=== PATIENT | male | born 1950 | race Caucasian/White ===

== ENCOUNTER 2020-07-14 08:13 | Outpatient (REF) | payer MEDICARE, SELFPAY ==
[2020-07-14 09:14] LABS: MANUAL DIFF FLAG NO
[2020-07-14 09:25] LABS: Basophils Percent Auto 0.4 % (0-2); Eosinophils Absolute Auto 0.2 X10*3/uL (0.0-0.4); Eosinophils Percent Auto 3.1 % (0-4); Hematocrit 45.3 % (42-52); Imm Gran Abs Auto 0.08 X10*3/uL (0.00-0.03); Imm Gran Pct Auto 1.2 % (0.0-0.4); Lymphocytes Absolute Auto 1.7 X10*3/uL (1.2-4.9); Lymphocytes Percent Auto 24.6 % (20-40); Mean Corpuscular HGB Conc 35.3 g/dl (31.0-36.0); Mean Corpuscular Hemoglobin 33.8 pg (27.0-33.0); Mean Corpuscular Volume 95.6 fL (80-98); Mean Platelet Volume 10.5 fL (9.4-12.4); Monocytes Absolute Auto 0.6 X10*3/uL (0.1-1.2); Neutrophils Absolute Auto 4.2 X10*3/uL (2.0-8.3); Neutrophils Percent Auto 61.7 % (45-73); Platelet Count 162 X10*3/uL (160-400); Red Blood Count 4.74 X10*6/uL (4.60-5.80); Red Cell Distribution Width 11.9 % (11.0-16.0); White Blood Count 6.9 X10*3/uL (4.8-10.8)
[2020-07-14 09:32] LABS: Alanine Aminotransferase 22 U/L (0-40); Alkaline Phosphatase 64 U/L (39-117); Anion Gap 10 (12-20); Aspartate Amino Transferase 22 U/L (5-37); Bilirubin Total 0.7 mg/dL (0.0-1.0); Blood Urea Nitrogen 22 mg/dL (9-16); Carbon Dioxide 30 mmol/L (22-29); Chloride 106 mmol/L (96-108); Cholesterol 174 mg/dL; Estimated Glomerular Filt Rate 53; Glucose Fasting 106 mg/dL (60-99); HDL Cholesterol 39 mg/dL; LDL Cholesterol Calculated 115 mg/dl; Magnesium 2.1 mg/dL (1.6-2.6); Phosphorus 3.3 mg/dL (2.7-4.5); Potassium 4.5 mmol/l (3.3-5.1); Sodium 141 mmol/L (135-145); Total Protein 6.5 g/dL (6.5-8.0); Triglycerides 104 mg/dL
[2020-07-14 09:52] LABS: T4 Thyroxine 6.2 ug/dL (4.5-12.0); Thyroid Stimulating Hormone 1.65 mIU/mL (0.32-4.0)
[2020-07-14 10:01] LABS: Folate 18.5 ng/mL (> or = 4.0); Vitamin B12 488 pg/mL (200-900)
== END 2020-07-14 08:14 | disposition home or self-care (01) ==
LOC: HO.LAB 08:13
PROVIDERS: PCP Internal Medicine; Visit Provider Internal Medicine
DX: D69.6 Thrombocytopenia, unspecified (principal); E78.00 Pure hypercholesterolemia, unspecified; E83.39 Other disorders of phosphorus metabolism
CPT/HCPCS: 36415; 80053; 80061; 82607; 82746; 83735; 84100; 84436; 84443; 85025

== ENCOUNTER → 2020-10-21 08:07 | Outpatient (REF) | payer MEDICARE, SELFPAY ==
--- NOTE | 2020-10-21 08:30 | CA_ITS ---
Transthoracic Echocardiogram Patient (Last, First, Middle): Elfego Roger F Gender: Male Date of : 1950 Age: 69 Procedure Date: 10/21/2020 Procedure Type: Transthoracic Echocardiogram Location: OP Height: 177.8 cm Weight: 79.38 kg BSA: 1.97 m2 Heart Rate: bpm BP: 142 / 80 mmHg Stone Unloader: JOLENE Referring MD: Zuhair Peguero MD Symptoms: I35.1 NON RHEUMATIC AORTIC REGUR, AAA I77.810 Conclusions: - The visually estimated ejection fraction is between 50-55%. - There is mild aortic valve regurgitation. Findings Left Ventricle Normal left ventricular cavity size. There is mildly increased left ventricular wall thickness. The left ventricular systolic function is low normal. The visually estimated ejection fraction is between 50-55%. There is no evidence of regional wall motion abnormalities. Abnormal diastolic function is noted. Spectral Doppler is indicative of an impaired relaxation filling pattern. E/E prime ratio is <8, consistent with normal filling pressures. Right Ventricle Normal right ventricular cavity size and systolic function. Atria Both atria are normal in size. There is no evidence of interatrial shunt by color Doppler. Aortic Valve There is a normal trileaflet aortic valve. There is no aortic valve stenosis. There is mild aortic valve regurgitation. Mitral Valve Normal mitral valve structure and function. There is no mitral valve regurgitation. There is no mitral valve stenosis. Pulmonic Valve The pulmonic valve is likely normal. Tricuspid Valve Normal tricuspid valve structure and function. There is trace tricuspid valve regurgitation. Great Vessels There is mild dilatation of the ascending aorta. The visualized portions of the pulmonary artery and branches are normal. Venous The inferior vena cava is normal in size and collapses greater than 50% with inspiration. Pericardium/Pleural There is no evidence of pericardial effusion. Prior Study Comparison No significant change compared to prior study dated: 07/29/2019. Measurements 2D Linear Measurements IVSd: 1.31 0.6-0.9/0.6-1.0 cm LVIDd: 4.31 3.9-5.3/4.2-5.9 cm LVIDd Index: 2.19 2.4-3.2/2.2-3.1 cm/m2 LVIDs: 3.07 2.0-3.6 cm LVPWd: 1.12 0.7-1.1 cm Ao Root: 2.80 2.1-3.5 cm LA Diam: 5.00 2.7-3.8/3.0-4.0 cm LAIDs Index: 2.54 1.5-2.3 cm/m2 LV Mass: 235.16 67-162/88-224 g LV Mass Index: 119.37 43-95/49-115 g/m2 LVOT Diam: 2.70 3.0+(-)1.3 cm 2D Systolic Function EF 4C: 54.10 >55% EF 2C: 63.30 >55% EF BiP: 58.00 >55% Mitral Valve MV Pk E: 0.39 MV PK A: 0.63 MV Decel Time: 231.00 E/A: 0.60 E'Lateral: 8.61 E'Medial: 5.51 E/E' Med: 7.10 E/E' Lat: 4.60 PHT: 68.00 MVA PHT: 3.24 Decel Pepin: 1.75 Aortic Valve AoV Pk Shiv: 1.15 AoV Pk Grad: 5.00 AI Pk Shiv: 3.91 AI Pepin: 1.63 LVOT LVOT Diam: 2.70 LVOT Area: 5.73 Diastolic Function MV Pk E: 0.39 MV Pk A: 0.63 E/A: 0.60 E'Medial: 5.51 E/E' Med: 7.10 E' Laterial: 8.61 E/E' Lat: 4.60 Tricuspid Valve TR Pk Shiv: 2.06 TR Pk Grad: 17.00 RA Press: 3.00 RVSP: 20.00 Great Vessels Aorta Ao Root-2D: 2.80 2.0-3.7 cm Ao Asc: 4.20 2.1-3.4 cm Updated in Other Vendor System with Status of Final Ciro Cardona MD electronically signed on 10/22/2020 9:48:51 PM with status of Final
== END ==
LOC: HO.CARD 08:07
PROVIDERS: Visit Provider Internal Medicine
DX: I35.1 Nonrheumatic aortic (valve) insufficiency (principal); I77.810 Thoracic aortic ectasia
CPT/HCPCS: 93306

== ENCOUNTER → 2020-10-27 08:05 | Outpatient (BNVA) | payer MEDICARE, SELFPAY | PROVIDERS: PCP Internal Medicine; Visit Provider Internal Medicine | DX: I35.1 Nonrheumatic aortic (valve) insufficiency (principal); I77.810 Thoracic aortic ectasia; I10 Essential (primary) hypertension | CPT/HCPCS: 93005; 99212 ==

== ENCOUNTER 2021-01-17 08:13 | Outpatient (REF) | payer MEDICARE, SELFPAY ==
[2021-01-17 09:03] LABS: Estimated Average Glucose 88 mg/dL; Hemoglobin A1c % 4.7 %
[2021-01-17 09:06] LABS: Alanine Aminotransferase 22 U/L (0-40); Albumin Level 4.1 g/dL (3.5-5.0); Alkaline Phosphatase 58 U/L (39-117); Anion Gap 10 (12-20); Aspartate Amino Transferase 21 U/L (5-37); Bilirubin Total 0.9 mg/dL (0.0-1.0); Blood Urea Nitrogen 21 mg/dL (9-16); Calcium 8.7 mg/dL (8.4-10.2); Carbon Dioxide 29 mmol/L (22-29); Chloride 108 mmol/L (96-108); Estimated Glomerular Filt Rate > 60; Glucose Random 105 mg/dL (60-115); Potassium 4.3 mmol/L (3.3-5.1); Sodium 143 mmol/L (135-145); Total Protein 6.7 g/dL (6.5-8.0)
== END 2021-01-17 08:14 | disposition home or self-care (01) ==
LOC: HO.LAB 08:13
PROVIDERS: PCP Internal Medicine; Visit Provider Internal Medicine
DX: I10 Essential (primary) hypertension (principal); R73.02 Impaired glucose tolerance (oral)
CPT/HCPCS: 36415; 80053; 83036

== ENCOUNTER 2021-01-24 09:17 | Outpatient (REF) | payer MEDICARE, SELFPAY ==
[2021-01-24 10:05] LABS: MANUAL DIFF FLAG NO
[2021-01-24 10:09] LABS: Basophils Percent Auto 0.5 % (0-2); Eosinophils Absolute Auto 0.2 X10*3/uL (0.0-0.4); Eosinophils Percent Auto 2.5 % (0-4); Hematocrit 45.2 % (42-52); Hemoglobin 15.9 g/dl (14.0-18.0); Imm Gran Abs Auto 0.03 X10*3/uL (0.00-0.03); Imm Gran Pct Auto 0.5 % (0.0-0.4); Immature Retic Fraction 11.5 % (2.3-13.4); Lymphocytes Absolute Auto 1.4 X10*3/uL (1.2-4.9); Lymphocytes Percent Auto 22.1 % (20-40); Mean Corpuscular HGB Conc 35.2 g/dl (31.0-36.0); Mean Corpuscular Hemoglobin 33.8 pg (27.0-33.0); Mean Corpuscular Volume 96.2 fL (80-98); Monocytes Absolute Auto 0.7 X10*3/uL (0.1-1.2); Monocytes Percent Auto 11.3 % (2-11); Neutrophils Absolute Auto 3.9 X10*3/uL (2.0-8.3); Neutrophils Percent Auto 63.1 % (45-73); Platelet Count 161 X10*3/uL (160-400); Red Cell Distribution Width 12.4 % (11.0-16.0); Retic HGB Equivalent 38.6 pg (30.0-35.0); Reticulocyte Percent 2.8 % (0.5-1.8); Reticulocytes Absolute 0.131 X10*6/uL (0.026-0.095); White Blood Count 6.1 X10*3/uL (4.8-10.8)
[2021-01-24 10:29] LABS: Iron 61 mcg/dL (45-160); Percent Iron Saturation 25 % (15-50); Total Iron Binding Capacity 244 mcg/dL (228-428); Unsaturated Iron Binding 183 ug/dL
[2021-01-24 10:55] LABS: Free T4 (Free Thyroxine) 0.85 ng/dL (0.71-1.85); Prostate Specific Antigen Scr 3.56 ng/mL (<0.05-4.0); Thyroid Stimulating Hormone 0.75 uIU/mL (0.32-4.0)
[2021-01-24 11:26] LABS: Ferritin 168 ng/mL (20-250)
[2021-01-24 11:55] LABS: Folate > 20.0 ng/mL (> or = 4.0); Vitamin B12 396 pg/mL (200-900)
== END 2021-01-24 09:18 | disposition home or self-care (01) ==
LOC: HO.LAB 09:17
PROVIDERS: PCP Internal Medicine; Visit Provider Internal Medicine
DX: R53.83 Other fatigue (principal); Z12.5 Encounter for screening for malignant neoplasm of prostate
CPT/HCPCS: 36415; 82607; 82728; 82746; 83540; 84153; 84439; 84443; 85025; 85045

== ENCOUNTER 2021-06-26 08:24 | Outpatient (REF) | payer MEDICARE, SELFPAY ==
[2021-06-26 09:11] LABS: MANUAL DIFF FLAG NO
[2021-06-26 09:14] LABS: Basophils Percent Auto 0.5 % (0-2); Eosinophils Absolute Auto 0.2 X10*3/uL (0.0-0.4); Eosinophils Percent Auto 3.6 % (0-4); Hematocrit 46.3 % (42-52); Hemoglobin 16.4 g/dl (14.0-18.0); Imm Gran Abs Auto 0.04 X10*3/uL (0.00-0.03); Imm Gran Pct Auto 0.7 % (0.0-0.4); Immature Retic Fraction 11.5 % (2.3-13.4); Lymphocytes Absolute Auto 1.8 X10*3/uL (1.2-4.9); Lymphocytes Percent Auto 30.7 % (20-40); Mean Corpuscular HGB Conc 35.4 g/dl (31.0-36.0); Mean Corpuscular Hemoglobin 33.6 pg (27.0-33.0); Mean Corpuscular Volume 94.9 fL (80-98); Mean Platelet Volume 10.2 fL (9.4-12.4); Monocytes Absolute Auto 0.5 X10*3/uL (0.1-1.2); Monocytes Percent Auto 9.2 % (2-11); Neutrophils Absolute Auto 3.2 X10*3/uL (2.0-8.3); Neutrophils Percent Auto 55.3 % (45-73); Platelet Count 144 X10*3/uL (160-400); Red Blood Count 4.88 X10*6/uL (4.60-5.80); Red Cell Distribution Width 12.8 % (11.0-16.0); Retic HGB Equivalent 36.8 pg (30.0-35.0); Reticulocytes Absolute 0.144 X10*6/uL (0.026-0.095); White Blood Count 5.8 X10*3/uL (4.8-10.8)
[2021-06-26 09:37] LABS: Alanine Aminotransferase 15 U/L (0-40); Albumin Level 4.2 g/dL (3.5-5.0); Alkaline Phosphatase 54 U/L (39-117); Anion Gap 13 (12-20); Aspartate Amino Transferase 22 U/L (5-37); Bilirubin Total 0.9 mg/dL (0.0-1.0); Blood Urea Nitrogen 22 mg/dL (9-16); Calcium 9.2 mg/dL (8.4-10.2); Carbon Dioxide 26 mmol/L (22-29); Chloride 108 mmol/L (96-108); Cholesterol 198 mg/dL; Estimated Glomerular Filt Rate 52; Glucose Random 97 mg/dL (60-115); HDL Cholesterol 45 mg/dL; Iron 123 mcg/dL (45-160); LDL Cholesterol Calculated 125 mg/dl; Percent Iron Saturation 51 % (15-50); Potassium 4.3 mmol/L (3.3-5.1); Sodium 143 mmol/L (135-145); Total Iron Binding Capacity 241 mcg/dL (228-428); Total Protein 6.4 g/dL (6.5-8.0); Triglycerides 140 mg/dL; Unsaturated Iron Binding 118 ug/dL
[2021-06-26 09:49] LABS: Estimated Average Glucose 88 mg/dL; Hemoglobin A1c % 4.7 %
[2021-06-26 10:02] LABS: Ferritin 118 ng/mL (20-250); Free T4 (Free Thyroxine) 0.97 ng/dL (0.71-1.85); Thyroid Stimulating Hormone 1.42 uIU/mL (0.32-4.0)
[2021-06-26 10:24] LABS: Folate 19.5 ng/mL (> or = 4.0); Vitamin B12 378 pg/mL (200-900)
== END 2021-06-26 08:25 | disposition home or self-care (01) ==
LOC: HO.LAB 08:24
PROVIDERS: PCP Internal Medicine; Visit Provider Internal Medicine
DX: R73.02 Impaired glucose tolerance (oral) (principal); E78.00 Pure hypercholesterolemia, unspecified; R79.89 Other specified abnormal findings of blood chemistry
CPT/HCPCS: 36415; 80053; 80061; 82607; 82728; 82746; 83036; 83540; 84439; 84443; 85025; 85045

== ENCOUNTER → 2021-12-11 08:25 | Outpatient (REF) | payer MEDICARE, SELFPAY ==
--- NOTE | 2021-12-11 08:28 | CA_ITS ---
Transthoracic Echocardiogram Patient (Last, First, Middle): Elfego Roger F Gender: Male Date of : 1950 Age: 71 Procedure Date: 12/11/2021 Procedure Type: Transthoracic Echocardiogram Location: OP Height: 177.8 cm Weight: 78.02 kg BSA: 1.96 m2 Heart Rate: bpm BP: 118 / 60 mmHg Lost And Found Clerk: Referring MD: Zuhair Peguero MD Symptoms: I35.1 - Nonrheumatic aortic (valve) insufficiency Study Quality: Fair ECG Rhythm: Sinus Conclusions: - The left ventricular systolic function is normal. The calculated ejection fraction is 57% by biplane method. - There is mild aortic valve regurgitation. - There is no dilatation of the sinuses of Valsalva measuring 3.60 cm and mild dilatation of the ascending aorta measuring 4.20 cm. Findings Left Ventricle Normal left ventricular cavity size. There is mildly increased left ventricular wall thickness. The left ventricular systolic function is normal. The calculated ejection fraction is 57% by biplane method. There is no evidence of regional wall motion abnormalities. Diastolic function is normal for age. Right Ventricle Normal right ventricular cavity size and systolic function. Atria Both atria are normal in size. Aortic Valve There is a normal trileaflet aortic valve. There is no aortic valve stenosis. There is mild aortic valve regurgitation. Mitral Valve The mitral valve appears normal. There is trace mitral valve regurgitation. There is no mitral valve stenosis. Pulmonic Valve The pulmonic valve was not well visualized. Tricuspid Valve Normal tricuspid valve structure. There is trace tricuspid valve regurgitation. The pulmonary artery systolic pressure is normal. Great Vessels There is no dilatation of the sinuses of Valsalva measuring 3.60 cm and mild dilatation of the ascending aorta measuring 4.20 cm. Venous The inferior vena cava is normal in size and collapses greater than 50% with inspiration. Pericardium/Pleural There is no evidence of pericardial effusion. Prior Study Comparison No significant change compared to prior study dated: 10/21/2020. Measurements 2D Linear Measurements IVSd: 1.23 0.6-0.9/0.6-1.0 cm LVIDd: 4.84 3.9-5.3/4.2-5.9 cm LVIDd Index: 2.47 2.4-3.2/2.2-3.1 cm/m2 LVIDs: 2.85 2.0-3.6 cm LVPWd: 1.24 0.7-1.1 cm Ao Root: 3.60 2.1-3.5 cm LA Diam: 4.90 2.7-3.8/3.0-4.0 cm LAIDs Index: 2.50 1.5-2.3 cm/m2 LV Mass: 288.33 67-162/88-224 g LV Mass Index: 147.11 43-95/49-115 g/m2 LVOT Diam: 2.50 3.0+(-)1.3 cm 2D Systolic Function EF 4C: 57.40 >55% EF 2C: 56.60 >55% EF BiP: 56.60 >55% Mitral Valve MV Pk E: 0.54 MV PK A: 0.75 MV Decel Time: 188.00 E/A: 0.70 E'Lateral: 9.03 E'Medial: 6.09 E/E' Med: 8.90 E/E' Lat: 6.00 PHT: 55.00 MVA PHT: 4.00 Decel [place]: 2.87 Aortic Valve AoV Pk Shiv: 1.39 AoV Mn Shiv: 0.95 AoV VTI: 0.33 AoV Pk Grad: 8.00 Aov Mn Grad: 4.00 MENDEZ Cont.VTI: 3.08 AI Pk Shiv: 4.94 AI [place]: 3.50 LVOT LVOT Pk Shiv: 0.80 LVOT Mn Shiv: 0.54 LVOT VTI: 0.21 LVOT Pk Grad: 3.00 LVOT Mn Grad: 1.00 LVOT Diam: 2.50 LVOT Area: 4.91 Diastolic Function MV Pk E: 0.54 MV Pk A: 0.75 E/A: 0.70 E'Medial: 6.09 E/E' Med: 8.90 E' Laterial: 9.03 E/E' Lat: 6.00 Right Ventricle TAPSE (mm): 31.00 Tricuspid Valve TR Pk Shiv: 1.51 TR Pk Grad: 9.00 Great Vessels Aorta Ao Root-2D: 3.60 2.0-3.7 cm Sinus of Valsalva: 3.60 2.0-3.5 cm Ao Asc: 4.20 2.1-3.4 cm Pulmonary Valve PV Pk Shiv: 1.04 Peak PV Grad: 4.00 Updated in Other Vendor System with Status of Final Zuhair Peguero MD electronically signed on 12/11/2021 12:00:45 PM with status of Final
== END ==
LOC: HO.CARD 08:25
PROVIDERS: PCP Internal Medicine; Visit Provider Internal Medicine
DX: I35.1 Nonrheumatic aortic (valve) insufficiency (principal)
CPT/HCPCS: 93306

== ENCOUNTER 2021-12-21 07:43 | Outpatient (REF) | payer MEDICARE, SELFPAY ==
[2021-12-21 07:59] LABS: MANUAL DIFF FLAG NO
[2021-12-21 08:06] LABS: Basophils Percent Auto 0.7 % (0-2); Eosinophils Absolute Auto 0.2 X10*3/uL (0.0-0.4); Eosinophils Percent Auto 3.5 % (0-4); Hematocrit 49.1 % (42.0-52.0); Hemoglobin 17.2 g/dl (14.0-18.0); Imm Gran Abs Auto 0.03 X10*3/uL (0.00-0.03); Imm Gran Pct Auto 0.5 % (0.0-0.4); Lymphocytes Absolute Auto 2.3 X10*3/uL (1.2-4.9); Lymphocytes Percent Auto 37.9 % (20-40); Mean Corpuscular Hemoglobin 33.3 pg (27.0-33.0); Mean Platelet Volume 10.2 fL (9.4-12.4); Monocytes Absolute Auto 0.6 X10*3/uL (0.1-1.2); Monocytes Percent Auto 9.1 % (2-11); Neutrophils Absolute Auto 2.9 x10*3/uL (2.0-8.3); Neutrophils Percent Auto 48.3 % (45-73); Platelet Count 147 X10*3/uL (160-400); Red Blood Count 5.17 X10*6/uL (4.60-5.80); Red Cell Distribution Width 12.3 % (11.0-16.0); White Blood Count 6.1 X10*3/uL (4.8-10.8)
[2021-12-21 08:38] LABS: Estimated Average Glucose 88 mg/dL; Hemoglobin A1c % 4.7 %
[2021-12-21 08:40] LABS: Alanine Aminotransferase 23 U/L (0-40); Albumin Level 4.3 g/dL (3.5-5.0); Alkaline Phosphatase 66 U/L (39-117); Anion Gap 13 (12-20); Aspartate Amino Transferase 28 U/L (5-37); Blood Urea Nitrogen 21 mg/dL (9-16); Calcium 9.6 mg/dL (8.4-10.2); Carbon Dioxide 29 mmol/L (22-29); Chloride 106 mmol/L (96-108); Cholesterol 214 mg/dL; Estimated Glomerular Filt Rate 48; Glucose Random 93 mg/dL (60-115); HDL Cholesterol 46 mg/dL; LDL Cholesterol Calculated 138 mg/dl; Potassium 5.2 mmol/L (3.3-5.1); Sodium 143 mmol/L (135-145); Total Protein 6.9 g/dL (6.5-8.0); Triglycerides 152 mg/dL
[2021-12-21 08:42] LABS: Erythrocyte Sedimentation Rate 3 MM/HR (0-15)
[2021-12-21 09:03] LABS: Free T4 (Free Thyroxine) 0.98 ng/dL (0.71-1.85); Thyroid Stimulating Hormone 1.53 uIU/mL (0.32-4.0)
[2021-12-21 09:47] LABS: Folate 18.9 ng/mL (> or = 4.0); Vitamin B12 405 pg/mL (200-900)
== END 2021-12-21 07:44 | disposition home or self-care (01) ==
LOC: HO.LAB 07:43
PROVIDERS: PCP Internal Medicine; Visit Provider Internal Medicine
DX: R53.82 Chronic fatigue, unspecified (principal); E78.00 Pure hypercholesterolemia, unspecified
CPT/HCPCS: 36415; 80053; 80061; 82607; 82746; 83036; 84439; 84443; 85025; 85652

== ENCOUNTER → 2021-12-26 12:33 | Outpatient (BNVA) | payer MEDICARE, SELFPAY | PROVIDERS: PCP Internal Medicine; Visit Provider Internal Medicine | DX: I35.1 Nonrheumatic aortic (valve) insufficiency (principal); I77.810 Thoracic aortic ectasia; I10 Essential (primary) hypertension | CPT/HCPCS: 93005; 99212 ==

== ENCOUNTER 2022-01-30 07:18 | Outpatient (REF) | payer MEDICARE, SELFPAY ==
[2022-01-30 08:45] LABS: Anion Gap 15 (12-20); Blood Urea Nitrogen 18 mg/dL (9-16); Calcium 9.4 mg/dL (8.4-10.2); Carbon Dioxide 25 mmol/L (22-29); Chloride 105 mmol/L (96-108); Estimated Glomerular Filt Rate > 60; Glucose Random 94 mg/dL (60-115); Potassium 4.5 mmol/L (3.3-5.1); Sodium 140 mmol/L (135-145)
[2022-01-30 09:10] LABS: Appearance Urine CLEAR; Color Urine YELLOW; Glucose Urine UA NEG (NEG); Leukocyte Esterase Urine NEG (NEG); Nitrite Urine NEG (NEG); Specific Gravity - Urine 1.015 (1.005-1.025); Urine Blood TRACE (NEG); Urine Ketones NEG (NEG); Urine Protein NEG (NEG-TRACE)
[2022-01-30 09:37] LABS: WBC Urine 0 /HPF (0-4)
[2022-01-30 09:38] LABS: Mucus Urine 2+ /LPF
== END 2022-01-30 07:19 | disposition home or self-care (01) ==
LOC: HO.LAB 07:18
PROVIDERS: PCP Internal Medicine; Visit Provider Internal Medicine
DX: N28.9 Disorder of kidney and ureter, unspecified (principal)
CPT/HCPCS: 36415; 80048; 81001

== ENCOUNTER 2022-05-22 08:56 | Day surgery (SDC) | payer MEDICARE, SELFPAY ==
[2022-05-16 13:32] VITALS: BMI 25.1
--- NOTE | 2022-05-21 09:17 | HO.ANESPROP2 ---
Documented by User: Fadumo Pérez NP 05/21/22 09:19 HPI - Anesthesia Eval Consult details Narrative: 71yo M for Colonoscopy PMFSH Active Problems Active Problems: All Active Problems (Updated 03/21/22 @ 09:40 by Cathryn Clark MD) Colon cancer screening (Acute) Colon cancer screening (Acute) Gastroesophageal reflux disease (Acute) Hypercholesterolemia (Acute) Impaired glucose tolerance (Acute) Non-rheumatic aortic regurgitation (Acute) Ascending aorta dilatation (Acute) Essential hypertension (Acute) Fatigue (Acute) Abnormal CBC (Acute) Desensitization to allergy shot (Acute) Adult general medical exam (Acute) Allergic dermatitis due to [place] (Acute) Subdural hematoma (Acute) Renal insufficiency (Acute) Past Medical History Medical History (Updated 05/22/22 @ 09:54 by Genny Mendieta MD) Ascending aorta dilatation Essential hypertension Gastroesophageal reflux disease Hypercholesterolemia Impaired glucose tolerance Non-rheumatic aortic regurgitation Parsonage-Guajardo syndrome Primary osteoarthritis of right knee Family History Family History Father No problems noted. Mother Colon cancer Surgical History Surgical History H/O arthroscopy of left knee H/O arthroscopy of right knee H/O right inguinal hernia repair History of colonoscopy Hx of ventral hernia repair Social History Social History (Updated 05/22/22 @ 09:55 by Genny Mendieta MD) Housing: House Are you a primary career development coordinator/teacher to a significant other at home: No Do you presently have visiting nurse or other home services: No Alcohol intake: current Alcohol intake frequency: other Alcohol type: wine Patient Tobacco Use Status: Never used Tobacco e-Cigarette/Vaping Use: Never Used Second Hand Smoke Exposure: No Use of substances other than those prescribed or required for medical reasons: No Substance Use Type Other:: wine with dinner Have you been hit, kicked, punched, or otherwise hurt by someone within the past year? If so, by whom?: No Are you DNR?: No Advance Directives: No Advance Directives Information Provided: Yes Advance Directives on File: No Recently lost weight without trying: No Eating poorly because of decreased appetite: No Nutrition Risks: No Nutritional Risk service: No Current occupational status: retired Cognitive needs: No Hearing needs: No Vision needs: Yes Meds Allergies Allergy/AdvReac Type Severity Reaction Status Date / Time No Known Allergies Allergy Verified 05/16/22 13:25 Home Medications Medication Instructions Recorded Confirmed Last Taken Type coenzyme Q10 75 mg capsule (Co 75 mg PO DAILY 07/19/20 05/16/22 Unknown History Q-10) loratadine 10 mg tablet (Claritin) 10 mg PO DAILY 07/19/20 05/16/22 Unknown History omeprazole magnesium 20 mg 20 mg PO DAILY 07/19/20 05/16/22 Unknown History tablet,delayed release (Prilosec OTC) omega 0-htw-lvp-fish oil 1,000 mg 1 cap PO DAILY 05/16/22 05/16/22 Unknown History (120 mg-180 mg) capsule (Fish Oil) Exam Exam Date and Time: May 21, 2022 0917 Height,Weight and Vital Signs: Height 5 ft 10 in Weight 79.379 kg Pertinent Lab Results Pertinent Lab Results: Laboratory Tests 12/21/21 01/30/22 07:50 07:34 WBC 6.1 Hgb 17.2 Hct 49.1 Plt Count 147 L Sodium 140 Potassium 4.5 Chloride 105 Carbon Dioxide 25 BUN 18 H Creatinine 1.10 Narrative Narrative: EKG 12/2021 sinus rhythm at 75/Min; no significant ST-T changes; leftward axis ECHO 11/2021 Conclusions: - The left ventricular systolic function is normal.? The ? calculated ejection fraction is 57% by biplane method. ? - There is mild aortic valve regurgitation.? - There is no dilatation of the sinuses of Valsalva measuring? ? 3.60 cm and mild dilatation of the ascending aorta measuring 4.20 cm.? Assessment and Plan Assessment Anesthesia Assessment: Chart Reviewed Documented by User: Genny Mendieta MD 05/22/22 09:59 [facility] Past Medical History Medical History (Updated 05/22/22 @ 09:54 by Genny Mendieta MD) Ascending aorta dilatation Essential hypertension Gastroesophageal reflux disease Hypercholesterolemia Impaired glucose tolerance Non-rheumatic aortic regurgitation Parsonage-Guajardo syndrome Primary osteoarthritis of right knee Family History Family History Father No problems noted. Mother Colon cancer Family history of problems with anesthesia: No Surgical History Surgical History H/O arthroscopy of left knee H/O arthroscopy of right knee H/O right inguinal hernia repair History of colonoscopy Hx of ventral hernia repair History of Problems with Anesthesia: No Social History Social History (Updated 05/22/22 @ 09:55 by Genny Mendieta MD) Housing: House Are you a primary career development coordinator/teacher to a significant other at home: No Do you presently have visiting nurse or other home services: No Alcohol intake: current Alcohol intake frequency: other Alcohol type: wine Patient Tobacco Use Status: Never used Tobacco e-Cigarette/Vaping Use: Never Used Second Hand Smoke Exposure: No Use of substances other than those prescribed or required for medical reasons: No Substance Use Type Other:: wine with dinner Have you been hit, kicked, punched, or otherwise hurt by someone within the past year? If so, by whom?: No Are you DNR?: No Advance Directives: No Advance Directives Information Provided: Yes Advance Directives on File: No Recently lost weight without trying: No Eating poorly because of decreased appetite: No Nutrition Risks: No Nutritional Risk service: No Current occupational status: retired Cognitive needs: No Hearing needs: No Vision needs: Yes Meds Allergies Allergy/AdvReac Type Severity Reaction Status Date / Time No Known Allergies Allergy Verified 05/16/22 13:25 Active Medications: Patient states not taking any medication except occasional anti-histamine Home Medications Medication Instructions Recorded Confirmed Last Taken Type coenzyme Q10 75 mg capsule (Co 75 mg PO DAILY 07/19/20 05/16/22 Unknown History Q-10) loratadine 10 mg tablet (Claritin) 10 mg PO DAILY 07/19/20 05/16/22 Unknown History omeprazole magnesium 20 mg 20 mg PO DAILY 07/19/20 05/16/22 Unknown History tablet,delayed release (Prilosec OTC) omega 9-alj-odg-fish oil 1,000 mg 1 cap PO DAILY 05/16/22 05/16/22 Unknown History (120 mg-180 mg) capsule (Fish Oil) Exam Height,Weight and Vital Signs: Height 5 ft 10 in Weight 79.379 kg Vital Signs Temp Pulse Resp BP Pulse Ox O2 Del Method 05/22/22 09:29 97.8 F 68 16 146/88 H 97 Room Air Airway Mallampati Class: II TM Dist: >3cm Neck ROM: Full Loose/Missing/Broken Teeth: No (Patient denies loose or broken teeth) Heart: RRR ?murmur Lungs: CTAB Assessment and Plan Final Anesthetic Review Family History of Problems with Anesthesia: No History of Problems with Anesthesia: No NPO: Yes ASA Class: III Final Preanesthetic Review: No Changes in Pt Med Stat, Meds/Allgs Chart Reviewed, Consent Obtained/Reviewed and Anes Risks/Benef Reviewed Patient Risk: Intermediate Procedure Risk: Low Assessment/Block/Sedation in SS: Assess/Block/Sedation-SS Anesthetic Plan Anesthetic Plan: MAC: Disposition: Standard PACU
[2022-05-22 09:29] VITALS: BP 146/88; PULSE 68; RESP 16; TEMP 36.6; O2SAT 97
[2022-05-22] MEDS: Lactated Ringers 1,000 ML 50 ML IVCONT (09:35)
--- NOTE | 2022-05-22 09:50 | MHC.SHP ---
Pre-Procedural Eval Section A Date of Service: 05/22/22 Section B Chief Complaint: screening Details of Present Illness: see h&p no changes Relevant Family History (Specify if Yes): No Relevant Social History: None Present Medications: see Short Stay Collaborative assessment Medical History: No relevant PMH History of Previous Operations: No relevant previous surgery Allergies: Allergies Allergy/AdvReac Type Severity Reaction Status Date / Time No Known Allergies Allergy Verified 05/16/22 13:25 Review of Systems Sugical H&P ROS: Negative: Constitution, Cardiovascular, Respiratory, Neurological, Psychiatric, Hem-Onc, Allergic/Immunologic, Gastrointestinal, Genitourinary, Musculoskeletal, Integumentary, Endocrine and Eyes/Ears/Nose/Throat Exam Surgical H&P Exam: Normal: HEENT, Normal: Heart, Normal: Lungs, Normal: Extremities, Normal: Abdomen, Normal: Skin and Normal: Neurological Plan I have reviewed the history and physical and performed a pertinent physical examination on my patient. No changes have occurred unless specified.
--- NOTE | 2022-05-22 10:25 | P.BOP_ITS ---
Brief Operative Note Date of Service: 05/22/22 Pre-op diagnosis: screening Post-op diagnosis: same Procedure: colonosccpy Surgeon: Drew Manrique Anesthesia: MAC Was an Warehouse Attendant used for this Procedure?: No Estimated blood loss (mL): 2 Pathology: other Condition: stable Disposition: PACU
[2022-05-22 10:27] VITALS: BP 116/65; PULSE 62; RESP 16; TEMP 36.1; O2SAT 97
[2022-05-22 10:42] VITALS: BP 132/78; PULSE 63; RESP 16; O2SAT 99
[2022-05-22 10:57] VITALS: BP 135/82; PULSE 65; RESP 16; TEMP 36.3; O2SAT 99
--- NOTE | 2022-05-22 21:53 | OP_ITS ---
SURGEON: Drew Manrique MD INDICATIONS: Colon cancer screening and prior history of colon polyps. PREOPERATIVE DIAGNOSIS: POSTOPERATIVE DIAGNOSIS: PROCEDURE PERFORMED: ESTIMATED BLOOD LOSS: COMPLICATIONS: ANESTHESIA: ASSISTANTS: SPECIMENS: PROCEDURE: Colonoscopy to the terminal ileum with snare polypectomy. MEDICATIONS: Monitored anesthesia care. DESCRIPTION OF PROCEDURE: History and physical performed. The risks and benefits of the procedure were explained to the patient. Informed consent was obtained. The patient was placed in left lateral decubitus position. A digital rectal exam was performed and was found to be normal. The Olympus pediatric video colonoscope was introduced into the rectum and advanced to the cecum without difficulty. The cecum was identified by transillumination, palpation, and identification of ileocecal valve. Examination was performed. The scope was removed. He tolerated the procedure well and was transferred to recovery area in stable condition. FINDINGS: The terminal ileum was examined and appeared normal. The visualized colonic mucosa was normal. Two polyps were identified and removed with a snare. The first was located in the cecum, measuring approximately 8 x 10 mm. This was piecemeal, snared for suction into the colonoscope. The second was located at 80 cm and measured approximately 8 mm. This was snared and recovered by suction. No other polyps were identified. There was sigmoid diverticulosis with scattered diverticula throughout the remainder of the colon. Retroflexed examination showed small internal hemorrhoids. IMPRESSION: Colon polyps. RECOMMENDATIONS: Follow up the biopsy results. MD SUBHASH Lowe/BENSON / [id number]
== END 2022-05-22 11:34 | disposition home or self-care (01) ==
PROVIDERS: PCP Internal Medicine; Visit Provider Internal Medicine Gastroenterology
PROC: 0DJD8ZZ Inspection of Lower Intestinal Tract, Via Natural or Artificial Opening Endoscopic (ICD-10-PCS; CPT 45378; principal; 2022-05-22 10:10)
DX: Z12.11 Encounter for screening for malignant neoplasm of colon (principal); Z86.010 Personal history of colon polyps; D12.0 Benign neoplasm of cecum; D12.4 Benign neoplasm of descending colon; K57.30 Diverticulosis of large intestine without perforation or abscess without bleeding; K64.8 Other hemorrhoids; K21.9 Gastro-esophageal reflux disease without esophagitis; I10 Essential (primary) hypertension; I35.1 Nonrheumatic aortic (valve) insufficiency; Z79.899 Other long term (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
CPT/HCPCS: 45385; 88305

== ENCOUNTER 2022-09-13 08:18 | Outpatient (REF) | payer MEDICARE, SELFPAY ==
[2022-09-13 08:40] LABS: MANUAL DIFF FLAG NO
[2022-09-13 08:56] LABS: Basophils Percent Auto 0.5 % (0-2); Eosinophils Absolute Auto 0.2 X10*3/uL (0.0-0.4); Eosinophils Percent Auto 3.4 % (0-4); Imm Gran Abs Auto 0.03 X10*3/uL (0.00-0.03); Imm Gran Pct Auto 0.5 % (0.0-0.4); Lymphocytes Absolute Auto 1.5 X10*3/uL (1.2-4.9); Lymphocytes Percent Auto 26.4 % (20-40); Mean Corpuscular HGB Conc 35.4 g/dl (31.0-36.0); Mean Corpuscular Hemoglobin 33.5 pg (27.0-33.0); Mean Corpuscular Volume 94.7 fL (80.0-98.0); Mean Platelet Volume 9.9 fL (9.4-12.4); Monocytes Absolute Auto 0.5 X10*3/uL (0.1-1.2); Neutrophils Absolute Auto 3.4 x10*3/uL (2.0-8.3); Neutrophils Percent Auto 60.2 % (45-73); Platelet Count 145 X10*3/uL (160-400); Red Blood Count 5.07 X10*6/uL (4.60-5.80); Red Cell Distribution Width 12.4 % (11.0-16.0); White Blood Count 5.6 X10*3/uL (4.8-10.8)
[2022-09-13 09:42] LABS: Alanine Aminotransferase 15 U/L (0-40); Albumin Level 4.2 g/dL (3.5-5.0); Alkaline Phosphatase 58 U/L (39-117); Aspartate Amino Transferase 18 U/L (5-37); Bilirubin Total 1.6 mg/dL (0.0-1.0); Blood Urea Nitrogen 17 mg/dL (9-16); Calcium 9.8 mg/dL (8.4-10.2); Cholesterol 232 mg/dL; Estimated Glomerular Filt Rate 59; Free T4 (Free Thyroxine) 1.04 ng/dL (0.71-1.85); Glucose Random 107 mg/dL (60-115); HDL Cholesterol 50 mg/dL; LDL Cholesterol Calculated 157 mg/dl; Total Protein 6.8 g/dL (6.5-8.0); Triglycerides 129 mg/dL
[2022-09-13 09:49] LABS: Vitamin B12 294 pg/mL (200-900)
[2022-09-13 09:53] LABS: Anion Gap 15 (12-20); Carbon Dioxide 27 mmol/L (22-29); Chloride 105 mmol/L (96-108); Potassium 5.4 mmol/L (3.3-5.1); Sodium 142 mmol/L (135-145)
[2022-09-13 11:38] LABS: Appearance Urine Clear; Color Urine Yellow; Glucose Urine UA Negative (Negative); Leukocyte Esterase Urine Negative (Negative); Nitrite Urine Negative (Negative); Urine Blood Negative (Negative); Urine Ketones Negative (Negative); Urine Protein Negative (Neg-Trace)
[2022-09-13 11:46] LABS: Bacteria Urine None Seen (None Seen); Hyaline Casts Urine 0-2 /LPF (0-2); RBC Urine 0-2 /HPF (0-2); Squamous Epithelial Cell Urine 0-2 /HPF (0-2); WBC Urine 0-5 /HPF (0-5)
== END 2022-09-13 08:19 | disposition home or self-care (01) ==
LOC: HO.LAB 08:18
PROVIDERS: PCP Internal Medicine; Visit Provider Internal Medicine
DX: K21.9 Gastro-esophageal reflux disease without esophagitis (principal); I10 Essential (primary) hypertension; E78.00 Pure hypercholesterolemia, unspecified; Z12.5 Encounter for screening for malignant neoplasm of prostate
CPT/HCPCS: 36415; 80053; 80061; 81001; 82607; 82746; 84439; 84443; 85025

== ENCOUNTER → 2022-10-25 09:59 | Outpatient (REF) | payer MEDICARE, SELFPAY ==
--- NOTE | 2022-10-25 10:01 | CA_ITS ---
Transthoracic Echocardiogram Amended Patient (Last, First, Middle): Elfego Roger F Gender: Male Date of : 1950 Age: 72 Procedure Date: 10/25/2022 Procedure Type: Transthoracic Echocardiogram Location: OP Height: 177.8 cm Weight: 78.47 kg BSA: 1.96 m2 Heart Rate: 66 bpm BP: 136 / 78 mmHg Crop Nutrition Scientist: IONA Referring MD: Zuhair Peguero MD Dobby Looms Pegger: Feliciano Estrada MD Symptoms: I77.810 - Thoracic aortic ectasia Study Quality: Adequate ECG Rhythm: Sinus Conclusions: - 1. Normal LV systolic function with LVEF of 60 65% with grade 1 diastolic dysfunction 2. Mild aortic regurgitation 3. Mildly dilated ascending aorta at 4.4 cm 4. Normal RV systolic pressure 5. No pericardial effusion Findings Left Ventricle Normal left ventricular size, thickness, and systolic function. The visually estimated ejection fraction is between 60-65%. Spectral Doppler is indicative of an impaired relaxation filling pattern. E/E prime ratio is <8, consistent with normal filling pressures. Evidence suggests grade I (mild) diastolic dysfunction. Peak GLS is -15.9% which is reduced. Right Ventricle Normal right ventricular cavity size and systolic function. Atria The left atrium is normal in size. There is no evidence of interatrial shunt. The right atrium is normal in size. Aortic Valve There is mild calcification of the aortic valve. There is no aortic valve stenosis. There is mild aortic valve regurgitation. Mitral Valve Normal mitral valve structure and function. There is trace mitral valve regurgitation. There is no mitral valve stenosis. Pulmonic Valve The pulmonic valve is likely normal. Tricuspid Valve Normal tricuspid valve structure. There is trace tricuspid valve regurgitation. The right ventricular systolic pressure is normal. The right ventricular systolic pressure is 20 mmHg. Normal right atrial pressure. There is no evidence of pulmonary hypertension. Great Vessels The pulmonary artery was not well visualized. There is mild dilatation of the ascending aorta measuring 4.40 cm. Venous The inferior vena cava is normal in size and collapses greater than 50% with inspiration. Pericardium/Pleural There is no evidence of pericardial effusion. Prior Study Comparison Changes noted compared to prior study dated: 12/11/2021. Ascending aorta is further mildly dilated to 4.4 cm Measurements 2D Linear Measurements IVSd: 1.35 0.6-0.9/0.6-1.0 cm LVIDd: 5.35 3.9-5.3/4.2-5.9 cm LVIDd Index: 2.73 2.4-3.2/2.2-3.1 cm/m2 LVIDs: 3.21 2.0-3.6 cm LVPWd: 0.57 0.7-1.1 cm LA Diam: 4.60 2.7-3.8/3.0-4.0 cm LAIDs Index: 2.35 1.5-2.3 cm/m2 LV Mass: 240.85 67-162/88-224 g LV Mass Index: 122.88 43-95/49-115 g/m2 LVOT Diam: 2.50 3.0+(-)1.3 cm 2D Volumes LA Vol: 25.90 2D Systolic Function EF 4C: 55.10 >55% EF 2C: 65.80 >55% EF BiP: 61.00 >55% Mitral Valve MV Pk E: 0.55 MV PK A: 0.66 MV Decel Time: 370.00 E/A: 0.80 E'Lateral: 7.95 E'Medial: 5.03 E/E' Med: 10.90 E/E' Lat: 6.90 PHT: 108.00 MVA PHT: 2.04 Decel [place]: 1.48 Aortic Valve AoV Pk Shiv: 1.31 AoV Mn Shiv: 0.97 AoV VTI: 0.27 AoV Pk Grad: 7.00 Aov Mn Grad: 4.00 MENDEZ Cont.VTI: 3.48 AI Pk Shiv: 4.62 AI VTI: 2.03 AI [place]: 3.18 LVOT LVOT Pk Shiv: 0.91 LVOT Mn Shiv: 0.62 LVOT VTI: 0.19 LVOT Pk Grad: 3.00 LVOT Mn Grad: 2.00 LVOT Diam: 2.50 LVOT Area: 4.91 Diastolic Function MV Pk E: 0.55 MV Pk A: 0.66 E/A: 0.80 E'Medial: 5.03 E/E' Med: 10.90 E' Laterial: 7.95 E/E' Lat: 6.90 Right Ventricle TAPSE (mm): 21.90 TVS' Shiv: 16.40 Tricuspid Valve TR Pk Shiv: 2.06 TR Pk Grad: 17.00 RA Press: 3.00 RVSP: 20.00 Great Vessels Aorta Sinus of Valsalva: 3.80 2.0-3.5 cm Ao Asc: 4.40 2.1-3.4 cm Ao Arch: 3.30 Pulmonary Valve PV Pk Shiv: 0.85 Peak PV Grad: 3.00 Updated in Other Vendor System with Status of Final Feliciano Estrada MD electronically signed on 10/25/2022 4:34:56 PM with status of Final
== END ==
LOC: HO.CARD 09:59
PROVIDERS: Visit Provider Internal Medicine
DX: I77.810 Thoracic aortic ectasia (principal)
CPT/HCPCS: 93306; 93356

== ENCOUNTER 2023-01-03 08:01 | Outpatient (REF) | payer MEDICARE, SELFPAY ==
[2023-01-03 08:57] LABS: Estimated Average Glucose 94 mg/dL; Hemoglobin A1c % 4.9 %
[2023-01-03 09:15] LABS: Alanine Aminotransferase 18 U/L (0-40); Albumin Level 4.3 g/dL (3.5-5.0); Alkaline Phosphatase 60 U/L (39-117); Anion Gap 14 (12-20); Aspartate Amino Transferase 21 U/L (5-37); Bilirubin Total 1.3 mg/dL (0.0-1.0); Blood Urea Nitrogen 17 mg/dL (9-16); C Reactive Protein < 0.10 mg/dL (< or = 0.50); Calcium 9.4 mg/dL (8.4-10.2); Carbon Dioxide 27 mmol/L (22-29); Chloride 108 mmol/L (96-108); Cholesterol 211 mg/dL; Estimated Glomerular Filt Rate 54; Glucose Random 96 mg/dL (60-115); HDL Cholesterol 45 mg/dL; LDL Cholesterol Calculated 138 mg/dl; Phosphorus 3.4 mg/dL (2.7-4.5); Potassium 5.2 mmol/L (3.3-5.1); Sodium 144 mmol/L (135-145); Total Protein 6.8 g/dL (6.5-8.0); Triglycerides 144 mg/dL
[2023-01-03 09:25] LABS: Erythrocyte Sedimentation Rate 3 MM/HR (0-15)
[2023-01-03 09:29] LABS: Prostate Specific Antigen 1.62 ng/mL (<0.05-4.0)
== END 2023-01-03 08:02 | disposition home or self-care (01) ==
LOC: HO.LAB 08:01
PROVIDERS: Absent Provider Nurse Practitioner Family; PCP Internal Medicine; Visit Provider Internal Medicine
DX: Z12.5 Encounter for screening for malignant neoplasm of prostate (principal); E78.00 Pure hypercholesterolemia, unspecified; R29.898 Other symptoms and signs involving the musculoskeletal system; I10 Essential (primary) hypertension; R73.02 Impaired glucose tolerance (oral)
CPT/HCPCS: 36415; 80053; 80061; 83036; 83735; 84100; 84153; 85652; 86140

== ENCOUNTER → 2023-02-05 09:35 | Outpatient (BNVA) | payer MEDICARE, SELFPAY | PROVIDERS: PCP Internal Medicine; Referring Provider Internal Medicine; Visit Provider Internal Medicine | DX: I44.4 Left anterior fascicular block (principal); I10 Essential (primary) hypertension; I35.1 Nonrheumatic aortic (valve) insufficiency; I77.810 Thoracic aortic ectasia; E78.00 Pure hypercholesterolemia, unspecified; G54.5 Neuralgic amyotrophy | CPT/HCPCS: 93005; 99212 ==

== ENCOUNTER 2023-07-04 08:05 | Outpatient (REF) | payer MEDICARE, SELFPAY ==
[2023-07-04 08:25] LABS: MANUAL DIFF FLAG NO
[2023-07-04 09:12] LABS: Basophils Percent Auto 0.6 % (0-2); Eosinophils Absolute Auto 0.2 X10*3/uL (0.0-0.4); Eosinophils Percent Auto 3.3 % (0-4); Hematocrit 45.2 % (42.0-52.0); Hemoglobin 15.9 g/dl (14.0-18.0); Imm Gran Abs Auto 0.05 X10*3/uL (0.00-0.03); Imm Gran Pct Auto 0.7 % (0.0-0.4); Lymphocytes Absolute Auto 1.7 X10*3/uL (1.2-4.9); Lymphocytes Percent Auto 23.8 % (20-40); Mean Corpuscular HGB Conc 35.2 g/dl (31.0-36.0); Mean Corpuscular Hemoglobin 32.9 pg (27.0-33.0); Mean Corpuscular Volume 93.6 fL (80.0-98.0); Monocytes Absolute Auto 0.7 X10*3/uL (0.1-1.2); Monocytes Percent Auto 9.8 % (2-11); Neutrophils Absolute Auto 4.3 x10*3/uL (2.0-8.3); Neutrophils Percent Auto 61.8 % (45-73); Platelet Count 180 X10*3/uL (160-400); Red Blood Count 4.83 X10*6/uL (4.60-5.80); White Blood Count 6.9 X10*3/uL (4.8-10.8)
[2023-07-04 09:44] LABS: Alanine Aminotransferase 14 U/L (0-40); Albumin Level 3.8 g/dL (3.5-5.0); Alkaline Phosphatase 58 U/L (39-117); Anion Gap 14 (12-20); Aspartate Amino Transferase 18 U/L (5-37); Bilirubin Total 0.8 mg/dL (0.0-1.0); Blood Urea Nitrogen 19 mg/dL (9-16); C Reactive Protein 0.14 mg/dL (< or = 0.50); Calcium 9.1 mg/dL (8.4-10.2); Carbon Dioxide 25 mmol/L (22-29); Chloride 109 mmol/L (96-108); Cholesterol 172 mg/dL (<200); Estimated Glomerular Filt Rate > 60; Glucose Random 99 mg/dL (60-115); HDL Cholesterol 36 mg/dL (>40); LDL Cholesterol Calculated 117 mg/dL (<100); Potassium 4.5 mmol/L (3.3-5.1); Sodium 143 mmol/L (135-145); Total Protein 6.5 g/dL (6.5-8.0); Triglycerides 98 mg/dL (<150)
[2023-07-04 10:05] LABS: Ferritin 250 ng/mL (20-250); Free T4 (Free Thyroxine) 0.91 ng/dL (0.71-1.85); Thyroid Stimulating Hormone 1.33 uIU/mL (0.32-4.0)
[2023-07-04 10:22] LABS: Folate 7.9 ng/mL (> or = 4.0); Prostate Specific Antigen Scr 3.44 ng/mL (<0.05-4.0); Vitamin B12 388 pg/mL (200-900)
[2023-07-08 19:33] LABS: Homocysteine 16.9 umol/L (<11.4)
== END 2023-07-04 08:06 | disposition home or self-care (01) ==
LOC: HO.LAB 08:05
PROVIDERS: PCP Internal Medicine; Visit Provider Internal Medicine
DX: R29.898 Other symptoms and signs involving the musculoskeletal system (principal); E78.00 Pure hypercholesterolemia, unspecified; Z12.5 Encounter for screening for malignant neoplasm of prostate; D69.6 Thrombocytopenia, unspecified
CPT/HCPCS: 36415; 80053; 80061; 82607; 82728; 82746; 83090; 84153; 84439; 84443; 85025; 86140

== ENCOUNTER 2023-07-10 08:18 | Outpatient (AMB) | payer MEDICARE, SELFPAY ==
[2023-07-10 08:21] VITALS: BP 138/72; PULSE 78; O2SAT 98; BMI 24.8
--- NOTE | 2023-07-10 08:21 | A.OFFPC_ITS ---
Vital Signs 07/10/23 08:21 Height 5 ft 10 in Weight 173 lb BMI 24.8 BP 138/72 Blood Pressure Location Lt brachial Position Sitting Pulse 78 Pulse Source Pulse Oximeter Pulse Oximetry (%) 98 Oxygen Delivery Method Room Air Intake Visit Reasons: 6 month f/u Allergies No Known Allergies Allergy (Verified 07/10/23 08:21) Tobacco use date assessed: 01/10/23 Fall risk assessment: No Falls in past year Last assessed Fall Risk: 07/10/23 Dental Screening Dental Screen Date: 07/10/23 Did you have a dental visit in the last 12 months?: Yes Did you have a dental problem in the last 6 months where you did not have access to dental care?: No Was dental information given to patient?: Patient has dentist HPI 6 month f/u HPI Details 72-year-old male with hypercholesterolem ia impaired glucose tolerance GERD hypertension coming in for follow-up last seen in December patient also ascending aorta dilatation which is continued to be monitored. October 2022 was the last time patient is here for follow-up. Patient did see cardiology in January patient supposed to have another echocardiogram this month. And as for blood pressure continue to monitor. echo scheduled next week. 07/24/2023 [facility] Medical History (Updated 07/10/23 @ 08:39 by Cathryn Clark MD) Colon cancer screening Colon cancer screening Essential hypertension Ascending aorta dilatation Non-rheumatic aortic regurgitation Impaired glucose tolerance Primary osteoarthritis of right knee Parsonage-Guajardo syndrome Hypercholesterolemia Gastroesophageal reflux disease Surgical History H/O arthroscopy of left knee H/O arthroscopy of right knee H/O right inguinal hernia repair History of colonoscopy Hx of ventral hernia repair Family History Father No problems noted. Mother Colon cancer Social History (Updated 02/05/23 @ 09:53 by Suzette Alfonso) Housing: House Are you a primary career information specialist to a significant other at home: No Do you presently have visiting nurse or other home services: No Alcohol intake: current Alcohol intake frequency: 0-2 drinks per day Alcohol type: wine Patient Tobacco Use Status: Never used Tobacco e-Cigarette/Vaping Use: Never Used Second Hand Smoke Exposure: No service: No Current occupational status: retired Cognitive needs: No Hearing needs: No Vision needs: Yes Questionnaire PHQ-9 Over the last 2 weeks, how often have you been bothered by any of the following problems? 1. Little interest or pleasure in doing things: not at all 2. Feeling down, depressed, or hopeless: not at all 3. Trouble falling or staying asleep, or sleeping too much: more than half the days 4. Feeling tired or having little energy: several days 5. Poor appetite or overeating: not at all 6. Feeling bad about yourself - or that you are a failure or have let yourself or your family down: not at all 7. Trouble concentrating on things, such as reading the newspaper or watching television: not at all 8. Moving or speaking so slowly that other people could have noticed. Or the opposite - being so fidgety or restless that you have been moving around a lot more than usual: not at all 9. Thoughts that you would be better off or of hurting yourself in some way: not at all Total score: 3 Depression Screening Interpretation: Negative 21506 - PHQ-9 Billing: Yes Source: Developed by Drs. Peter Garcia, Annette Owens, Ruy Madrigal and colleagues, with an educational husam from [employer] ([employer] Thrive Questionnaire Date Thrive assessed: 01/10/23 AUDIT C Alcohol Use Questionnaire (AUDIT-C) 1. How often do you have a drink containing alcohol?: 2-3 times a week 2. How many drinks containing alcohol do you have on a typical day when you are drinking?: 1 or 2 3. How often do you have six or more drinks on one occasion?: Never Total Score: 3 Score Reviewed/Action Taken: Yes SYL-7 AMB Questionnaire SYL-7 Date SYL - 7 assessed: 01/10/23 Source: Developed by Drs. Peter Garcia, Annette Owens, Ruy Madrigal and colleagues, with an educational husam from [employer] ([employer]). Physical exam (Primary Care) Vital Signs: Last Vital Signs Pulse 78 07/10/23 08:21 BP 138/72 07/10/23 08:21 Pulse Ox 98 07/10/23 08:21 Oxygen Delivery Method Room Air 07/10/23 08:21 BMI result Body Mass Index 24.8 Tobacco/Smoking Status: Tobacco use Status Tobacco use date assessed 01/10/23 07/10/23 08:26 Patient Tobacco Use Status Never used Tobacco 07/10/23 08:26 e-Cigarette/Vaping Use Never Used 07/10/23 08:26 PHQ-9: PHQ-9 Score PHQ-9: Total score 3 07/10/23 08:26 Depression Screening Interpretation: Negative Thrive Assessment: Date of Thrive Assessment Date Thrive assessed 01/10/23 07/10/23 08:26 Const General: alert; No acute distress Eyes Conjunctivae: conjunctivae normal Resp Auscultation: clear to auscultation bilaterally Cardio Rate: regular rate Rhythm: regular rhythm GI Inspection: Yes normal to inspection Extrem General: Yes normal to inspection and No edema Assessment and Plan Assessment & Plan (1) High plasma homocystine: Code(s): R79.89 - Other specified abnormal findings of blood chemistry (2) Hypercholesterolemia: Code(s): E78.00 - Pure hypercholesterolemia, unspecified Plan: Avoid fried foods, chicken skin, eggs, butter margarine, pastries and meat. Be it pork or beef they have a lot of cholesterol patient's numbers have been in the normal range after losing the weight. (3) Ascending aorta dilatation: Comment: November 2021 last echocardiogram 4.2cm ascending aorta dilatation October 2022 4.4 cm Code(s): I77.810 - Thoracic aortic ectasia Plan: Echocardiogram will be ordered. (4) Essential hypertension: Code(s): I10 - Essential (primary) hypertension Plan: Blood pressure to be monitored (5) Gastroesophageal reflux disease: Code(s): K21.9 - Gastro-esophageal reflux disease without esophagitis Qualifiers: Esophagitis presence: without esophagitis Qualified Code(s): K21.9 - Gastro-esophageal reflux disease without esophagitis Plan: Avoid the foods that causes that usually spicy foods, tomato products, juices, coffee, soda and foods that your sensitive to. After eating do not lie down, allow 3-4 hours before in lie down. And keep the head of bed above 30 degrees to avoid the acid from going up. Orders: Orders XR lumbar spine 2-3V Today R29.898 - Other symptoms and signs involving the musculoskeletal system Complete Blood Count Auto Diff 6 Months I77.810 - Thoracic aortic ectasia Thyroid Stimulating Hormone 6 Months I77.810 - Thoracic aortic ectasia Homocysteine 6 Months I77.810 - Thoracic aortic ectasia Comprehensive Met. Panel 6 Months I77.810 - Thoracic aortic ectasia Magnesium 6 Months I77.810 - Thoracic aortic ectasia Vitamin B12 and Folate 6 Months I77.810 - Thoracic aortic ectasia Coding Level of Care Code Est Pt Level 4 (38964) Diagnoses High plasma homocystine R79.89 Hypercholesterolemia E78.00 Ascending aorta dilatation I77.810 Essential hypertension I10 Gastroesophageal reflux disease without esophagitis K21.9 Esophagitis presence: without esophagitis
== END 2023-07-10 09:14 | disposition home or self-care (01) ==
PROVIDERS: Visit Provider Internal Medicine
DX: R79.89 Other specified abnormal findings of blood chemistry (principal); E78.00 Pure hypercholesterolemia, unspecified; I77.810 Thoracic aortic ectasia; I10 Essential (primary) hypertension; K21.9 Gastro-esophageal reflux disease without esophagitis
CPT/HCPCS: 99214

== ENCOUNTER → 2023-07-24 12:56 | Outpatient (REF) | payer MEDICARE, SELFPAY ==
--- NOTE | 2023-07-24 12:59 | CA_ITS ---
Transthoracic Echocardiogram Patient (Last, First, Middle): Elfego Roger F Gender: Male Date of : 1950 Age: 72 Procedure Date: 07/24/2023 Procedure Type: Transthoracic Echocardiogram Location: OP Height: 177.8 cm Weight: 78.02 kg BSA: 1.96 m2 Heart Rate: bpm BP: 122 / 68 mmHg Machine Plug Shaper: Referring MD: Zuhair Peguero MD Symptoms: I77.810 - Thoracic aortic ectasia Study Quality: Fair ECG Rhythm: Sinus Conclusions: - The left ventricular systolic function is normal. The calculated ejection fraction is 62% by biplane method. - There is mild aortic valve regurgitation. - There is mild dilatation of the ascending aorta measuring 4.10 cm. Findings Left Ventricle Normal left ventricular cavity size. There is mildly increased left ventricular wall thickness. The left ventricular systolic function is normal. The calculated ejection fraction is 62% by biplane method. There is no evidence of regional wall motion abnormalities. Evidence suggests grade I (mild) diastolic dysfunction. Right Ventricle Normal right ventricular cavity size and systolic function. Atria Both atria are normal in size. Aortic Valve There is a normal trileaflet aortic valve. There is no aortic valve stenosis. There is mild aortic valve regurgitation. Mitral Valve The mitral valve appears normal. There is trace mitral valve regurgitation. There is no mitral valve stenosis. Pulmonic Valve The pulmonic valve is likely normal. Tricuspid Valve There is trace tricuspid valve regurgitation. There is no evidence of pulmonary hypertension. Great Vessels There is mild dilatation of the ascending aorta measuring 4.10 cm. Venous The inferior vena cava is normal in size and collapses greater than 50% with inspiration. Pericardium/Pleural There is no evidence of pericardial effusion. Prior Study Comparison Changes noted compared to prior study dated: 10/25/2022. Aortic dimension smaller than prior study. Can also be technical. Measurements 2D Linear Measurements IVSd: 1.30 0.6-0.9/0.6-1.0 cm LVIDd: 4.74 3.9-5.3/4.2-5.9 cm LVIDd Index: 2.42 2.4-3.2/2.2-3.1 cm/m2 LVIDs: 2.99 2.0-3.6 cm LVPWd: 1.32 0.7-1.1 cm Ao Root: 3.40 2.1-3.5 cm LA Diam: 5.10 2.7-3.8/3.0-4.0 cm LAIDs Index: 2.60 1.5-2.3 cm/m2 LV Mass: 303.88 67-162/88-224 g LV Mass Index: 155.04 43-95/49-115 g/m2 LVOT Diam: 2.40 3.0+(-)1.3 cm 2D Systolic Function EF 4C: 64.30 >55% EF 2C: 57.90 >55% EF BiP: 61.60 >55% Mitral Valve MV Pk E: 0.51 MV PK A: 0.74 MV Decel Time: 242.00 E/A: 0.70 E'Lateral: 8.16 E'Medial: 4.24 E/E' Med: 12.10 E/E' Lat: 6.30 PHT: 71.00 MVA PHT: 3.10 Decel Garrett: 2.13 Aortic Valve AoV Pk Shiv: 1.39 AoV Mn Shiv: 0.99 AoV VTI: 0.30 AoV Pk Grad: 8.00 Aov Mn Grad: 4.00 MENDEZ Cont.VTI: 3.00 LVOT LVOT Pk Shiv: 0.83 LVOT Mn Shiv: 0.62 LVOT VTI: 0.20 LVOT Pk Grad: 3.00 LVOT Mn Grad: 2.00 LVOT Diam: 2.40 LVOT Area: 4.52 Diastolic Function MV Pk E: 0.51 MV Pk A: 0.74 E/A: 0.70 E'Medial: 4.24 E/E' Med: 12.10 E' Laterial: 8.16 E/E' Lat: 6.30 Right Ventricle TAPSE (mm): 25.00 TVS' Shiv: 13.00 Tricuspid Valve TR Pk Shiv: 1.03 TR Pk Grad: 4.00 RA Press: 3.00 RVSP: 7.00 Great Vessels Aorta Ao Root-2D: 3.40 2.0-3.7 cm Ao Asc: 4.20 2.1-3.4 cm Pulmonary Valve PV Pk Shiv: 0.88 Peak PV Grad: 3.00 Updated in Other Vendor System with Status of Final Zuhair Peguero MD electronically signed on 07/25/2023 3:30:08 PM with status of Final
== END ==
LOC: HO.CARD 12:56
PROVIDERS: PCP Internal Medicine; Visit Provider Internal Medicine
DX: I77.810 Thoracic aortic ectasia (principal)
CPT/HCPCS: 93306

== ENCOUNTER → 2023-07-24 12:59 | Outpatient (BNV) | payer MEDICARE, SELFPAY | PROVIDERS: PCP Internal Medicine; Visit Provider Internal Medicine | DX: I35.1 Nonrheumatic aortic (valve) insufficiency (principal) | CPT/HCPCS: 93306 ==

== ENCOUNTER 2023-08-13 08:59 | Outpatient (AMB) | payer MEDICARE, SELFPAY ==
[2023-08-13 09:05] VITALS: BP 152/86; PULSE 80; BMI 26.0
--- NOTE | 2023-08-13 09:05 | A.OFFVIS_ITS ---
Intake Vital Signs 08/13/23 09:05 Height 5 ft 10 in Weight 181 lb 3.52 oz BMI 26.0 BP 152/86 H Blood Pressure Location Lt brachial Position Sitting Pulse 80 Intake Visit Reasons: 6 mth f/up echo Intake Note: 6 month follow up Coordinator Hotels Required: No Accompanied by: Self / Same As Patient Allergies No Known Allergies Allergy (Verified 08/13/23 09:07) Medication List - Last Reconciled 08/13/23 by Zuhair Peguero MD coenzyme Q10 (Co Q-10) 75 mg PO DAILY loratadine (Claritin) 10 mg PO DAILY omega 6-das-yez-fish oil 1,000 mg (120 mg-180 mg) (Fish Oil) 1 cap PO DAILY omeprazole magnesium (Prilosec OTC) 20 mg PO DAILY HPI HPI Comments History of Present Illness Details Elfego is here for follow-up regarding aortic regurgitation. He states he is doing fine. No cardiac symptoms whatsoever. In the past, he has had a hospitalization at [facility] for subdural bleed. That was after taking Benadryl for poison meir, leading to a fall and subsequent intracranial bleed. However, no consequence from this. He has had some orthostatic dizziness type symptoms occasionally. However the actual syncopal episode seems to be unrelated. He has taken hydrochlorothiazide in the past but not anymore. He was also on lisinopril in the past, but apparently the pressure went down too low and hence this was stopped as well. He states he has been monitoring his blood pressures at home and generally they are in the 130s. Otherwise, he feels fine. Walks regularly. [facility] Medical History (Updated 07/10/23 @ 08:39 by Cathryn Clark MD) Colon cancer screening Colon cancer screening Essential hypertension Ascending aorta dilatation Non-rheumatic aortic regurgitation Impaired glucose tolerance Primary osteoarthritis of right knee Parsonage-Gujaardo syndrome Hypercholesterolemia Gastroesophageal reflux disease Surgical History History of colonoscopy Hx of ventral hernia repair H/O right inguinal hernia repair H/O arthroscopy of left knee H/O arthroscopy of right knee Family History Father No problems noted. Mother Colon cancer Social History (Reviewed 08/13/23 @ 09:08 by Suzette Mcclelland Housing: House Are you a primary patient care coordinator to a significant other at home: No Do you presently have visiting nurse or other home services: No Alcohol intake: current Alcohol intake frequency: 0-2 drinks per day Alcohol type: wine Patient Tobacco Use Status: Never used Tobacco e-Cigarette/Vaping Use: Never Used Second Hand Smoke Exposure: No service: No Current occupational status: retired Cognitive needs: No Hearing needs: No Vision needs: Yes Review of Systems Const Denies weakness ENT Denies dizziness Card Denies chest pain, Denies chest pain with activity, Denies syncope, Denies rapid heart rate, Denies pedal edema, Denies edema, Denies leg edema, Denies lightheadedness, Denies palpitations, Denies dyspnea, Denies dyspnea on exertion and Denies orthopnea Resp Denies cough, Denies dyspnea and Denies dyspnea on exertion GI Denies hematochezia and Denies change in stool character Musc Denies abnormal gait, Denies muscle cramps, Denies muscle weakness, Denies numbness, Denies radiating pain into limb and Denies tingling Neuro Denies abnormal gait, Denies dizziness, Denies syncope, Denies numbness, Denies tingling and Denies weakness Endo Denies palpitations Physical Exam Vital Signs: Last Vital Signs Pulse 80 08/13/23 09:05 BP 152/86 H 08/13/23 09:05 BMI result Body Mass Index 26.0 Const General: comfortable and no acute distress Orientation/consciousness: patient oriented x3 HEENT Other: Unremarkable Head: Yes normal to inspection Neck Neck: Yes normal visual inspection Chest Chest palpation & inspection: normal inspection of the chest Resp Auscultation: clear to auscultation bilaterally Cardio Palpation: normal PMI Heart sounds: S1 normal heart sound present, S2 normal heart sound present, no gallops, no murmurs and no rubs GI Palpation (GI): Soft to palpation Back/Spine/Pelvis Other: unremarkable Skin General skin exam: no rashes or lesions noted Neuro General: patient oriented x3 Extrem General: Yes normal to inspection Psych Mental Status: mental status grossly normal Assessment & Plan Assessment & Plan (1) Non-rheumatic aortic regurgitation: Code(s): I35.1 - Nonrheumatic aortic (valve) insufficiency Plan: Mild aortic regurgitation. Not hemodynamically significant. No specific management at this time. (2) Ascending aorta dilatation: Comment: November 2021 last echocardiogram 4.2cm ascending aorta dilatation October 2022 4.4 cm Code(s): I77.810 - Thoracic aortic ectasia Plan: In the most recent echocardiogram, ascending aortic size 4.1 cm. Variable measurements in the past including 4.2 cm, 4.4 cm. Overall, no major change. Some of the difference could be all technical. We may recheck in 2 years. (3) Essential hypertension: Code(s): I10 - Essential (primary) hypertension Plan: With Lisinopril, blood pressure went too low in the past. Suggested Amlodipine in the past but he does not want to take anything. Blood pressures are mostly in the 130s according to him. In the clinic, slightly higher. Plan Total time spent including review of data, counseling, documentation, coordination care-31 minutes. Coding Level of Care Code Est Pt Level 4 (03214) Diagnoses Non-rheumatic aortic regurgitation I35.1 Ascending aorta dilatation I77.810 Essential hypertension I10
== END 2023-08-13 09:28 | disposition home or self-care (01) ==
PROVIDERS: Visit Provider Internal Medicine
DX: I35.1 Nonrheumatic aortic (valve) insufficiency (principal); I77.810 Thoracic aortic ectasia; I10 Essential (primary) hypertension
CPT/HCPCS: 99214

== ENCOUNTER → 2023-08-13 08:59 | Outpatient (BNVA) | payer MEDICARE, SELFPAY | PROVIDERS: Visit Provider Internal Medicine | DX: I35.1 Nonrheumatic aortic (valve) insufficiency (principal); I77.810 Thoracic aortic ectasia; I10 Essential (primary) hypertension | CPT/HCPCS: 99212 ==

== ENCOUNTER 2023-09-17 08:51 | Outpatient (AMB) | payer MEDICARE, SELFPAY ==
[2023-09-17 09:02] VITALS: BP 148/90; PULSE 87; O2SAT 98; BMI 25.5
--- NOTE | 2023-09-17 09:02 | AM.OFFVISMDC ---
Intake Vital Signs 09/17/23 09:02 Height 5 ft 10 in Weight 178 lb BMI 25.5 BP 148/90 H Blood Pressure Location Lt brachial Position Sitting Pulse 87 Pulse Source Pulse Oximeter Pulse Oximetry (%) 98 Oxygen Delivery Method Room Air Intake Visit Reasons: [facility] G0439 Allergies No Known Allergies Allergy (Verified 09/17/23 09:11) Medication List - Last Reconciled 09/17/23 by EDOUARD Gautam coenzyme Q10 (Co Q-10) 75 mg PO DAILY loratadine (Claritin) 10 mg PO DAILY omega 1-ohz-ytt-fish oil 1,000 mg (120 mg-180 mg) (Fish Oil) 1 cap PO DAILY omeprazole magnesium (Prilosec OTC) 20 mg PO DAILY HPI V G0439 HPI Details Patient is a 72-year-old male who presents today for subsequent wellness visit. Patient of Dr. Clark. Patient is up-to-date with his health preventative screenings and immunizations Charlo of care was reviewed with the patient and he was provided with a screening schedule. End of life planning was discussed with the patient and he was provided with a MOLST form. Patient will provide office with a healthcare proxy form at the next visit. 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 Mother Colon cancer Social History Housing: House Are you a primary rn care transition to a significant other at home: No Do you presently have visiting nurse or other home services: No Alcohol intake: current Alcohol intake frequency: 0-2 drinks per day Alcohol type: wine Patient Tobacco Use Status: Never used Tobacco e-Cigarette/Vaping Use: Never Used Second Hand Smoke Exposure: No service: No Current occupational status: retired Cognitive needs: No Hearing needs: No Vision needs: Yes Questionnaire Medicare Wellness Checkup [age] What gender do you identify with?: male During the past 4 weeks, how much have you been bothered by emotional problems such as feeling anxious, depressed, irritable, sad or downhearted, and blue?: not at all During the past 4 weeks, has your physical & emotional health limited your social activities with family, friends, neighbors, or groups?: not at all During the past 4 weeks, how much bodily pain have you generally had?: very mild pain During the past 4 weeks, was someone available to help you if you needed & wanted help?: yes, as much as I wanted During the past 4 weeks, what was the hardest physical activity you could do for at least 2 minutes?: very heavy Can you get to places out of walking distance without help? (For eg., can you travel alone on buses, taxis or drive your car?): Yes Can you go shopping for groceries or clothes without someone's help?: Yes Can you prepare your own meals?: Yes Can you do your housework without help?: Yes Because of any health problems, do you need the help of another person with your personal care needs such as eating, bathing, dressing or getting around the house?: No Can you handle your own money without help?: Yes During the past 4 weeks, how would you rate your health in general?: excellent During the past 4 weeks how have things been going for you?: very well; could hardly better Are you having difficulties driving your car?: no Do you always fasten your seat belt when you are in a car?: yes, usually During past 4 weeks, have you been bothered by the following: never: Falling or dizzy when standing up, Sexual problems?, Trouble eating well?, Teeth or denture problems? and Problems using the telephone? and sometimes: Tiredness or fatigue? Have you fallen 2 or more times in the past year?: No Are you afraid of falling?: No Are you a smoker?: no During the past 4 weeks, how many drinks of wine, beer, or other alcoholic beverages did you have?: 6-9 drinks per week Do you exercise for about 20 minutes 3 or more times a week?: yes, most of the time Have you been given information to help with the following?: no: Hazards in your house that might hurt you? and no: Keeping track of your medications? How often do you have trouble taking medicines the way you have been told to take them?: I do not have to take medicine How confident are you that you can control & manage most of your health problems?: very confident What is your race?: White Mini Mental State Exam (MMSE) Orientation What is the (year) (season) (date) (day) (month)?: year, season, date, day and month Score Score: 5 Activity of Daily Living Bathing - sponge bath, tub bath or shower: receives no assistance (gets in/out by self, if usual bathing means Dressing - getting clothes from closets & drawers, including inner/outer garments & fasteners.: gets clothes & gets completely dressed without help Toileting - going to the 'toilet room' for urine/bowel elimination & cleaning self/arranging clothes: goes to toilet room, cleans self, arranges clothes without help Transfer: moves in & out of bed and chair without help (may use support object) Continence: controls urination/bowel movements completely by self Feeding: feeds self without help Total Score: 0 Information obtained from: patient Using telephone: independent Traveling: independent Shopping: independent Preparing meals: independent Housework: independent Taking medicine: independent Managing money: independent PHQ-9 Over the last 2 weeks, how often have you been bothered by any of the following problems? 1. Little interest or pleasure in doing things: not at all 2. Feeling down, depressed, or hopeless: not at all 3. Trouble falling or staying asleep, or sleeping too much: several days 4. Feeling tired or having little energy: several days 5. Poor appetite or overeating: not at all 6. Feeling bad about yourself - or that you are a failure or have let yourself or your family down: not at all 7. Trouble concentrating on things, such as reading the newspaper or watching television: not at all 8. Moving or speaking so slowly that other people could have noticed. Or the opposite - being so fidgety or restless that you have been moving around a lot more than usual: not at all 9. Thoughts that you would be better off or of hurting yourself in some way: not at all Total score: 2 Depression Screening Interpretation: Negative Depression Screening Done: Yes 74625 - PHQ-9 Billing: Yes Source: Developed by Drs. Peter Garcia, Annette Owens, Ruy Madrigal and colleagues, with an educational husam from [employer]. Physical Exam Vital Signs: Last Vital Signs Pulse 87 09/17/23 09:02 BP 148/90 H 09/17/23 09:02 Pulse Ox 98 09/17/23 09:02 Oxygen Delivery Method Room Air 09/17/23 09:02 BMI result Body Mass Index 25.5 Const General: cooperative and no acute distress Orientation/consciousness: patient oriented x3 HEENT Other: Whisper test: pass Neuro Other: Balance: Normal Get up and walk: able to Romberg: negative Tandem gait: able to General: patient oriented x3 Assessment & Plan Assessment & Plan (1) Adult general medical exam: Code(s): Z00.00 - Encounter for general adult medical examination without abnormal findings Plan: Repeat in 1 year (2) Essential hypertension: Code(s): I10 - Essential (primary) hypertension Plan: Goal BP equal or less than 140/90 Low-sodium diet (3) Ascending aorta dilatation: Comment: November 2021 last echocardiogram 4.2cm ascending aorta dilatation October 2022 4.4 cm Code(s): I77.810 - Thoracic aortic ectasia Plan: Continue to follow-up with shot fireman as scheduled. (4) Impaired glucose tolerance: Code(s): R73.02 - Impaired glucose tolerance (oral) Plan: A1c 4.9 12/2022. (5) Hypercholesterolemia: Code(s): E78.00 - Pure hypercholesterolemia, unspecified Plan: low-cholesterol diet. (6) Gastroesophageal reflux disease: Code(s): K21.9 - Gastro-esophageal reflux disease without esophagitis Qualifiers: Esophagitis presence: without esophagitis Qualified Code(s): K21.9 - Gastro-esophageal reflux disease without esophagitis Plan: Continue current treatment. Encouraged to avoid GERD trigger foods. Quality Reporting (2019) Depression/Bipolar (159/160/161/177) PHQ-9: Total score: 2 Coding Level of Care Code Medicare Subsequent (G0439) Diagnoses Adult general medical exam Z00.00 Essential hypertension I10 Ascending aorta dilatation I77.810 Impaired glucose tolerance R73.02 Hypercholesterolemia E78.00 Gastroesophageal reflux disease without esophagitis K21.9 Esophagitis presence: without esophagitis CPT Codes Advance Care Planning - Time spent: 1-15 minutes, not on file ([id number]) Advance Care Planning Advance Care Planning discussion: Exists, not on file Date of discussion: 09/17/23 Who was present: pt and disaster recovery coordinator Forms completed: None Time spent: 1-15 minutes, not on file Actual minutes spent: 2 Did not discuss due to Cultural/Spiritual beliefs: No
== END 2023-09-17 09:20 | disposition home or self-care (01) ==
PROVIDERS: Visit Provider Nurse Practitioner Family
DX: Z00.00 Encounter for general adult medical examination without abnormal findings (principal); I10 Essential (primary) hypertension; I77.810 Thoracic aortic ectasia; R73.02 Impaired glucose tolerance (oral); E78.00 Pure hypercholesterolemia, unspecified; K21.9 Gastro-esophageal reflux disease without esophagitis
CPT/HCPCS: 1124F; G0439

== ENCOUNTER 2023-12-25 14:55 | Outpatient (AMB) | payer MEDICARE, SELFPAY ==
--- NOTE | 2023-12-25 14:57 | MHC.PC.OV ---
Vital Signs 12/25/23 14:58 Height 5 ft 10 in Blood Pressure Location Lt brachial Position Sitting Pulse Source Pulse Oximeter Oxygen Delivery Method Room Air Intake Visit Reasons: Cold Symptoms Allergies No Known Allergies Allergy (Verified 12/25/23 14:59) Tobacco use date assessed: 12/25/23 Fall risk assessment: No Falls in past year Last assessed Fall Risk: 12/25/23 Dental Screening Dental Screen Date: 12/25/23 Did you have a dental visit in the last 12 months?: Yes Did you have a dental problem in the last 6 months where you did not have access to dental care?: No Was dental information given to patient?: Patient has dentist HPI Cold Symptoms HPI Details 73-year-old male with hypercholesterolemia hypertension GERD last seen in June 2023 coming in for an acute problem through Telehealth. sick last week head cold, sore throat, now chest cough, procductive greenish discharge fever. last week grand daughter sick. 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 Mother Colon cancer Social History Housing: House Are you a primary resident care provider to a significant other at home: No Do you presently have visiting nurse or other home services: No Alcohol intake: current Alcohol intake frequency: 0-2 drinks per day Alcohol type: wine Patient Tobacco Use Status: Never used Tobacco e-Cigarette/Vaping Use: Never Used Second Hand Smoke Exposure: No service: No Current occupational status: retired Cognitive needs: No Hearing needs: No Vision needs: Yes Questionnaire PHQ-9 Over the last 2 weeks, how often have you been bothered by any of the following problems? 1. Little interest or pleasure in doing things: not at all 2. Feeling down, depressed, or hopeless: not at all 3. Trouble falling or staying asleep, or sleeping too much: several days 4. Feeling tired or having little energy: several days 5. Poor appetite or overeating: not at all 6. Feeling bad about yourself - or that you are a failure or have let yourself or your family down: not at all 7. Trouble concentrating on things, such as reading the newspaper or watching television: not at all 8. Moving or speaking so slowly that other people could have noticed. Or the opposite - being so fidgety or restless that you have been moving around a lot more than usual: not at all 9. Thoughts that you would be better off or of hurting yourself in some way: not at all Total score: 2 Depression Screening Interpretation: Negative Depression Screening Done: Yes 26006 - PHQ-9 Billing: Yes Source: Developed by Drs. Peter Garcia, Annette Owens, Ruy Madrigal and colleagues, with an educational husam from [employer]. Thrive Questionnaire Date Thrive assessed: 12/25/23 I am a: Patient What is your living situation today?: I have a steady place to live Within the past 12 months, did the food you bought not last and you didn't have the money to get more?: Never true Within the past 12 months, did you worry whether your food would run out before you got money to buy more?: Never true Do you have trouble paying for medicines?: No Do you have trouble getting transportation to medical appointments?: No Do you have trouble paying your heating and electricity bill?: No Do you have trouble taking care of your child, family member or friend?: No Do you have trouble with day-to-day activities such as bathing, preparing meals, shopping, managing finances, etc.?: No Are you currently unemployed and looking for a job?: No Are you interested in more education?: No Currently or been in a relationship where the following occur: no concerns reported THRIVE Score: 0 AUDIT C Alcohol Use Questionnaire (AUDIT-C) 1. How often do you have a drink containing alcohol?: 2-3 times a week 2. How many drinks containing alcohol do you have on a typical day when you are drinking?: 1 or 2 3. How often do you have six or more drinks on one occasion?: Never Total Score: 3 Score Reviewed/Action Taken: Yes SYL-7 AMB Questionnaire SYL-7 Date SYL - 7 assessed: 12/25/23 Feeling nervous, anxious, or on edge: 0 = Not at all Not being able to stop or control worryin = Not at all Worrying too much about different things: 0 = Not at all Trouble relaxin = Not at all Being so restless that it is hard to sit still: 0 = Not at all Becoming easily annoyed or irritable: 0 = Not at all Feeling afraid as if something awful might happen: 0 = Not at all Total SYL-7 score (0-4 normal; 5-9 mild; 10-14 moderate; 15-21 severe): 0 Source: Developed by Drs. Peter Garcia, Annette Owens, Ruy Madrigal and colleagues, with an educational husam from [employer]. Physical exam (Primary Care) Vital Signs: Oxygen Delivery Method Room Air 12/25/23 14:58 Tobacco/Smoking Status: Tobacco use Status Tobacco use date assessed 12/25/23 12/25/23 15:04 Patient Tobacco Use Status Never used Tobacco 12/25/23 14:58 e-Cigarette/Vaping Use Never Used 12/25/23 14:58 PHQ-9: PHQ-9 Score PHQ-9: Total score 2 12/25/23 15:04 Depression Screening Interpretation: Negative Thrive Assessment: Date of Thrive Assessment Date Thrive assessed 12/25/23 12/25/23 15:04 Currently or been in a relationship where the following occur: no concerns reported Telehealth Telehealth Location of provider rendering services: practice address Location of patient: address on file Patient Identification confirmed using: Name, : Yes Telehealth method: voice only Patient verbally consented to treatment: Yes Patient verbally consented to billing insurance company: Yes Patient informed of any privacy concerns related to visit: Yes Minutes spent on Phone/Video with Pt.: 15 Assessment and Plan Assessment & Plan (1) Acute bronchitis: Code(s): J20.9 - Acute bronchitis, unspecified Plan: increase fluids , rest and antibiotic sent in Medications: New azithromycin (Zithromax) For 250 mg dose pack: take 500 mg today (day 1), then 250 mg for 4 days (days 2-5) PO 6 tabs 0RF J20.9 - Acute bronchitis, unspecified Coding Level of Care Code Tele Est Pt Level 3 (97292) Diagnoses Acute bronchitis J20.9
== END 2023-12-25 17:36 | disposition home or self-care (01) ==
LOC: HO.HMGH 14:56
PROVIDERS: PCP Internal Medicine; Visit Provider Internal Medicine
DX: J20.9 Acute bronchitis, unspecified (principal)
CPT/HCPCS: 99442

== ENCOUNTER 2023-12-30 14:44 | Outpatient (REF) | payer MEDICARE, SELFPAY ==
--- NOTE | ~2023-12-30 | XR_ITS ---
EXAMINATION: XR CHEST CLINICAL INFORMATION: Acute bronchitis. COMPARISON: Chest radiographs dated 08/14/2017. TECHNIQUE: Frontal and lateral views of the chest were obtained. FINDINGS: The heart, great vessels, pulmonary vasculature and mediastinum are normal. The lungs show no focal infiltrate, effusion or pneumothorax. There is bronchiolar wall thickening. There is no acute osseous abnormality. XR/XR chest 2V IMPRESSION: 1. No focal infiltrate or congestive heart failure seen. 2. There is bronchiolar wall thickening, consistent with the provided history of acute bronchitis.
[2023-12-30 15:00] LABS: MANUAL DIFF FLAG NO
[2023-12-30 15:12] LABS: Basophils Absolute Auto 0.1 X10*3/uL (0.0-0.2); Basophils Percent Auto 0.8 % (0-2); Eosinophils Absolute Auto 0.3 X10*3/uL (0.0-0.4); Eosinophils Percent Auto 2.7 % (0-4); Hematocrit 48.4 % (42.0-52.0); Hemoglobin 17.1 g/dl (14.0-18.0); Imm Gran Abs Auto 0.41 X10*3/uL (0.00-0.03); Lymphocytes Absolute Auto 2.7 X10*3/uL (1.2-4.9); Lymphocytes Percent Auto 26.5 % (20-40); Mean Corpuscular HGB Conc 35.3 g/dl (31.0-36.0); Mean Corpuscular Volume 93.4 fL (80.0-98.0); Mean Platelet Volume 9.8 fL (9.4-12.4); Monocytes Absolute Auto 0.9 X10*3/uL (0.1-1.2); Monocytes Percent Auto 8.4 % (2-11); Neutrophils Absolute Auto 5.9 x10*3/uL (2.0-8.3); Neutrophils Percent Auto 57.6 % (45-73); Platelet Count 238 X10*3/uL (160-400); Red Blood Count 5.18 X10*6/uL (4.60-5.80); Red Cell Distribution Width 11.9 % (11.0-16.0); White Blood Count 10.2 X10*3/uL (4.8-10.8)
[2023-12-30 15:56] LABS: Alanine Aminotransferase 24 U/L (0-40); Albumin Level 3.8 g/dL (3.5-5.0); Alkaline Phosphatase 73 U/L (39-117); Anion Gap 12 (12-20); Aspartate Amino Transferase 21 U/L (5-37); Bilirubin Total 0.5 mg/dL (0.0-1.0); Blood Urea Nitrogen 24 mg/dL (9-16); Calcium 9.3 mg/dL (8.4-10.2); Carbon Dioxide 29 mmol/L (22-29); Chloride 105 mmol/L (96-108); Estimated Glomerular Filt Rate 54; Glucose Random 105 mg/dL (60-115); Magnesium 2.1 mg/dL (1.6-2.6); Potassium 4.5 mmol/L (3.3-5.1); Sodium 141 mmol/L (135-145)
[2023-12-30 16:12] LABS: Thyroid Stimulating Hormone 1.15 uIU/mL (0.32-4.0)
[2023-12-30 16:26] LABS: Folate 15.3 ng/mL (> or = 4.0); Vitamin B12 683 pg/mL (200-900)
[2023-12-31 18:08] LABS: Homocysteine 17.2 umol/L (<11.4)
== END 2023-12-30 14:45 | disposition home or self-care (01) ==
LOC: HO.XRAY 14:44
PROVIDERS: PCP Internal Medicine; Visit Provider Internal Medicine
DX: I77.810 Thoracic aortic ectasia (principal); J20.9 Acute bronchitis, unspecified
CPT/HCPCS: 36415; 71046; 80053; 82607; 82746; 83090; 83735; 84443; 85025

== ENCOUNTER 2024-01-07 08:18 | Outpatient (AMB) | payer MEDICARE, SELFPAY ==
[2024-01-07 08:30] VITALS: BP 140/82; PULSE 71; O2SAT 97; BMI 25.1
--- NOTE | 2024-01-07 08:30 | MHC.PC.OV ---
Vital Signs 01/07/24 08:30 Height 5 ft 10 in Weight 175 lb 0.6 oz BMI 25.1 BP 140/82 H Blood Pressure Location Lt brachial Position Sitting Pulse 71 Pulse Source Pulse Oximeter Pulse Oximetry (%) 97 Oxygen Delivery Method Room Air Intake Visit Reasons: 6 Months F/U-Ascending aorta dil, LE weakness Software Development Leader Required: No Allergies No Known Allergies Allergy (Verified 01/07/24 08:30) Tobacco use date assessed: 01/07/24 Fall risk assessment: No Falls in past year Last assessed Fall Risk: 01/07/24 HPI 6 Months F/U-Ascending aorta dil, LE weakness HPI Details 73-year-old male with hypertension impaired glucose tolerance hypercholesterolemia gastroesophageal reflux disease coming in for follow-up. Last spoken with in December having bronchitis. Patient is here for follow-up. Patient's colonoscopy up-to-date May 2022 noted ascending aorta dilatation October 2022 to 4.4 cm patient did see the nurse practitioner in September for an annual well visit patient also follows up with Cardiology seen in July 2023 most recent echocardiogram size of aorta 4.1 advised recheck in 2 years. Which will be July 2025. Advised for blood pressure amlodipine but would patient declined. July 2024 echocardiogram The left ventricular systolic function is normal. The calculated ejection fraction is 62% by biplane method. - There is mild aortic valve regurgitation. - There is mild dilatation of the ascending aorta measuring 4.10 cm. 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 Mother Colon cancer Social History Housing: House Are you a primary memory care program director to a significant other at home: No Do you presently have visiting nurse or other home services: No Alcohol intake: current Alcohol intake frequency: 0-2 drinks per day Alcohol type: wine Patient Tobacco Use Status: Never used Tobacco e-Cigarette/Vaping Use: Never Used Second Hand Smoke Exposure: No service: No Current occupational status: retired Cognitive needs: No Hearing needs: No Vision needs: Yes Questionnaire Thrive Questionnaire Date Thrive assessed: 12/25/23 AUDIT C Alcohol Use Questionnaire (AUDIT-C) 1. How often do you have a drink containing alcohol?: 2-3 times a week 2. How many drinks containing alcohol do you have on a typical day when you are drinking?: 1 or 2 3. How often do you have six or more drinks on one occasion?: Never Total Score: 3 Score Reviewed/Action Taken: Yes SYL-7 AMB Questionnaire SYL-7 Date SYL - 7 assessed: 12/25/23 Source: Developed by Drs. Peter Garcia, Annette Owens, Ruy Madrigal and colleagues, with an educational husam from [employer]. Physical exam (Primary Care) Vital Signs: Last Vital Signs Pulse 71 01/07/24 08:30 BP 140/82 H 01/07/24 08:30 Pulse Ox 97 01/07/24 08:30 Oxygen Delivery Method Room Air 01/07/24 08:30 BMI result Body Mass Index 25.1 Tobacco/Smoking Status: Tobacco use Status Tobacco use date assessed 01/07/24 01/07/24 08:36 Patient Tobacco Use Status Never used Tobacco 01/07/24 08:36 e-Cigarette/Vaping Use Never Used 01/07/24 08:36 Thrive Assessment: Date of Thrive Assessment Date Thrive assessed 12/25/23 01/07/24 08:36 Const General: alert; No acute distress Eyes Conjunctivae: conjunctivae normal Resp Auscultation: clear to auscultation bilaterally Cardio Rate: regular rate Rhythm: regular rhythm GI Inspection: Yes normal to inspection Extrem General: Yes normal to inspection and No edema Assessment and Plan Assessment & Plan (1) Essential hypertension: Code(s): I10 - Essential (primary) hypertension Plan: Patient is aware blood pressure has been high in the office but does check at home and has been good continuing to monitor. (2) Ascending aorta dilatation: Comment: November 2021 last echocardiogram 4.2cm ascending aorta dilatation October 2022 4.4 cm July 2023 4.1 cm Code(s): I77.810 - Thoracic aortic ectasia Plan: Advised to be retested in 2 years. July 2023 last echocardiogram 4.1 cm (3) Impaired glucose tolerance: Code(s): R73.02 - Impaired glucose tolerance (oral) Plan: Decrease the amount of carbohydrate intake, pasta, bread, rice and potatoes are all sugar and that is aside from all the sweet stuff, remember that fruits are good but they are Sweet also. (4) Hypercholesterolemia: Code(s): E78.00 - Pure hypercholesterolemia, unspecified Plan: Avoid fried foods, chicken skin, eggs, butter margarine, pastries and meat. Be it pork or beef they have a lot of cholesterol LDL goal of less than 130 and triglyceride of less than 150. (5) Gastroesophageal reflux disease: Code(s): K21.9 - Gastro-esophageal reflux disease without esophagitis Qualifiers: Esophagitis presence: without esophagitis Qualified Code(s): K21.9 - Gastro-esophageal reflux disease without esophagitis Plan: Avoid the foods that causes that usually spicy foods, tomato products, juices, coffee, soda and foods that your sensitive to. After eating do not lie down, allow 3-4 hours before in lie down. And keep the head of bed above 30 degrees to avoid the acid from going up. On omeprazole (6) High plasma homocystine: Code(s): R79.89 - Other specified abnormal findings of blood chemistry Plan: Discussed with the patient that literature for homocystine no treatment necessary but B vitamins can lower down homocystine. Coding Level of Care Code Est Pt Level 4 (31652) Diagnoses Essential hypertension I10 Ascending aorta dilatation I77.810 Impaired glucose tolerance R73.02 Hypercholesterolemia E78.00 Gastroesophageal reflux disease without esophagitis K21.9 Esophagitis presence: without esophagitis High plasma homocystine R79.89
== END 2024-01-07 09:02 | disposition home or self-care (01) ==
PROVIDERS: PCP Internal Medicine; Visit Provider Internal Medicine
DX: I10 Essential (primary) hypertension (principal); I77.810 Thoracic aortic ectasia; R73.02 Impaired glucose tolerance (oral); E78.00 Pure hypercholesterolemia, unspecified; K21.9 Gastro-esophageal reflux disease without esophagitis; R79.89 Other specified abnormal findings of blood chemistry
CPT/HCPCS: 99214

== ENCOUNTER 2024-05-11 13:17 | Outpatient (AMB) | payer MEDICARE, SELFPAY ==
[2024-05-11 13:21] VITALS: BP 130/86; PULSE 70; O2SAT 99; BMI 25.8
--- NOTE | 2024-05-11 13:21 | A.OFFPC_ITS ---
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: No Allergies No Known Allergies Allergy (Verified 01/07/24 08:30) Medication List - Last Reconciled 05/11/24 by Jade Dukes PA-C coenzyme Q10 (Co Q-10) 75 mg PO DAILY loratadine (Claritin) 10 mg PO DAILY omega 9-qym-bly-fish oil 1,000 mg (120 mg-180 mg) (Fish Oil) 1 cap PO DAILY omeprazole magnesium (Prilosec OTC) 20 mg PO DAILY Tobacco use date assessed: 01/07/24 Fall risk assessment: No Falls in past year Last assessed Fall Risk: 05/11/24 Dental Screening Dental Screen Date: 12/25/23 HPI Weakness in lower extremities HPI Details 73-year-old male with past medical histo ry of hypertension, impaired glucose tolerance, hypercholesterolemia, GERD last seen by Dr. Clark 12/2023 coming in for acute problem. Patient has been having lower extremity weakness which improves with exercise. He mentions his legs feel tired and has difficulty moving the legs when immobilized for long periods of time. After he gets up from a chair he has weakness which improves while walking. He also mentions he has pain over the anterior aspect of the lower right leg. 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 Mother Colon cancer Social History Housing: House Are you a primary animal daycare provider to a significant other at home: No Do you presently have visiting nurse or other home services: No Alcohol intake: current Alcohol intake frequency: 0-2 drinks per day Alcohol type: wine Patient Tobacco Use Status: Never used Tobacco e-Cigarette/Vaping Use: Never Used Second Hand Smoke Exposure: No service: No Current occupational status: retired Cognitive needs: No Hearing needs: No Vision needs: Yes Questionnaire Thrive Questionnaire Date Thrive assessed: 12/25/23 AUDIT C Alcohol Use Questionnaire (AUDIT-C) 1. How often do you have a drink containing alcohol?: 2-3 times a week 2. How many drinks containing alcohol do you have on a typical day when you are drinking?: 1 or 2 3. How often do you have six or more drinks on one occasion?: Never Total Score: 3 Score Reviewed/Action Taken: Yes SYL-7 AMB Questionnaire SYL-7 Date SYL - 7 assessed: 12/25/23 Source: Developed by Drs. Peter Garcia, Annette Owens, Ruy Madrigal and colleagues, with an educational husam from [employer]. Review of Systems Const Denies body aches, Denies chills, Denies fever(s), Denies headache(s) and Denies poor appetite Eyes Reports no additional complaints ENT Denies dizziness and Denies headache(s) Card Denies chest pain, Denies syncope, Denies edema, Denies irregular heart rhythm, Denies lightheadedness and Denies dyspnea Resp Denies cough and Denies dyspnea GI Reports no additional complaints Reports no additional complaints Musc Details: Lower extremity muscle weakness then improves with walking Denies abnormal gait Skin/Breast Reports system reviewed and no additional complaints, except as documented Neuro Denies abnormal gait, Denies dizziness, Denies syncope and Denies headache(s) Psych Reports no additional complaints Physical exam (Primary Care) Vital Signs: Last Vital Signs Pulse 70 05/11/24 13:21 BP 130/86 05/11/24 13:21 Pulse Ox 99 05/11/24 13:21 Oxygen Delivery Method Room Air 05/11/24 13:21 BMI result Body Mass Index 25.8 Tobacco/Smoking Status: Tobacco use Status Tobacco use date assessed 01/07/24 05/11/24 13:23 Patient Tobacco Use Status Never used Tobacco 05/11/24 13:23 e-Cigarette/Vaping Use Never Used 05/11/24 13:23 Thrive Assessment: Date of Thrive Assessment Date Thrive assessed 12/25/23 05/11/24 13:23 Const General: cooperative, healthy appearing, comfortable and no acute distress Orientation/consciousness: patient oriented x3 HENMT Head: Yes normocephalic Ears: hearing grossly normal bilaterally General nose exam: Normal external nose present Eyes General: appearance normal, both eyes and all related structures Conjunctivae: conjunctivae normal Neck Neck: Yes full ROM and Yes no lymphadenopathy Resp Effort & Inspection: normal respiratory effort Auscultation: clear to auscultation bilaterally, no crackles, no rales, no rhonchi and no wheezes Cardio Rate: regular rate Rhythm: regular rhythm Skin General skin exam: no rashes or lesions noted Neuro General: patient oriented x3 Gait exam (Neuro): Normal gait present Extrem Other: Bilateral lower extremities have intact strength, sensation, range of motion, and pulses. Mild tenderness to palpation over anterior aspect of right lower leg. General: Yes normal to inspection, Yes full ROM and No edema Psych Affect: normal affect Attitude: cooperative Insight: Good insight present (Psych) Judgement: Good judgement present (Psych) Assessment and Plan Assessment & Plan (1) Lower extremity weakness: Code(s): R29.898 - Other symptoms and signs involving the musculoskeletal system Plan: Patient denies any back pain or other joint pain. Patient having bilateral lower extremity weakness right greater than left. Denies any numbness, tingling, burning sensation, or sharp shooting pain in lower extremities. Strength 5/5 and sensation is intact bilaterally. We will trial physical therapy. Patient to follow up if weakness worsens otherwise will be seen at next appointment 06/2024. Plan This note was constructed using voice recognition software. While every effort has been made to ensure accuracy and cook apprentice pastry, still areas may have been included sometimes these areas may affect the content or meeting of the given symptoms. Total time spent caring for the patient today was 30 minutes. This includes time spent before the visit reviewing the chart, time spent during the visit, and time spent after the visit and documentation. Orders: Orders XR DEXA axial skeleton Today Z00.00 - Encounter for general adult medical examination without abnormal findings PT Evaluation and Treatment Today R29.898 - Other symptoms and signs involving the musculoskeletal system Coding Level of Care Code Est Pt Level 4 (99939) Diagnoses Lower extremity weakness R29.898
== END 2024-05-11 14:07 | disposition home or self-care (01) ==
PROVIDERS: PCP Internal Medicine
DX: R29.898 Other symptoms and signs involving the musculoskeletal system (principal)
CPT/HCPCS: 99214

== ENCOUNTER → 2024-06-23 10:53 | Outpatient (RCR) | payer MEDICARE, SELFPAY ==
[2021-02-01 13:56] VITALS: BP 140/77; PULSE 72; RESP 12; TEMP 36.5; O2SAT 95; BMI 25.9
[2021-02-01 14:29] LABS: Baso%MD 0.7 %; Eos%MD 2.9 %; Hematocrit 42.4 % (42-52); IG%MD 0.3 %; Lymph%MD 27.9 %; Mean Corpuscular HGB Conc 35.4 g/dl (31.0-36.0); Mean Corpuscular Hemoglobin 33.7 pg (27.0-33.0); Mean Corpuscular Volume 95.3 fL (80-98); Mean Platelet Volume 9.4 fL (9.4-12.4); Mono%MD 9.4 %; Neut%MD 58.8 %; Platelet Count 156 X10*3/uL (160-400); Red Blood Count 4.45 X10*6/uL (4.60-5.80); Red Cell Distribution Width 12.3 % (11.0-16.0); White Blood Count 5.8 X10*3/uL (4.8-10.8)
[2021-02-01 14:59] LABS: Acanthocytes 1+ (0-2) /OIF; Band Neutrophils Percent 2 % (3-5); Eosinophils Absolute Manual 0.1 X10*3/UL (0.0-0.8); Eosinophils Percent Manual 1 % (0-4); Lymphocytes Absolute Manual 1.7 X10*3/uL (0.6-4.8); Lymphocytes Percent Manual 29 % (20-40); Monocytes Absolute Manual 0.4 X10*3/uL (0.0-1.2); Monocytes Percent Manual 7 % (2-11); Neutrophils Absolute Manual 3.7 X10*3/uL (2.2-7.9); Neutrophils Percent Manual 61 % (45-73); Platelet Estimate SLIGHTLY DECREASED (NORMAL); Platelet Morphology Comment NORMAL; RBC Morphology NOTED
--- NOTE | 2021-02-01 14:59 | PM.HEMONCCN ---
Subjective - Subjective Chief complaint: Abnormal blood test Patient: new to practice Consult date: 02/01/21 Requesting Physician: Dr. Clark Primary Care Provider: Cathryn Clark MD HPI - Consult Narrative Reason for consult: Abnormal CBC Narrative: Elfego Roger is a 70 year old male referred for evaluation of slightly elevated immature white cells on automated differential. Patient has history of chronic fatigue although he is able to lead a very active lifestyle. He says he walks 4-6 miles daily, he has cut back on sugars and lost some weight. He denies any chest pain or shortness of breath. He feels cold all the time but denies chills, fever or night sweats. He has received COVID-19 vaccine. He has not fallen sick in the past year. Review of Systems - Constitutional Reports as per HPI, Reports no additional constitutional complaints - Cardiovascular Reports no additional cardiovascular complaints - Respiratory Reports no additional respiratory complaints - Gastrointestinal Reports no additional gastrointestinal complaints Oncology Screenings - ECOG Performance Status ECOG Performance Status: 0 [facility] Medical History: Medical History (Last Updated 01/22/21 @ 17:02 by Cathryn Clark MD) Ascending aorta dilatation Essential hypertension Gastroesophageal reflux disease Hypercholesterolemia Impaired glucose tolerance Insomnia 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 Mother Colon cancer Surgical History: Surgical History (Last Updated 07/18/20 @ 18:53 by Cathryn Clark MD) H/O arthroscopy of left knee H/O arthroscopy of right knee H/O right inguinal hernia repair Hx of ventral hernia repair Social History: Social History (Last Updated 02/01/21 @ 14:02 by Jovanna Tesfaye) Alcohol History: Alcohol intake: current Alcohol History Details: Alcohol intake frequency: a few times a week Alcohol type: wine Tobacco History: Smoking Status: Never smoker Substance Use History: Use of substances other than those prescribed or required for medical reasons: No Smoking status: Never smoker Home Medications and Allergies Home Medications Medication Instructions Recorded Confirmed Type coenzyme Q10 75 mg capsule 75 mg PO DAILY 07/19/20 02/01/21 History loratadine 10 mg tablet 10 mg PO DAILY 07/19/20 02/01/21 History multivitamin 1 tab PO DAILY 07/19/20 02/01/21 History omega-3 fatty acids 1,000 mg 1,000 mg PO DAILY 07/19/20 02/01/21 History capsule omeprazole magnesium 20 mg 20 mg PO DAILY 07/19/20 02/01/21 History tablet,delayed release Allergies Allergy/AdvReac Type Severity Reaction Status Date / Time No Known Allergies Allergy Verified 10/27/20 08:11 Physical Exam Vital signs: Vital Signs Temp 97.7 F 02/01/21 13:56 Pulse 72 02/01/21 13:56 Resp 12 02/01/21 13:56 BP 140/77 H 02/01/21 13:56 Pulse Ox 95 02/01/21 13:56 Intake & Output 01/31/21 02/01/21 02/01/21 18:59 06:59 18:59 Other: Weight 82.1 kg [place] Weight in Grams [address]69 Weight 82.1 kg - Constitutional Present: no acute distress - Routine HEENT Exam Head: Present: normal inspection Eye: Present: normal appearance, PERRL - Routine Neck Exam Present: supple. Absent: lymphadenopathy - Routine Chest/Breast/Axilla Exam Axillae: Absent: lymphadenopathy - Routine Respiratory Exam Present: CTAB - Routine Cardiovascular Exam Cardiovascular: Present: RRR, S1, S2 - Routine Abdominal Exam Present: soft. Absent: organomegaly - Routine Extremities Exam Present: pulses intact. Absent: pedal edema Hem/Onc Consult Result - Labs CBC & Chem 7: 02/01/21 14:21 Labs: Short CBC 02/01/21 Range/Units 14:21 WBC 5.8 (4.8-10.8) X10*3/uL Hgb 15.0 (14.0-18.0) g/dl Hct 42.4 (42-52) % Plt Count 156 L (160-400) X10*3/uL Assessment and Plan (1) Abnormal CBC Status: Acute 1. This is a 70-year-old male referred for evaluation of increased percentage of immature granulocytes on an automated differential. His normal WBC count is normal. He has no constitutional symptoms. CBC today shows mild thrombocytopenia. He had normal platelets always in the past. A manual differential will be performed. I have reassured the patient that these findings are nonspecific and do not explain symptoms of fatigue. CBC today shows slightly low platelet counts, this will have to be repeated on subsequent visit. Other etiologies such as drug/medication use, infection or liver disease does not pertain to him. He does drink alcohol a few times a week. This may affect platelet counts. This will be discussed with the patient. I thank you very much for this consultation.
--- NOTE | 2021-02-02 07:46 | MHC.HEMONCMA ---
Patient came in yesterday for a consult of anemia, states he is doing well. Clinical summary was reviewed and updated. PAtient had labs and will return in 1 month for a follow up.
[2021-04-03 11:12] LABS: MANUAL DIFF FLAG NO
[2021-04-03 11:17] LABS: Basophils Percent Auto 0.6 % (0-2); Eosinophils Absolute Auto 0.1 X10*3/uL (0.0-0.4); Eosinophils Percent Auto 2.8 % (0-4); Hematocrit 43.7 % (42-52); Hemoglobin 15.4 g/dl (14.0-18.0); Imm Gran Abs Auto 0.03 X10*3/uL (0.00-0.03); Imm Gran Pct Auto 0.6 % (0.0-0.4); Lymphocytes Absolute Auto 1.4 X10*3/uL (1.2-4.9); Mean Corpuscular HGB Conc 35.2 g/dl (31.0-36.0); Mean Corpuscular Hemoglobin 33.3 pg (27.0-33.0); Mean Corpuscular Volume 94.4 fL (80-98); Monocytes Absolute Auto 0.5 X10*3/uL (0.1-1.2); Monocytes Percent Auto 9.9 % (2-11); Neutrophils Absolute Auto 2.9 X10*3/uL (2.0-8.3); Neutrophils Percent Auto 58.1 % (45-73); Platelet Count 142 X10*3/uL (160-400); Red Blood Count 4.63 X10*6/uL (4.60-5.80); Red Cell Distribution Width 12.6 % (11.0-16.0)
[2021-04-03 11:52] LABS: Alanine Aminotransferase 19 U/L (0-40); Albumin Level 4.3 g/dL (3.5-5.0); Alkaline Phosphatase 58 U/L (39-117); Anion Gap 11 (12-20); Aspartate Amino Transferase 28 U/L (5-37); Bilirubin Total 0.9 mg/dL (0.0-1.0); Blood Urea Nitrogen 19 mg/dL (9-16); Calcium 9.4 mg/dL (8.4-10.2); Carbon Dioxide 29 mmol/L (22-29); Chloride 108 mmol/L (96-108); Estimated Glomerular Filt Rate 52; Glucose Random 73 mg/dL (60-115); Sodium 143 mmol/L (135-145); Total Protein 6.6 g/dL (6.5-8.0)
[2021-04-10 12:33] VITALS: BP 147/80; PULSE 70; RESP 14; TEMP 36.4; O2SAT 98; BMI 25.4
--- NOTE | 2021-04-10 12:40 | P.PNHO_ITS ---
Medical Summary - Medical Summary Date of Service: 04/10/21 Chief complaint: Follow-up Medical Summary: diagnosis: Abnormal CBC/ thrombocytopenia Interval History Interval history: Patient is here in follow-up. He is accompanied by his today. Overall he is doing well and has no new complaints. His appetite is good and his weight is stable. He denies any fever, chills, loss of appetite or recent infections. He is not on any new medications. Review of Systems - Constitutional Reports as per HPI, Reports no additional constitutional complaints [facility] Medical History: Medical History (Last Updated 03/07/21 @ 14:15 by Cathryn Clark MD) Ascending aorta dilatation Essential hypertension Gastroesophageal reflux disease Hypercholesterolemia Impaired glucose tolerance Insomnia 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 Mother Colon cancer Surgical History: Surgical History (Last Updated 07/18/20 @ 18:53 by Cathryn Clark MD) H/O arthroscopy of left knee H/O arthroscopy of right knee H/O right inguinal hernia repair Hx of ventral hernia repair Social History: Social History (Last Updated 04/10/21 @ 12:36 by Jovanna Tesfaye) Alcohol History: Alcohol intake: current Alcohol History Details: Alcohol intake frequency: a few times a week Alcohol type: wine Tobacco History: Patient Tobacco Use Status: Never used Tobacco Substance Use History: Use of substances other than those prescribed or required for medical reasons : No Oncology Screenings - ECOG Performance Status ECOG Performance Status: 0 Home Medications and Allergies Home Medications Medication Instructions Recorded Confirmed Type coenzyme Q10 75 mg capsule 75 mg PO DAILY 07/19/20 03/07/21 History loratadine 10 mg tablet 10 mg PO DAILY 07/19/20 03/07/21 History multivitamin 1 tab PO DAILY 07/19/20 03/07/21 History omega-3 fatty acids 1,000 mg 1,000 mg PO DAILY 07/19/20 03/07/21 History capsule omeprazole magnesium 20 mg 20 mg PO DAILY 07/19/20 03/07/21 History tablet,delayed release Allergies Allergy/AdvReac Type Severity Reaction Status Date / Time No Known Allergies Allergy Verified 10/27/20 08:11 Exam Vital signs: Vital Signs Temp 97.6 F 04/10/21 12:33 Pulse 70 04/10/21 12:33 Resp 14 04/10/21 12:33 BP 147/80 H 04/10/21 12:33 Pulse Ox 98 04/10/21 12:33 Intake & Output 04/09/21 04/10/21 04/10/21 18:59 06:59 18:59 Other: Weight 80.3 kg [place] Weight in [place]ams [address]199 Weight 80.3 kg Body Mass Index 25.4 - Constitutional Present: no acute distress - Routine HEENT Exam Head: Present: normal inspection - Routine Respiratory Exam Present: CTAB - Routine Cardiovascular Exam Cardiovascular: Present: RRR, S1, S2 - Routine Abdominal Exam Present: soft. Absent: organomegaly - Routine Extremities Exam Present: pulses intact. Absent: pedal edema Data - Labs CBC & Chem 7: 04/03/21 10:46 04/03/21 10:46 Labs: 02/01/21 14:21 CBC W/MANUAL DIFF [Complete Blood Count Man Dif] Routine 04/03/21 10:46 CMP [Comprehensive Met. Panel] Routine Complete Blood Count Auto Diff Routine Laboratory Last Values WBC 5.0 X10*3/uL (4.8-10.8) 04/03/21 10:46 RBC 4.63 X10*6/uL (4.60-5.80) 04/03/21 10:46 Hgb 15.4 g/dl (14.0-18.0) 04/03/21 10:46 Hct 43.7 % (42-52) 04/03/21 10:46 MCV 94.4 fL (80-98) 04/03/21 10:46 MCH 33.3 pg (27.0-33.0) H 04/03/21 10:46 MCHC 35.2 g/dl (31.0-36.0) 04/03/21 10:46 RDW 12.6 % (11.0-16.0) 04/03/21 10:46 Plt Count 142 X10*3/uL (160-400) L 04/03/21 10:46 MPV 10.0 fL (9.4-12.4) 04/03/21 10:46 Immature Gran % (Auto) 0.6 % (0.0-0.4) H 04/03/21 10:46 Neut % (Auto) 58.1 % (45-73) 04/03/21 10:46 Lymph % (Auto) 28.0 % (20-40) 04/03/21 10:46 [place] % (Auto) 9.9 % (2-11) 04/03/21 10:46 Eos % (Auto) 2.8 % (0-4) 04/03/21 10:46 Baso % (Auto) 0.6 % (0-2) 04/03/21 10:46 Lymph # (Auto) 1.4 X10*3/uL (1.2-4.9) 04/03/21 10:46 [place] # (Auto) 0.5 X10*3/uL (0.1-1.2) 04/03/21 10:46 Eos # (Auto) 0.1 X10*3/uL (0.0-0.4) 04/03/21 10:46 Baso # (Auto) 0.0 X10*3/uL (0.0-0.2) 04/03/21 10:46 Abs Immat Gran (auto) 0.03 X10*3/uL (0.00-0.03) 04/03/21 10:46 Absolute Neuts (auto) 2.9 X10*3/uL (2.0-8.3) 04/03/21 10:46 Absolute Nucleated RBC 0.000 X10*3/uL (0.0-0.012) 04/03/21 10:46 Nucleated RBC % (auto) 0.0 /100WBC (0.0-0.2) 04/03/21 10:46 Neutrophils % (Manual) 61 % (45-73) 02/01/21 14:21 Band Neutrophils % 2 % (3-5) L 02/01/21 14:21 Lymphocytes % (Manual) 29 % (20-40) 02/01/21 14:21 Monocytes % (Manual) 7 % (2-11) 02/01/21 14:21 Eosinophils % (Manual) 1 % (0-4) 02/01/21 14:21 Abs Neuts (Manual) 3.7 X10*3/uL (2.2-7.9) 02/01/21 14:21 Lymphocytes # (Manual) 1.7 X10*3/uL (0.6-4.8) 02/01/21 14:21 Monocytes # (Manual) 0.4 X10*3/uL (0.0-1.2) 02/01/21 14:21 Eosinophils # (Manual) 0.1 X10*3/UL (0.0-0.8) 02/01/21 14:21 Platelet Estimate SLIGHTLY DECREASED (NORMAL) 02/01/21 14:21 Plt Morphology Comment NORMAL 02/01/21 14:21 RBC Morphology NOTED 02/01/21 14:21 Acanthocytes (Spur) 1+ (0-2) /OIF 02/01/21 14:21 Sodium 143 mmol/L (135-145) 04/03/21 10:46 Potassium 5.0 mmol/L (3.3-5.1) 04/03/21 10:46 Chloride 108 mmol/L (96-108) 04/03/21 10:46 Carbon Dioxide 29 mmol/L (22-29) 04/03/21 10:46 Anion Gap 11 (12-20) L 04/03/21 10:46 BUN 19 mg/dL (9-16) H 04/03/21 10:46 Creatinine 1.35 mg/dL (0.5-1.4) 04/03/21 10:46 Estim Creat Clear Calc 51.0 04/03/21 10:46 Estimated GFR 52 04/03/21 10:46 Random Glucose 73 mg/dL (60-115) 04/03/21 10:46 Calcium 9.4 mg/dL (8.4-10.2) D 04/03/21 10:46 Total Bilirubin 0.9 mg/dL (0.0-1.0) 04/03/21 10:46 AST 28 U/L (5-37) 04/03/21 10:46 ALT 19 U/L (0-40) 04/03/21 10:46 Alkaline Phosphatase 58 U/L (39-117) 04/03/21 10:46 Total Protein 6.6 g/dL (6.5-8.0) 04/03/21 10:46 Albumin 4.3 g/dL (3.5-5.0) 04/03/21 10:46 Progress Note: A/P (1) Abnormal CBC Status: Acute Assessment and plan: 1. This is a 70-year-old male referred for evaluation of increased percentage of immature granulocytes on an automated differential. Manual differential does not show abnormal or immature granulocytes. His normal WBC count is normal. He has no constitutional symptoms. CBC today shows mild thrombocytopenia. He has no constitutional symptoms and his weight now is stable. Submit SPEP/immunofixation on next visit. Follow-up in 3-4 months. - Time Spent With Patient 15 - 24 minutes
--- NOTE | 2021-04-10 16:05 | MHC.HEMONCMA ---
Patient came in for a follow up today, states he is doing well. Clinical summary was reviewed and updated. Patient had labs and will return in 3 months for a follow up.
--- NOTE | 2021-07-04 13:04 | MHC.HEMONC ---
pt attended for labs. spoke to pt in waiting room. pt has a follow up next week with Dr Hong, results will be reviewed then.
[2021-07-04 13:17] LABS: Baso%MD 0.6 %; Hematocrit 45.2 % (42-52); IG%MD 0.5 %; Lymph%MD 27.7 %; Mean Corpuscular HGB Conc 35.4 g/dl (31.0-36.0); Mean Corpuscular Hemoglobin 33.8 pg (27.0-33.0); Mean Corpuscular Volume 95.4 fL (80-98); Mean Platelet Volume 10.2 fL (9.4-12.4); Mono%MD 9.3 %; Neut%MD 56.9 %; Platelet Count 158 X10*3/uL (160-400); Red Blood Count 4.74 X10*6/uL (4.60-5.80); Red Cell Distribution Width 12.5 % (11.0-16.0); White Blood Count 6.4 X10*3/uL (4.8-10.8)
[2021-07-04 13:57] LABS: Band Neutrophils Percent 1 % (3-5); Eosinophils Absolute Manual 0.3 X10*3/UL (0.0-0.8); Eosinophils Percent Manual 4 % (0-4); Lymphocytes Absolute Manual 1.5 X10*3/uL (0.6-4.8); Lymphocytes Percent Manual 24 % (20-40); Monocytes Absolute Manual 0.5 X10*3/uL (0.0-1.2); Monocytes Percent Manual 8 % (2-11); Neutrophils Absolute Manual 4.1 X10*3/uL (2.2-7.9); Neutrophils Percent Manual 63 % (45-73)
[2021-07-04 13:58] LABS: Platelet Estimate SLIGHTLY DECREASED (NORMAL); RBC Morphology NORMAL
[2021-07-04 13:59] LABS: Platelet Morphology Comment NORMAL
[2021-07-10 12:10] LABS: IgA 413 mg/dL (70-320); IgG 865 mg/dL (600-1540); IgM 53 mg/dL (50-300)
--- NOTE | 2021-07-11 13:02 | P.PNHO_ITS ---
Medical Summary - Medical Summary Date of Service: 07/11/21 Chief complaint: Follow-up Medical Summary: diagnosis: Abnormal CBC/ thrombocytopenia Interval History Interval history: Patient is here in follow-up. He is here to discuss results of blood work. His appetite is good and his weight is stable. He denies any fever, chills, loss of appetite or recent infections. His daughter is getting this month in [facility]. [facility] Medical History: Medical History (Last Reviewed 07/11/21 @ 13:15 by Jovanna Tesfaye) Ascending aorta dilatation Essential hypertension Gastroesophageal reflux disease Hypercholesterolemia Impaired glucose tolerance Insomnia Non-rheumatic aortic regurgitation Parsonage-Guajardo syndrome Primary osteoarthritis of right knee Family History: Family History (Last Reviewed 07/11/21 @ 13:15 by Jovanna Tesfaye) Father No problems noted. Mother Colon cancer Surgical History: Surgical History (Last Reviewed 07/11/21 @ 13:15 by Jovanna Tesfaye) H/O arthroscopy of left knee H/O arthroscopy of right knee H/O right inguinal hernia repair History of colonoscopy Hx of ventral hernia repair Social History: Social History (Last Reviewed 07/11/21 @ 13:15 by Jovanna Tesfaye) Living Situation History: Housing: House Alcohol History: Alcohol intake: current Alcohol History Details: Alcohol intake frequency: a few times a week Alcohol type: wine Tobacco History: Patient Tobacco Use Status: Never used Tobacco Substance Use History: Use of substances other than those prescribed or required for medical reasons : No Occupation Assessmet: service: No Current occupational status: retired Home Medications and Allergies Home Medications Medication Instructions Recorded Confirmed Type coenzyme Q10 75 mg capsule (Co 75 mg PO DAILY 07/19/20 07/11/21 History Q-10) loratadine 10 mg tablet (Claritin) 10 mg PO DAILY 07/19/20 07/11/21 History multivitamin 1 tab PO DAILY 07/19/20 07/11/21 History omega-3 fatty acids 1,000 mg 1,000 mg PO DAILY 07/19/20 07/11/21 History capsule (Fish Oil Concentrate) omeprazole magnesium 20 mg 20 mg PO DAILY 07/19/20 07/11/21 History tablet,delayed release (Prilosec OTC) Allergies Allergy/AdvReac Type Severity Reaction Status Date / Time No Known Allergies Allergy Verified 07/11/21 13:16 Exam Vital signs: Vital Signs Temp 97.6 F 04/10/21 12:33 Pulse 70 04/10/21 12:33 Resp 14 04/10/21 12:33 BP 147/80 H 04/10/21 12:33 Pulse Ox 98 04/10/21 12:33 Weight 80.3 kg Body Mass Index 25.4 - Constitutional Present: no acute distress - Routine HEENT Exam Head: Present: normal inspection - Routine Respiratory Exam Present: CTAB - Routine Cardiovascular Exam Cardiovascular: Present: RRR, S1, S2 - Routine Abdominal Exam Present: soft. Absent: organomegaly - Routine Extremities Exam Present: pulses intact. Absent: pedal edema Data - Labs CBC & Chem 7: 07/04/21 13:05 04/03/21 10:46 Labs: 02/01/21 14:21 CBC W/MANUAL DIFF [Complete Blood Count Man Dif] Routine 04/03/21 10:46 CMP [Comprehensive Met. Panel] Routine Complete Blood Count Auto Diff Routine Laboratory Last Values WBC 5.0 X10*3/uL (4.8-10.8) 04/03/21 10:46 RBC 4.63 X10*6/uL (4.60-5.80) 04/03/21 10:46 Hgb 15.4 g/dl (14.0-18.0) 04/03/21 10:46 Hct 43.7 % (42-52) 04/03/21 10:46 MCV 94.4 fL (80-98) 04/03/21 10:46 MCH 33.3 pg (27.0-33.0) H 04/03/21 10:46 MCHC 35.2 g/dl (31.0-36.0) 04/03/21 10:46 RDW 12.6 % (11.0-16.0) 04/03/21 10:46 Plt Count 142 X10*3/uL (160-400) L 04/03/21 10:46 MPV 10.0 fL (9.4-12.4) 04/03/21 10:46 Immature Gran % (Auto) 0.6 % (0.0-0.4) H 04/03/21 10:46 Neut % (Auto) 58.1 % (45-73) 04/03/21 10:46 Lymph % (Auto) 28.0 % (20-40) 04/03/21 10:46 [place] % (Auto) 9.9 % (2-11) 04/03/21 10:46 Eos % (Auto) 2.8 % (0-4) 04/03/21 10:46 Baso % (Auto) 0.6 % (0-2) 04/03/21 10:46 Lymph # (Auto) 1.4 X10*3/uL (1.2-4.9) 04/03/21 10:46 [place] # (Auto) 0.5 X10*3/uL (0.1-1.2) 04/03/21 10:46 Eos # (Auto) 0.1 X10*3/uL (0.0-0.4) 04/03/21 10:46 Baso # (Auto) 0.0 X10*3/uL (0.0-0.2) 04/03/21 10:46 Abs Immat Gran (auto) 0.03 X10*3/uL (0.00-0.03) 04/03/21 10:46 Absolute Neuts (auto) 2.9 X10*3/uL (2.0-8.3) 04/03/21 10:46 Absolute Nucleated RBC 0.000 X10*3/uL (0.0-0.012) 04/03/21 10:46 Nucleated RBC % (auto) 0.0 /100WBC (0.0-0.2) 04/03/21 10:46 Neutrophils % (Manual) 61 % (45-73) 02/01/21 14:21 Band Neutrophils % 2 % (3-5) L 02/01/21 14:21 Lymphocytes % (Manual) 29 % (20-40) 02/01/21 14:21 Monocytes % (Manual) 7 % (2-11) 02/01/21 14:21 Eosinophils % (Manual) 1 % (0-4) 02/01/21 14:21 Abs Neuts (Manual) 3.7 X10*3/uL (2.2-7.9) 02/01/21 14:21 Lymphocytes # (Manual) 1.7 X10*3/uL (0.6-4.8) 02/01/21 14:21 Monocytes # (Manual) 0.4 X10*3/uL (0.0-1.2) 02/01/21 14:21 Eosinophils # (Manual) 0.1 X10*3/UL (0.0-0.8) 02/01/21 14:21 Platelet Estimate SLIGHTLY DECREASED (NORMAL) 02/01/21 14:21 Plt Morphology Comment NORMAL 02/01/21 14:21 RBC Morphology NOTED 02/01/21 14:21 Acanthocytes (Spur) 1+ (0-2) /OIF 02/01/21 14:21 Sodium 143 mmol/L (135-145) 04/03/21 10:46 Potassium 5.0 mmol/L (3.3-5.1) 04/03/21 10:46 Chloride 108 mmol/L (96-108) 04/03/21 10:46 Carbon Dioxide 29 mmol/L (22-29) 04/03/21 10:46 Anion Gap 11 (12-20) L 04/03/21 10:46 BUN 19 mg/dL (9-16) H 04/03/21 10:46 Creatinine 1.35 mg/dL (0.5-1.4) 04/03/21 10:46 Estim Creat Clear Calc 51.0 04/03/21 10:46 Estimated GFR 52 04/03/21 10:46 Random Glucose 73 mg/dL (60-115) 04/03/21 10:46 Calcium 9.4 mg/dL (8.4-10.2) D 04/03/21 10:46 Total Bilirubin 0.9 mg/dL (0.0-1.0) 04/03/21 10:46 AST 28 U/L (5-37) 04/03/21 10:46 ALT 19 U/L (0-40) 04/03/21 10:46 Alkaline Phosphatase 58 U/L (39-117) 04/03/21 10:46 Total Protein 6.6 g/dL (6.5-8.0) 04/03/21 10:46 Albumin 4.3 g/dL (3.5-5.0) 04/03/21 10:46 Assessment and Plan Patient Active problem list reviewed?: Yes (1) Abnormal CBC Status: Acute Assessment and plan: 1. This is a 70-year-old male referred for evaluation of increased percentage of immature granulocytes on an automated differential. Manual differential does not show abnormal or immature granulocytes. His normal WBC count is normal. He has no constitutional symptoms. Hematological workup including SPEP/immunofixation was normal. He has had chronic intermittent thrombocytopenia dating back to 1996. He will now follow up with his PCP. - Time Spent With Patient Time Spent with Patient (in minutes): 10
[2021-07-11 13:13] VITALS: BP 170/91; PULSE 72; RESP 14; TEMP 36.1; O2SAT 98; BMI 25.3
[2021-07-12 08:52] LABS: Prot Elec - Alpha1 0.3 g/dL (0.2-0.3); Prot Elec - Alpha2 0.7 g/dL (0.5-0.9); Prot Elec - Beta 1 0.4 g/dL (0.4-0.6); Prot Elec - Beta 2 0.4 g/dL (0.2-0.5); Prot Elec - Gamma 0.8 g/dL (0.8-1.7); Prot Elec - Total Protein 6.5 g/dL (6.1-8.1)
== END | disposition home or self-care (01) ==
LOC: HO.ONC 02-01 13:47
PROVIDERS: PCP Internal Medicine; Referring Provider Internal Medicine; Visit Provider Internal Medicine
DX: D69.6 Thrombocytopenia, unspecified (principal); R79.89 Other specified abnormal findings of blood chemistry
CPT/HCPCS: 36415; 80053; 82784; 84165; 85007; 85025; 85027; 86334; 99202; 99212; 99213

== ENCOUNTER 2024-06-25 12:39 | Outpatient (RCR) | payer MEDICARE, SELFPAY ==
--- NOTE | 2024-06-25 14:07 | MHC.PT.EP ---
[facility] [place] Office [place] Office [place] Office [address] Venancio Aly [address] [phone] F: [phone] F: [phone] F: [phone] F: [phone] Physical Therapy Plan of Care Date of Evaluation: 06/25/24 Date of Surgery: Diagnosis: other s/s involving the musculoskeletal system LE weakness Assessment: 73 y/o male referred to PT with LE weakness. He reports having a R lateral unicompartmental knee surgery 6 years ago and since then, he feels increased weakness that is worse when he first stands up, with walking, stairs, and daily functional tasks. Examination shows decreased R knee ROM 0-5-122), decreased HS/hip flexor/ calf length, decreased strength of hips/ knee, increased R tibial ER and valgus of R leg, and impaired gait pattern. Recommend PT 2x/week for 5 weeks to address impairments, implement HEP, and optimize functional mobility. 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 Manual therapy to restore motion and function. Therapeutic exercise to improve strength and flexibility. Neuromuscular re-education for posture and balance. Therapeutic activities to return to functional activities of daily living. Electronically signed by: Nevin Elizalde PT Please sign and return to therapist. Thank you for your referral.
--- NOTE | 2024-07-01 11:15 | MHC.PT.DC ---
[facility] [place] Office [place] Office [place] Office [address] Venancio Aly [address] [facility] [phone] F: [phone] F: [phone] F: [phone] F: [phone] Physical Therapy Discharge Report Diagnosis: other s/s involving the musculoskeletal system LE weakness Date of Surgery: Date of Evaluation: 06/25/24 Date of Discharge: 07/01/24 Treatments to Date: 1 Cancellations to Date: 0 No Shows to Date: 0 Discharge Status: Patient Elected to Stop Discharge Summary: Pt called to self d/c reporting will trial other management at this time. Electronically signed by: Nevin Elizalde PT Please sign and return to therapist. Thank you for your referral.
== END 2024-07-01 11:15 | disposition home or self-care (01) ==
LOC: HO.PT 12:39
PROVIDERS: PCP Internal Medicine
DX: R29.898 Other symptoms and signs involving the musculoskeletal system (principal)
CPT/HCPCS: 97110; 97161

== ENCOUNTER 2024-07-03 08:08 | Outpatient (REF) | payer MEDICARE, SELFPAY ==
[2024-07-03 08:17] LABS: MANUAL DIFF FLAG NO
[2024-07-03 08:49] LABS: Basophils Percent Auto 0.6 % (0-2); Eosinophils Absolute Auto 0.5 X10*3/uL (0.0-0.4); Hematocrit 49.3 % (42.0-52.0); Hemoglobin 17.3 g/dl (14.0-18.0); Imm Gran Abs Auto 0.03 X10*3/uL (0.00-0.03); Imm Gran Pct Auto 0.5 % (0.0-0.4); Lymphocytes Percent Auto 30.8 % (20-40); Mean Corpuscular HGB Conc 35.1 g/dl (31.0-36.0); Mean Corpuscular Hemoglobin 33.7 pg (27.0-33.0); Mean Corpuscular Volume 95.9 fL (80.0-98.0); Monocytes Absolute Auto 0.6 X10*3/uL (0.1-1.2); Monocytes Percent Auto 8.7 % (2-11); Neutrophils Absolute Auto 3.3 x10*3/uL (2.0-8.3); Neutrophils Percent Auto 51.4 % (45-73); Platelet Count 150 X10*3/uL (160-400); Red Blood Count 5.14 X10*6/uL (4.60-5.80); Red Cell Distribution Width 12.4 % (11.0-16.0); White Blood Count 6.5 X10*3/uL (4.8-10.8)
[2024-07-03 09:31] LABS: Alanine Aminotransferase 18 U/L (0-40); Albumin Level 4.2 g/dL (3.5-5.0); Alkaline Phosphatase 64 U/L (39-117); Anion Gap 11 (12-20); Aspartate Amino Transferase 22 U/L (5-37); Bilirubin Total 1.1 mg/dL (0.0-1.0); Blood Urea Nitrogen 21 mg/dL (9-16); Calcium 9.3 mg/dL (8.4-10.2); Carbon Dioxide 28 mmol/L (22-29); Chloride 108 mmol/L (96-108); Cholesterol 208 mg/dL (<200); Estimated Glomerular Filt Rate > 60; Glucose Random 99 mg/dL (60-115); HDL Cholesterol 51 mg/dL (>40); LDL Cholesterol Calculated 140 mg/dL (<100); Magnesium 2.1 mg/dL (1.6-2.6); Potassium 5.1 mmol/L (3.3-5.1); Sodium 142 mmol/L (135-145); Total Protein 7.1 g/dL (6.5-8.0); Triglycerides 89 mg/dL (<150)
[2024-07-03 09:55] LABS: Thyroid Stimulating Hormone 1.63 uIU/mL (0.32-4.0)
[2024-07-03 09:56] LABS: Folate 13.5 ng/mL (> or = 4.0); Vitamin B12 272 pg/mL (200-900)
[2024-07-03 11:00] LABS: Estimated Average Glucose 91 mg/dL; Hemoglobin A1c % 4.8 % (<6.0)
== END 2024-07-03 08:09 | disposition home or self-care (01) ==
LOC: HO.LAB 08:08
PROVIDERS: PCP Internal Medicine; Visit Provider Internal Medicine
DX: K21.9 Gastro-esophageal reflux disease without esophagitis (principal); E78.00 Pure hypercholesterolemia, unspecified; R73.02 Impaired glucose tolerance (oral)
CPT/HCPCS: 36415; 80053; 80061; 82607; 82746; 83036; 83735; 84439; 84443; 85025

== ENCOUNTER 2024-07-09 08:16 | Outpatient (AMB) | payer MEDICARE, SELFPAY ==
[2024-07-09 08:17] VITALS: BP 152/90; PULSE 72; O2SAT 97; BMI 25.5
--- NOTE | 2024-07-09 08:17 | MHC.PC.OV ---
Vital Signs 07/09/24 08:17 07/09/24 09:03 Height 5 ft 10 in Weight 178 lb BMI 25.5 BP 152/90 H 120/80 Blood Pressure Location Lt brachial Lt brachial Position Sitting Sitting Pulse 72 Pulse Source Pulse Oximeter Pulse Oximetry (%) 97 Oxygen Delivery Method Room Air Intake Visit Reasons: HTN, GERD Allergies No Known Allergies Allergy (Verified 07/09/24 08:18) Tobacco use date assessed: 01/07/24 Fall risk assessment: No Falls in past year Last assessed Fall Risk: 07/09/24 Dental Screening Dental Screen Date: 07/09/24 Did you have a dental visit in the last 12 months?: Yes Did you have a dental problem in the last 6 months where you did not have access to dental care?: No Was dental information given to patient?: Patient has dentist HPI HTN, GERD HPI Details 73-year-old male with a history of hypertension impaired glucose tolerance hypercholesterolemia GERD last seen by the the PA in May 11 for lower extremity weakness coming in for follow-up. Patient's colonoscopy is up-to-date 06/02/2022. Echocardiogram last done in 08/02/2023 showing EF of 62% mild aortic regurg mild dilatation of the ascending aorta 4.1. No change. Patient complains of shows sleeping time but declined medication to help with sleep. Otherwise lower extremity weakness on physical therapy has been doing better. 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 Mother Colon cancer Social History Housing: House Are you a primary career consultant to a significant other at home: No Do you presently have visiting nurse or other home services: No Alcohol intake: current Alcohol intake frequency: 0-2 drinks per day Alcohol type: wine Patient Tobacco Use Status: Never used Tobacco Tobacco use type: Cigarette e-Cigarette/Vaping Use: Never Used Second Hand Smoke Exposure: No service: No Current occupational status: retired Cognitive needs: No Hearing needs: No Vision needs: Yes Questionnaire PHQ-9 Over the last 2 weeks, how often have you been bothered by any of the following problems? 1. Little interest or pleasure in doing things: not at all 2. Feeling down, depressed, or hopeless: not at all 3. Trouble falling or staying asleep, or sleeping too much: several days 4. Feeling tired or having little energy: several days 5. Poor appetite or overeating: not at all 6. Feeling bad about yourself - or that you are a failure or have let yourself or your family down: not at all 7. Trouble concentrating on things, such as reading the newspaper or watching television: not at all 8. Moving or speaking so slowly that other people could have noticed. Or the opposite - being so fidgety or restless that you have been moving around a lot more than usual: not at all 9. Thoughts that you would be better off or of hurting yourself in some way: not at all Total score: 2 Depression Screening Interpretation: Negative Depression Screening Done: Yes 79621 - PHQ-9 Billing: Yes Source: Developed by Drs. Peter Garcia, Annette Owens, Ruy Madrigal and colleagues, with an educational husam from [employer]. Thrive Questionnaire Date Thrive assessed: 12/25/23 Are you currently unemployed and looking for a job?: No AUDIT C Alcohol Use Questionnaire (AUDIT-C) 1. How often do you have a drink containing alcohol?: 2-3 times a week 2. How many drinks containing alcohol do you have on a typical day when you are drinking?: 1 or 2 3. How often do you have six or more drinks on one occasion?: Never Total Score: 3 Score Reviewed/Action Taken: Yes SYL-7 AMB Questionnaire SYL-7 Date SYL - 7 assessed: 12/25/23 Source: Developed by Drs. Peter Garcia, Annette Owens, Ruy Madrigal and colleagues, with an educational husam from [employer]. Physical exam (Primary Care) Vital Signs: Last Vital Signs Pulse 72 07/09/24 08:17 BP 120/80 07/09/24 09:03 Pulse Ox 97 07/09/24 08:17 Oxygen Delivery Method Room Air 07/09/24 08:17 BMI result Body Mass Index 25.5 Tobacco/Smoking Status: Tobacco use Status Tobacco use date assessed 01/07/24 07/09/24 08:22 Patient Tobacco Use Status Never used Tobacco 07/09/24 08:22 Tobacco use type Cigarette 07/09/24 08:22 e-Cigarette/Vaping Use Never Used 07/09/24 08:22 PHQ-9: PHQ-9 Score PHQ-9: Total score 2 07/09/24 08:51 Depression Screening Interpretation: Negative Thrive Assessment: Date of Thrive Assessment Date Thrive assessed 12/25/23 07/09/24 08:22 Const General: alert; No acute distress Eyes Conjunctivae: conjunctivae normal Resp Auscultation: clear to auscultation bilaterally Cardio Rate: regular rate Rhythm: regular rhythm GI Inspection: Yes normal to inspection Extrem General: Yes normal to inspection and No edema Assessment and Plan Assessment & Plan (1) Ascending aorta dilatation: Comment: November 2021 last echocardiogram 4.2cm ascending aorta dilatation October 2022 4.4 cm July 2023 4.1 cm was advised ff up 2 years Code(s): I77.810 - Thoracic aortic ectasia Plan: Stable on repeat echocardiogram 07/2023 has been advised repeat testing in a couple of years (2) Renal insufficiency: Code(s): N28.9 - Disorder of kidney and ureter, unspecified Plan: Stable avoid NSAIDs (3) Impaired glucose tolerance: Code(s): R73.02 - Impaired glucose tolerance (oral) Plan: Decrease the amount of carbohydrate intake, pasta, bread, rice and potatoes are all sugar and that is aside from all the sweet stuff, remember that fruits are good but they are Sweet also. (4) Gastroesophageal reflux disease: Code(s): K21.9 - Gastro-esophageal reflux disease without esophagitis Qualifiers: Esophagitis presence: without esophagitis Qualified Code(s): K21.9 - Gastro-esophageal reflux disease without esophagitis Plan: Avoid the foods that causes that usually spicy foods, tomato products, juices, coffee, soda and foods that your sensitive to. After eating do not lie down, allow 3-4 hours before in lie down. And keep the head of bed above 30 degrees to avoid the acid from going up. (5) Hypercholesterolemia: Code(s): E78.00 - Pure hypercholesterolemia, unspecified Plan: Avoid fried foods, chicken skin, eggs, butter margarine, pastries and meat. Be it pork or beef they have a lot of cholesterol LDL goal of less than 130 and triglyceride of less than 150 (6) Vitamin B12 deficiency: Code(s): E53.8 - Deficiency of other specified B group vitamins Plan: Vitamin B12 1000 mcg once a day\ [p; (7) Insomnia: Code(s): G47.00 - Insomnia, unspecified Qualifiers: Insomnia type: primary Qualified Code(s): F51.01 - Primary insomnia Plan: declined med and will continue to monitor Orders: Orders Vitamin B12 and Folate Today R73.02 - Impaired glucose tolerance (oral) Thyroid Stimulating Hormone Today R73.02 - Impaired glucose tolerance (oral) Prostate Specific Antigen Scr Today R73.02 - Impaired glucose tolerance (oral) Free T4 (Free Thyroxine) Today R73.02 - Impaired glucose tolerance (oral) Complete Blood Count Auto Diff Today R73.02 - Impaired glucose tolerance (oral) Coding Level of Care Code Est Pt Level 4 (71254) Diagnoses Ascending aorta dilatation I77.810 Renal insufficiency N28.9 Impaired glucose tolerance R73.02 Gastroesophageal reflux disease without esophagitis K21.9 Esophagitis presence: without esophagitis Hypercholesterolemia E78.00 Vitamin B12 deficiency E53.8 Primary insomnia F51.01 Insomnia type: primary
[2024-07-09 09:03] VITALS: BP 120/80
== END 2024-07-09 09:15 | disposition home or self-care (01) ==
PROVIDERS: PCP Internal Medicine; Visit Provider Internal Medicine
DX: I77.810 Thoracic aortic ectasia (principal); N28.9 Disorder of kidney and ureter, unspecified; R73.02 Impaired glucose tolerance (oral); K21.9 Gastro-esophageal reflux disease without esophagitis; E78.00 Pure hypercholesterolemia, unspecified; E53.8 Deficiency of other specified B group vitamins; F51.01 Primary insomnia

== ENCOUNTER → 2024-07-09 08:16 | Outpatient (BNVA) | payer MEDICARE, SELFPAY | PROVIDERS: PCP Internal Medicine; Visit Provider Internal Medicine | DX: I10 Essential (primary) hypertension (principal); K21.9 Gastro-esophageal reflux disease without esophagitis; R73.02 Impaired glucose tolerance (oral); N28.9 Disorder of kidney and ureter, unspecified; I77.810 Thoracic aortic ectasia; E78.00 Pure hypercholesterolemia, unspecified; E53.8 Deficiency of other specified B group vitamins; F51.01 Primary insomnia | CPT/HCPCS: 99212 ==

== ENCOUNTER 2024-09-15 11:38 | Outpatient (REF) | payer MEDICARE, SELFPAY ==
[2024-09-15 11:48] LABS: MANUAL DIFF FLAG NO
[2024-09-15 12:44] LABS: Basophils Percent Auto 0.5 % (0-2); Eosinophils Absolute Auto 0.2 X10*3/uL (0.0-0.4); Eosinophils Percent Auto 2.8 % (0-4); Hematocrit 47.8 % (42.0-52.0); Hemoglobin 16.8 g/dl (14.0-18.0); Imm Gran Abs Auto 0.03 X10*3/uL (0.00-0.03); Imm Gran Pct Auto 0.5 % (0.0-0.4); Lymphocytes Absolute Auto 1.8 X10*3/uL (1.2-4.9); Lymphocytes Percent Auto 29.9 % (20-40); Mean Corpuscular HGB Conc 35.1 g/dl (31.0-36.0); Mean Corpuscular Hemoglobin 33.7 pg (27.0-33.0); Mean Corpuscular Volume 95.8 fL (80.0-98.0); Mean Platelet Volume 10.2 fL (9.4-12.4); Monocytes Absolute Auto 0.6 X10*3/uL (0.1-1.2); Monocytes Percent Auto 9.6 % (2-11); Neutrophils Absolute Auto 3.4 x10*3/uL (2.0-8.3); Neutrophils Percent Auto 56.7 % (45-73); Platelet Count 160 X10*3/uL (160-400); Red Blood Count 4.99 X10*6/uL (4.60-5.80); Red Cell Distribution Width 12.6 % (11.0-16.0); White Blood Count 6.1 X10*3/uL (4.8-10.8)
[2024-09-15 13:38] LABS: Free T4 (Free Thyroxine) 1.07 ng/dL (0.71-1.85); Thyroid Stimulating Hormone 1.19 uIU/mL (0.32-4.0)
[2024-09-15 13:50] LABS: Folate > 20.0 ng/mL (> or = 4.0); Prostate Specific Antigen Scr 1.31 ng/mL (<0.05-4.0); Vitamin B12 344 pg/mL (200-900)
--- OUTSIDE RECORDS SUMMARY | 2024-09-22 13:29 | XMS_ITS | Patient Health Record ---
Author Organization [facility] Address [address] [place] [address] Care Team Providers Care Fresh Foods Technician Name Role Phone Cathryn Clark Primary Care Provider Sulaiman Dowell [phone] Allergies Allergen (clinical drug ingredient) Drug/Non Drug Allergy documented on EMR Reaction Allergy Type Onset Date Status Seasonale Unknown Drug Allergy Active Reason For Referral No Information Medications Medication SIG (Take, Route, Fr equency, Duration) Notes Start Date End Date Status Lisinopril 5 MG 1 tablet Orally Once a day for 30 day(s) Not-Taking Fish Oil Active Claritin Active Immunizations Vaccine Route Administration Date Status Comme nts COVID-19 Moderna Vaccine Unknown 01/02/2021 Administere d 1st 12/05/20 Social History Tobacco Use: Social History Observation Description Date Details (start date - stop date) Never Smoker NA - NA Tobacco Use/Smoking Question Answer Notes Are you a: nonsmoker Additional Findings: Tobacco Non-User Current no n-smoker Alcohol Screen Question Answer Notes Did you have a drink containing alcohol in the p ast year? No Points 0 Interpretation Negative Tobacco use other than smoking: Question Answer Notes Are you an other tobacco user? No Vital Signs Blood pressure diastolic 82 mm Hg 12/11/2023 Height 5 ft 10 in in 12/11/2023 Blood pressure systolic 140 mm Hg 12/11/2023 Weight 175 lbs 12/11/2023 BMI 25.11 kg/m2 12/11/2023 Encounters Encounter Location Date Provider Diagnosis [facility] [address] [place] [address] 12/11/2023 Sulaiman Malcolm Metatarsalgia, left foot M77.42 ; Metatarsalgia, right foot M77.41 ; Plantar fascial fibromatosis M72.2 and Pain in right foot M79.671 [facility] [address] [place] [address] 12/11/2023 Sulaiman Malcolm Assessments Encounter Date Diagnosis (ICD Code) Assessment Notes Treatment Notes Treatment Clinical Notes Section Notes 12/11/2023 Metatarsalgia, left foot (ICD-10 - M77.42) 12/11/2023 Metatarsalgia, right foot (ICD-10 - M77.41) 12/11/2023 Plantar fascial fibromatosis (ICD-10 - M72.2) 12/11/2023 Pain in right foot (ICD-10 - M79.671) Plan Of Treatment No Information Insurance Providers Payer Name Payer Address Payer Phone Subscriber Number Group Number Insured Name Patient Relationship to Insured Coverage Start Date Coverage End Date Medicare National [employer] [address] [place] [address] [id number] Elfego Roger Self - patient is the insured [employer] [address] [place] [address] [id number] Elfego Roger Self - patient is the insured Medical (General) History Medical History History ICD Code Chicken pox High blood pressure Joint implants/screws Measles Mumps Sinus conditions Surgical History Surgery Date(Month/Year) knee surgery 2017 hernia 1997 tonsillectomy 1977 cyst removal, neck 2011 cyst removal, back 2013
--- OUTSIDE RECORDS SUMMARY | 2024-09-22 13:29 | XMS_ITS ---
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 Generated for Kadeni martha/Alice/eTransmitting on:?09/22/2024 01:28 PM EST
--- OUTSIDE RECORDS SUMMARY | 2024-09-22 13:29 | XMS_ITS ---
Author Organization [facility] Address [address] [place] [address] Care Team Providers Care Forklift Picker Name Role Phone Cathryn Clark Primary Care Provider Sulaiman Dowell [phone] Allergies Allergen (clinical drug ingredient) Drug/Non Drug Allergy documented on EMR Reaction Allergy Type Onset Date Status Seasonale Unknown Drug Allergy Active REASON FOR VISIT Pcp- 06/05, last Visit PCP 06/2022 Medications Medication SIG (Take, Route, Fr equency, Duration) Notes Start Date End Date Status Lisinopril 5 MG 1 tablet Orally Once a day for 30 day(s) Not-Taking Fish Oil Active Claritin Active Social History Tobacco Use: Social History Observation [...] an other tobacco user? No Vital Signs Height 5 ft 10 in in 12/11/2023 Weight 175 lbs 12/11/2023 BMI 25.11 kg/m2 12/11/2023 Blood pressure systolic 140 mm Hg 12/11/19 24 Blood pressure diastolic 82 mm Hg 024 Encounters Encounter Location Date Provider Diagnosis [facility] [address] [place] [address] 12/11/2023 Sulaiman Malcolm Metatarsalgia, left foot M77.42 ; Metatarsalgia, right foot M77.41 ; Plantar fascial fibromatosis M72.2 and Pain in right foot M79.671 Assessments Encounter Date Diagnosis (ICD Code) Assessment Notes Treatment Notes Treatment Clinical Notes Section Notes 12/11/2023 Metatarsalgia, left foot (ICD-10 - M77.42) 12/11/2023 Metatarsalgia, right foot (ICD-10 - M77.41) 12/11/2023 Plantar fascial fibromatosis (ICD-10 - M72.2) 12/11/2023 Pain in right foot (ICD-10 - M79.671) Plan Of Treatment Next Appt Details Follow Up: prn, Reason: Progress Notes * Elfego CIFUENTES JrDOB:1950 (73 yo M)Acc No.[id number]:12/11/2023 Progress Note Patient:?Elfego Cifuentes Provider:?Sulaiman Malcolm DPM :1950???Age:73 Y???Sex:Male Tod e:12/11/2023 Address:[address] [place], [place] [address] Pcp:Cathryn Clark Subjective: * Chief Complaints: * ???Pcp- 06/05 last Visit PCP 06/2022 * HPI: ???Heel pain:?Nature:?tenderness.?Location:?Proximal plantar aspect of Heel, RIGHT.?Onset/Cause:?unknown.?Course:?resolved.?Aggrevated:?standing, walking.?Treatments:?innersoles/orthotics; pt has complied with stretching exercises; his orthoses have significant wear to heel post cover.?Toe pain:?Nature:?abnormal sock wear .?Location:?Great toe, B/L feet.?Duration:?several months.?Onset/Cause:?unknown.? * ROS:?General/Constitutional:?Nausea?denies, denies.?Vomiting?denies, denies.?Hunger Thirst?denies, denies.?Loss appetite?denies, denies.?Chills?denies, denies.?Fatigue?denies, denies.?Fever?denies, denies.?Night Sweats denies, denies.?Unexplained weight loss?denies, denies.?Unexplained weight gain?denies, denies.?HEENTM:?Dentures?denies, denies.?Dizziness?denies, denies.?Glasses/contacts?admits, denies.?Retinopathy?denies, denies.?Blurred/double vision?denies, denies.?TMJ?denies, denies.?Discharge/drainage?denies, denies.?Implants?denies, denies.?Sore throat?denies, denies.?Dental implants?denies, denies.?Hard of hearing ?denies, denies.?Difficulty chewing/swallowing/speaking?denies, denies.?Nose bleeds?denies, denies.?Sore mouth?denies, denies.?Respiratory:?On Oxygen?denies, denies.?Pneumonia/pleurisy?denies, denies.?Bronchitis?denies, denies.?Emphysema?denies, denies.?Coughing?denies, denies.?Cough blood?denies, denies.?Shortness of breath?denies, denies.?Wheezing?denies, denies.?Cardiovascular:?Pacemaker?denies, denies.?MVP?denies, denies.?WPW?denies, denies.?CHF?denies, denies.?Heart attack?denies, denies.?Septal defect?denies, denies.?Rapid beat?denies, denies.?Chest pain ?denies, denies.?Atrial Fib.?denies, denies.?Murmur/Palpitations?denies, denies.?Gastrointestinal:?Hemorrhoids?denies, denies.?Stomach/Abdominal pain?denies, denies.?Dark blood stool?denies, denies.?Irritable bowel ?denies, denies.?Constipation?denies, denies.?Diarrhea?denies, denies.?Hematology:?Swelling?denies, denies.?Clots?denies, denies.?Varicose Veins?denies, denies.?Bruising?denies, denies.?Bleeding problem?denies, denies.?Genitourinary:?Blood urine?denies, denies.?Frequent/Painfu/urination/bladder control?denies, denies.?Kidney stones?denies, denies.?Infection (UTI)?denies, denies.?Nephropathy?denies, denies.?sex trans dis (STD)?denies, denies.?Prostate?denies, denies.?Musculoskeletal:?Hammertoes?denies, denies.?Bunions?denies, denies.?Back Pain?denies, denies.?Muscle Cramps/ Resting?denies, denies.?Muscle cramps / walking?denies, denies.?Generalized aches and pains?denies, denies.?Weakness?denies, denies.?Integ.:?Prieto?denies, denies.?Scars?denies, denies.?Corns/calluses?denies, denies.?Ingrown nails?denies, denies.?Painful nails?denies, denies.?Open Sores?denies, denies.?Rashes?denies, denies.?Neurologic:?Difficulty sleeping?denies, denies.?Brain disorder?denies, denies.?Numbness?denies, denies.?Balance trouble?denies, denies.?Confusion?denies, denies.?Fainting/blackouts?denies, denies.?Tingling?denies, denies.?Tremors?denies, denies.? * Medical History:? * Surgical History:?knee surge ry 2017hernia 1998tonsillectomy 1978cyst removal, neck 2012cyst removal, back 2013 * Hospitalization/Major Diagno stic Procedure:?Denies Past Hospitalization * Family History:?Mother: dece ased, cancer, diagnosed with Unspecified essential hypertension.?Father: .?Spouse: alive.? * Social History:?Tobacco Use:?Tobacco Use/Smoking?Are you a:?nonsmoker ?Additional Findings: Tobacco Non-User?Current non-smoker ?Tobacco use other than smoking?Are you an other tobacco user??No ???Drugs/Alcohol:?Drugs?Have you used drugs other than those for medical reasons in the past 12 months??No ?Alcohol Screen?Did you have a drink containing alcohol in the past year??No ?Points?0 ?Interpretation?Negative ???Miscellaneous:?Caffeine: yes, frequency:, 1-2 cups per day. ?Children: yes. ?Exercise: yes, walking. ?Marital status: . ?Occupation: Retired. * Medications:?TakingClaritin Fish Oil Taking Claritin Taking Fish Oil Not-Taking/PRNLisinopril 5 MG Tablet 1 tablet Orally Once a dayMedication List reviewed and reconciled with the patientNot-Taking/PRN Lisinopril 5 MG Tablet 1 tablet Orally Once a dayMedication List reviewed and reconciled with the patient * Allergies:?Seasonaleyes[Cosmo rgies Verified] Objective: * Vitals:?Ht: 5 ft 10 in, Wt:1 75, BMI:25.11, Shoe size:11-12, BP:140/82 mm Hg. * Examination: ???General Examination: ?GENERAL APPEARANCE:?pleasant, alert, well nourished, well developed, well hydrated, with good attention to hygene/body habitus, and in no acute distress.?ORIENTED:?person,place, and time.?Neurological: ?SENSORY:?Neurological exam is normal, pain sensation normal, vibration sensation intact, pinprick sensation is normal in the lower extremities, denies, tingling, burning, anesthesia, paresthesia, hyperesthesia, B/L.?TINEL'S COMPRESSION:?Negative tarsal tunnel, amy pedis, and medial calcaneal nerves B/L.?BABINSKI REFLEX:?absent.?Neuroma Pain: ?PALPATION:?No interspace pain noted on palpation.?Vascular: ?DP PULSES:? 10/17, B/L.?PT PULSES:? 10/17, B/L.?CAPILLARY FILL TIME:?3 secs. per digit, B/L.?SKIN TEMPERTURE GRADIENT OF THE LOWER EXTERMITIES:?warm to cool, proximal to distal, B/L.?HAIR GROWTH/TEXTURE/ELASTICITY/TURGOR:?normal, B/L.?PIGMENTATION:?normal, B/L.?EDEMA:?no edema.?TELANGECTASIA:?absent.?VARICOSITIES:?absent.?Dermatologic: ?SKIN FINDINGS:?Skin exam reveals normal texture, elasticity, and tugor. There are no masses. The interspaces are clear, B/L .?Orthopedic: ?MUSCLE STRENGTH:?5/5 all groups in a symmetrical fashion , B/L.?GAIT ABNORMALITY:?pronated, abducted, B/L.?DIGITAL DEFORMITIES:? good toe alignment noted with wb vs flex hts in nwb.?Heel Pain: ?INSPECTION:? Pain on Palpation to Plantar Fascia med. and central bands, intrinsic musc., infracalcaneal bursa, and med calc tubercle , RIGHT foot--moderate pop.? Assessment: * Assessment: 1.?Metatarsalgia, left foot - M77.42 (Primary)?2.?Metatarsalgia, right foot - M77.41?3.?Plantar fascial fibromatosis - M72.2?4.?Pain in right foot - M79.671? Plan: * Treatment: * Procedure Codes:? * Preventive Medicine:? ??Counseling:?Discussion:?-13: Office or other outpatient visit for the evaluation and management of an established patient, which required a medically appropriate history and/or examination and low level of decision making. When using time for code selection, 20-29 min of total time was spent on the day of the encounter interpreting the data and educating the patient as to the nature of their condition, treatment options available according to their individual PMH, meds, allergies, and overall health/living conditions, as well as any potential risks or complications that may occur from a failure to adhere to, and participate in, the recommended course of therapy. The discussion included a complete verbal, and/or written explanation of the examination results, any x-rays taken, the proposed diagnosis, and outline of the treatment plan. A schedule for future care needs was also explained. The patient verbalized an understanding of the instructions at this time and agreed to be an active participant in their treatment. If the patient should think of any questions or concerns after the visit, I have encouraged the patient to call the office; sent back orthoses to be refurbished and use Honey for rf posting ; call pt when ready $70 lab fee when he picks up .? * Follow Up:?prn * Images: * Sign off status: Completed true * Provider:?Sulaiman Malcolm DPM Date:? 024 Generated for Nayla thomas/Alice/Zack on:?09/22/2024 01:28 PM EST History and Physical Notes * HPI (History of Present Illness) Category Sub-Category Detail Notes Category Not es Heel pain Nature: tenderness Location: Proximal plantar asp ect of Heel, RIGHT Onset/Cause: unknown Aggravated: standing, walking Course: resolved Treatments: innersoles/orthotics ; pt has complied with stretching exercises; his orthoses have significant wear to heel post cover Toe pain Nature: abnormal sock wear Location: Great toe, B/L feet Duration: several months Onset/Cause: unknown Examination Category Sub-Category Detail Notes Category Not es Neuroma Pain PALPATION: No interspace pain noted on palpation Neurological SENSORY: Neurological exa m is normal, pain sensation normal, vibration sensation intact, pinprick sensation is normal in the lower extremities, denies, tingling, burning, anesthesia, paresthesia, hyperesthesia, B/L BABINSKI REFLEX: absent TINEL'S COMPRESSION: Negative tarsal maria isabel emerita, amy pedis, and medial calcaneal nerves B/L Dermatologic SKIN FINDINGS: Skin exam reveal s normal texture, elasticity, and tugor. There are no masses. The interspaces are clear, B/L Orthopedic GAIT ABNORMALITY: pronated, abducted, B/L DIGITAL DEFORMITIES: good toe alignment noted with wb vs flex hts in nwb MUSCLE STRENGTH: 5/5 all groups in a symmetrical fashion , B/L General Examination GENERAL APPEARANCE: pleasant , alert, well nourished, well developed, well hydrated, with good attention to hygene/body habitus, and in no acute distress ORIENTED: person,place, and ti me Vascular DP PULSES(B): 1/4, B/L PT PULSES(B): 1/4, B/L CAPILLARY FILL TIME: 3 secs. per digit, B/L TEMPERTURE GRADIENT(C): warm to cool, pr oximal to distal, B/L TROPHIC CONDITION-TEXTURE/ELASTICITY/TURGOR/HAIR GROWTH(B): normal, B/L EDEMA(C): no edema TELANGECTASIA: absent VARICOSITIES: absent PIGMENTATION: normal, B/L Heel Pain INSPECTION: Pain on Palpatio n to Plantar Fascia med. and central bands, intrinsic musc., infracalcaneal bursa, and med calc tubercle , RIGHT foot--moderate pop
--- OUTSIDE RECORDS SUMMARY | 2024-09-22 13:29 | XMS_ITS | Patient Health Record ---
Author Organization [facility] Address [address] [place] [address] Care Team Providers Care Publicity Manager Name Role Phone Cathryn Clark MD Primary Care Provider Drew Marley Jr ALLERGIES No Known Allergies REASON FOR REFERRAL No Information MEDICATIONS Medication SIG (Take, Route, Frequency, Duration) Notes Start Date End Date Status PriLOSEC Active MiraLax (colon prep) 17 GM/SCOOP mixed with Gatorade or Crystal Light Orally begin at 5:00 p.m. the day before the procedure for 1 day 04/18/2022 Active Fish Oil Active Claritin Active IMMUNIZATIONS Vaccine Route Administration Date Status Comme nts Influenza Unknown 06/14/2021 Administered SOCIAL HISTORY Sex Assigned At : Social History Observation Description Sex Assigned At Unknown PROBLEMS Problem Type ICD Code Onset Dates Problem Status W/U Status Risk SNOMED Code Notes Problem Colon cancer screening (Z12.11) Active confirmed 413401741 Problem Rectal bleeding (K62.5) Active confirmed 53061297 Problem Gastroesophageal reflux disease without esophagitis (K21.9) Active confirmed 914875051 Problem Long-term current use of high risk medication other than anticoagulant (Z79.899) Active confirmed 481005097 Problem Elevated liver function tests (R94.5) Active confirmed 107783490 PLAN OF TREATMENT Future Test Test Name Order Date COLONOSCOPY 05/07/2012 UPPER GI ENDOSCOPY 08/30/2016 COLONOSCOPY 08/30/2016 COLONOSCOPY 04/18/2022 Insurance Providers Payer Name Payer Address Payer Phone Subscriber Number Group Number Insured Name Patient Relationship to Insured Coverage Start Date Coverage End Date MEDICARE OF [place] [address] [place] [address] [id number] KWAKU CIFUENTES Self - patient is the insured MED[employer] ATTN CLAIMS [address] [place] [address] [id number] KWAKU CIFUENTES Self - patient is the insured MEDICAL (GENERAL) HISTORY Medical History History ICD Code Colonoscopy 04/05/17, diverti culosis and internal hemorrhoids, five-year followup because a personal history of tubular adenomas. Gastroesophageal reflux disease Environmental allergies hypertension Aortic insufficiency, mild Surgical History Surgery Date(Month/Year) tonsillectomy testicular surgery hernia repair Knee arthroscopy knee replacement, right
== END 2024-09-15 11:39 | disposition home or self-care (01) ==
LOC: HO.LAB 11:38
PROVIDERS: PCP Internal Medicine; Visit Provider Internal Medicine
DX: Z12.5 Encounter for screening for malignant neoplasm of prostate (principal); R73.02 Impaired glucose tolerance (oral)
CPT/HCPCS: 36415; 82607; 82746; 84153; 84439; 84443; 85025

== ENCOUNTER 2024-10-12 13:38 | Outpatient (AMB) | payer MEDICARE, SELFPAY ==
--- OUTSIDE RECORDS SUMMARY | 2024-10-12 13:42 | XMS_ITS ---
Author Organization [facility] Address [address] [place] [address] Care Team Providers Care Supervisor Of Communications Name Role Phone Cathryn Clark Primary Care Provider Sulaiman Dowell [phone] Allergies Allergen (clinical drug ingredient) Drug/Non Drug [...] 024 Encounters Encounter Location Date Provider Diagnosis [facility] [address] [place] [address] 12/11/2023 Sulaiman Malcolm Metatarsalgia, left foot M77.42 [...] * Elfego CIFUENTES JrDOB:1950 (73 yo M)Acc No.[id number]:12/11/2023 Progress Note Patient:?Elfego Cifuentes Provider:?Sulaiman Malcolm DPM :1950???Age:73 Y???Sex:Male Tod e:12/11/2023 Address:[address] [place], [place] [address] Pcp:Cathryn Clark Subjective: * Chief Complaints: * [...] back orthoses to be refurbished and use [employer] for rf posting ; call pt when ready $70 lab fee when he picks up .? * Follow Up:?prn * Images: * Sign off status: Completed true * Provider:?Sulaiman Malcolm DPM Date:? 024 Generated for Nayla thomas/Alice/Zack on:?10/12/2024 01:41 PM EST History and Physical Notes * [...] ORIENTED: person,place, and ti me Vascular DP PULSES (B): 1/4, B/L PT PULSES (B): 1/4, B/L CAPILLARY FILL TIME: 3 secs. per digit, B/L TEMPERTURE GRADIENT (C): warm to cool, p roximal to distal, B/L TROPHIC CONDITION-TEXTURE/ELASTICITY/TURGOR/HAIR GROWTH (B): normal, B/L EDEMA (C): no edema TELANGECTASIA: absent VARICOSITIES: absent PIGMENTATION: normal, B/L Heel Pain INSPECTION: Pain on Palpatio n to Plantar Fascia med. and central bands, intrinsic musc., infracalcaneal bursa, and med calc tubercle , RIGHT foot--moderate pop
--- OUTSIDE RECORDS SUMMARY | 2024-10-12 13:42 | XMS_ITS | Patient Health Record ---
Author Organization [facility] Address [address] [place] [address] Care Team Providers Care Legal Secretary Name Role Phone Cathryn Clark MD Primary Care Provider Drew Marley Jr [phone] ALLERGIES No Known Allergies REASON FOR REFERRAL [...] Problem Colon cancer screening (Z12.11) Active confirmed 909829004 Problem Rectal bleeding (K62.5) Active confirmed 06433894 Problem Gastroesophageal reflux disease without esophagitis (K21.9) Active confirmed 286414219 Problem Long-term current use of high risk medication other than anticoagulant (Z79.899) Active confirmed 388255781 Problem Elevated liver function tests (R94.5) Active confirmed 005829889 PLAN OF TREATMENT Future Test Test Name Order Date COLONOSCOPY 05/07/2012 UPPER GI ENDOSCOPY 08/30/2016 COLONOSCOPY 08/30/2016 COLONOSCOPY 04/18/2022 Insurance Providers Payer Name Payer Address Payer Phone Subscriber Number Group Number Insured Name Patient Relationship to Insured Coverage Start Date Coverage End Date MEDICARE OF [place] [address] [place] [address] [phone] [id number] KWAKU CIFUENTES Self - patient is the insured MEDEX ATTN CLAIMS [address] [place] [address] [id number] KWAKU CIFUENTES Self - patient is the insured MEDICAL (GENERAL) HISTORY Medical History History ICD Code Colonoscopy 04/05/17, diverti culosis and internal hemorrhoids, five-year followup because a personal history of tubular adenomas. Gastroesophageal reflux disease Environmental allergies hypertension Aortic insufficiency, mild Surgical History Surgery Date(Month/Year) tonsillectomy testicular surgery hernia repair Knee arthroscopy knee replacement, right
--- OUTSIDE RECORDS SUMMARY | 2024-10-12 13:42 | XMS_ITS | Patient Health Record ---
Author Organization [facility] Address [address] [place] [address] Care Team Providers Care Slide Fasteners Inspector Name Role Phone Cathryn Clark Primary Care Provider Sulaiman Dowell [phone] Allergies Allergen (clinical drug ingredient) Drug/Non Drug [...] 12/11/2023 Encounters Encounter Location Date Provider Diagnosis [facility] [address] [place] [address] 12/11/2023 Sulaiman Malcolm Metatarsalgia, left foot M77.42 ; Metatarsalgia, right foot M77.41 ; Plantar fascial fibromatosis M72.2 and Pain in right foot M79.671 [facility] [address] [place] [address] 12/11/2023 Sulaiman Malcolm Assessments Encounter Date Diagnosis [...] [employer] [address] [place] [address] [id number] Elfego Roger Self - patient is the insured [employer] [address] [place] [address] [id number] Elfego Roger Self - patient is the insured Medical (General) History Medical History History ICD Code Chicken pox High blood pressure Joint implants/screws Measles Mumps Sinus conditions Surgical History Surgery Date(Month/Year) knee surgery 2017 hernia 1997 tonsillectomy 1977 cyst removal, neck 2011 cyst removal, back 2013
--- OUTSIDE RECORDS SUMMARY | 2024-10-12 13:42 | XMS_ITS ---
Author Organization [facility] Address [address] [place] [address] Care Team Providers Care Licensing Officer Name Role Phone Cathryn Clark Primary Care Provider Sulaiman Dowell [phone] REASON FOR VISIT Refurb OTs Encounters Encounter Location Date Provider Diagnosis [facility] [address] [place] [address] 12/11/2023 Sulaiman Malcolm Plan Of Treatment No Information Progress Notes * Elfego CIFUENTES JrDOB:1950 (73 yo M)Acc No.[id number]:12/11/2023 Patient:?Elfego Cifuentes :1950???Age:73 Y???Sex:Male Address:[address] [place] [address], [address] * true * Date:? Generated for Kadeni martha/Alice/eTransmitting on:?10/12/2024 01:41 PM EST
--- NOTE | 2024-10-12 14:07 | AM.OFFVISMDC ---
Intake Vital Signs 10/12/24 14:09 10/12/24 14:22 Height 5 ft 10 in Weight 184 lb 2 oz BMI 26.4 BP 142/80 H 150/80 H Blood Pressure Location Lt brachial Lt brachial Position Sitting Sitting Pulse 84 Pulse Source Pulse Oximeter Pulse Oximetry (%) 97 Oxygen Delivery Method Room Air Intake Visit Reasons: [facility] G0439 Allergies No Known Allergies Allergy (Verified 10/12/24 14:10) Medication List - Last Reconciled 10/12/24 by Cathryn Clark MD coenzyme Q10 (Co Q-10) 75 mg PO DAILY loratadine (Claritin) 10 mg PO DAILY omega 3-yun-fav-fish oil 1,000 (120-180) mg (Fish Oil) 1 cap PO DAILY omeprazole magnesium (Prilosec OTC) 20 mg PO DAILY HPI [facility] G0439 HPI Details The patient is a 73-year-old male presenting with a follow-up for hypertension, GERD, and hyperlipidemia management. The patient reports a current blood pressure reading at the clinic of 150/80 mmHg. He has not been monitoring blood pressure at home but was advised that home readings are most accurate. He gained six pounds recently due to decreased physical activity. The patient manages his GERD with omeprazole taken intermittently, approximately every couple of days. There is a shared concern about the effects of long-term use of this medication, particularly concerning renal function and its role in digestion. Hyperlipidemia was also discussed, noting an increase in LDL cholesterol from 117 last year to 140 currently. Dietary changes were discussed as potential contributing factors. The patient consumes a glass of wine daily, denies tobacco use, and does not use recreational drugs. There are no new allergies, diagnoses, or surgeries since the last visit. - Regular exercise encouragement due to recent weight gain - Dietary recommendations to address increased LDL cholesterol - Importance of maintaining hydration - Screening blood work performed: PSA reduced from 3.44 to 1.31, normal kidney function, normal hemoglobin A1c, normal liver panel - Annual eye examination with updated glasses prescription - Annual colonoscopy screening current with the last done in May 2022 - Received flu and RSV vaccinations - Retired with reduced physical activity reported - Consumes a glass of wine daily - No tobacco or recreational drug use - Plans to join a health club to increase activity level - Neurological: Denies dizziness when walking, no shortness of breath upon waking - Respiratory: Denies shortness of breath, cough, or wheezing - Gastrointestinal: Denies difficulty swallowing, nausea, vomiting, blood in stools; bowel movements are normal - Genitourinary: Reports waking once or twice at night to urinate, denies urinary problems - Musculoskeletal: Denies significant chest pain or heaviness - Psychiatric: Denies memory problems or confusion - Labs: Hemoglobin A1c normal, normal serum cholesterol with elevated LDL, normal PSA level (1.31) - Kidney function normal - Thyroid function normal [facility] Medical History 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 Mother Colon cancer Social History (Updated 10/12/24 @ 14:24 by Cathryn Clark MD) Housing: House Are you a primary cattle care worker to a significant other at home: No Do you presently have visiting nurse or other home services: No Alcohol intake: current Alcohol intake frequency: 0-2 drinks per day Alcohol type: wine Comment: glass of wine QD Patient Tobacco Use Status: Never used Tobacco Tobacco use type: Cigarette e-Cigarette/Vaping Use: Never Used Second Hand Smoke Exposure: No service: No Current occupational status: retired Cognitive needs: No Hearing needs: No Vision needs: Yes Questionnaire Medicare Wellness Checkup [age] What gender do you identify with?: male During the past 4 weeks, how much have you been bothered by emotional problems such as feeling anxious, depressed, irritable, sad or downhearted, and blue?: slightly During the past 4 weeks, has your physical & emotional health limited your social activities with family, friends, neighbors, or groups?: not at all During the past 4 weeks, how much bodily pain have you generally had?: very mild pain During the past 4 weeks, was someone available to help you if you needed & wanted help?: yes, as much as I wanted During the past 4 weeks, what was the hardest physical activity you could do for at least 2 minutes?: heavy Can you get to places out of walking distance without help? (For eg., can you travel alone on buses, taxis or drive your car?): Yes Can you go shopping for groceries or clothes without someone's help?: Yes Can you prepare your own meals?: Yes Can you do your housework without help?: Yes Because of any health problems, do you need the help of another person with your personal care needs such as eating, bathing, dressing or getting around the house?: No Can you handle your own money without help?: Yes During the past 4 weeks, how would you rate your health in general?: excellent During the past 4 weeks how have things been going for you?: pretty well Are you having difficulties driving your car?: no Do you always fasten your seat belt when you are in a car?: yes, usually During past 4 weeks, have you been bothered by the following: never: Sexual problems?, Trouble eating well?, Teeth or denture problems? and Problems using the telephone?, seldom: Falling or dizzy when standing up and sometimes: Tiredness or fatigue? Have you fallen 2 or more times in the past year?: No Are you afraid of falling?: No Are you a smoker?: no During the past 4 weeks, how many drinks of wine, beer, or other alcoholic beverages did you have?: 6-9 drinks per week Do you exercise for about 20 minutes 3 or more times a week?: yes, all the time Have you been given information to help with the following?: no: Hazards in your house that might hurt you? and no: Keeping track of your medications? How often do you have trouble taking medicines the way you have been told to take them?: I do not have to take medicine How confident are you that you can control & manage most of your health problems?: very confident What is your race?: White PHQ-9 Over the last 2 weeks, how often have you been bothered by any of the following problems? 1. Little interest or pleasure in doing things: not at all 2. Feeling down, depressed, or hopeless: not at all 3. Trouble falling or staying asleep, or sleeping too much: several days 4. Feeling tired or having little energy: several days 5. Poor appetite or overeating: not at all 6. Feeling bad about yourself - or that you are a failure or have let yourself or your family down: not at all 7. Trouble concentrating on things, such as reading the newspaper or watching television: not at all 8. Moving or speaking so slowly that other people could have noticed. Or the opposite - being so fidgety or restless that you have been moving around a lot more than usual: not at all 9. Thoughts that you would be better off or of hurting yourself in some way: not at all Total score: 2 Depression Screening Interpretation: Negative Depression Screening Done: Yes 79153 - PHQ-9 Billing: Yes Source: Developed by Drs. Peter Garcia, Annette Owens, Ruy Madrigal and colleagues, with an educational husam from [email or web address]. Review of Systems Const Denies poor appetite and Denies weakness Eyes Denies no additional complaints ENT Reports Normal hearing present, Denies dizziness, Denies nasal congestion, Denies tinnitus and Denies sore throat Card Denies chest pain, Denies syncope, Denies rapid heart rate and Denies dyspnea Resp Denies cough and Denies dyspnea GI Denies change in stool character, Reports constipation, Denies diarrhea, Denies nausea and Denies vomiting Denies dysuria and Denies urinary frequency Neuro Reports Normal hearing present, Denies confusion, Denies dizziness, Denies syncope and Denies weakness Psych Denies confusion Physical Exam Vital Signs: Last Vital Signs Pulse 84 10/12/24 14:09 BP 142/80 H 10/12/24 14:09 Pulse Ox 97 10/12/24 14:09 Oxygen Delivery Method Room Air 10/12/24 14:09 BMI result Body Mass Index 26.4 Const General: No confusion Orientation/consciousness: No confusion HEENT Head: Yes normocephalic Ears: external ears normal and TM's normal bilaterally Face and sinus: Yes normal facial exam Mouth: moist mucous membranes Throat: Yes tonsils normal Eyes Conjunctivae: conjunctivae normal Pupils: Equal, round and reactive pupils present and Pupil accommodation reflex normal Direct Ophthalmoscopy: normal light reflex Neck Neck: No lymphadenopathy Thyroid: Thyroid normal Chest Chest palpation & inspection: normal inspection of the chest Resp Effort & Inspection: normal respiratory effort and no audible wheezes Auscultation: clear to auscultation bilaterally, no crackles, no wheezes and lung sounds not diminished Cardio Rate: regular rate Rhythm: regular rhythm Peripheral pulses: radial pulses present and dorsalis pedis present GI Other: guaiac neg and prostate mild enlarged Palpation (GI): no masses Auscultation: normal bowel sounds and normoactive bowel sounds Male General Exam: Yes normal external exam Skin General skin exam: no rashes or lesions noted Rashes: no rashes Neuro General: No confusion Cranial nerves: Yes Equal, round and reactive pupils present and Yes Normal hearing present Cognition (Neuro): normal cognition Gait exam (Neuro): Normal gait present Motor exam (neuro): 5/5 motor strength present throughout Deep tendon reflexes (DTR's): Right brachioradialis reflex intensity grade: 2+, Left brachioradialis reflex intensity grade: 2+, Right patellar reflex intensity grade: 2+ and Left patellar reflex intensity grade: 2+ Extrem General: No edema Assessment & Plan Assessment & Plan (1) Annual wellness visit: Code(s): Z00.00 - Encounter for general adult medical examination without abnormal findings (2) Ascending aorta dilatation: Comment: November 2021 last echocardiogram 4.2cm ascending aorta dilatation October 2022 4.4 cm July 2023 4.1 cm was advised ff up 2 years Code(s): I77.810 - Thoracic aortic ectasia (3) Essential hypertension: Code(s): I10 - Essential (primary) hypertension (4) Impaired glucose tolerance: Code(s): R73.02 - Impaired glucose tolerance (oral) (5) Hypercholesterolemia: Code(s): E78.00 - Pure hypercholesterolemia, unspecified (6) Gastroesophageal reflux disease: Code(s): K21.9 - Gastro-esophageal reflux disease without esophagitis Qualifiers: Esophagitis presence: without esophagitis Qualified Code(s): K21.9 - Gastro-esophageal reflux disease without esophagitis Plan - Continue monitoring blood pressure and encourage regular home monitoring - Lifestyle modifications suggested to manage blood pressure and support weight loss: regular exercise and dietary adjustments - Reduce dietary intake of saturated fats and cholesterol - Continue taking omeprazole as needed; advise against routine usage where possible and monitor for symptoms consistent with GERD - Continue regular intake of COQ10, fish oil, and loratadine - Encourage increased dietary fiber intake to promote cardiovascular health - Monitor for any changes or symptoms that could indicate deterioration of prostate health - Next routine follow-up in one year unless symptoms warrant an earlier review I discussed the importance of monitoring blood pressure at home for accuracy and effective management. We reviewed readings taken during this visit and emphasized the importance of lifestyle modifications, including increased physical activity and dietary adjustments, to support cardiovascular health and promote weight loss. Regarding GERD management, we reviewed the side effects of long-term omeprazole use, and the patient agreed to take it only as needed. We discussed the elevated LDL cholesterol levels, explored potential dietary influences, and emphasized increasing plant-based proteins and reducing saturated fats. The benefits of regular hydration to support renal function and avoiding NSAIDs were reiterated. We agreed on a follow-up within one year for routine checks, with interim contact as needed for any concerns. - Monitor blood pressure at home regularly. - Engage in regular physical activity; consider joining a health club. - Adopt a heart-healthy diet with reduced cholesterol and saturated fats. - Take omeprazole only when symptomatic for GERD. - Increase fiber intake through fruits and vegetables. - Stay hydrated, aiming for adequate water intake daily. - Schedule an annual check-up or earlier if symptoms develop. - Contact if experiencing any significant changes in health or new symptoms arise. Orders: Orders Hemoglobin A1c 1 Year R73.02 - Impaired glucose tolerance (oral) Complete Blood Count Auto Diff 1 Year R73.02 - Impaired glucose tolerance (oral) Comprehensive Met. Panel 1 Year R73.02 - Impaired glucose tolerance (oral) Prostate Specific Antigen Scr 1 Year R73.02 - Impaired glucose tolerance (oral) Free T4 (Free Thyroxine) 1 Year R73.02 - Impaired glucose tolerance (oral) Thyroid Stimulating Hormone 1 Year R73.02 - Impaired glucose tolerance (oral) Vitamin B12 and Folate 1 Year R73.02 - Impaired glucose tolerance (oral) Lipid Panel 1 Year E78.00 - Pure hypercholesterolemia, unspecified, R73.02 - Impaired glucose tolerance (oral) Quality Reporting (2019) Depression/Bipolar (159/160/161/177) PHQ-9: Total score: 2 Coding Level of Care Code Medicare Subsequent (G0439) Diagnoses Annual wellness visit Z00.00 Ascending aorta dilatation I77.810 Essential hypertension I10 Impaired glucose tolerance R73.02 Hypercholesterolemia E78.00 Gastroesophageal reflux disease without esophagitis K21.9 Esophagitis presence: without esophagitis Additional Codes PHQ-9 - 45487 - PHQ-9 Billing: Yes ([id number])
[2024-10-12 14:09] VITALS: BP 142/80; PULSE 84; O2SAT 97; BMI 26.4
[2024-10-12 14:22] VITALS: BP 150/80
== END 2024-10-12 14:48 | disposition home or self-care (01) ==
PROVIDERS: PCP Internal Medicine; Visit Provider Internal Medicine
DX: Z00.00 Encounter for general adult medical examination without abnormal findings (principal); I77.810 Thoracic aortic ectasia; I10 Essential (primary) hypertension; R73.02 Impaired glucose tolerance (oral); E78.00 Pure hypercholesterolemia, unspecified; K21.9 Gastro-esophageal reflux disease without esophagitis

== ENCOUNTER → 2024-10-12 13:38 | Outpatient (BNVA) | payer MEDICARE, SELFPAY | PROVIDERS: PCP Internal Medicine; Visit Provider Internal Medicine | DX: Z00.00 Encounter for general adult medical examination without abnormal findings (principal); I77.810 Thoracic aortic ectasia; I10 Essential (primary) hypertension; R73.02 Impaired glucose tolerance (oral); E78.00 Pure hypercholesterolemia, unspecified; K21.9 Gastro-esophageal reflux disease without esophagitis | CPT/HCPCS: 96127 ==

== ENCOUNTER 2024-11-19 09:48 | Outpatient (REF) | payer MEDICARE, SELFPAY ==
--- NOTE | ~2024-11-19 | XR_ITS ---
EXAMINATION: XR CHEST 2 VIEWS HISTORY: R05.9 - Cough, unspecified COMPARISON: Comparison is made with the prior examination dated 12/30/2023. FINDINGS: PA and lateral views of the chest are submitted. The lungs are expanded and clear. There is no pleural effusion, pneumothorax, or pulmonary vascular congestion. The heart is normal in size. There is degenerative disc disease of the spine. XR/XR chest 2V IMPRESSION: No acute cardiopulmonary abnormality. Electronically signed by: Peter Munguia MD 11/19/2024 11:07 AM PATRICK
--- OUTSIDE RECORDS SUMMARY | 2024-11-19 10:47 | XMS_ITS | Encounter Summary ---
Author Organization [facility] Address [phone] [place] [id number] Care Team Providers Care Inspector Agricultural Commodities Name Role Phone Cathryn Clark MD Primary Care Provider Pcp, Unknown Unavailable Unavailable Encounter Details Date Type Department Care Team (Late st Contact Info) Description 12/06/2016 Procedure Pass [facility] [address] [place] [address] Social History Tobacco Use Types Packs/Day Years Used Date Smoking Tobacco: Never Smokeless Tobacco: Never Alcohol Use Standard Drinks/Week Comments Yes 2 (1 standard drink = 0.6 oz pur e alcohol) 1-2 drinks per night Sex and Gender Information Value Date Recorded Sex Assigned at Not on file Gender Identity Not on file Sexual Orientation Not on file documented as of this encounter Plan of Treatment Not on file documented as of this encounter Visit Diagnoses Not on filedocumented in this encounter Care Teams Inspector Agricultural Commodities Relationship Specialty Start Date End Date Cathryn Clark MD [address] [place] [address] PCP - General 07/10/16 Pcp, Unknown 07/10/16 documented as of this encounter Additional Source Comments The information contained in this document represents components of the legal health record. It is not the complete legal health record.[facility]
--- OUTSIDE RECORDS SUMMARY | 2024-11-19 10:47 | XMS_ITS | Clinical Summary ---
Author Organization [facility] [employer] [facility] lin Address [address] [place] [address] Care Team Providers Care Glass Beveler Name Role Phone Pcp, No Primary Care Provider [phone] Social History Tobacco Use Types Packs/Day Years Used Date Smoking Tobacco: Never Assessed Sex and Gender Information Value Date Recorded Sex Assigned at Not on file Legal Sex Male 12:21 PM EST Gender Identity Not on file Sexual Orientation Not on file Plan of Treatment Health Maintenance Due Date Last Done Comments Colorectal Cancer: COLONOSCO PY Screening every 10 yrs (or Modifier) 1948 Depression: Screening Annual ly using PHQ-2/9 in Adults 18 yrs or above (or HM Modifier)([facility]) 1966 Hepatitis C Virus Infection in Adolescents and Adults: Screening (or Modifier) ([facility]) 1966 SDOH Screening Reminder: Tanya carmona for all adults ([facility]) 1966 Tobacco Smoking Cessation: i n Adults excluding Women: Behavioral and Pharmacotherapy Interventions ([facility]) 1966 DTaP/Tdap/Td Vaccines ([facility]) (1 - Tdap) 1967 Lipid Screening: Every 5 yrs for Men aged 35+ (or HM Modifier) ([facility]) 1984 Colorectal Cancer Screening 45 -75 Yrs (or HM Modifier ) 1993 Colorectal Cancer: FLEXIBLE SIGMOIDOSCOPY Screening every 5 yrs 1993 Colorectal Cancer: Fecal Imm unochemical Test (FIT) Annually [facility] 1993 Colorectal Cancer: High-sens itivity gFOBT Screening Annually [facility] 1993 Colorectal Cancer: Stool Col oguard Screening every 3 yrs 1993 Colorectal Cancer:CT Colonography Screening every 5 yr s 1993 Zoster/Shingles Vaccine Seri es Screening: Adults aged 18+ yrs (or HM Modifiers)([facility]) (1 of 2) 1998 RSV Vaccines (1 - 1-dose 60+ series) 2008 Pneumococcal Vaccination Scr eening: Patients 65+ yrs of age ([facility]) (1 of 1 - PCV) 2013 Flu Vaccination: Ages 65+: Y early High Dose Recommended (or Modifier)([facility]) 05/14/2024 COVID-19 Vaccine Screening: Initial Series and Booster Status ([facility]) (2023- season) 2024 Medical Devices Not on file Insurance MEDICARE Care Teams Glass Beveler Relationship Specialty Start Date End Date Pcp, Hailee PCP - General Family Medicine 11/03/20
--- OUTSIDE RECORDS SUMMARY | 2024-11-19 10:47 | XMS_ITS | Encounter Summary ---
Author Organization [facility] Address [phone] [address] [place] [address] Care Team Providers Care Sprue Cutting Press Operator Name Role Phone Cathryn Clark MD Primary Care Provider [phone] Pcp, Unknown Unavailable Unavailable Reason for Referral * - Closed Specialty Diagnoses / Procedures Referred By Contsanty t Referred To Contact Procedures NM Bone Outside (No Interpretation) Pepe Mtz MD Referral ID Status Reason Start Date Expiration Date Visits Re quested Visits Authorized [id number] Closed 01/10/2018 01/10/2019 1 1 Encounter Details Date Type Department Care Team (Late st Contact Info) Description 01/10/2018 Transcribe Orders [facility] [address] [place] [id number] Dino Garcia [address] [place] [id number] [email or web address] Social History Tobacco Use Types Packs/Day Years Used Date Smoking Tobacco: Never Smokeless Tobacco: Never Alcohol Use Standard Drinks/Week Comments Yes 2 (1 standard drink = 0.6 oz pur e alcohol) 1-2 drinks per night Sex and Gender Information Value Date Recorded Sex Assigned at Not on file Gender Identity Not on file Sexual Orientation Not on file documented as of this encounter Functional Status Functional Status Response Date of Assess ment Patient is deaf or has serious difficulty with h earing No 12/07/2016 Patient is blind or has seri ous difficulty with seeing, even when wearing glasses No 12/07/2016 Patient has serious difficul ty walking or climbing stairs (5yr old or older) No 12/07/2016 Patient has serious difficul ty dressing or bathing (5yr old or older) No 12/07/2016 Patient has serious difficul ty doing errands alone such as visiting a doctor? s office or shopping, due to physical, mental, or emotional condition (15 years old or older) Yes 12/07/2016 Cognitive Status Response Date of Assessm ent Patient has serious difficul ty concentrating, remembering, or making decisions due to physical, mental, or emotional condition No 12/07/2016 documented as of this encounter Plan of Treatment Not on file documented as of this encounter Results * NM Bone Outside (No Interpretation) (01/10/2018 12:00 AM EDT) Narrative NAYANAH - 01/10/2018 11:06 AM EDT This study is for PACS storage only and not for interpretation. Pepe Mtz MD IMG OUTSIDE IM AGING W/OUT INTERPRETATION [facility] documented in this encounter Visit Diagnoses Not on filedocumented in this encounter Care Teams Sprue Cutting Press Operator Relationship Specialty Start Date End Date Cathryn Clark MD [address] [place] [phone] PCP - General 07/10/16 Pcp, Unknown 07/10/16 documented as of this encounter Additional Source Comments The information contained in this document represents components of the legal health record. It is not the complete legal health record.[facility]
--- OUTSIDE RECORDS SUMMARY | 2024-11-19 10:47 | XMS_ITS | Encounter Summary ---
Author Organization [facility] Address [phone] [place] [address] Care Team Providers Care Tool Machinist Name Role Phone Cathryn Clark MD Primary Care Provider Pcp, Unknown Unavailable Unavailable Encounter Details Date Type Department Care Team (Late st Contact Info) Description 08/15/2016 Procedure Pass [facility], [place] [address] [place] [address] Social History Tobacco Use Types Packs/Day Years Used Date Smoking Tobacco: Never Assessed Sex and Gender Information Value Date Recorded Sex Assigned at Not on file Gender Identity Not on file Sexual Orientation Not on file documented as of this encounter Plan of Treatment Not on file documented as of this encounter Visit Diagnoses Not on filedocumented in this encounter Care Teams Tool Machinist Relationship Specialty Start Date End Date Cathryn Clark MD [address] [place] [id number] PCP - General 07/10/16 Pcp, Unknown 07/10/16 documented as of this encounter Additional Source Comments The information contained in this document represents components of the legal health record. It is not the complete legal health record.[facility]
--- OUTSIDE RECORDS SUMMARY | 2024-11-19 10:47 | XMS_ITS | Encounter Summary ---
Author Organization [facility] Address [phone] [place] [address] Care Team Providers Care Bench Inspector Name Role Phone Cathryn Clark MD Primary Care Provider [phone] Pcp, Unknown Unavailable Unavailable Encounter Details Date Type Department Care Team (Late st Contact Info) Description 01/15/2018 Procedure Pass [facility] MR Imaging, [place] [address] [place] [address] Social History Tobacco Use Types Packs/Day Years [...] on filedocumented in this encounter Care Teams Bench Inspector Relationship Specialty Start Date End Date Cathryn Clark MD [address] [place] [id number] PCP - General 07/10/16 Pcp, Unknown 07/10/16 documented as of this encounter Additional Source Comments The information contained in this document represents components of the legal health record. It is not the complete legal health record.[facility]
== END 2024-11-19 09:49 | disposition home or self-care (01) ==
LOC: HO.XRAY 09:48
PROVIDERS: PCP Internal Medicine
DX: R05.1 Acute cough (principal); I10 Essential (primary) hypertension
CPT/HCPCS: 71046; 96127; 99212

== ENCOUNTER → 2024-11-19 10:47 | Outpatient (BNV) | payer MEDICARE, SELFPAY | PROVIDERS: PCP Internal Medicine; Visit Provider Radiology Diagnostic Radiology | DX: R05.9 Cough, unspecified (principal) | CPT/HCPCS: 71046 ==

== ENCOUNTER 2025-03-16 09:59 | Outpatient (REF) | payer MEDICARE, SELFPAY ==
[2025-03-16 10:15] LABS: MANUAL DIFF FLAG NO
[2025-03-16 11:20] LABS: Basophils Percent Auto 0.6 % (0-2); Eosinophils Absolute Auto 0.1 X10*3/uL (0.0-0.4); Eosinophils Percent Auto 1.4 % (0-4); Hematocrit 47.8 % (42.0-52.0); Hemoglobin 16.8 g/dl (14.0-18.0); Imm Gran Abs Auto 0.07 X10*3/uL (0.00-0.03); Imm Gran Pct Auto 1.1 % (0.0-0.4); Lymphocytes Absolute Auto 1.4 X10*3/uL (1.2-4.9); Lymphocytes Percent Auto 22.3 % (20-40); Mean Corpuscular HGB Conc 35.1 g/dl (31.0-36.0); Mean Corpuscular Hemoglobin 33.8 pg (27.0-33.0); Mean Corpuscular Volume 96.2 fL (80.0-98.0); Mean Platelet Volume 10.5 fL (9.4-12.4); Monocytes Absolute Auto 0.6 X10*3/uL (0.1-1.2); Monocytes Percent Auto 10.1 % (2-11); Neutrophils Percent Auto 64.5 % (45-73); Platelet Count 177 X10*3/uL (160-400); Red Blood Count 4.97 X10*6/uL (4.60-5.80); Red Cell Distribution Width 12.7 % (11.0-16.0); White Blood Count 6.2 X10*3/uL (4.8-10.8)
--- OUTSIDE RECORDS SUMMARY | 2025-03-16 11:26 | XMS_ITS | Clinical Summary ---
Author Organization [facility] lin Address [address] [place] [address] Care Team Providers Care Data Operations Manager Name Role Phone Pcp, No Primary Care Provider [phone] Social History Tobacco Use Types Packs/Day Years Used Date Smoking Tobacco: Never Assessed Sex and Gender Information Value Date Recorded Sex Assigned at Not on file Legal Sex Male 12:21 PM EST Gender Identity Not on file Sexual Orientation Not on file Plan of Treatment Health Maintenance Due Date Last Done Comments Depression: Screening Annual ly using PHQ-2/9 in Adults 18 yrs or above (or HM Modifier)([facility]) 1966 Hepatitis C Virus Infection in Adolescents and Adults: Screening (or Modifier) ([facility]) 1966 SDOH Screening Reminder: Tanya carmona for all adults ([facility]) 1966 Tobacco Smoking Cessation: i n Adults excluding Women: Behavioral and Pharmacotherapy Interventions ([facility]) 1966 DTaP/Tdap/Td Vaccines ([facility]) (1 - Tdap) 1967 Pneumococcal Vaccination Scr eening: Patients 50+ yrs of age ([facility]) (1 of 1 - PCV) 1998 Zoster/Shingles Vaccine Seri es Screening: Adults aged 18+ yrs (or HM Modifiers)([facility]) (1 of 2) 1998 RSV Vaccines (1 - 1-dose 75+ series) 2023 COVID-19 Vaccine Screening: Initial Series and Booster Status ([facility]) ( - 2023- season) 2024 Flu Vaccination: Ages 65+: Y early High Dose Recommended (or Modifier)([facility]) 05/14/2025 Medical Devices Not on file Insurance MEDICARE Care Teams Data Operations Manager Relationship Specialty Start Date End Date Pcp, No PCP - General Family Medicine 11/03/20
[2025-03-16 12:03] LABS: Alanine Aminotransferase 21 U/L (0-40); Albumin Level 4.3 g/dL (3.5-5.0); Alkaline Phosphatase 50 U/L (39-117); Anion Gap 12 (12-20); Aspartate Amino Transferase 20 U/L (5-37); Bilirubin Total 0.9 mg/dL (0.0-1.0); Blood Urea Nitrogen 26 mg/dL (9-16); C Reactive Protein < 0.10 mg/dL (< or = 0.50); Calcium 9.4 mg/dL (8.4-10.2); Carbon Dioxide 31 mmol/L (22-29); Chloride 105 mmol/L (96-108); Estimated Glomerular Filt Rate 56; Free T4 (Free Thyroxine) 1.13 ng/dL (0.71-1.85); Glucose Random 64 mg/dL (60-115); Potassium 5.1 mmol/L (3.3-5.1); Sodium 143 mmol/L (135-145); Thyroid Stimulating Hormone 0.78 uIU/mL (0.32-4.0)
[2025-03-16 12:09] LABS: Erythrocyte Sedimentation Rate 2 MM/HR (0-15)
[2025-03-16 12:22] LABS: Folate 12.7 ng/mL (> or = 4.0); Vitamin B12 359 pg/mL (200-900)
[2025-03-17 05:53] LABS: Rubella IgG Antibody 7.35 Index
[2025-03-17 10:02] LABS: Rubeola IgG (Measles) >300.00 AU/mL
== END 2025-03-16 10:00 | disposition home or self-care (01) ==
LOC: HO.LAB 09:59
PROVIDERS: PCP Internal Medicine; Visit Provider Internal Medicine
DX: K21.9 Gastro-esophageal reflux disease without esophagitis (principal); Z02.0 Encounter for examination for admission to educational institution; R05.1 Acute cough
CPT/HCPCS: 36415; 80053; 82607; 82746; 84439; 84443; 85025; 85652; 86140; 86735; 86762; 86765; 86787

== ENCOUNTER → 2025-07-08 09:45 | Outpatient (REF) | payer MEDICARE, SELFPAY ==
--- NOTE | 2025-07-08 09:47 | CA_ITS ---
Transthoracic Echocardiogram Patient (Last, First, Middle): Elfego Roger F Gender: Male Date of : 1950 Age: 74 Procedure Date: 07/08/2025 Procedure Type: Transthoracic Echocardiogram Location: OP Height: 177.8 cm Weight: 78.93 kg BSA: 1.97 m2 Heart Rate: 72 bpm BP: 148 / 82 mmHg Cogeneration Technician: IONA Referring MD: Zuhair Peguero MD Motion Picture Projectionist: Feliciano Estrada MD Symptoms: I25.10 - Atherosclerotic heart disease of [place] coronary artery without... Study Quality: Adequate ECG Rhythm: Sinus Conclusions: - 1. Moderately reduced LV ejection fraction at 35-40% with multiple regional wall motion abnormalities consistent with ischemic cardiomyopathy with grade 1 diastolic dysfunction 2. Mild aortic regurgitation 3. Moderately dilated ascending aorta at 4.5 cm 4. Normal RV systolic pressure 5. No gross pericardial effusion Findings Left Ventricle Normal left ventricular cavity size. There is mildly increased left ventricular wall thickness. The left ventricular systolic function is moderately decreased. The visually estimated ejection fraction is between 35 40%. There is evidence of regional wall motion abnormalities. Spectral Doppler is indicative of an impaired relaxation filling pattern. Evidence suggests grade I (mild) diastolic dysfunction. Wall Motion Rest Echo Findings The mid anterolateral and mid inferoseptal segments are hypokinetic. The inferolateral wall, the basal inferior, mid inferior, basal anterolateral, and basal inferoseptal segments are akinetic. All other scored wall segments showed normal motion. Right Ventricle Normal right ventricular cavity size and systolic function. Atria The left atrium is mildly dilated. There is no evidence of interatrial shunt. The right atrium is likely dilated. Aortic Valve There is mild calcification of the aortic valve. There is no aortic valve stenosis. There is mild aortic valve regurgitation. Mitral Valve There is mild anterior and posterior mitral leaflet thickening. There is trace mitral valve regurgitation. There is no mitral valve stenosis. Pulmonic Valve The pulmonic valve is likely normal. There is trace pulmonic valve regurgitation. Tricuspid Valve Normal tricuspid valve structure. There is mild tricuspid valve regurgitation. The right ventricular systolic pressure is normal. The right ventricular systolic pressure is 23 mmHg. Normal right atrial pressure. There is no evidence of pulmonary hypertension. Great Vessels The pulmonary artery was not well visualized. There is moderate dilatation of the ascending aorta measuring 4.50 cm. Venous The inferior vena cava is normal in size and collapses greater than 50% with inspiration. Pericardium/Pleural There is no evidence of pericardial effusion. Prior Study Comparison Changes noted compared to prior study dated: 07/24/2023. LV ejection fraction has significantly reduced with new regional wall motion abnormality noted. Ascending aorta is further dilated Measurements 2D Linear Measurements IVSd: 1.32 0.6-0.9/0.6-1.0 cm LVIDd: 6.40 3.9-5.3/4.2-5.9 cm LVIDd Index: 3.25 2.4-3.2/2.2-3.1 cm/m2 LVIDs: 5.16 2.0-3.6 cm LVPWd: 0.62 0.7-1.1 cm LA Diam: 4.90 2.7-3.8/3.0-4.0 cm LAIDs Index: 2.49 1.5-2.3 cm/m2 LV Mass: 330.88 67-162/88-224 g LV Mass Index: 167.96 43-95/49-115 g/m2 LVOT Diam: 2.50 3.0+(-)1.3 cm 2D Systolic Function EF 4C: 31.70 >55% EF 2C: 44.10 >55% EF BiP: 37.60 >55% Mitral Valve MV Pk E: 0.60 MV PK A: 0.75 MV Decel Time: 252.00 E/A: 0.80 E'Lateral: 4.90 E'Medial: 4.35 E/E' Med: 13.70 E/E' Lat: 12.20 PHT: 74.00 MVA PHT: 2.97 Decel [place]: 2.36 Aortic Valve AoV Pk Shiv: 1.32 AoV Mn Shiv: 0.95 AoV VTI: 0.25 AoV Pk Grad: 7.00 Aov Mn Grad: 4.00 MENDEZ Cont.VTI: 3.10 AI Pk Shiv: 3.93 AI [place]: 3.08 LVOT LVOT Pk Shiv: 0.82 LVOT Mn Shiv: 0.58 LVOT VTI: 0.16 LVOT Pk Grad: 3.00 LVOT Mn Grad: 2.00 LVOT Diam: 2.50 LVOT Area: 4.91 Diastolic Function MV Pk E: 0.60 MV Pk A: 0.75 E/A: 0.80 E'Medial: 4.35 E/E' Med: 13.70 E' Laterial: 4.90 E/E' Lat: 12.20 Right Ventricle TAPSE (mm): 21.40 TVS' Shiv: 17.50 Tricuspid Valve TR Pk Shiv: 2.25 TR Pk Grad: 20.00 RA Press: 3.00 RVSP: 23.00 Great Vessels Aorta Sinus of Valsalva: 3.70 2.0-3.5 cm Ao Asc: 4.50 2.1-3.4 cm Ao Arch: 3.30 Pulmonary Veins Pulm Vein S/D 1.30 Pulmonary Valve PV Pk Shiv: 0.76 Peak PV Grad: 2.00 Updated in Other Vendor System with Status of Final Feliciano Estrada MD electronically signed on 07/08/2025 11:38:57 AM with status of Final
--- OUTSIDE RECORDS SUMMARY | 2025-07-08 11:35 | XMS_ITS | Encounter Summary ---
Author Organization [facility] Address [address] [place] [address] Phone Care Team Providers Care Supervisor Corduroy Cutting Name Role Phone Cathryn Clark MD Primary Care Provider [phone] Pcp, Unknown Unavailable Unavailable Encounter Details Date Type Department Care Team (Late st Contact Info) Description 12/06/2016 Procedure Pass [facility] [address] [place] [address] Social History Tobacco Use Types Packs/Day Years Used Date Smoking Tobacco: Never Smokeless Tobacco: Never Alcohol Use Standard Drinks/Week Comments Yes 2 (1 standard drink = 0.6 oz pur e alcohol) 1-2 drinks per night Sex and Gender Information Value Date Recorded Sex Assigned at Not on file Legal Sex Male 3:23 PM EDT Gender Identity Not on file Sexual Orientation Not on file documented as of this encounter Plan of Treatment Not on file documented as of this encounter Visit Diagnoses Not on filedocumented in this encounter Care Teams Supervisor Corduroy Cutting Relationship Specialty Start Date End Date Cathryn Clark MD [address] [place] [id number] PCP - General 07/10/16 Pcp, Unknown 07/10/16 documented as of this encounter Additional Source Comments The information contained in this document represents components of the legal health record. It is not the complete legal health record.[facility]
--- OUTSIDE RECORDS SUMMARY | 2025-07-08 11:35 | XMS_ITS ---
Author Name [facility] Organization Unknown History of Medication Use Medication Directions Dispensed Refills Start Date End Date Stat us doxycycline (ADOXA) 100 MG tablet Take 1 tablet (100 mg total) by mouth every 12 (twelve) hours around the clock. 06/01/2025 active Problems Problem Status Onset Date Problem Type Date of Resoluti on Source Acute non-recurrent maxillary sinusitis active EncounterDiagnosisAct [facility] Deviated nasal septum active EncounterDiagnosisAct [facility] Chronic pansinusitis active EncounterDiagnosisA ct [facility] Encounters Encounter Type Encounter Reason Primary Diagnosis [facility] Date [facility] Care Team Organization Name Specialty Phone Email Start Date End Da te [facility] 06/07/2025 06/30/2025 [facility] 04/08/2025
--- OUTSIDE RECORDS SUMMARY | 2025-07-08 11:35 | XMS_ITS | Encounter Summary ---
Author Organization [facility] Address [address] [place] [address] Phone Care Team Providers Care Dry Transfer Man Name Role Phone Cathryn Clark MD Primary Care Provider [phone] Pcp, Unknown Unavailable Unavailable Reason for Referral * - Closed Specialty Diagnoses / Procedures Referred By Contac t Referred To Contact Procedures NM Bone Outside (No Interpretation) Pepe Mtz MD [email or web address] Referral ID Status Reason Start Date Expiration Date Visits Re quested Visits Authorized [id number] Closed 01/10/2018 01/10/2019 1 1 Encounter Details Date Type Department Care Team (Late st Contact Info) Description 01/10/2018 Transcribe Orders [facility] [address] [place] [id number] [email or web address] Social History Tobacco Use Types Packs/Day Years [...] documented as of this encounter Functional Status * Patient is deaf or has serious difficulty with hearing Answer Date of Assessment Author No 12/07/2016 1:29 PM Hemalatha Galloway NP * Patient is blind or has serious difficulty with seeing, even when wearing glasses Answer Date of Assessment Author No 12/07/2016 1:29 PM Hemalatha Galloway NP * Patient has serious difficulty walking or climbing stairs (5yr old or older) Answer Date of Assessment Author No 12/07/2016 1:29 PM Hemalatha Galloway NP * Patient has serious difficulty dressing or bathing (5yr old or older) Answer Date of Assessment Author No 12/07/2016 1:29 PM Hemalatha Galloway NP * Patient has serious difficulty doing errands alone such as visiting a doctor???s office or shopping, due to physical, mental, or emotional condition (15 years old or older) Answer Date of Assessment Author Yes 12/07/2016 1:29 PM Hemalatha Galloway NP documented as of this encounter Mental Status * Patient has serious difficulty concentrating, remembering, or making decisions due to physical, mental, or emotional condition Answer Entry Date Author No 12/07/2016 1:29 PM Hemalatha Galloway NP documented in this encounter Plan of Treatment Not on file documented as of this encounter Results * NM Bone Outside (No Interpretation) (01/10/2018 12:00 AM EDT) Narrative PASCALE - 01/10/2018 11:06 AM EDT This study is for PACS storage only and not for interpretation. us Pepe Mtz MD [facility] OUTSIDE IMAGING W/ OUT INTERPRETATION Final Result DEVENDRA_HOLDENH documented in this encounter Visit Diagnoses Not on filedocumented in this encounter Care Teams Dry Transfer Man Relationship Specialty Start Date End Date Cathryn Clark MD [address] [place] [phone] PCP - General 07/10/16 Pcp, Unknown 07/10/16 documented as of this encounter Additional Source Comments The information contained in this document represents components of the legal health record. It is not the complete legal health record.[facility]
--- OUTSIDE RECORDS SUMMARY | 2025-07-08 11:35 | XMS_ITS | Patient Health Record ---
[facility] Address [address] [facility] [place] [address] Care Team Providers Care Unishear Operator Name Role Phone Cathryn Clark Primary Care Provider Sulaiman Dowell Unavailable [phone] Allergies Allergen (clinical drug ingredient) Drug/Non Drug Allergy documented on EMR Reaction Allergy Type Onset Date Status Seasonale Unknown Drug Allergy Active Reason For Referral No Information Medications Medication SIG (Take, Route, Fr equency, Duration) Notes Start Date End Date Status Lisinopril 5 MG 1 tablet Orally Once a day; Duration: 30 day(s) Not-Taking Fish Oil Active Claritin [...] Are you an other tobacco user? No Plan Of Treatment No Information Insurance Providers Payer Name Payer Address Payer Phone Subscriber Number Group Number Insured Name Patient Relationship to Insured Coverage Start Date Coverage End Date Medicare National [facility] [address] [place] [address] [id number] Elfego Roger Self - patient is the insured [employer] [address] [place] [address] [id number] Elfego Roger Self - patient is the insured Medical (General) History Medical History History ICD Code Chicken pox High blood pressure Joint implants/screws Measles Mumps Sinus conditions Surgical History Surgery Date(Month/Year) knee surgery 2017 hernia 1998 tonsillectomy 1978 cyst removal, neck 2012 cyst removal, back 2013
--- OUTSIDE RECORDS SUMMARY | 2025-07-08 11:35 | XMS_ITS | Encounter Summary ---
Author Organization [employer] [facility] Address [facility] [employer] [facility] [address] [place] [address] Phone Care Team Providers Care Warp Hauler Name Role Phone Cathryn Clark MD Primary Care Provider [phone] Pcp, Unknown Unavailable Unavailable Encounter Details Date Type Department Care Team (Late st Contact Info) Description 01/15/2018 Procedure Pass [facility], [place] [address] [place] [address] Social History Tobacco Use Types Packs/Day Years [...] on filedocumented in this encounter Care Teams Warp Hauler Relationship Specialty Start Date End Date Cathryn Clark MD [address] [place] [address] [place] [phone] PCP - General 07/10/16 Pcp, Unknown 07/10/16 documented as of this encounter Additional Source Comments The information contained in this document represents components of the legal health record. It is not the complete legal health record.[facility]
--- OUTSIDE RECORDS SUMMARY | 2025-07-08 11:35 | XMS_ITS | Encounter Summary ---
Author Organization [facility] Address [address] [place] [address] Phone Care Team Providers Care Modeling Manager Name Role Phone Cathryn Clark MD Primary Care Provider [phone] Pcp, Unknown Unavailable Unavailable Encounter Details Date Type Department Care Team (Late st Contact Info) Description 08/15/2016 Procedure Pass [facility] Imaging, [place] [address] [place] [address] Social History Tobacco Use Types Packs/Day Years [...] on filedocumented in this encounter Care Teams Modeling Manager Relationship Specialty Start Date End Date Cathryn Clark MD [address] [place] [address] PCP - General 07/10/16 Pcp, Unknown 07/10/16 documented as of this encounter Additional Source Comments The information contained in this document represents components of the legal health record. It is not the complete legal health record.[facility]
--- OUTSIDE RECORDS SUMMARY | 2025-07-08 11:35 | XMS_ITS | Patient Health Record ---
Author Organization [facility] Address [address] [place] [address] Care Team Providers Care Accounting Systems Analyst Name Role Phone Cathryn Clark MD Primary Care Provider Drew Marley Jr Allergies No Known Allergies Reason For Referral No Information Medications Medication SIG (Take, Route, Frequency, Duration) Notes Start Date End Date Status PriLOSEC Active MiraLax (colon prep) 17 GM/SCOOP mixed with Gatorade or Crystal Light Orally begin at 5:00 p.m. the day before the procedure for 1 day 04/18/2022 Active Fish Oil Active Claritin Active Immunizations Vaccine Route Administration Date Status Comme nts Influenza Unknown 06/14/2021 Administered Problems Problem Type SNOMED Code ICD Code Onset Dates Problem Status W/U Status Risk Notes Problem 683986423 Colon cancer screening (Z12.11) Active confirmed Problem 61586448 Rectal bleeding (K62.5) Active confirmed Problem 107006846 Gastroesophageal reflux disease without esophagitis (K21.9) Active confirmed Problem 728289118 Long-term curren t use of high risk medication other than anticoagulant (Z79.899) Active confirmed Problem 953923353 Elevated liver function tests (R94.5) Active confirmed Plan Of Treatment Future Test Test Name Order Date COLONOSCOPY 05/07/2012 UPPER GI ENDOSCOPY 08/30/2016 COLONOSCOPY 08/30/2016 COLONOSCOPY 04/18/2022 Insurance Providers Payer Name Payer Address Payer Phone Subscriber Number Group Number Insured Name Patient Relationship to Insured Coverage Start Date Coverage End Date MEDICARE OF GREG [address] [place] [address] [id number] KWAKU CIFUENTES Self - patient is the insured [employer] CLAIMS [address] [place] [address] [id number] KWAKU CIFUENTES Self - patient is the insured Medical (General) History Medical History History ICD Code Colonoscopy 04/05/17, diverti culosis and internal hemorrhoids, five-year followup because a personal history of tubular adenomas. Gastroesophageal reflux disease Environmental allergies hypertension Aortic insufficiency, mild Surgical History Surgery Date(Month/Year) tonsillectomy testicular surgery hernia repair Knee arthroscopy knee replacement, right
--- OUTSIDE RECORDS SUMMARY | 2025-07-08 11:35 | XMS_ITS | Clinical Summary ---
Author Organization [facility] Address formerly [facility] [employer] [address] [address] Phone Care Team Providers Care Data Modeler Name Role Phone Cathryn Clark MD Primary Care Provider [phone] Pcp, Unknown Unavailable Unavailable Allergies No known active allergies Medications MULTIVITAMIN ORAL Take by mouth. Activ e HAWTHORN ORAL Take by mouth. A ctive OMEGA-3S/DHA/EP A/FISH OIL (OMEGA 3 ORAL) Take by mouth. Active CALCIUM CARB/VIT D3/MINERALS (CALCIUM-VITAMI N D ORAL) Take by mouth. Activ e OMEPRAZOLE (PRILOSEC ORAL) Take by mouth. Active aspirin 81 MG EC tablet Take 81 mg by mouth daily. Reported on 12/14/2016 Active LORATADINE (CLARITIN ORAL) Take by mouth. Active acetaminophen (TYLENOL) 500 MG tablet Take 2 tablets (1,000 mg total) by mouth every 8 (eight) hours. For two weeks then reduce to as needed for mild pain. 7 Active Additional Information Patient not taking.Reported on 01/23/2017 docusate sodium (COLACE) 100 MG capsule Take 1 capsule (100 mg total) by mouth 2 (two) times a day. Continue to take this medication to avoid constipation as long as you are taking an opioid (ex. Oxycodone, dilaudid, morphine, etc.) for pain relief. When you stop taking opioids you may discontinue or reduce use to as needed for constipation. 7 Active Additional Information Patient not taking.Reported on 01/23/2017 polyethylene glycol (GLYCOLAX) 17 gram packet Take 17 g by mouth daily as needed (severe constipation). 7 Active Additional Information Patient not taking.Reported on 01/23/2017 senna (SENOKOT) 8.6 mg tablet Take 2 tablets by mouth nightly. Continue to take this medication to avoid constipation as long as you are taking an opioid (ex. Oxycodone, dilaudid, morphine, etc.) for pain relief. When you stop taking opioids you may discontinue or reduce use to as needed for constipation. 7 Active Additional Information Patient not taking.Reported on 01/23/2017 traMADol (ULTRAM) 50 mg tablet Take 1 tablet (50 mg total) by mouth every 6 (six) hours as needed for pain (specific location in comments). 60 tablet 7 Active Additional Information Patient not taking.Reported on 11/06/2017 oxyCODONE 5 MG immediate release tablet Take 1 tablet (5 mg total) by mouth every 4 (four) hours as needed for moderate pain. Partial fill ok at patient request. 30 tablet 7 Active Additional Information Patient not taking.Reported on 01/23/2017 diclofenac sodium (VOLTAREN) 75 MG EC tablet Take 1 tablet (75 mg total) by mouth 2 (two) times a day. 60 tablet 1 7 Active Additional Information Patient not taking.Reported on 11/06/2017 FEXOFENADINE HCL (JEFF ORAL) Take by mouth. Activ e UBIDECARENONE (CO Q-10 ORAL) Take by mouth. Active AMOXICILLIN ORAL Take by mouth. Activ e HYDROCHLOROTHIA ZIDE ORAL Take by mouth. Activ e Active Problems Problem Noted Date Diagnosed Date S/P knee replacement 12/06/2016 Social History Tobacco Use Types Packs/Day Years Used Date Smoking Tobacco: Never Smokeless Tobacco: Never Tobacco Cessation:Counseling Given: No Alcohol Use Standard Drinks/Week Comments Yes 2 (1 standard drink = 0.6 oz pur e alcohol) 1-2 drinks per night Education Answer Date Recorded Are you interested in more education? Not on jaz e 02/08/2023 Are you concerned about learning? Not on file 02/08/2023 No 02/08/2023 No 02/08/2023 Digital Access Answer Date Recorded No 03/10/2023 No 03/10/2023 No 03/10/2023 Reliable internet access at home? Not on file 03/10/2023 Device with a working camera? Not on file Sex and Gender Information Value Date Recorded Sex Assigned at Not on file Legal Sex Male 3:23 PM EDT Gender Identity Not on file Sexual Orientation Not on file Last Filed Vital Signs Vital Sign Reading Time Taken Comments Blood Pressure 140/80 12/07/2016 10:22 AM EST Pulse 76 12/07/2016 10:22 AM EST Temperature 36.3 C (97.3 F) 11/12/2018 10:36 AM EST Respiratory Rate 14 12/07/2016 10:22 AM EST Oxygen Saturation 94% 12/07/2016 10:22 AM EST Inhaled Oxygen Concentration - - Weight 85.7 kg (189 lb) 11/12/2018 10:36 AM EST Height 175.3 cm (5' 9 ) 11/12/2018 10:36 AM EST Body Mass Index 27.91 11/12/2018 10:36 AM EST Plan of Treatment Health Maintenance Due Date Last Done Comments LIPID PANEL 1950 DEPRESSION SCREENING 1960 HEPATITIS C SCREENING 1966 POTASSIUM LEVEL 12/07/2017 12/07/2016, 11/21/2016 RSV VACCINE (1 - 1-dose 75+ series) 2023 INFLUENZA VACCINE (#1) 2025 , 08/15/2019, 07/31/2018, Additional history exists COVID-19 VACCINE ( season) 2025 12/05/2020 Adult Td,Tdap Booster 12/15/2029 12/16/2019 , 09/03/2016, 01/16/2005 HEPATITIS A VACCINES Aged Out 09/12/2005, 02/19/2005, 01/16/2005 No longer eligible based on patient's age to complete this topic SMOKING STATUS SCREENING (Once After 26 Yrs) Completed 01/15/2018 ZOSTER VACCINES Completed 12/28/2018, 07/15, 08/24/2015 PNEUMOCOCCAL VACCINES (50+ years) Completed 08/23/2019, 07/31/2018, 07/31/2018 HIB VACCINES Aged Out No longer eligi ble based on patient's age to complete this topic MENINGOCOCCAL VACCINES (ACWY) Aged Out No longer eligible based on patient's age to complete this topic MENINGOCOCCAL VACCINES (B) Aged Out N o longer eligible based on patient's age to complete this topic Medical Devices Implanted Type Area Target Trimmer Device Identifier Shelf Expiration Date Model / Serial / Lot Cement Bone Smartset Hv 40gram (Multiples Of 20's) - [id number] Implanted:Qty: 2 on 12/06/2016 by Pepe Mtz MD at [facility] [employer] Right: Knee [employer] 12/11/2017 [id number] / / [id number] Implant Iuni Ipoly Kit Knee 23 - [id number] Implanted:Qty: 1 on 12/06/2016 by Pepe Mtz MD at [facility] Right: Knee CONFORMIS 05/13/2017 [id number] / [id number] / Description:6mm insert Tibial Tray Femoral Implant Implant Iuni Ipoly Kit Knee 23 - [id number] Implanted:Qty: 1 on 12/06/2016 by Pepe Mzt MD at [facility] Knee CONFORMIS 05/13/2017 [id number] / [id number] / Description:KIT NO CHARGE Implant Iuni Ipoly Kit Knee 23 - [id number] Implanted:Qty: 1 on 12/06/2016 by Pepe Mtz MD at [facility] Right: Knee CONFORMIS 05/13/2017 [id number] / [id number] / Description:KIT NO CHARGE Procedures Procedure Name Priority Date/Time Associated Diagnosis Comments BASIC METABOLIC PANEL Routine 12/07/2016 7:33 AM EST from Last 3 Months or Most Recently Relevant to Health Maintenance Results * (ABNORMAL) Basic metabolic panel ([facility] ,[facility] ,[facility] ,[facility] ,[facility] ,[facility] ,[facility]) (12/07/2016 7:33 AM EST) [facility] SODIUM 141 136 - 145 mmol/L [facility] POTASSIUM 4.2 3.4 - 5.0 mmol/L [facility] CHLORIDE 103 98 - 107 mmol/L [facility] CO2 20(L) 22 - 31 mmol/L [facility] BUN 16 6 - 23 mg/dL [facility] CREATININE 1.12 0.50 - 1.20 mg/dL [facility] GLUCOSE 129(H) 70 - 100 mg/dL [facility] CALCIUM 8.0(L) 8.8 - 10.7 mg/dL [facility] EGFR >59 >59 mL/min/1.7 3m2 [facility] Comment:If patient is black, multiply result by 1.21 ANION GAP 18(H) 5 - 17 mmol/L [facility] Blood 12/07/2016 7:33 AM EST 12/07/2016 7:45 AM EST Pepe Mtz MD LAB BLOOD ORDERABLES F inal Result Performing Organization Address City/State/[facility] Co de Phone Number [facility] [address] [place] [id number] from Last 3 Months or Most Recently Relevant to Health Maintenance Insurance MEDICARE A [facility] PPO MEDICARE A [facility] PPO MEDICARE A [facility] PPO MEDICARE A [facility] PPO MEDICARE A [facility] PPO MEDICARE A [facility] PPO MEDICARE A [facility] PPO MEDICARE A [facility] PPO MEDICARE A [facility] PPO Advance Directives For more information, please contact: [phone] (9AM - 5PM [place], Saturday-Saturday) Documents on File Type Date Recorded Patient Manager Loan Expl anation Healthcare Proxy 12/06/2016 10:10 AM * Full Code (Presumed) (Latest Code Status on File) Date Activated Date Inactivated Comments 12/06/2016 7:37 PM 12/07/2016 6:05 PM * Full Code (Presumed) Date Activated Date Inactivated Comments 12/06/2016 12:02 PM 12/06/2016 7:37 PM Healthcare Agents on File Name Relationship Healthcare Agent Relationsfl p Communication Sweta Roger Spouse .Primary Health Care Agent (Proxy form on file) Care Teams Data Modeler Relationship Specialty Start Date End Date Cathryn Clark MD [address] [place] [phone] PCP - General 07/10/16 Pcp, Unknown 07/10/16 Additional Source Comments The information contained in this document represents components of the legal health record. It is not the complete legal health record.[facility]
== END ==
LOC: HO.CARD 09:45
PROVIDERS: PCP Internal Medicine; Visit Provider Internal Medicine
DX: I25.10 Atherosclerotic heart disease of native coronary artery without angina pectoris (principal)
CPT/HCPCS: 93005; 93306; 99212

== ENCOUNTER 2025-07-08 13:54 | Outpatient (AMB) | payer MEDICARE, SELFPAY ==
[2025-07-08 13:59] VITALS: BP 140/70; PULSE 77; BMI 25.6
--- NOTE | 2025-07-08 13:59 | A.OFFVIS_ITS ---
Vital Signs 07/08/25 13:59 Height 5 ft 10 in Weight 178 lb 9.191 oz BMI 25.6 BP 140/70 H Blood Pressure Location Lt brachial Position Sitting Pulse 77 Pulse Source Monitor Intake Visit Reasons: echo Allergies No Known Allergies Allergy (Verified 11/19/24 10:04) Medication List - Last Reconciled 07/08/25 by Zuhair Peguero MD azithromycin For 250 mg dose pack: take 500 mg today (day 1), then 250 mg for 4 days (days 2-5) PO benzonatate 100 mg PO BID PRN coenzyme Q10 (Co Q-10) 75 mg PO DAILY loratadine (Claritin) 10 mg PO DAILY omega 0-vqg-tdc-fish oil 1,000 (120-180) mg (Fish Oil) 1 cap PO DAILY omeprazole magnesium (Prilosec OTC) 20 mg PO DAILY HPI Comments Details: Elfego is here for urgent visit. He had sent a patient portal message stating that he was getting exertional chest discomfort and hence we had advised to an urgent EKG/echocardiogram. He had an echocardiogram this morning and that showed new LV dysfunction with wall motion abnormalities suggestive of a myocardial infarction. Hence he is here for a visit. He states over the last few months he is noticing chest discomfort off and on. Some days he gets it some days he does not. More so exertional and can happen with doing inclines extra. Currently, he seems quite comfortable. Otherwise, he has a history of aortic regurgitation which is not hemodynamically significant. He has never described any cardiac symptoms in the past. History of hypertension and had taken lisinopril but that led to blood pressure going too low. Has taken other medications like hydrochlorothiazide. But no blood pressure meds in his current list. 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 Mother Colon cancer Social History Housing: House Are you a primary care navigator to a significant other at home: No Do you presently have visiting nurse or other home services: No Alcohol intake: current Alcohol intake frequency: 0-2 drinks per day Alcohol type: wine Comment: glass of wine QD Patient Tobacco Use Status: Never used Tobacco Tobacco use type: Cigarette e-Cigarette/Vaping Use: Never Used Second Hand Smoke Exposure: No service: No Current occupational status: retired Cognitive needs: No Hearing needs: No Vision needs: Yes Review of Systems Const Denies weakness ENT Denies dizziness Card Denies chest pain, Denies chest pain with activity, Denies syncope, Denies rapid heart rate, Denies pedal edema, Denies edema, Denies leg edema, Denies lightheadedness, Reports palpitations, Denies dyspnea, Denies dyspnea on exertion and Denies orthopnea Resp Denies cough, Denies dyspnea and Denies dyspnea on exertion GI Denies hematochezia and Denies change in stool character Musc Denies abnormal gait, Denies muscle cramps, Denies muscle weakness, Denies numbness, Denies radiating pain into limb and Denies tingling Neuro Denies abnormal gait, Denies dizziness, Denies syncope, Denies numbness, Denies tingling and Denies weakness Endo Reports palpitations Physical Exam Vital Signs: Last Vital Signs Pulse 77 07/08/25 13:59 BP 140/70 H 07/08/25 13:59 BMI result Body Mass Index 25.6 Const General: comfortable and no acute distress Orientation/consciousness: patient oriented x3 HEENT Other: Unremarkable Head: Yes normal to inspection Neck Neck: Yes normal visual inspection Chest Chest palpation & inspection: normal inspection of the chest Resp Auscultation: clear to auscultation bilaterally Cardio Palpation: normal PMI Heart sounds: S1 normal heart sound present, S2 normal heart sound present, no gallops, no murmurs and no rubs GI Palpation (GI): Soft to palpation Back/Spine/Pelvis Other: unremarkable Skin General skin exam: no rashes or lesions noted Neuro General: patient oriented x3 Extrem General: Yes normal to inspection Psych Mental Status: mental status grossly normal Office Procedures EKG Details: EKG with sinus rhythm at 77/Min; occasional supraventricular or ventricular ectopy. Leftward axis; inferior infarct and lateral ischemia. [id number], Complete Assessment & Plan Assessment & Plan (1) Atherosclerotic cardiovascular disease: Code(s): I25.10 - Atherosclerotic heart disease of [place] coronary artery without angina pectoris Category: Medical Plan: Based on clinical symptoms of exertional angina, EKG and echocardiogram he clearly has underlying coronary disease. Echocardiogram describes extensive wall motion abnormalities involving inferior/inferolateral wall and hence he may have had an inferior STEMI sometime in the last 3 months or so after symptoms onset. Currently, he is free of angina. We will set up an urgent coronary angiogram. Discussed with . Start aspirin, metoprolol and high-dose statins. Obtain baseline labs including lipids. Avoid any strenuous physical activity including sexual. If any recurring chest pain that is not resolving, he needs to come to the ER and we discussed about that today. Also prescribing sublingual nitroglycerin. (2) Non-rheumatic aortic regurgitation: Code(s): I35.1 - Nonrheumatic aortic (valve) insufficiency Category: Medical Plan: Mild aortic regurgitation. Not hemodynamically significant. No specific management at this time. (3) Ascending aorta dilatation: Code(s): I77.810 - Thoracic aortic ectasia Category: Medical Plan: In the echocardiogram, ascending aortic size 4.5 cm. In the past, measurements at different times that included 4.1 cm, 4.2 cm, 4.4 cm. Unclear how much of this difference technical. Any case, no need for any intervention at this time. (4) Essential hypertension: Code(s): I10 - Essential (primary) hypertension Category: Medical Plan: Slightly high blood pressure today. Beta-blockers should help. Orders: Orders Comprehensive Met. Panel Today I25.10 - Atherosclerotic heart disease of [place] coronary artery without angina pectoris Lipid Panel Today E78.5 - Hyperlipidemia, unspecified, I25.10 - Atherosclerotic heart disease of [place] coronary artery without angina pectoris Cardiac Cath LT w PCI Today I25.10 - Atherosclerotic heart disease of [place] coronary artery without angina pectoris Complete Blood Count no Diff Today I25.10 - Atherosclerotic heart disease of [place] coronary artery without angina pectoris Prothrombin Time INR Today I25.10 - Atherosclerotic heart disease of [place] coronary artery without angina pectoris Medications: New nitroglycerin do not exceed 3 doses per episode 0.4 mg sublingual Q5M PRN 30 tabs 5RF chest pain I25.10 - Atherosclerotic heart disease of [place] coronary artery without angina pectoris, R07.2 - Precordial pain aspirin (Adult Aspirin Regimen) 81 mg PO DAILY 90 tabs 1RF I25.10 - Atherosclerotic heart disease of [place] coronary artery without angina pectoris metoprolol succinate ER (Toprol XL) 50 mg PO DAILY 90 tabs 1RF I25.10 - Atherosclerotic heart disease of [place] coronary artery without angina pectoris atorvastatin (Lipitor) 80 mg PO QPM 90 tabs 1RF I25.10 - Atherosclerotic heart disease of [place] coronary artery without angina pectoris Coding Level of Care Code Est Pt Level 5 (70288) Complex EM visit Add On G2211 Diagnoses Atherosclerotic cardiovascular disease I25.10 Non-rheumatic aortic regurgitation I35.1 Ascending aorta dilatation I77.810 Essential hypertension I10 CPT Codes EKG - CPT: 73542-[id number], Complete ([id number])
--- OUTSIDE RECORDS SUMMARY | 2025-07-08 18:25 | XMS_ITS | Clinical Summary ---
Author Organization [facility] lin Address [address] [place] [address] Care Team Providers Care Pathology Tech Name Role Phone Pcp, No Primary Care Provider [phone] Social History Tobacco Use Types Packs/Day Years [...] Adults 18 yrs or above (or HM Modifier)([facility]) 1968 Hepatitis C Virus Infection in Adolescents and Adults: Screening (or Modifier) ([facility]) 1968 SDOH Screening Reminder: Tanya carmona for all adults ([facility]) 1966 Tobacco Smoking Cessation: i n Adults excluding Women: Behavioral and Pharmacotherapy Interventions ([facility]) 1966 DTaP/Tdap/Td Vaccines ([facility]) (1 - Tdap) 1967 Pneumococcal Vaccination Scr eening: Patients 50+ yrs of age ([facility]) (1 of 1 - PCV) 1998 Zoster/Shingles Vaccine Seri es Screening: Adults aged 18+ yrs (or HM Modifiers)([facility]) (1 of 2) 1998 RSV Vaccines (1 - 1-dose 75+ series) 2023 Flu Vaccination: Ages 65+: Y early High Dose Recommended (or Modifier)([facility]) 05/14/2025 COVID-19 Vaccine Screening: Initial Series and Booster Status ([facility]) ( - 2023-25 season) 2025 Medical Devices Not on file Insurance MEDICARE Care Teams Pathology Tech Relationship Specialty Start Date End Date Pcp, No PCP - General Family Medicine 11/03/20
--- OUTSIDE RECORDS SUMMARY | 2025-07-08 18:25 | XMS_ITS | Clinical Summary ---
Author Organization [facility] Address [address] [place] [address] Care Team Providers Care Tie In Machine Operator Name Role Phone Unavailable Primary Care Provider Unavailabl e Allergies No known active allergies Medications doxycycline (ADOXA) 100 MG tabletIndicatio ns:Acute non-recurrent maxillary sinusitis Take 1 tablet (100 mg total) by mouth every 12 (twelve) hours around the clock. 42 tablet 06/01/2025 Active Problems No known active problems Encounters Date Type Department Care Team Description 06/01/2025 9:15 AM EDT Clinical Support [facility] [address] [phone] Noam Solis MD Acute non-recurrent maxillary sinusitis (Primary Dx); Chronic pansinusitis; Deviated nasal septum from Last 3 Months Social History Tobacco Use Types Packs/Day Years Used Date Smoking Tobacco: Never Assessed Sex and Gender Information Value Date Recorded Sex Assigned at Male 05/31/2025 9:11 AM EDT Legal Sex Male 10:44 AM EDT Gender Identity Male 05/18/2025 2:03 PM EDT Sexual Orientation Not on file Last Filed Vital Signs Vital Sign Reading Time Taken Comments Blood Pressure - - Pulse - - Temperature - - Respiratory Rate - - Oxygen Saturation - - Inhaled Oxygen Concentration - - Weight 78.9 kg (174 lb) 06/01/2025 9:10 AM EDT Height 177.8 cm (5' 10 ) 06/01/2025 9:10 AM EDT Body Mass Index 24.97 06/01/2025 9:10 AM EDT Plan of Treatment Upcoming Encounters Date Type Department Care Team (Late st Contact Info) Description 07/13/2025 9:00 AM EDT Office Visit [facility] [address] [facility] [address] [place] [phone] Noam Solis MD [address] [facility] [address] [place] [address] Health Maintenance Due Date Last Done Comments Advance Care Planning 1950 Hepatitis C Virus Screening 1950 DTaP/Tdap/Td Vaccines (1 - Tdap) 1967 Pneumococcal Vaccines 50+ (1 of 1 - PCV) 1998 Zoster (Shingles) Vaccine (1 of 2) 1998 RSV Vaccine 60 years and old er and Patients (1 - 1-dose 75+ series) 2023 Influenza Vaccine 05/14/2025 COVID-19 Vaccine ( - 2023-2 5 season) 2025 Hepatitis B Vaccines Aged Out No long er eligible based on patient's age to complete this topic Insurance MEDICARE PART A & [place] [id number]
== END 2025-07-08 14:43 | disposition home or self-care (01) ==
LOC: HO.HCS 13:55
PROVIDERS: PCP Internal Medicine; Visit Provider Internal Medicine
DX: I11.9 Hypertensive heart disease without heart failure (principal); I25.118 Atherosclerotic heart disease of native coronary artery with other forms of angina pectoris; I35.1 Nonrheumatic aortic (valve) insufficiency; I77.810 Thoracic aortic ectasia; I51.89 Other ill-defined heart diseases; R94.31 Abnormal electrocardiogram [ECG] [EKG]
CPT/HCPCS: 93010; 93306; 99215; G2211

== ENCOUNTER 2025-07-09 09:11 | Outpatient (REF) | payer MEDICARE, SELFPAY ==
--- OUTSIDE RECORDS SUMMARY | 2025-07-09 09:55 | XMS_ITS | Encounter Summary ---
Author Organization [employer] [facility] Address [facility] [address] [place] [phone] Phone Care Team Providers Care Special Shopper Name Role Phone Cathryn Clark MD Primary Care Provider Pcp, Unknown Unavailable Unavailable Encounter Details Date Type Department Care Team (Late st Contact Info) Description 01/15/2018 Procedure Pass [facility], [place] [address] [place] [address] Social History Tobacco Use Types Packs/Day Years [...] on filedocumented in this encounter Care Teams Special Shopper Relationship Specialty Start Date End Date Cathryn Clark MD [address] [place] [address] [place] [phone] PCP - General 07/10/16 Pcp, Unknown 07/10/16 documented as of this encounter Additional Source Comments The information contained in this document represents components of the legal health record. It is not the complete legal health record.[facility]
--- OUTSIDE RECORDS SUMMARY | 2025-07-09 09:55 | XMS_ITS | Clinical Summary ---
Author Organization [facility] [email or web address] [facility] lin Address [address] [place] [address] Care Team Providers Care Medical Collections Specialist Name Role Phone Pcp, No Primary Care Provider [phone] Social History Tobacco Use Types Packs/Day Years [...] Adults 18 yrs or above (or HM Modifier)([facility]) 1968 Hepatitis C Virus Infection in Adolescents and Adults: Screening (or Modifier) ([facility]) 1968 SDOH Screening Reminder: Tanya carmona for all adults ([facility]) 1968 Tobacco Smoking Cessation: i n Adults excluding Women: Behavioral and Pharmacotherapy Interventions ([facility]) 1966 DTaP/Tdap/Td Vaccines ([facility]) (1 - Tdap) 1967 Pneumococcal Vaccination Scr eening: Patients 50+ yrs of age ([facility]) (1 of 1 - PCV) 1998 Zoster/Shingles Vaccine Seri es Screening: Adults aged 18+ yrs (or HM Modifiers)([facility]) (1 of 2) 1998 RSV Vaccines (1 - 1-dose 75+ series) 2023 Flu Vaccination: Ages 65+: Y early High Dose Recommended (or Modifier)([facility]) 05/14/2025 COVID-19 Vaccine Screening: Initial Series and Booster Status ([facility]) ( - 2023-25 season) 2025 Medical Devices Not on file Insurance MEDICARE Care Teams Medical Collections Specialist Relationship Specialty Start Date End Date Pcp, No PCP - General Family Medicine 11/03/20
--- OUTSIDE RECORDS SUMMARY | 2025-07-09 09:55 | XMS_ITS | Clinical Summary ---
Author Organization [facility] Address [facility] [address] [address] Phone Care Team Providers Care Sugar Laboratory Assistant Name Role Phone Cathryn Clark MD Primary Care Provider [phone] Pcp, Unknown Unavailable Unavailable Allergies No known [...] this topic Medical Devices Implanted Type Area Extruder Tender Device Identifier Shelf Expiration Date Model / Serial / Lot Cement Bone Smartset Hv 40gram (Multiples Of 20's) - [id number] Implanted:Qty: 2 on 12/06/2016 by Pepe Mtz MD at [facility] NODATA Right: Knee [employer] 12/11/2017 [id number] / / [id number] Implant Iuni Ipoly Kit Knee 23 - [id number] Implanted:Qty: 1 on 12/06/2016 by Pepe Mtz MD at [facility] Right: Knee CONFORMIS 05/13/2017 [id number] / [id number] / Description:6mm insert Tibial Tray Femoral Implant Implant Iuni Ipoly Kit Knee 23 - [id number] Implanted:Qty: 1 on 12/06/2016 by Pepe Mtz MD at [facility] Knee CONFORMIS 05/13/2017 [id number] / [id number] / Description:KIT NO CHARGE Implant Iuni Ipoly Kit Knee 23 - [id number] Implanted:Qty: 1 on 12/06/2016 by Pepe Mtz MD at [facility] Right: Knee CONFORMIS 05/13/2017 [id number] / [id number] / Description:KIT NO CHARGE Procedures Procedure Name Priority Date/Time Associated Diagnosis Comments BASIC METABOLIC PANEL Routine 12/07/2016 7:33 AM EST from Last 3 Months or Most Recently Relevant to Health Maintenance Results * (ABNORMAL) Basic metabolic panel ([facility] ,[facility] ,[facility] ,[facility] ,[facility] ,[facility] ,[facility] ,[facility]) (12/07/2016 7:33 AM EST) [facility] SODIUM 141 136 - 145 mmol/L [facility] POTASSIUM 4.2 3.4 - 5.0 mmol/L [facility] CHLORIDE 103 98 - 107 mmol/L [facility] CO2 20(L) 22 - 31 mmol/L [facility] BUN 16 6 - 23 mg/dL [facility] CREATININE 1.12 0.50 - 1.20 mg/dL [facility] GLUCOSE 129(H) 70 - 100 mg/dL [facility] CALCIUM 8.0(L) 8.8 - 10.7 mg/dL [facility] EGFR >59 >59 mL/min/1.7 3m2 [facility] Comment:If patient is black, multiply result by 1.21 ANION GAP 18(H) 5 - 17 mmol/L [facility] Blood 12/07/2016 7:33 AM EST 12/07/2016 7:45 AM EST Pepe Mtz MD LAB BLOOD ORDERABLES F inal Result Performing Organization Address City/State/[facility] Co de Phone Number [facility] [address] [place] [phone] from Last 3 Months or Most Recently Relevant to Health Maintenance Insurance MEDICARE [facility]PO MEDICARE [facility] MEDICARE [facility] MEDICARE [facility]ARE [facility] PPO MEDICARE A [facility] PPO MEDICARE A [facility] PPO MEDICARE A [facility] PPO MEDICARE A [facility] PPO Advance Directives For more information, please contact: [phone] (9AM - 5PM [place], Saturday-Saturday) Documents on File Type Date Recorded Patient Softlines Supervisor Expl anation Healthcare Proxy 12/06/2016 10:10 AM * Full Code (Presumed) (Latest Code Status on File) Date Activated Date Inactivated Comments 12/06/2016 7:37 PM 12/07/2016 6:05 PM * Full Code (Presumed) Date Activated Date Inactivated Comments 12/06/2016 12:02 PM 12/06/2016 7:37 PM Healthcare Agents on File Name Relationship Healthcare Agent Relationswa p Communication Sweta Roger Spouse .Primary Health Care Agent (Proxy form on file) Care Teams Sugar Laboratory Assistant Relationship Specialty Start Date End Date Cathryn Clark MD [address] [place] [phone] PCP - General 07/10/16 Pcp, Unknown 07/10/16 Additional Source Comments The information contained in this document represents components of the legal health record. It is not the complete legal health record.[facility]
--- OUTSIDE RECORDS SUMMARY | 2025-07-09 09:55 | XMS_ITS | Clinical Summary ---
Author Organization [facility] Address [address] [place] [address] Care Team Providers Care Roustabout Pusher Name Role Phone Unavailable Primary Care Provider Unavailabl e Allergies No known active allergies Medications doxycycline (ADOXA) 100 MG tabletIndicatio ns:Acute non-recurrent maxillary sinusitis Take 1 tablet (100 mg total) by mouth every 12 (twelve) hours around the clock. 42 tablet 06/01/2025 Active Problems No known active problems Encounters Date Type Department Care Team Description 06/01/2025 9:15 AM EDT Clinical Support [facility] [address] [address] Noam Solis MD Acute non-recurrent [...] 06/01/2025 9:10 AM EDT Plan of Treatment Health Maintenance Due Date Last Done Comments Advance Care Planning 1950 Hepatitis C Virus Screening 1950 DTaP/Tdap/Td Vaccines (1 - Tdap) 1967 Pneumococcal Vaccines 50+ (1 of 1 - PCV) 1998 Zoster (Shingles) Vaccine (1 of 2) 1998 RSV Vaccine 60 years and old er and Patients (1 - 1-dose 75+ series) 2023 Influenza Vaccine 05/14/2025 COVID-19 Vaccine (1 - 2023-2 5 season) 2025 Hepatitis B Vaccines Aged Out No long er eligible based on patient's age to complete this topic Insurance MEDICARE PART A & [place] [id number]
--- OUTSIDE RECORDS SUMMARY | 2025-07-09 09:55 | XMS_ITS | Encounter Summary ---
Author Organization [employer] [facility] Address [facility] [address] [place] [address] Phone Care Team Providers Care Swimming Pool Service Technician Name Role Phone Cathryn Clark MD Primary Care Provider [phone] Pcp, Unknown Unavailable Unavailable Reason for Referral * - Closed Specialty Diagnoses / Procedures Referred By Contac t Referred To Contact Procedures NM Bone Outside (No Interpretation) Pepe Mtz MD [email or web address] Referral ID Status Reason Start Date Expiration Date Visits Re quested Visits Authorized [id number] Closed 01/10/2018 01/10/2019 1 1 Encounter Details Date Type Department Care Team (Late st Contact Info) Description 01/10/2018 Transcribe Orders [facility] [address] [place] [phone] [email or web address] Social History Tobacco Use Types Packs/Day Years [...] on filedocumented in this encounter Care Teams Swimming Pool Service Technician Relationship Specialty Start Date End Date Cathryn Clark MD [address] [place] [phone] PCP - General 07/10/16 Pcp, Unknown 07/10/16 documented as of this encounter Additional Source Comments The information contained in this document represents components of the legal health record. It is not the complete legal health record.[facility]
--- OUTSIDE RECORDS SUMMARY | 2025-07-09 09:55 | XMS_ITS | Patient Health Record ---
Author [facility] Address [address] [place] [address] Care Team Providers Care Cad Design Engineer Name Role Phone Cathryn Clark Primary Care Provider Sulaiman Dowell Unavailable [phone] Allergies Allergen (clinical drug ingredient) Drug/Non Drug [...] Start Date Coverage End Date Medicare [facility] [address] [place] [address] [id number] Elfego Roger Self - patient is the insured [employer] [address] [place] [address] [phone] [id number] Elfego Roger Self - patient is the insured Medical (General) History Medical History History ICD Code Chicken pox High blood pressure Joint implants/screws Measles Mumps Sinus conditions Surgical History Surgery Date(Month/Year) knee surgery 2017 hernia 1998 tonsillectomy 1978 cyst removal, neck 2012 cyst removal, back 2013
--- OUTSIDE RECORDS SUMMARY | 2025-07-09 09:55 | XMS_ITS | Encounter Summary ---
Author Organization [facility] Address [address] [place] [address] Phone Care Team Providers Care Pictures Editor Name Role Phone Cathryn Clark MD Primary Care Provider [phone] Pcp, Unknown Unavailable Unavailable Encounter Details Date Type Department Care Team (Late st Contact Info) Description 12/06/2016 Procedure Pass [facility] [address] [place] [address] Social History Tobacco Use Types Packs/Day Years [...] on filedocumented in this encounter Care Teams Pictures Editor Relationship Specialty Start Date End Date Cathryn Clark MD [address] [place] [phone] PCP - General 07/10/16 Pcp, Unknown 07/10/16 documented as of this encounter Additional Source Comments The information contained in this document represents components of the legal health record. It is not the complete legal health record.[facility]
--- OUTSIDE RECORDS SUMMARY | 2025-07-09 09:55 | XMS_ITS | Patient Health Record ---
Author Organization [facility] Address [address] [place] [address] Care Team Providers Care Key Account Executive Name Role Phone Cathryn Clark MD Primary [...] Problem Status W/U Status Risk Notes Problem 444624431 Colon cancer screening (Z12.11) Active confirmed Problem 16244629 Rectal bleeding (K62.5) Active confirmed Problem 692836748 Gastroesophageal reflux disease without esophagitis (K21.9) Active confirmed Problem 139214508 Long-term curren t use of high risk medication other than anticoagulant (Z79.899) Active confirmed Problem [id number] Elevated liver function tests (R94.5) Active confirmed Plan Of Treatment Future Test Test Name Order Date COLONOSCOPY 05/07/2012 UPPER GI ENDOSCOPY 08/30/2016 COLONOSCOPY 08/30/2016 COLONOSCOPY 04/18/2022 Insurance Providers Payer Name Payer Address Payer Phone Subscriber Number Group Number Insured Name Patient Relationship to Insured Coverage Start Date Coverage End Date MEDICARE OF GREG [address] [place] [address] [id number] KWAKU CIFUENTES Self - patient is the insured [employer] CLAIMS [address] [place] [address] [phone] [id number] KWAKU CIFUENTES Self - patient is the insured Medical (General) History Medical History History ICD Code Colonoscopy 04/05/17, diverti culosis and internal hemorrhoids, five-year followup because a personal history of tubular adenomas. Gastroesophageal reflux disease Environmental allergies hypertension Aortic insufficiency, mild Surgical History Surgery Date(Month/Year) tonsillectomy testicular surgery hernia repair Knee arthroscopy knee replacement, right
--- OUTSIDE RECORDS SUMMARY | 2025-07-09 09:55 | XMS_ITS | Encounter Summary ---
Author Organization [facility] Address [address] [place] [address] Phone Care Team Providers Care Ribbon Hand Name Role Phone Cathryn Clark MD Primary Care Provider [phone] Pcp, Unknown Unavailable Unavailable Encounter Details Date Type Department Care Team (Late st Contact Info) Description 08/15/[address] [facility] [place] [address] [place] [address] Social History Tobacco Use Types Packs/Day Years [...] on filedocumented in this encounter Care Teams Ribbon Hand Relationship Specialty Start Date End Date Cathryn Clark MD [address] [place] [phone] PCP - General 07/10/16 Pcp, Unknown 07/10/16 documented as of this encounter Additional Source Comments The information contained in this document represents components of the legal health record. It is not the complete legal health record.[facility]
[2025-07-09 10:43] LABS: INTERNATIONAL NORM RATIO 1.5 (0.9-1.1); Prothrombin Time 17.0 SEC (10.9-12.4)
[2025-07-09 10:48] LABS: Hematocrit 48.4 % (42.0-52.0); Hemoglobin 16.6 g/dl (14.0-18.0); Mean Corpuscular HGB Conc 34.3 g/dl (31.0-36.0); Mean Corpuscular Hemoglobin 33.3 pg (27.0-33.0); Mean Corpuscular Volume 97.0 fL (80.0-98.0); NRBC Abs Auto 0.000 X10*3/uL (0.0-0.012); NRBC Pct Auto 0.0 /100WBC (0.0-0.2); Platelet Count 158 X10*3/uL (160-400); Red Blood Count 4.99 X10*6/uL (4.60-5.80); White Blood Count 6.4 X10*3/uL (4.8-10.8)
[2025-07-09 11:43] LABS: Alanine Aminotransferase 20 U/L (0-40); Albumin Level 4.3 g/dL (3.5-5.0); Alkaline Phosphatase 52 U/L (39-117); Anion Gap 11 (12-20); Aspartate Amino Transferase 27 U/L (5-37); Blood Urea Nitrogen 22 mg/dL (9-16); Calcium 9.3 mg/dL (8.4-10.2); Carbon Dioxide 30 mmol/L (22-29); Chloride 108 mmol/L (96-108); Cholesterol 199 mg/dL (<200); Estimated Glomerular Filt Rate 51; HDL Cholesterol 48 mg/dL (>40); Potassium 5.6 mmol/L (3.3-5.1); Sodium 143 mmol/L (135-145); Total Protein 6.9 g/dL (6.5-8.0); Triglycerides 98 mg/dL (<150)
== END 2025-07-09 09:12 | disposition home or self-care (01) ==
LOC: HO.LAB 09:11
PROVIDERS: PCP Internal Medicine; Visit Provider Internal Medicine
DX: I25.10 Atherosclerotic heart disease of native coronary artery without angina pectoris (principal); E78.5 Hyperlipidemia, unspecified
CPT/HCPCS: 36415; 80053; 80061; 85027; 85610

== ENCOUNTER → 2025-07-15 23:59 | Outpatient (BNV) | payer MEDICARE, SELFPAY | PROVIDERS: PCP Internal Medicine; Visit Provider Internal Medicine Cardiovascular Disease | DX: I50.20 Unspecified systolic (congestive) heart failure (principal); I25.118 Atherosclerotic heart disease of native coronary artery with other forms of angina pectoris | CPT/HCPCS: 93458; 99152 ==

== ENCOUNTER 2025-08-20 11:35 | Outpatient (AMB) | payer MEDICARE, SELFPAY ==
--- NOTE | 2025-08-20 11:38 | MHC.PC.OV ---
Vital Signs 08/20/25 11:39 Height 5 ft 10 in Weight 172 lb 8 oz BMI 24.7 BP 106/70 Blood Pressure Location Rt brachial Position Sitting Pulse 70 Pulse Source Pulse Oximeter Temp 97.1 F Temp Source Temporal Artery Scan Pulse Oximetry (%) 97 Oxygen Delivery Method Room Air Intake Visit Reasons: [facility] 08/11 Intake Note: Patient is here for hospital discharge follow up. Patient was discharged from [facility] on 08/11/25. Car Rental Agent Required: No Tax Professional: Present Accompanied by: Spouse Allergies No Known Allergies Allergy (Verified 08/20/25 11:39) Tobacco use date assessed: 08/20/25 Fall risk assessment: No Falls in past year Last assessed Fall Risk: 08/20/25 Dental Screening Dental Screen Date: 11/19/24 HPI HPI Comments History of Present Illness Details 74 y/o Male patient who presents to the clinic today for HDF. Patient was admitted at [facility] on 07/28 - 08/11 for an elective CABG x 3 procedure. He was discharged to [facility] for PT/OT. He continues to receive PT at home twice a week. He has a New Occupational Therapy Technician at [facility] - Dr. Marcin Mackenzie @ [address] [place] [address]. He has an appointment with them 03/2025, meanwhile he will continue to follow up with Cardiothoracic Team at [facility]. 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 Mother Colon cancer Social History Housing: House Are you a primary manager intensive care unit to a significant other at home: No Do you presently have visiting nurse or other home services: No Alcohol intake: current Alcohol intake frequency: 0-2 drinks per day Alcohol type: wine Comment: glass of wine QD Patient Tobacco Use Status: Never used Tobacco Tobacco use type: Cigarette e-Cigarette/Vaping Use: Never Used Second Hand Smoke Exposure: No service: No Current occupational status: retired Cognitive needs: Yes (Walker) Hearing needs: No Vision needs: Yes (Glasses) Questionnaire Thrive Questionnaire Date Thrive assessed: 08/13/25 I am a: Patient What is your living situation today?: I have a steady place to live Within the past 12 months, did the food you bought not last and you didn't have the money to get more?: I choose not to answer this question Within the past 12 months, did you worry whether your food would run out before you got money to buy more?: I choose not to answer this question Do you have trouble paying for medicines?: I choose not to answer this question Do you have trouble getting transportation to medical appointments?: I choose not to answer this question Do you have trouble paying your heating and electricity bill?: I choose not to answer this question Do you have trouble taking care of your child, family member or friend?: I choose not to answer this question Do you have trouble with day-to-day activities such as bathing, preparing meals, shopping, managing finances, etc.?: I choose not to answer this question Are you currently unemployed and looking for a job?: I choose not to answer this question Are you interested in more education?: No Please select the resources that you would like help with: None Currently or been in a relationship where the following occur: I choose not to answer THRIVE Score: 0 AUDIT C Alcohol Use Questionnaire (AUDIT-C) 1. How often do you have a drink containing alcohol?: 2-3 times a week Total Score: 3 SYL-7 AMB Questionnaire SYL-7 Date SYL - 7 assessed: 11/19/24 Feeling nervous, anxious, or on edge: 0 = Not at all Not being able to stop or control worryin = Not at all Worrying too much about different things: 0 = Not at all Trouble relaxin = Not at all Being so restless that it is hard to sit still: 0 = Not at all Becoming easily annoyed or irritable: 0 = Not at all Feeling afraid as if something awful might happen: 0 = Not at all Total SYL-7 score (0-4 normal; 5-9 mild; 10-14 moderate; 15-21 severe): 0 Source: Developed by Drs. Peter Garcia, Annette Owens, Ruy Madrigal and colleagues, with an educational husam from [employer]. Review of Systems Const All systems reviewed & are unremarkable except as noted in HPI and below Physical exam (Primary Care) Vital Signs: Last Vital Signs Temp 97.1 F 08/20/25 11:39 Pulse 70 08/20/25 11:39 BP 106/70 08/20/25 11:39 Pulse Ox 97 08/20/25 11:39 Oxygen Delivery Method Room Air 08/20/25 11:39 BMI result Body Mass Index 24.7 Tobacco/Smoking Status: Tobacco use Status Tobacco use date assessed 08/20/25 08/20/25 11:52 Patient Tobacco Use Status Never used Tobacco 08/20/25 11:52 Tobacco use type Cigarette 08/20/25 11:52 e-Cigarette/Vaping Use Never Used 08/20/25 11:52 Thrive Assessment: Date of Thrive Assessment Date Thrive assessed 08/13/25 08/20/25 11:52 Currently or been in a relationship where the following occur: I choose not to answer Const General: no acute distress Nutritional Appearance: well nourished Orientation/consciousness: patient oriented x3 Limitations: ambulation with walker Chest Other: Well healed surgical scar chest. Resp Effort & Inspection: normal respiratory effort Auscultation: clear to auscultation bilaterally Cardio Heart sounds: S1 normal heart sound present and S2 normal heart sound present Neuro General: patient oriented x3 Coding Level of Care Code Est Pt Level 4 (71339) Diagnoses S/P CABG (coronary artery bypass graft) Z95.1 Time Spent (min) 20 Assessment & Plan Assessment & Plan (1) S/P CABG (coronary artery bypass graft): Comment: AVR with CABG x4 apple to mid LAD, left radial artery OM, SVG to PDA, Dr. Wild 07/20/2025 left endoscopic vein and left endoscopic radial artery harvest rigid sternal plate fixation Code(s): Z95.1 - Presence of aortocoronary bypass graft Category: Surgical Plan: Post-elective CABG x3, stable, with ongoing rehabilitation. No acute complications reported. Plan for continued follow-up with both Cardiothoracic team and new pulp house supervisor. Continue home PT twice weekly. Continue follow-up with [facility] Cardiothoracic Team. Schedule and attend appointment with Dr. Marcin Mackenzie in March 2025. Monitor for any new cardiac symptoms (chest pain, dyspnea, palpitations, edema).
[2025-08-20 11:39] VITALS: BP 106/70; PULSE 70; TEMP 36.2; O2SAT 97; BMI 24.7
--- OUTSIDE RECORDS SUMMARY | 2025-08-20 13:59 | XMS_ITS | Clinical Summary ---
Author Organization [facility] Address [address] [place] [address] Care Team Providers Care Child Abuse Worker Name Role Phone Pcp, No Primary Care Provider [phone] Social History Tobacco Use Types Packs/Day Years Used Date Smoking Tobacco: Never Assessed Sex and Gender Information Value Date Recorded Sex Assigned at Not on file Legal Sex Male 12:21 PM EST Gender Identity Not on file Sexual Orientation Not on file Plan of Treatment Not on file Medical Devices Not on file Insurance MEDICARE Care Teams Child Abuse Worker Relationship Specialty Start Date End Date Pcp, No PCP - General Family Medicine 11/03/20
--- OUTSIDE RECORDS SUMMARY | 2025-08-20 14:00 | XMS_ITS | Encounter Summary ---
Author Organization [facility] Address [address] [place] [address] Care Team Providers Care Analytics Senior Manager Name Role Phone Cathryn Clark MD Primary Care Provider [phone] Encounter Details Date Type Department Care Team (Late st Contact Info) Description 08/01/2025 Lab Requisition [facility] - Main Lab [address] [place] [address] Ashley Hebert PA [address] [place] [address] Encounter for other general examination Social History Tobacco Use Types Packs/Day Years Used Date Smoking Tobacco: Never Assessed Sex and Gender Information Value Date Recorded Sex Assigned at Male 07/28/2025 12:40 PM EDT Legal Sex Male 12:22 PM EDT Gender Identity Male 07/28/2025 12:40 PM EDT Sexual Orientation Choose not to disclose 2024 12:40 PM EDT documented as of this encounter Plan of Treatment Not on file documented as of this encounter Procedures Procedure Name Priority Date/Time Associated Diagnosis Comments CULTURE BLOOD STAT 08/01/2025 6:18 AM EDT Encounter for other general examination CULTURE BLOOD STAT 08/01/2025 6:14 AM EDT Encounter for other general examination documented in this encounter Results * Culture blood (08/01/2025 6:18 AM EDT) Culture, Blood No growth at 5 days LAB MICROBIOLOGY METHOD 08/06/2025 11:01 AM EDT [facility] Blood Venipuncture / Unknown 08/01/2025 6:18 AM EDT 08/01/2025 8:40 AM EDT Ashley [facility] LAB MICROBIOLOGY - GENERAL ORDER VALENTÍN Final Result Performing Organization Address City/Special Care Hospital/ZIP Co de Phone Number [facility] [address] [place] [address], [place] [phone] * Culture blood (08/01/2025 6:14 AM EDT) Culture, Blood No growth at 5 days LAB MICROBIOLOGY METHOD 08/06/2025 11:01 AM EDT [facility] Blood Venipuncture / Unknown 08/01/2025 6:14 AM EDT 08/01/2025 8:40 AM EDT Ashley [facility] MICROBIOLOGY - GENERAL ORDER VALENTÍN Final Result Performing Organization Address City/Special Care Hospital/[facility] Co de Phone Number [facility] [address] [place] [address], [place] [phone] documented in this encounter Visit Diagnoses Diagnosis Encounter for other general examination documented in this encounter Care Teams Analytics Senior Manager Relationship Specialty Start Date End Date Cathryn Clark MD [address] [place] [address] PCP - General Internal Medicine 07/28/25 documented as of this encounter
--- OUTSIDE RECORDS SUMMARY | 2025-08-20 14:00 | XMS_ITS | Encounter Summary ---
Author Organization [facility] Address [address] [place] [address] Care Team Providers Care Field Manager Name Role Phone Cathryn Clark MD Primary Care Provider [phone] Encounter Details Date Type Department Care Team (Late st Contact Info) Description 07/30/2025 Lab Requisition [facility] - Main Lab [address] [facility] [place] [address] Breanne Romano PA [address] [place] [address] Encounter for other general examination Social History [...] Procedure Name Priority Date/Time Associated Diagnosis Comments URINALYSIS WITH REFLEX MICROSCOPIC AND CULTURE Routine 07/30/2025 8:30 PM EDT Encounter for other general examination CARSON URINE CULTURE TUBE Routine 07/30/2025 8:30 PM EDT Encounter for other general examination URINALYSIS WITH REFLEX MICROSCOPIC AND CULTURE Routine 07/30/2025 8:30 PM EDT Encounter for other general examination documented in this encounter Results * (ABNORMAL) Urinalysis with reflex microscopic and culture (07/30/2025 8:30 PM EDT) Specific [place] Urine 1.020 1.003 - 1.030 LAB URINALYSIS - AUTOMATED METHOD 07/31/2025 10:51 AM [facility] pH, Urine 6.5 5.0 - 8.0 pH LAB URINALYSIS - AUTOMATED METHOD 07/31/2025 10:51 AM [facility] Leukocytes, Urine Negative Negative LAB URINALYSIS - AUTOMATED METHOD 07/31/2025 10:51 AM [facility] Nitrite, Urine Negative Negative LAB URINALYSIS - AUTOMATED METHOD 07/31/2025 10:51 AM [facility] Protein, Urine Trace <=Trace mg/dL LAB URINALYSIS - AUTOMATED METHOD 07/31/2025 10:51 AM [facility] Glucose, Urine Negative Negative mg/dL LAB URINALYSIS - AUTOMATED METHOD 07/31/2025 10:51 AM [facility] Ketones, Urine Trace(A) Negative mg/dL LAB URINALYSIS - AUTOMATED METHOD 07/31/2025 10:51 AM [facility] Urobilinogen, Urine 0.2 0.2 - 1.0 mg/dL LAB URINALYSIS - AUTOMATED METHOD 07/31/2025 10:51 AM [facility] Bilirubin, Urine Negative Negative LAB URINALYSIS - AUTOMATED METHOD 07/31/2025 10:51 AM [facility] Blood, Urine Negative Negative LAB URINALYSIS - AUTOMATED METHOD 07/31/2025 10:51 AM [facility] Urine Urine specimen obtained by clean catch procedure / Unknown 07/30/2025 8:30 PM EDT 07/31/2025 10:41 AM EDT us Breanne MERIDA LAB URINE ORDERABLES Final Re sult [facility] [address] [place] [address], [place] [phone] * Carson urine culture tube (07/30/2025 8:30 PM EDT) Extra Tube Hold for add-ons. 07/31/2025 12:01 PM EDT [facility] Comment:Auto resulted. Urine Urine specimen obtained by clean catch procedure / Unknown 07/30/2025 8:30 PM EDT 07/31/2025 10:41 AM EDT us Breanne MERIDA LAB URINE ORDERABLES Final Re sult [facility] [address] [place] [address], [place] [phone] documented in this encounter Visit Diagnoses Diagnosis Encounter for other general examination documented in this encounter Care Teams Field Manager Relationship Specialty Start Date End Date Cathryn Clark MD [address] [place] [address] PCP - General Internal Medicine 07/28/25 documented as of this encounter
--- OUTSIDE RECORDS SUMMARY | 2025-08-20 14:00 | XMS_ITS | Encounter Summary ---
Author Organization [facility] Address [address] [place] [address] Phone Care Team Providers Care Home Health Billing Specialist Name Role Phone Cathryn Clark MD Primary Care Provider [phone] Pcp, Unknown Unavailable Unavailable Encounter Details Date Type Department Care Team (Late st Contact Info) Description 12/06/2016 Procedure Pass [facility] [address] [place] [address] Social History Tobacco Use Types Packs/Day Years [...] on filedocumented in this encounter Care Teams Home Health Billing Specialist Relationship Specialty Start Date End Date Cathryn Clark MD [address] [place] [address] PCP - General 07/10/16 Pcp, Unknown 07/10/16 documented as of this encounter Additional Source Comments The information contained in this document represents components of the legal health record. It is not the complete legal health record.[facility]
--- OUTSIDE RECORDS SUMMARY | 2025-08-20 14:00 | XMS_ITS | Patient Health Record ---
Author Organization [facility] Address [address] [facility] [place] [address] Care Team Providers Care Assembler Hydraulic Backhoe Name Role Phone Cathryn Clark Primary Care Provider Sulaiman Hackett Unavailable [phone] Allergies Allergen (clinical drug ingredient) Drug/Non Drug [...] Start Date Coverage End Date Medicare National [facility] [employer] [address] [place] [address] [id number] Elfego Roger Self - patient is the insured [employer] [address] [place] [address] [id number] Elfego Roger Self - patient is the insured Medical (General) History Medical History History ICD Code Chicken pox High blood pressure Joint implants/screws Measles Mumps Sinus conditions Surgical History Surgery Date(Month/Year) knee surgery 2017 hernia 1998 tonsillectomy 1978 cyst removal, neck 2012 cyst removal, back 2013
--- OUTSIDE RECORDS SUMMARY | 2025-08-20 14:00 | XMS_ITS | Encounter Summary ---
Author Organization [facility] Address [address] [place] [address] Care Team Providers Care Instructional Designer Name Role Phone Cathryn Clark MD Primary Care Provider Encounter Details Date Type Department Care Team (Late st Contact Info) Description 07/31/2025 Lab Requisition [facility] - Main Lab [address] [facility] [place] [address] Ashley Hebert PA [address] [place] [address] Encounter for other general examination [...] URINALYSIS WITH REFLEX MICROSCOPIC AND CULTURE Routine 07/31/2025 10:15 PM EDT Encounter for other general examination CARSON URINE CULTURE TUBE Routine 07/31/2025 10:15 PM EDT Encounter for other general examination URINALYSIS WITH REFLEX MICROSCOPIC AND CULTURE Routine 07/31/2025 10:15 PM EDT Encounter for other general examination documented in this encounter Results * Carson urine culture tube (07/31/2025 10:15 PM EDT) Extra Tube Hold for add-ons. 08/01/2025 11:01 AM T [facility] Comment:Auto resulted. Urine Urine specimen obtained by clean catch procedure / Unknown 07/31/2025 10:15 PM EDT 08/01/2025 9:11 AM EDT us Ashley MERIDA LAB URINE ORDERABLES Final Resul t [facility] [address] [place] [address], [place] [phone] * Urinalysis with reflex microscopic and culture (07/31/2025 10:15 PM EDT) [facility] Specific [place] Urine 1.017 1.003 - 1.030 LAB URINALYSIS - AUTOMATED METHOD 08/01/2025 9:30 AM [facility] pH, Urine 6.0 5.0 - 8.0 pH LAB URINALYSIS - AUTOMATED METHOD 08/01/2025 9:30 AM [facility] Leukocytes, Urine Negative Negative LAB URINALYSIS - AUTOMATED METHOD 08/01/2025 9:30 AM [facility] Nitrite, Urine Negative Negative LAB URINALYSIS - AUTOMATED METHOD 08/01/2025 9:30 AM [facility] Protein, Urine Negative <=Trace mg/dL LAB URINALYSIS - AUTOMATED METHOD 08/01/2025 9:30 AM [facility] Glucose, Urine Negative Negative mg/dL LAB URINALYSIS - AUTOMATED METHOD 08/01/2025 9:30 AM [facility] Ketones, Urine Negative Negative mg/dL LAB URINALYSIS - AUTOMATED METHOD 08/01/2025 9:30 AM [facility] Urobilinogen, Urine 0.2 0.2 - 1.0 mg/dL LAB URINALYSIS - AUTOMATED METHOD 08/01/2025 9:30 AM EDT [facility] Bilirubin, Urine Negative Negative LAB URINALYSIS - AUTOMATED METHOD 08/01/2025 9:30 AM EDT [facility] Blood, Urine Negative Negative LAB URINALYSIS - AUTOMATED METHOD 08/01/2025 9:30 AM EDT [facility] Urine Urine specimen obtained by clean catch procedure / Unknown 07/31/2025 10:15 PM EDT 08/01/2025 9:11 AM EDT us Ashley MERIDA LAB URINE ORDERABLES Final Resul t [facility] [address] [place] [address], documented in this encounter Visit Diagnoses Diagnosis Encounter for other general examination documented in this encounter Care Teams Instructional Designer Relationship Specialty Start Date End Date Cathryn Clark MD [address] [place] [address] PCP - General Internal Medicine 07/28/25 documented as of this encounter
--- OUTSIDE RECORDS SUMMARY | 2025-08-20 14:00 | XMS_ITS | Encounter Summary ---
Author Organization [facility] Address [address] [place] [address] Phone Care Team Providers Care Deputy Assessor Name Role Phone Cathryn Clark MD Primary Care Provider [phone] Pcp, Unknown Unavailable Unavailable Encounter Details Date Type Department Care Team (Late st Contact Info) Description 08/15/2016 Procedure Pass [facility] CT Imaging, [place] [address] [place] [address] Social History Tobacco Use Types Packs/Day Years [...] on filedocumented in this encounter Care Teams Deputy Assessor Relationship Specialty Start Date End Date Cathryn Clark MD [address] [place] [phone] PCP - General 07/10/16 Pcp, Unknown 07/10/16 documented as of this encounter Additional Source Comments The information contained in this document represents components of the legal health record. It is not the complete legal health record.[facility]
--- OUTSIDE RECORDS SUMMARY | 2025-08-20 14:00 | XMS_ITS | Encounter Summary ---
Author [facility] Address [address] [place] [address] Care Team Providers Care Hourly Shift Name Role Phone Cathryn Clark MD Primary Care Provider [phone] Encounter Details Date Type Department Care Team (Late st Contact Info) Description 07/29/2025 Lab Requisition [facility] - Main Lab [address] [facility] [place] [address] Simon Manzo PA [address] [place] [address] Other intermediate frame tender (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 Social History Tobacco Use Types Packs/Day Years [...] Procedure Name Priority Date/Time Associated Diagnosis Comments CBC WITH AUTO DIFFERENTIAL Routine 07/29/2025 5:52 AM EDT Other senior care (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 CBC AND DIFFERENTIAL Routine 07/29/2025 5:52 AM EDT Other intermediate frame tender (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 MAGNESIUM Routine 07/29/2025 5:52 AM EDT Other intermediate frame tender (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 COMPREHENSIVE METABOLIC PANEL Routine 07/29/2025 5:52 AM EDT Other intermediate frame tender (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 documented in this encounter Results * (ABNORMAL) CBC auto differential (07/29/2025 5:52 AM EDT) WBC 11.3(H) 4.8 - 10.8 K/mcL LAB HEMETOLOGY METHOD 07/29/2025 12:20 PM EDT [facility] RBC 3.00(L) 4.50 - 5.50 M/mcL LAB HEMETOLOGY METHOD 07/29/2025 12:20 PM EDT [facility] Hemoglobin 9.2(L) 13.5 - 17.5 g/dL LAB [facility]OLOG[facility] Hematocrit 28.7(L) 42.0 - 54.0 % LAB HEMETOLOGY METHOD 07/29/2025 12[facility] MCV 97.0 79.0 - 98.0 FL LAB HEMETOLOGY METHOD 07/29/2025 12[facility] MCH 31.1 27.0 - 32.0 pcg LAB HEMETOLOGY METHOD 07/29/2025 [facility] MCHC 32.1 32.0 - 37.0 g/dL LAB HEMETOLOGY METHOD 07/29/2025 12:[address] [facility] RDW 15.1(H) 11.0 - 15.0 % LAB HEMETOLOGY METHOD 07/29[facility]2025 [facility] Platelets 303 130 - 400 K/mcL LAB HEMETOLOGY METHOD 07/29/2025 12:20 PM EDT [facility] MPV 9.9 7.0 - 11.0 FL LAB HEMETOLOGY METHOD 07/29/2025 12:20 PM EDT [facility] NRBC 0.0 <1.0 % LAB HEMETOLOGY METHOD 07/29/2025 12:20 PM EDT [facility] NRBC Absolute 0.00 <0.10 K/mcL LAB HEMETOLOGY METHOD [facility] Neutrophils Relative 70.6 % LAB HEMETOLOGY METHOD 07/29/2025 12:[address] [facility] Lymphocytes Relative 13.3 % LAB HEMETOLOGY METHOD 07/29/2025 12:[address] [facility] Monocytes Relative 8.6 % LAB HEMETOLOGY METHOD 07/29/2025 12:[address] [facility] Eosinophils Relative 2.7 % LAB HEMETOLOGY METHOD 07/29/2025 12:[address] [facility] Basophils Relative 0.6 % LAB HEMETOLOGY METHOD 07/29/2025 12:[address] [facility] Immature Granulocytes Relative 4.2 % LAB HEMETOLOGY METHOD 07/29/2025 12:[address] [facility] Neutrophils Absolute 7.99(H) 1.50 - 7.00 K/mcL LAB HEMETOLOGY METHOD 07/29/2025 12:[address] [facility] Lymphocytes Absolute 1.51 1.00 - 5.00 K/mcL LAB HEMETOLOGY METHOD 07/29/2025 12:[address] [facility] Monocytes Absolute 0.97 0.20 - 1.00 K/mcL LAB HEMETOLOGY METHOD 07/29/2025 12:[address] [facility] Eosinophils Absolute 0.31 0.00 - 0.50 K/mcL LAB HEMETOLOGY METHOD 07/29/2025 12:[address] [facility] Basophils Absolute 0.07 0.00 - 0.20 K/mcL LAB HEMETOLOGY METHOD 07/29/2025 12:[address] [facility] Immature Granulocytes Absolute 0.48(H) 0.00 - 0.03 K/mcL LAB HEMETOLOGY METHOD 07/29/2025 12:20 PM EDT [facility] Blood Venous blood specimen / Unknown Venipuncture / Unknown 07/29/2025 5:52 AM EDT 07/29/2025 11:18 AM EDT Simon MERIDA LAB BLOOD ORDERABLES Final R esult Performing Organization Address City/[facility]/ZIP Co de Phone Number [facility] [address] [place] [address], [place] [phone] * Magnesium (07/29/2025 5:52 AM EDT) [facility] Magnesium 2.3 1.9 - 2.6 mg/dL LAB CHEMISTRY METHOD 07/29/2025 12:24 PM EDT [facility] Blood Venous blood specimen / Unknown Venipuncture / Unknown 07/29/2025 5:52 AM EDT 07/29/2025 11:18 AM EDT Simon MERIDA LAB BLOOD ORDERABLES Final R esult Performing Organization Address City/[facility]/ZIP Co de Phone Number [facility] [address] [place] [address], [place] [phone] * (ABNORMAL) Comprehensive metabolic panel (07/29/2025 5:52 AM EDT) Pathologist [facility] Sodium 136 133 - 145 mmol/L LAB CHEMISTRY METHOD 07/29/2025 12:24 PM EDT [facility] Potassium 4.7 3.5 - 5.5 mmol/L LAB CHEMISTRY METHOD 07/29/2025 12:24 PM EDT [facility] Chloride 104 96 - 110 mmol/L LAB CHEMISTRY METHOD 07/29/2025 12:24 PM EDT [facility] CO2 25 21 - 32 mmol/L LAB CHEMISTRY METHOD 07/29/2025 12:[address] [facility] Anion Gap 7 3 - 11 LAB CHEMISTRY METHOD 07/29/2025 12:[address] [facility] Glucose 74 70 - 100 mg/dL LAB CHEMISTRY METHOD 07/29/2025 12:[address] [facility] BUN 29(H) 5 - 25 mg/dL LAB CHEMISTRY METHOD 07/29/2025 12:[address] [facility] Creatinine 1.51(H) 0.70 - 1.30 mg/dL LAB CHEMISTRY METHOD 07/29/2025 12:[address] [facility] eGFR 48(L) >=60 mL/min/1. 73m2 LAB CHEMISTRY METHOD 07/29/2025 12:[address] [facility] Comment:Calculation based on the Chronic Kidney Disease Epidemiology Collaboration (CKD-EPI) equation refit without adjustment for race. BUN/Creatinine Ratio 19.2 LAB CHEMISTRY METHOD 07/29/2025 12:[address] [facility] Calcium 8.2(L) 8.5 - 10.5 mg/dL LAB CHEMISTRY METHOD 07/29/2025 12:[address] [facility] AST (SGOT) 25 10 - 42 unit/L LAB CHEMISTRY METHOD 07/29/2025 12:[address] [facility] ALT (SGPT) 35 10 - 60 unit/L LAB CHEMISTRY METHOD 07/29/2025 12:[address] [facility] Alkaline Phosphatase 57 42 - 121 unit/L LAB CHEMISTRY METHOD 07/29/2025 12:[address] [facility] Total Protein 5.9(L) 6.0 - 8.0 g/dL LAB CHEMISTRY METHOD 07/29/2025 12:[address] [facility] Albumin 2.8(L) 3.2 - 5.0 g/dL LAB CHEMISTRY METHOD 07/29/2025 12:[address] [facility] Total Bilirubin 1.1 0.0 - 1.4 mg/dL LAB CHEMISTRY METHOD 07/29/2025 12:24 PM EDT [facility] Blood Venous blood specimen / Unknown Venipuncture / Unknown 07/29/2025 5:52 AM EDT 07/29/2025 11:18 AM EDT us Simon MERIDA LAB BLOOD ORDERABLES Final R esult [facility] [address] [place] [address], documented in this encounter Visit Diagnoses Diagnosis Other intermediate frame tender (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 documented in this encounter Care Teams Hourly Shift Relationship Specialty Start Date End Date Cathryn Clark MD [address] [place] [address] PCP - General Internal Medicine 07/28/25 documented as of this encounter
--- OUTSIDE RECORDS SUMMARY | 2025-08-20 14:00 | XMS_ITS | Encounter Summary ---
Author Organization [facility] Address [address] [place] [address] Care Team Providers Care Winding Operator Name Role Phone Cathryn Clark MD Primary Care Provider Encounter Details Date Type Department Care Team (Late st Contact Info) Description 08/02/2025 Lab Requisition [facility] - Main Lab [address] [place] [address] Ashley Hebert PA [address] [place] [address] Encounter for other general examination [...] Procedure Name Priority Date/Time Associated Diagnosis Comments COMPLETE BLOOD COUNT Routine 08/02/2025 5:20 AM EDT Encounter for other general examination BASIC METABOLIC PANEL Routine 08/02/2025 5:20 AM EDT Encounter for other general examination documented in this encounter Results * (ABNORMAL) Basic metabolic panel (08/02/2025 5:20 AM EDT) Sodium 137 133 - 145 mmol/L LAB CHEMISTRY METHOD 08/02/2025 12:[address] [facility] Potassium 5.3 3.5 - 5.5 mmol/L LAB CHEMISTRY METHOD 08/02/2025 12:04 PM [facility] Chloride 107 96 - 110 mmol/L LAB CHEMISTRY METHOD 08/02/2025 12:04 PM [facility] CO2 22 21 - 32 mmol/L LAB CHEMISTRY METHOD 08/02/2025 12:04 PM [facility] Anion Gap 8 3 - 11 LAB CHEMISTRY METHOD 08/02/2025 12:04 PM [facility] Glucose 70 70 - 100 mg/dL LAB CHEMISTRY METHOD 08/02/2025 12:04 PM [facility] BUN 27(H) 5 - 25 mg/dL LAB CHEMISTRY METHOD 08/02/2025 12:04 PM [facility] Creatinine 1.39(H) 0.70 - 1.30 mg/dL LAB CHEMISTRY METHOD 08/02/2025 12:04 PM [facility] eGFR 53(L) >=60 mL/min/1. 73m2 LAB CHEMISTRY METHOD 08/02/2025 12:04 PM [facility] Comment:Calculation based on the Chronic Kidney Disease Epidemiology Collaboration (CKD-EPI) equation refit without adjustment for race. BUN/Creatinine Ratio 19.4 LAB CHEMISTRY METHOD 08/02/2025 12:04 PM [facility] Calcium 8.3(L) 8.5 - 10.5 mg/dL LAB CHEMISTRY METHOD 08/02/2025 12:04 PM [facility] Blood Venous blood specimen / Unknown Venipuncture / Unknown 08/02/2025 5:20 AM EDT 08/02/2025 10:21 AM EDT us Ashley MERIDA LAB BLOOD ORDERABLES Final Resul t [facility] [address] [place] [address], * (ABNORMAL) Complete blood count (08/02/2025 5:20 AM EDT) [facility] WBC 12.0(H) 4.8 - 10.8 K/mcL LAB HEMETOLOGY METHOD 08/02/2025 11:41 AM [facility] RBC 3.00(L) 4.50 - 5.50 M/mcL LAB HEMETOLOGY METHOD 08/02/2025 11:41 AM [facility] Hemoglobin 9.3(L) 13.5 - 17.5 g/dL LAB HEMETOLOGY METHOD 08/02/2025 11:41 AM [facility] Hematocrit 29.6(L) 42.0 - 54.0 % LAB HEMETOLOGY METHOD 08/02/2025 11:41 AM [facility] MCV 99.3(H) 79.0 - 98.0 FL LAB HEMETOLOGY METHOD 08/02/2025 11:41 AM [facility] MCH 31.2 27.0 - 32.0 pcg LAB HEMETOLOGY METHOD 08/02/2025 11:41 AM [facility] MCHC 31.4(L) 32.0 - 37.0 g/dL LAB HEMETOLOGY METHOD 08/02/2025 11:41 AM [facility] RDW 15.5(H) 11.0 - 15.0 % LAB HEMETOLOGY METHOD 08/02/2025 11:41 AM [facility] Platelets 323 130 - 400 K/mcL LAB HEMETOLOGY METHOD 08/02/2025 11:41 AM [facility] MPV 10.3 7.0 - 11.0 FL LAB HEMETOLOGY METHOD 08/02/2025 11:41 AM [facility] NRBC 0.0 <1.0 % LAB HEMETOLOGY METHOD 08/02/2025 11:[address] [facility] NRBC Absolute 0.00 <0.10 K/mcL LAB HEMETOLOGY METHOD 08/02/2025 11:[address] [facility] Blood Venous blood specimen / Unknown Venipuncture / Unknown 08/02/2025 5:20 AM EDT 08/02/2025 10:21 AM EDT us Ashley MERIDA LAB BLOOD ORDERABLES Final Resul t [facility] [address] [place] [address], documented in this encounter Visit Diagnoses Diagnosis Encounter for other general examination documented in this encounter Care Teams Winding Operator Relationship Specialty Start Date End Date Cathryn Clark MD [address] [place] [address] PCP - General Internal Medicine 07/28/25 documented as of this encounter
--- OUTSIDE RECORDS SUMMARY | 2025-08-20 14:00 | XMS_ITS | Clinical Summary ---
Author Organization [facility] Address [address] [place] [address] Care Team Providers Care Lvn Lpn Name Role Phone Unavailable Primary Care Provider Unavailabl e Allergies No known active allergies Medications No known medications Active Problems No known active problems Encounters Date Type Department Care Team Description 06/01/2025 9:15 AM EDT Clinical Support [facility] [address] [address] Noam Solis MD Acute non-recurrent [...] Vaccine (1 of 2) 1998 RSV Vaccine 50 years and old er and Patients (1 - 1-dose 75+ series) 2023 Influenza Vaccine 05/14/2025 COVID-19 Vaccine (2023-2 5 season) 2025 Hepatitis B Vaccines Aged Out No long er eligible based on patient's age to complete this topic Insurance MEDICARE PART A & B [place] [id number]
--- OUTSIDE RECORDS SUMMARY | 2025-08-20 14:00 | XMS_ITS | Encounter Summary ---
Author Organization [facility] Address [facility] [facility] [address] [place] [address] Phone Care Team Providers Care Analyst Competitive Intelligence Name Role Phone Cathryn Clark MD Primary Care Provider [phone] Pcp, Unknown Unavailable Unavailable Encounter Details Date Type Department Care Team (Late st Contact Info) Description 01/15/2018 Procedure Pass [facility] MR Imaging, [place] [address] [place] [address] Social History Tobacco Use Types Packs/Day Years [...] on filedocumented in this encounter Care Teams Analyst Competitive Intelligence Relationship Specialty Start Date End Date Cathryn Clark MD [address] [place] [address] [place] [phone] PCP - General 07/10/16 Pcp, Unknown 07/10/16 documented as of this encounter Additional Source Comments The information contained in this document represents components of the legal health record. It is not the complete legal health record.[facility]
--- OUTSIDE RECORDS SUMMARY | 2025-08-20 14:00 | XMS_ITS | Clinical Summary ---
Author Organization [facility] Address [address] [place] [address] Phone Care Team Providers Care Podiatric Foot And Ankle Specialist Name Role Phone Cathryn Clark MD Primary Care Provider [phone] Allergies No known active allergies Encounters Date Type Department Care Team Description 08/10/2025 Lab Requisition [facility] [address] [place] [address] Linda Millard MD Encounter for other general examination 08/09/2025 Lab Requisition [facility] [address] [place] [address] Linda Millard MD Encounter for other general examination 08/06/2025 Lab Requisition [facility] [address] [place] [address] Linda Millard MD Other adjunct faculty for medical terminology (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 08/03/2025 Lab Requisition [facility] [address] [place] [address] Linda Millard MD Other adjunct faculty for medical terminology (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 08/02/2025 Lab Requisition [facility] [address] [place] [address] Ashley Hebert PA Encounter for other general examination 08/01/2025 Lab Requisition [facility] [address] [place] [address] Ashley Hebert PA Encounter for other general examination 07/31/2025 Lab Requisition [facility] [address] [place] [phone] Ashley Hebert PA Encounter for other general examination 07/31/2025 Lab Requisition [facility] [address] [place] [phone] Linda Millard MD Encounter for other general examination 07/30/2025 Lab Requisition [facility] [address] [place] [phone] Breanne Romano PA Encounter for other general examination 07/29/2025 Lab Requisition [facility] [address] [place] [address] Simon Manzo PA Other chcf (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 from Last 3 Months Medical History Medical History Date Comments HLD (hyperlipidemia) HTN (hypertension) Social History Tobacco Use Types Packs/Day Years Used Date Smoking Tobacco: Never Assessed Sex and Gender Information Value Date Recorded Sex Assigned at Male 07/28/2025 12:40 PM EDT Legal Sex Male 12:22 PM EDT Gender Identity Male 07/28/2025 12:40 PM EDT Sexual Orientation Choose not to disclose 2024 12:40 PM EDT Obstetrics History Last Filed Vital Signs Vital Sign Reading Time Taken Comments Blood Pressure 103/63 07/28/2025 12:24 PM EDT Pulse 71 07/28/2025 12:24 PM EDT Temperature 36.4 C (97.6 F) 07/28/2025 12:24 PM EDT Respiratory Rate 16 07/28/2025 12:24 PM EDT Oxygen Saturation 97% 07/28/2025 12:24 PM EDT Inhaled Oxygen Concentration - - Weight 78 kg (171 lb 15.3 oz) 07/28/2025 12:24 P M EDT Height 178 cm (5' 10.08 ) 07/28/2025 12:24 PM ED T Body Mass Index 24.62 07/28/2025 12:24 PM EDT Plan of Treatment Health Maintenance Due Date Last Done Comments Pneumococcal Vaccine: 50+ Years (1 of 1 - PCV) 1998 Zoster Vaccines (1 of 2) 1998 DTaP,Tdap,and Td Vaccines (2 - Td or Tdap) 01/26/2015 01/26/2005 RSV Immunization Adult Patients (1 - 1-dose 75+ series) 2023 Depression Screening 10/14/2024 COVID-19 Vaccine (1 - 2023-2 5 season) 2025 Influenza Vaccine (#1) 2025 Cholesterol Screening (Lipid Panel) 07/28/2025 Falls Risk Assessment 07/28/2025 Hepatitis C Screening 07/28/2025 Medicare Annual Wellness Visit 07/28/2025 Social Influencers of Health Screening 07/28/2025 Hepatitis A Vaccines Aged Out 09/12/2005, 02/19/2005, 01/16/2005 No longer eligible based on patient's age to complete this topic Hepatitis B Vaccines Completed 09/12/2005, 02/19/2005, 01/16/2005 HIB Vaccines Aged Out No longer eligi ble based on patient's age to complete this topic HPV Vaccines Aged Out No longer eligi ble based on patient's age to complete this topic IPV Vaccines Aged Out No longer eligi ble based on patient's age to complete this topic MMR Vaccines Aged Out No longer eligi ble based on patient's age to complete this topic Meningococcal ACWY Vaccine Aged Out N o longer eligible based on patient's age to complete this topic Meningococcal B Vaccine Aged Out No l onger eligible based on patient's age to complete this topic RSV Immunization Patients Under 20 months Aged Out No longer eligible b ased on patient's age to complete this topic Varicella Vaccines Aged Out No longer eligible based on patient's age to complete this topic Procedures Procedure Name Priority Date/Time Associated Diagnosis Comments THYROID STIMULATING HORMONE Routine 08/10/2025 4:40 AM EDT Encounter for other general examination B-TYPE NATRIURETIC PEPTIDE Routine 08/10/2025 4:40 AM EDT Encounter for other general examination CBC WITH AUTO DIFFERENTIAL Routine 08/09/2025 5:19 AM EDT Encounter for other general examination MAGNESIUM Routine 08/09/2025 5:19 AM EDT Encounter for other general examination COMPREHENSIVE METABOLIC PANEL Routine 08/09/2025 5:19 AM EDT Encounter for other general examination CBC AND DIFFERENTIAL Routine 08/09/2025 5:19 AM EDT Encounter for other general examination CBC WITH AUTO DIFFERENTIAL Routine 08/06/2025 6:04 AM EDT Other chcf (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 CBC AND DIFFERENTIAL Routine 08/06/2025 6:04 AM EDT Other chcf (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 MAGNESIUM Routine 08/06/2025 6:04 AM EDT Other chcf (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 BASIC METABOLIC PANEL Routine 08/06/2025 6:04 AM EDT Other chcf (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 CBC WITH AUTO DIFFERENTIAL Routine 08/03/2025 5:41 AM EDT Other adjunct faculty for medical terminology (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 BASIC METABOLIC PANEL Routine 08/03/2025 5:41 AM EDT Other chcf (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 CBC AND DIFFERENTIAL Routine 08/03/2025 5:41 AM EDT Other chcf (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 BASIC METABOLIC PANEL Routine 08/02/2025 5:20 AM EDT Encounter for other general examination COMPLETE BLOOD COUNT Routine 08/02/2025 5:20 AM EDT Encounter for other general examination CULTURE BLOOD STAT 08/01/2025 6:18 AM EDT Encounter for other general examination CULTURE BLOOD STAT 08/01/2025 6:14 AM EDT Encounter for other general examination CARSON URINE CULTURE TUBE Routine 07/31/2025 10:15 PM EDT Encounter for other general examination URINALYSIS WITH REFLEX MICROSCOPIC AND CULTURE Routine 07/31/2025 10:15 PM EDT Encounter for other general examination URINALYSIS WITH REFLEX MICROSCOPIC AND CULTURE Routine 07/31/2025 10:15 PM EDT Encounter for other general examination CBC WITH AUTO DIFFERENTIAL Routine 07/31/2025 5:30 AM EDT Encounter for other general examination MAGNESIUM Routine 07/31/2025 5:30 AM EDT Encounter for other general examination COMPREHENSIVE METABOLIC PANEL Routine 07/31/2025 5:30 AM EDT Encounter for other general examination CBC AND DIFFERENTIAL Routine 07/31/2025 5:30 AM EDT Encounter for other general examination URINALYSIS WITH REFLEX MICROSCOPIC AND CULTURE Routine 07/30/2025 8:30 PM EDT Encounter for other general examination CARSON URINE CULTURE TUBE Routine 07/30/2025 8:30 PM EDT Encounter for other general examination URINALYSIS WITH REFLEX MICROSCOPIC AND CULTURE Routine 07/30/2025 8:30 PM EDT Encounter for other general examination CBC WITH AUTO DIFFERENTIAL Routine 07/29/2025 5:52 AM EDT Other chcf (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 MAGNESIUM Routine 07/29/2025 5:52 AM EDT Other adjunct faculty for medical terminology (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 COMPREHENSIVE METABOLIC PANEL Routine 07/29/2025 5:52 AM EDT Other adjunct faculty for medical terminology (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 CBC AND DIFFERENTIAL Routine 07/29/2025 5:52 AM EDT Other chcf (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 from Last 3 Months Results * Thyroid stimulating hormone (08/10/2025 4:40 AM EDT) [facility] TSH 3.99 0.40 - 4.00 mcIU/mL LAB CHEMISTRY METHOD 08/10/2025 11:44 AM EDT [facility] LAB Blood Venous blood specimen / Unknown Venipuncture / Unknown 08/10/2025 4:40 AM EDT 08/10/2025 10:36 AM EDT us Linda Millard MD LAB BLOOD ORDERABLES Final Resu lt Performing Organization Address [facility] [place]/[facility]/ZIP Co de Phone Number [facility] [address] [place] [address], [place] [phone] * (ABNORMAL) B-type natriuretic peptide (08/10/2025 4:40 AM EDT) [facility] BNP 486(H) <=100 pcg/mL LAB CHEMISTRY METHOD 08/10/2025 11:44 AM EDT [facility] Blood Venous blood specimen / Unknown Venipuncture / Unknown 08/10/2025 4:40 AM EDT 08/10/2025 10:36 AM EDT us Linda Millard MD LAB BLOOD ORDERABLES Final Resu lt Performing Organization Address [facility] [place]/[facility] de Phone Number [facility] [address] [place] [address], [place] [phone] * (ABNORMAL) CBC auto differential (08/09/2025 5:19 AM EDT) Only the most recent of5 resultswithin the time period is included. [facility] WBC 7.6 4.8 - 10.8 K/[facility] LAB HEMETOLOGY METHOD 08/09/2025 9:15 AM EDT [facility] RBC 3.40(L) 4.50 - 5.50 M/[facility] LAB HEMETOLOGY METHOD 08/09/2025 9:15 AM EDT [facility] LAB Hemoglobin 10.6(L) 13.5 - 17.5 g/dL LAB HEMETOLOGY METHOD 08/09/2025 9:15 AM EDT [facility] LAB Hematocrit 33.2(L) 42.0 - 54.0 % LAB HEMETOLOGY METHOD 08/09/2025 9:15 AM EDT [facility] LAB MCV 97.4 79.0 - 98.0 FL LAB HEMETOLOGY METHOD 08/09/2025 9:15 AM [facility] LAB MCH 31.1 27.0 - 32.0 pcg LAB HEMETOLOGY METHOD 08/09/2025 9:15 AM T [facility] LAB MCHC 31.9(L) 32.0 - 37.0 g/dL LAB HEMETOLOGY METHOD 08/09/2025 9:15 AM T [facility] LAB RDW 15.0 11.0 - 15.0 % LAB HEMETOLOGY METHOD 08/09/2025 9:15 AM [facility] LAB Platelets 274 130 - 400 K/mcL LAB HEMETOLOGY METHOD 08/09/2025 9:15 AM [facility] LAB MPV 10.0 7.0 - 11.0 FL LAB HEMETOLOGY METHOD 08/09/2025 9:15 AM [facility] LAB NRBC 0.0 <1.0 % LAB HEMETOLOGY METHOD 08/09/2025 9:15 AM [facility] LAB NRBC Absolute 0.00 <0.10 K/mcL LAB HEMETOLOGY METHOD 08/09/2025 9:15 AM [facility] LAB Neutrophils Relative 67.0 % LAB HEMETOLOGY METHOD 08/09/2025 9:15 AM [facility] LAB Lymphocytes Relative 15.5 % LAB HEMETOLOGY METHOD 08/09/2025 9:15 AM [facility] LAB Monocytes Relative 10.7 % LAB HEMETOLOGY METHOD 08/09/2025 9:15 AM [facility] LAB Eosinophils Relative 5.4 % LAB HEMETOLOGY METHOD 08/09/2025 9:15 AM EDT [facility] Basophils Relative 0.7 % LAB HEMETOLOGY METHOD 08/09/2025 9:15 AM EDT [facility] Immature Granulocytes Relative 0.7 % LAB HEMETOLOGY METHOD 08/09/2025 9:15 AM EDT [facility] Neutrophils Absolute 5.12 1.50 - 7.00 K/mcL LAB HEMETOLOGY METHOD 08/09/2025 9:15 AM EDT [facility] Lymphocytes Absolute 1.18 1.00 - 5.00 K/mcL LAB HEMETOLOGY METHOD 08/09/2025 9:15 AM EDT [facility] Monocytes Absolute 0.82 0.20 - 1.00 K/mcL LAB HEMETOLOGY METHOD 08/09/2025 9:15 AM EDT [facility] Eosinophils Absolute 0.41 0.00 - 0.50 K/mcL LAB HEMETOLOGY METHOD 08/09/2025 9:15 AM EDT [facility] Basophils Absolute 0.05 0.00 - 0.20 K/mcL LAB HEMETOLOGY METHOD 08/09/2025 9:15 AM EDT [facility] Immature Granulocytes Absolute 0.05(H) 0.00 - 0.03 K/mcL LAB HEMETOLOGY METHOD 08/09/2025 9:15 AM EDT [facility] Blood Venous blood specimen / Unknown Venipuncture / Unknown 08/09/2025 5:19 AM EDT 08/09/2025 8:59 AM EDT us Linda Millard MD LAB BLOOD ORDERABLES Final Resu lt [facility] [address] [place] [address], * Magnesium (08/09/2025 5:19 AM EDT) Only the most recent of4 resultswithin the time period is included. Magnesium 2.4 1.9 - 2.6 mg/dL LAB CHEMISTRY METHOD 08/09/2025 9:40 AM [facility] LAB Blood Venous blood specimen / Unknown Venipuncture / Unknown 08/09/2025 5:19 AM EDT 08/09/2025 8:59 AM EDT us Linda Millard MD LAB BLOOD ORDERABLES Final Resu lt [facility] [address] [place] [address], * (ABNORMAL) Comprehensive metabolic panel (08/09/2025 5:19 AM EDT) Only the most recent of3 resultswithin the time period is included. Pathologist [facility] Sodium 139 133 - 145 mmol/L LAB CHEMISTRY METHOD 08/09/2025 9:40 AM [facility] Potassium 5.2 3.5 - 5.5 mmol/L LAB CHEMISTRY METHOD 08/09/2025 9:40 AM [facility] Chloride 106 96 - 110 mmol/L LAB CHEMISTRY METHOD 08/09/2025 9:40 AM [facility] CO2 28 21 - 32 mmol/L LAB CHEMISTRY METHOD 08/09/2025 9:40 AM [facility] Anion Gap 5 3 - 11 LAB CHEMISTRY METHOD 08/09/2025 9:40 AM [facility] Glucose 89 70 - 100 mg/dL LAB CHEMISTRY METHOD 08/09/2025 9:40 AM [facility] BUN 22 5 - 25 mg/dL LAB CHEMISTRY METHOD 08/09/2025 9:40 AM [facility] LAB Creatinine 1.52(H) 0.70 - 1.30 mg/dL LAB CHEMISTRY METHOD 08/09/2025 9:40 AM [facility] LAB eGFR 47(L) >=60 mL/min/1. 73m2 LAB CHEMISTRY METHOD 08/09/2025 9:40 AM [facility] LAB Comment:Calculation based on the Chronic Kidney Disease Epidemiology Collaboration (CKD-EPI) equation refit without adjustment for race. BUN/Creatinine Ratio 14.5 LAB CHEMISTRY METHOD 08/09/2025 9:40 AM [facility] Calcium 8.7 8.5 - 10.5 mg/dL LAB CHEMISTRY METHOD 08/09/2025 9:40 AM [facility] LAB AST (SGOT) 23 10 - 42 unit/L LAB CHEMISTRY METHOD 08/09/2025 9:40 AM [facility] LAB ALT (SGPT) 34 10 - 60 unit/L LAB CHEMISTRY METHOD 08/09/2025 9:40 AM [facility] Alkaline Phosphatase 92 42 - 121 unit/L LAB CHEMISTRY METHOD 08/09/2025 9:40 AM [facility] Total Protein 5.7(L) 6.0 - 8.0 g/dL LAB CHEMISTRY METHOD 08/09/2025 9:40 AM [facility] Albumin 2.9(L) 3.2 - 5.0 g/dL LAB CHEMISTRY METHOD 08/09/2025 9:40 AM [facility] Total Bilirubin 0.7 0.0 - 1.4 mg/dL LAB CHEMISTRY METHOD 08/09/2025 9:40 AM [facility] LAB Blood Venous blood specimen / Unknown Venipuncture / Unknown 08/09/2025 5:19 AM EDT 08/09/2025 8:59 AM EDT us Linda Millard MD LAB BLOOD ORDERABLES Final Resu lt [facility] [address] [place], [place] [address] [phone] * (ABNORMAL) Basic metabolic panel (08/06/2025 6:04 AM EDT) Only the most recent of3 resultswithin the time period is included. Sodium 138 133 - 145 mmol/L LAB CHEMISTRY METHOD 08/06/2025 12:15 PM [facility] Potassium 4.2 3.5 - 5.5 mmol/L LAB CHEMISTRY METHOD 08/06/2025 12:15 PM [facility] Chloride 107 96 - 110 mmol/L LAB CHEMISTRY METHOD 08/06/2025 12:15 PM [facility] CO2 21 21 - 32 mmol/L LAB CHEMISTRY METHOD 08/06/2025 12:15 PM [facility] Anion Gap 10 3 - 11 LAB CHEMISTRY METHOD 08/06/2025 12:15 PM [facility] Glucose 89 70 - 100 mg/dL LAB CHEMISTRY METHOD 08/06/2025 12:15 PM [facility] BUN 24 5 - 25 mg/dL LAB CHEMISTRY METHOD 08/06/2025 12:15 PM [facility] Creatinine 1.30 0.70 - 1.30 mg/dL LAB CHEMISTRY METHOD 08/06/2025 12:15 PM [facility] LAB eGFR 57(L) >=60 mL/min/1. 73m2 LAB CHEMISTRY METHOD 08/06/2025 12:15 PM [facility] LAB Comment:Calculation based on the Chronic Kidney Disease Epidemiology Collaboration (CKD-EPI) equation refit without adjustment for race. BUN/Creatinine Ratio 18.5 LAB CHEMISTRY METHOD 08/06/2025 12:15 PM [facility] Calcium 8.4(L) 8.5 - 10.5 mg/dL LAB CHEMISTRY METHOD 08/06/2025 12:15 PM [facility] LAB Blood Venous blood specimen / Unknown Venipuncture / Unknown 08/06/2025 6:04 AM EDT 08/06/2025 10:20 AM EDT us Linda Millard MD LAB BLOOD ORDERABLES Final Resu lt [facility] [address] [place] [address], [place] [phone] * (ABNORMAL) Complete blood count (08/02/2025 5:20 AM EDT) [facility] Signature WBC 12.0(H) 4.8 - 10.8 K/mcL LAB HEMETOLOGY METHOD 08/02/2025 11:41 AM EDT [facility] RBC 3.00(L) 4.50 - 5.50 M/mcL LAB HEMETOLOGY METHOD 08/02/2025 11:41 AM [facility] Hemoglobin 9.3(L) 13.5 - 17.5 g/dL LAB HEMETOLOGY METHOD 08/02/2025 11:41 AM [facility] LAB Hematocrit 29.6(L) 42.0 - 54.0 % LAB HEMETOLOGY METHOD 08/02/2025 11:41 AM [facility] LAB MCV 99.3(H) 79.0 - 98.0 FL LAB HEMETOLOGY METHOD 08/02/2025 11:41 AM [facility] LAB MCH 31.2 27.0 - 32.0 pcg LAB HEMETOLOGY METHOD 08/02/2025 11:41 AM [facility] LAB MCHC 31.4(L) 32.0 - 37.0 g/dL LAB HEMETOLOGY METHOD 08/02/2025 11:41 AM [facility] LAB RDW 15.5(H) 11.0 - 15.0 % LAB HEMETOLOGY METHOD 08/02/2025 11:41 AM [facility] LAB Platelets 323 130 - 400 K/mcL LAB HEMETOLOGY METHOD 08/02/2025 11:41 AM EDT [facility] MPV 10.3 7.0 - 11.0 FL LAB HEMETOLOGY METHOD 08/02/2025 11:41 AM EDT [facility] LAB NRBC 0.0 <1.0 % LAB HEMETOLOGY METHOD 08/02/2025 11:41 AM EDT [facility] LAB NRBC Absolute 0.00 <0.10 K/mcL LAB HEMETOLOGY METHOD 08/02/2025 11:41 AM EDT [facility] LAB Blood Venous blood specimen / Unknown Venipuncture / Unknown 08/02/2025 5:20 AM EDT 08/02/2025 10:21 AM EDT us Ashley MERIDA LAB BLOOD ORDERABLES Final Resul t Performing Organization Address City/[facility]/ZIP Co de Phone Number [facility] [address] [place] [address], [place] [phone] * Culture blood (08/01/2025 6:18 AM EDT) Only the most recent of2 resultswithin the time period is included. [facility] Culture, Blood No growth at 5 days LAB MICROBIOLOGY METHOD 08/06/2025 11:01 AM EDT [facility] Blood Venipuncture / Unknown 08/01/2025 6:18 AM EDT 08/01/2025 8:40 AM EDT us Ashley MERIDA LAB MICROBIOLOGY - GENERAL ORDER VALENTÍN Final Result Performing Organization Address City/[facility]/ZIP Co de Phone Number [facility] [address] [place] [address], [place] [phone] * Urinalysis with reflex microscopic and culture (07/31/2025 10:15 PM EDT) Only the most recent of2 resultswithin the time period is included. Specific [place] Urine 1.017 1.003 - 1.030 LAB URINALYSIS - AUTOMATED METHOD 08/01/2025 9:30 AM [facility] LAB pH, Urine 6.0 5.0 - 8.0 pH LAB URINALYSIS - AUTOMATED METHOD 08/01/2025 9:30 AM [facility] Leukocytes, Urine Negative Negative LAB URINALYSIS - AUTOMATED METHOD 08/01/2025 9:30 AM [facility] Nitrite, Urine Negative Negative LAB URINALYSIS - AUTOMATED METHOD 08/01/2025 9:30 AM [facility] Protein, Urine Negative <=Trace mg/dL LAB URINALYSIS - AUTOMATED METHOD 08/01/2025 9:30 AM [facility] Glucose, Urine Negative Negative mg/dL LAB URINALYSIS - AUTOMATED METHOD 08/01/2025 9:30 AM [facility] Ketones, Urine Negative Negative mg/dL LAB URINALYSIS - AUTOMATED METHOD 08/01/2025 9:30 AM [facility] LAB Urobilinogen, Urine 0.2 0.2 - 1.0 mg/dL LAB URINALYSIS - AUTOMATED METHOD 08/01/2025 9:30 AM [facility] Bilirubin, Urine Negative Negative LAB URINALYSIS - AUTOMATED METHOD 08/01/2025 9:30 AM [facility] Blood, Urine Negative Negative LAB URINALYSIS - AUTOMATED METHOD 08/01/2025 9:30 AM [facility] LAB Urine Urine specimen obtained by clean catch procedure / Unknown 07/31/2025 10:15 PM EDT 08/01/2025 9:11 AM EDT us Ashley MERIDA LAB URINE ORDERABLES Final Resul t [facility] [address] [place] [address], [place] [phone] * [place] urine culture tube (07/31/2025 10:15 PM EDT) Only the most recent of2 resultswithin the time period is included. Extra Tube Hold for add-ons. 08/01/2025 11:01 AM EDT [facility] Comment:Auto resulted. Urine Urine specimen obtained by clean catch procedure / Unknown 07/31/2025 10:15 PM EDT 08/01/2025 9:11 AM EDT us Ashley MERIDA LAB URINE ORDERABLES Final Resul t [facility] ([facility]) [facility] [address] [place] [address], [place] [phone] from Last 3 Months Insurance MEDICARE [facility] Care Teams Podiatric Foot And Ankle Specialist Relationship Specialty Start Date End Date Cathryn Clark MD [address] [place] [address] PCP - General Internal Medicine 07/28/25
--- OUTSIDE RECORDS SUMMARY | 2025-08-20 14:00 | XMS_ITS | Encounter Summary ---
Author Organization [facility] Address [address] [place] [address] Care Team Providers Care Operator Cavity Pump Name Role Phone Cathryn Clark MD Primary Care Provider [phone] Encounter Details Date Type Department Care Team (Late st Contact Info) Description 07/31/2025 Lab Requisition [facility] - Main Lab [address] [facility] [place] [address] Linda Millard MD [address] [place] [address] Encounter for other general examination Social History [...] Diagnosis Comments CBC WITH AUTO DIFFERENTIAL Routine 07/31/2025 5:30 AM EDT Encounter for other general examination CBC AND DIFFERENTIAL Routine 07/31/2025 5:30 AM EDT Encounter for other general examination MAGNESIUM Routine 07/31/2025 5:30 AM EDT Encounter for other general examination COMPREHENSIVE METABOLIC PANEL Routine 07/31/2025 5:30 AM EDT Encounter for other general examination documented in this encounter Results * (ABNORMAL) CBC auto differential (07/31/2025 5:30 AM EDT) [facility] WBC 12.6(H) 4.8 - 10.8 K/mcL LAB HEMETOLOGY METHOD 07/31/2025 10:46 AM [facility] RBC 3.00(L) 4.50 - 5.50 M/mcL LAB HEMETOLOGY METHOD 07/31/2025 10:46 AM [facility] Hemoglobin 9.4(L) 13.5 - 17.5 g/dL LAB HEMETOLOGY METHOD 07/31/2025 10:46 AM [facility] Hematocrit 29.0(L) 42.0 - 54.0 % LAB HEMETOLOGY METHOD 07/31/2025 10:46 AM [facility] MCV 97.3 79.0 - 98.0 FL LAB HEMETOLOGY METHOD 07/31/2025 10:46 AM [facility] MCH 31.5 27.0 - 32.0 pcg LAB HEMETOLOGY METHOD 07/31/2025 10:46 AM [facility] MCHC 32.4 32.0 - 37.0 g/dL LAB HEMETOLOGY METHOD 07/31/2025 10:46 AM [facility] RDW 15.1(H) 11.0 - 15.0 % LAB HEMETOLOGY METHOD 07/31/2025 10:46 AM [facility] Platelets 356 130 - 400 K/mcL LAB HEMETOLOGY METHOD 07/31/2025 10:46 AM [facility] MPV 9.6 7.0 - 11.0 FL LAB HEMETOLOGY METHOD 07/31/2025 10:46 AM [facility] NRBC 0.0 <1.0 % LAB HEMETOLOGY METHOD 07/31/2025 10:46 AM [facility] NRBC Absolute 0.00 <0.10 K/mcL LAB HEMETOLOGY METHOD 07/31/2025 10:46 AM [facility] Neutrophils Relative 67.5 % LAB HEMETOLOGY METHOD 07/31/2025 10:46 AM [facility] Lymphocytes Relative 15.2 % LAB HEMETOLOGY METHOD 07/31/2025 10:46 AM [facility] Monocytes Relative 9.1 % LAB HEMETOLOGY METHOD 07/31/2025 10:46 AM [facility] Eosinophils Relative 3.3 % LAB HEMETOLOGY METHOD 07/31/2025 10:46 AM [facility] Basophils Relative 0.6 % LAB HEMETOLOGY METHOD 07/31/2025 10:46 AM [facility] Immature Granulocytes Relative 4.3 % LAB HEMETOLOGY METHOD 07/31/2025 10:46 AM [facility] Neutrophils Absolute 8.49(H) 1.50 - 7.00 K/mcL LAB HEMETOLOGY METHOD 07/31/2025 10:46 AM [facility] Lymphocytes Absolute 1.91 1.00 - 5.00 K/mcL LAB HEMETOLOGY METHOD 07/31/2025 10:46 AM [facility] Monocytes Absolute 1.14(H) 0.20 - 1.00 K/mcL LAB HEMETOLOGY METHOD 07/31/2025 10:46 AM [facility] Eosinophils Absolute 0.41 0.00 - 0.50 K/mcL LAB HEMETOLOGY METHOD 07/31/2025 10:46 AM [facility] Basophils Absolute 0.08 0.00 - 0.20 K/mcL LAB HEMETOLOGY METHOD 07/31/2025 10:46 AM [facility] Immature Granulocytes Absolute 0.54(H) 0.00 - 0.03 K/mcL LAB HEMETOLOGY METHOD 07/31/2025 10:46 AM EDT [facility] Blood Venous blood specimen / Unknown Venipuncture / Unknown 07/31/2025 5:30 AM EDT 07/31/2025 9:42 AM EDT us Linda Millard MD LAB BLOOD ORDERABLES Final Resu lt Performing Organization Address City/[facility]/ZIP Co de Phone Number [facility] [address] [place] [address], [place] [phone] * Magnesium (07/31/2025 5:30 AM EDT) Pathologist [facility] Magnesium 2.3 1.9 - 2.6 mg/dL LAB CHEMISTRY METHOD 07/31/2025 11:34 AM EDT [facility] Blood Venous blood specimen / Unknown Venipuncture / Unknown 07/31/2025 5:30 AM EDT 07/31/2025 9:42 AM EDT us Linda Millard MD LAB BLOOD ORDERABLES Final Resu lt Performing Organization Address [facility]/ZIP Co de Phone Number [facility] [address] [place] [address], [place] [phone] * (ABNORMAL) Comprehensive metabolic panel (07/31/2025 5:30 AM EDT) Pathologist [facility] Sodium 136 133 - 145 mmol/L LAB CHEMISTRY METHOD 07/31/2025 11:35 AM EDT [facility] Potassium 5.1 3.5 - 5.5 mmol/L LAB CHEMISTRY METHOD 07/31/2025 11:35 AM EDT [facility] Chloride 104 96 - 110 mmol/L LAB CHEMISTRY METHOD 07/31/2025 11:35 AM EDT [facility] CO2 25 21 - 32 mmol/L LAB CHEMISTRY METHOD 07/31/2025 11:35 AM EDT [facility] Anion Gap 7 3 - 11 LAB CHEMISTRY METHOD 07/31/2025 11:35 AM [facility] Glucose 90 70 - 100 mg/dL LAB CHEMISTRY METHOD 07/31/2025 11:35 AM [facility] BUN 35(H) 5 - 25 mg/dL LAB CHEMISTRY METHOD 07/31/2025 11:35 AM [facility] Creatinine 1.61(H) 0.70 - 1.30 mg/dL LAB CHEMISTRY METHOD 07/31/2025 11:35 AM [facility] eGFR 44(L) >=60 mL/min/1. 73m2 LAB CHEMISTRY METHOD 07/31/2025 11:35 AM [facility] Comment:Calculation based on the Chronic Kidney Disease Epidemiology Collaboration (CKD-EPI) equation refit without adjustment for race. BUN/Creatinine Ratio 21.7 LAB CHEMISTRY METHOD 07/31/2025 11:35 AM [facility] Calcium 8.0(L) 8.5 - 10.5 mg/dL LAB CHEMISTRY METHOD 07/31/2025 11:35 AM [facility] AST (SGOT) 21 10 - 42 unit/L LAB CHEMISTRY METHOD 07/31/2025 11:35 AM [facility] ALT (SGPT) 35 10 - 60 unit/L LAB CHEMISTRY METHOD 07/31/2025 11:35 AM [facility] Alkaline Phosphatase 67 42 - 121 unit/L LAB CHEMISTRY METHOD 07/31/2025 11:35 AM [facility] Total Protein 5.7(L) 6.0 - 8.0 g/dL LAB CHEMISTRY METHOD 07/31/2025 11:35 AM [facility] Albumin 2.7(L) 3.2 - 5.0 g/dL LAB CHEMISTRY METHOD 07/31/2025 11:35 AM [facility] Total Bilirubin 0.8 0.0 - 1.4 mg/dL LAB CHEMISTRY METHOD 07/31/2025 11:35 AM EDT [facility] Blood Venous blood specimen / Unknown Venipuncture / Unknown 07/31/2025 5:30 AM EDT 07/31/2025 9:42 AM EDT us Linda Millard MD LAB BLOOD ORDERABLES Final Resu lt [facility] [address] [place] [address], documented in this encounter Visit Diagnoses Diagnosis Encounter for other general examination documented in this encounter Care Teams Operator Cavity Pump Relationship Specialty Start Date End Date Cathryn Clark MD [address] [place] [address] PCP - General Internal Medicine 07/28/25 documented as of this encounter
--- OUTSIDE RECORDS SUMMARY | 2025-08-20 14:01 | XMS_ITS | Patient Health Record ---
Author Organization [facility] Address [address] [place] [address] Care Team Providers Care Stack Clerk Name Role Phone Cathryn Clark MD Primary Care Provider Drew Marley Jr Allergies No Known Allergies Reason For Referral No Information Medications Medication SIG (Take, Route, Frequency, Duration) Notes Start Date End Date Status PriLOSEC Active MiraLax (colon prep) 17 GM/SCOOP mixed with Gatorade or Crystal Light Orally begin at 5:00 p.m. the day before the procedure; Duration: 1 day 04/18/2022 Active Fish Oil Active Claritin Active Immunizations Vaccine Route Administration Date Status Comme nts Influenza Unknown 06/14/2021 Administered Problems Problem Type SNOMED Code ICD Code Onset Dates Problem Status W/U Status Risk Notes Problem Colon cancer screening (710232749) Colon cancer screening (Z12.11) Active confirmed Problem Rectal bleeding (30109688) Rectal bleeding (K62.5) Active confirmed Problem Gastroesophageal reflux disease without esophagitis (593297309) Gastroesophageal reflux disease without esophagitis (K21.9) Active confirmed Problem Long-term current use of drug therapy (530629305) Long-term current use of high risk medication other than anticoagulant (Z79.899) Active confirmed Problem Elevated liver enzymes level (137991479) Elevated liver function tests (R94.5) Active confirmed Plan Of Treatment Future Test Test Name Order Date COLONOSCOPY 05/07/2012 UPPER GI ENDOSCOPY 08/30/2016 COLONOSCOPY 08/30/2016 COLONOSCOPY 04/18/2022 Insurance Providers Payer Name Payer Address Payer Phone Subscriber Number Group Number Insured Name Patient Relationship to Insured Coverage Start Date Coverage End Date MEDICARE OF [place] [address] [place] [address] [id number] [employer] Self - patient is the insured MED[employer] ATTN CLAIMS [address] [place] [address] [id number] [employer] Self - patient is the insured Medical (General) History Medical History History ICD Code Colonoscopy 04/05/17, diverti culosis and internal hemorrhoids, five-year followup because a personal history of tubular adenomas. Gastroesophageal reflux disease Environmental allergies hypertension Aortic insufficiency, mild Surgical History Surgery Date(Month/Year) tonsillectomy testicular surgery hernia repair Knee arthroscopy knee replacement, right
--- OUTSIDE RECORDS SUMMARY | 2025-08-20 14:01 | XMS_ITS | Encounter Summary ---
Author Organization [facility] Address [address] [place] [address] Care Team Providers Care Lime Puller Name Role Phone Cathryn Clark MD Primary Care Provider [phone] Encounter Details Date Type Department Care Team (Late st Contact Info) Description 08/03/[address] [facility] - Main Lab [address] [facility] [place] [address] Linda Millard MD [address] [place] [address] Other joint terminal attack controller (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 Social History Tobacco Use [...] Diagnosis Comments CBC WITH AUTO DIFFERENTIAL Routine 08/03/2025 5:41 AM EDT Other group home (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 CBC AND DIFFERENTIAL Routine 08/03/2025 5:41 AM EDT Other joint terminal attack controller (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 BASIC METABOLIC PANEL Routine 08/03/2025 5:41 AM EDT Other joint terminal attack controller (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 documented in this encounter Results * (ABNORMAL) CBC auto differential (08/03/2025 5:41 AM EDT) WBC 11.1(H) 4.8 - 10.8 K/mcL LAB HEMETOLOGY METHOD 08/03/2025 10:24 AM [facility] RBC 2.90(L) 4.50 - 5.50 M/[facility] LAB HEMETOLOGY METHOD 08/03/2025 10:24 AM [facility] Hemoglobin 8.9(L) 13.5 - 17.5 g/dL LAB HEMETOLOGY METHOD 08/03/2025 10:24 AM [facility] Hematocrit 28.0(L) 42.0 - 54.0 % LAB HEMETOLOGY METHOD 08/03/2025 10:24 AM [facility] MCV 96.9 79.0 - 98.0 FL LAB HEMETOLOGY METHOD 08/03/2025 10:24 AM [facility] MCH 30.8 27.0 - 32.0 pcg LAB HEMETOLOGY METHOD 08/03/2025 10:24 AM [facility] MCHC 31.8(L) 32.0 - 37.0 g/dL LAB HEMETOLOGY METHOD 08/03/2025 10:24 AM [facility] RDW 15.3(H) 11.0 - 15.0 % LAB HEMETOLOGY METHOD 08/03/2025 10:24 AM [facility] Platelets 329 130 - 400 K/[facility] LAB HEMETOLOGY METHOD 08/03/2025 10:24 AM [facility] MPV 9.8 7.0 - 11.0 FL LAB HEMETOLOGY METHOD 08/03/2025 10:24 AM [facility] NRBC 0.0 <1.0 % LAB HEMETOLOGY METHOD 08/03/2025 10:24 AM [facility] NRBC Absolute 0.00 <0.10 K/[facility] LAB HEMETOLOGY METHOD 08/03/2025 10:24 AM [facility] Neutrophils Relative 72.3 % LAB HEMETOLOGY METHOD 08/03/2025 10:24 AM [facility] Lymphocytes Relative 12.9 % LAB HEMETOLOGY METHOD 08/03/2025 10:24 AM [facility] Monocytes Relative 8.5 % LAB HEMETOLOGY METHOD 08/03/2025 10:24 AM [facility] Eosinophils Relative 3.5 % LAB HEMETOLOGY METHOD 08/03/2025 10:24 AM [facility] Basophils Relative 0.5 % LAB HEMETOLOGY METHOD 08/03/2025 10:24 AM [facility] Immature Granulocytes Relative 2.3 % LAB HEMETOLOGY METHOD 08/03/2025 10:24 AM [facility] Neutrophils Absolute 8.01(H) 1.50 - 7.00 K/mcL LAB HEMETOLOGY METHOD 08/03/2025 10:24 AM [facility] Lymphocytes Absolute 1.43 1.00 - 5.00 K/mcL LAB HEMETOLOGY METHOD 08/03/2025 10:24 AM [facility] Monocytes Absolute 0.94 0.20 - 1.00 K/mcL LAB HEMETOLOGY METHOD 08/03/2025 10:24 AM [facility] Eosinophils Absolute 0.39 0.00 - 0.50 K/mcL LAB HEMETOLOGY METHOD 08/03/2025 10:24 AM [facility] Basophils Absolute 0.05 0.00 - 0.20 K/mcL LAB HEMETOLOGY METHOD 08/03/2025 10:24 AM [facility] Immature Granulocytes Absolute 0.25(H) 0.00 - 0.03 K/mcL LAB HEMETOLOGY METHOD 08/03/2025 10:24 AM [facility] Blood Venous blood specimen / Unknown Venipuncture / Unknown 08/03/2025 5:41 AM EDT 08/03/2025 9:50 AM EDT us Linda Millard MD LAB BLOOD ORDERABLES Final Resu lt [facility] [address] [place] [address], * (ABNORMAL) Basic metabolic panel (08/03/2025 5:41 AM EDT) Sodium 137 133 - 145 mmol/L LAB CHEMISTRY METHOD 08/03/2025 11:26 AM [facility] Potassium 4.4 3.5 - 5.5 mmol/L LAB CHEMISTRY METHOD 08/03/2025 11:26 AM [facility] Chloride 108 96 - 110 mmol/L LAB CHEMISTRY METHOD 08/03/2025 11:26 AM [facility] CO2 22 21 - 32 mmol/L LAB CHEMISTRY METHOD 08/03/2025 11:26 AM [facility] Anion Gap 7 3 - 11 LAB CHEMISTRY METHOD 08/03/2025 11:26 AM [facility] Glucose 86 70 - 100 mg/dL LAB CHEMISTRY METHOD 08/03/2025 11:26 AM [facility] BUN 26(H) 5 - 25 mg/dL LAB CHEMISTRY METHOD 08/03/2025 11:26 AM [facility] Creatinine 1.46(H) 0.70 - 1.30 mg/dL LAB CHEMISTRY METHOD 08/03/2025 11:26 AM [facility] eGFR 50(L) >=60 mL/min/1. 73m2 LAB CHEMISTRY METHOD 08/03/2025 11:26 AM [facility] Comment:Calculation based on the Chronic Kidney Disease Epidemiology Collaboration (CKD-EPI) equation refit without adjustment for race. BUN/Creatinine Ratio 17.8 LAB CHEMISTRY METHOD 08/03/2025 11:26 AM EDT [facility] Calcium 8.1(L) 8.5 - 10.5 mg/dL LAB CHEMISTRY METHOD 08/03/2025 11:26 AM EDT [facility] Blood Venous blood specimen / Unknown Venipuncture / Unknown 08/03/2025 5:41 AM EDT 08/03/2025 9:50 AM EDT us Linda Millard MD LAB BLOOD ORDERABLES Final Resu lt [facility] [address] [place] [address], documented in this encounter Visit Diagnoses Diagnosis Other group home (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 documented in this encounter Care Teams Lime Puller Relationship Specialty Start Date End Date Cathryn Clark MD [address] [place] [address] PCP - General Internal Medicine 07/28/25 documented as of this encounter
--- OUTSIDE RECORDS SUMMARY | 2025-08-20 14:01 | XMS_ITS | Clinical Summary ---
Author Organization [facility] Address [facility] [address] [address] Phone Care Team Providers Care Business Continuity Coordinator Name Role Phone Cathryn Clark MD Primary Care Provider [phone] Pcp, Unknown Unavailable Unavailable Allergies No known [...] this topic Medical Devices Implanted Type Area Office Service Coordinator Device Identifier Shelf Expiration Date Model / Serial / Lot Cement Bone Smartset Hv 40gram (Multiples Of 20's) - [id number] Implanted:Qty: 2 on 12/06/2016 by Pepe Mtz MD at [facility] [employer] Right: Knee [employer] 12/11/2017 [id number] / / [id number] Implant Iuni Ipoly Kit Knee 23 - [id number] Implanted:Qty: 1 on 12/06/2016 by Pepe Mtz MD at [facility] Right: Knee [employer] 05/13/2017 [id number] / [id number] / Description:6mm insert Tibial Tray Femoral Implant Implant Iuni Ipoly Kit Knee 23 - [id number] Implanted:Qty: 1 on 12/06/2016 by Pepe Mtz MD at [facility] Knee [employer]FORMIS 05/13/2017 [id number] / [id number] / Description:KIT NO CHARGE Implant Iuni Ipoly Kit Knee 23 - [id number] Implanted:Qty: 1 on 12/06/2016 by Pepe Mtz MD at [facility] Right: Knee [employer]FORMIS 05/13/2017 [id number] / [id number] / Description:KIT NO CHARGE Procedures Procedure Name Priority Date/Time Associated Diagnosis Comments BASIC METABOLIC PANEL (BMP) Routine 12/07/2016 7:33 AM EST from Last 3 Months or Most Recently Relevant to Health Maintenance Results * (ABNORMAL) Basic metabolic panel ([facility] ,[facility] ,[facility] ,[facility]) (12/07/2016 7:33 AM EST) SODIUM 141 136 - 145 mmol/L [facility] POTASSIUM 4.2 3.4 - 5.0 mmol/L [facility] CHLORIDE 103 98 - 107 mmol/L [facility] CO2 20(L) 22 - 31 mmol/L [facility] BUN 16 6 - 23 mg/dL [facility] CREATININE 1.12 0.50 - 1.20 mg/dL [facility] GLUCOSE 129(H) 70 - 100 mg/dL [facility] CALCIUM 8.0(L) 8.8 - 10.7 mg/dL [facility] EGFR >59 >59 mL/min/1.7 3m2 [facility] Comment:If patient is black, multiply result by 1.21 ANION GAP 18(H) 5 - 17 mmol/L [facility] Blood 12/07/2016 7:33 AM EST 12/07/2016 7:45 AM EST us Pepe Mtz MD LAB BLOOD BKR ORDERABL ES Final Result Performing Organization Address City/State/[facility] Co de Phone Number [facility] [address] [place] [phone] from Last 3 Months or Most Recently Relevant to Health Maintenance [facility] PPO MEDICARE A [facility] PPO MEDICARE A Member Subscriber Plan / Payer (Ef fective 2013-Present) Name:Elfego Roger Member ID:[id number] Relation to Subscriber:Self Name:Elfego Roger Subscriber ID:[id number] Payer ID:[id number] Group ID:Not on file Type:Medicare Address: [place] [employer] [address] [place] [address] [facility] PPO MEDICARE A Member Subscriber Plan / Payer (Ef fective 2013-Present) Name:Elfego Roger Member ID:[id number] Relation to Subscriber:Self Name:Elfego Roger Subscriber ID:[id number] Payer ID:[id number] Group ID:Not on file Type:Medicare Address: [place] [employer] [address] [place] [address] [facility] PPO MEDICARE A Member Subscriber Plan / Payer ( fective 2013-Present) Name:Elfego Roger Member ID:[id number] Relation to Subscriber:Self Name:Elfego Roger Subscriber ID:[id number] Payer ID:[id number] Group ID:Not on file Type:Medicare Address: [place] [employer] [address] [place] [address] [facility] PPO MEDICARE A [facility] PPO MEDICARE A PPO MEDICARE A [facility] PPO Advance Directives For more information, please contact: [phone] (9AM - 5PM Ele/[facility], Saturday-Saturday) Documents on File Type Date Recorded Patient Manager Clinical Pharmacy Expl anation Healthcare Proxy 12/06/2016 10:10 AM * Full Code (Presumed) (Latest Code Status on File) Date Activated Date Inactivated Comments 12/06/2016 7:37 PM 12/07/2016 6:05 PM * Full Code (Presumed) Date Activated Date Inactivated Comments 12/06/2016 12:02 PM 12/06/2016 7:37 PM Healthcare Agents on File Name Relationship Healthcare Agent Relationsny p Communication Sweta Roger Spouse .Primary Health Care Agent (Proxy form on file) Care Teams Business Continuity Coordinator Relationship Specialty Start Date End Date Cathryn Clark MD [address] [place] [phone] PCP - General 07/10/16 Pcp, Unknown 07/10/16 Additional Source Comments The information contained in this document represents components of the legal health record. It is not the complete legal health record[facility]
--- OUTSIDE RECORDS SUMMARY | 2025-08-20 14:01 | XMS_ITS | Encounter Summary ---
Author Organization [facility] Address [address] [place] [address] Care Team Providers Care Operations Recruiter Name Role Phone Cathryn Clark MD Primary Care Provider [phone] Encounter Details Date Type Department Care Team (Late st Contact Info) Description 08/09/2025 Lab Requisition [facility] - Main Lab [address] [facility] [place] [address] Linda Millard MD [address] [place] [address] Encounter for other general examination Social History [...] Diagnosis Comments CBC WITH AUTO DIFFERENTIAL Routine 08/09/2025 5:19 AM EDT Encounter for other general examination CBC AND DIFFERENTIAL Routine 08/09/2025 5:19 AM EDT Encounter for other general examination MAGNESIUM Routine 08/09/2025 5:19 AM EDT Encounter for other general examination COMPREHENSIVE METABOLIC PANEL Routine 08/09/2025 5:19 AM EDT Encounter for other general examination documented in this encounter Results * (ABNORMAL) CBC auto differential (08/09/2025 5:19 AM EDT) [facility] Signature WBC 7.6 4.8 - 10.8 K/mcL LAB HEMETOLOGY METHOD 08/09/2025 9:15 AM [facility] RBC 3.40(L) 4.50 - 5.50 M/mcL LAB HEMETOLOGY METHOD 08/09/2025 9:15 AM [facility] LAB Hemoglobin 10.6(L) 13.5 - 17.5 g/dL LAB HEMETOLOGY METHOD 08/09/2025 9:15 AM [facility] LAB Hematocrit 33.2(L) 42.0 - 54.0 % LAB HEMETOLOGY METHOD 08/09/2025 9:15 AM [facility] LAB MCV 97.4 79.0 - 98.0 FL LAB HEMETOLOGY METHOD 08/09/2025 9:15 AM [facility] LAB MCH 31.1 27.0 - 32.0 pcg LAB HEMETOLOGY METHOD 08/09/2025 9:15 AM [facility] LAB MCHC 31.9(L) 32.0 - 37.0 g/dL LAB HEMETOLOGY METHOD 08/09/2025 9:15 AM [facility] LAB RDW 15.0 11.0 - 15.0 % LAB HEMETOLOGY METHOD 08/09/2025 9:15 AM [facility] LAB Platelets 274 130 - 400 K/mcL LAB HEMETOLOGY METHOD 08/09/2025 9:15 AM [facility] LAB MPV 10.0 7.0 - 11.0 FL LAB HEMETOLOGY METHOD 08/09/2025 9:15 AM [facility] LAB NRBC 0.0 <1.0 % LAB HEMETOLOGY METHOD 08/09/2025 9:15 AM [facility] LAB NRBC Absolute 0.00 <0.10 K/mcL LAB HEMETOLOGY METHOD 08/09/2025 9:15 AM EDT [facility] LAB Neutrophils Relative 67.0 % LAB HEMETOLOGY METHOD 08/09/2025 9:15 AM [facility] Lymphocytes Relative 15.5 % LAB HEMETOLOGY METHOD 08/09/2025 9:15 AM [facility] Monocytes Relative 10.7 % LAB HEMETOLOGY METHOD 08/09/2025 9:15 AM T [facility] Eosinophils Relative 5.4 % LAB HEMETOLOGY METHOD 08/09/2025 9:15 AM [facility] Basophils Relative 0.7 % LAB HEMETOLOGY METHOD 08/09/2025 9:15 AM [facility] Immature Granulocytes Relative 0.7 % LAB HEMETOLOGY METHOD 08/09/2025 9:15 AM [facility] Neutrophils Absolute 5.12 1.50 - 7.00 K/mcL LAB HEMETOLOGY METHOD 08/09/2025 9:15 AM [facility] Lymphocytes Absolute 1.18 1.00 - 5.00 K/mcL LAB HEMETOLOGY METHOD 08/09/2025 9:15 AM [facility] Monocytes Absolute 0.82 0.20 - 1.00 K/mcL LAB HEMETOLOGY METHOD 08/09/2025 9:15 AM [facility] Eosinophils Absolute 0.41 0.00 - 0.50 K/mcL LAB HEMETOLOGY METHOD 08/09/2025 9:15 AM [facility] Basophils Absolute 0.05 0.00 - 0.20 K/mcL LAB HEMETOLOGY METHOD 08/09/2025 9:15 AM [facility] Immature Granulocytes Absolute 0.05(H) 0.00 - 0.03 K/mcL LAB HEMETOLOGY METHOD 08/09/2025 9:15 AM EDT [facility] LAB Blood Venous blood specimen / Unknown Venipuncture / Unknown 08/09/2025 5:19 AM EDT 08/09/2025 8:59 AM EDT us Linda Millard MD LAB BLOOD ORDERABLES Final Resu lt [facility] [address] [place] [address], [place] [phone] * Magnesium (08/09/2025 5:19 AM EDT) Magnesium 2.4 1.9 - 2.6 mg/dL LAB CHEMISTRY METHOD 08/09/2025 9:40 AM EDT [facility] Blood Venous blood specimen / Unknown Venipuncture / Unknown 08/09/2025 5:19 AM EDT 08/09/2025 8:59 AM EDT us Linda Millard MD LAB BLOOD ORDERABLES Final Resu lt Performing Organization Address City/[facility]/ZIP Co de Phone Number [facility] [address] [place] [address], [place] [phone] * (ABNORMAL) Comprehensive metabolic panel (08/09/2025 5:19 AM EDT) Sodium 139 133 - 145 mmol/L LAB CHEMISTRY METHOD 08/09/2025 9:40 AM EDT [facility] Potassium 5.2 3.5 - 5.5 mmol/L LAB CHEMISTRY METHOD 08/09/2025 9:40 AM EDT [facility] Chloride 106 96 - 110 mmol/L LAB CHEMISTRY METHOD 08/09/2025 9:40 AM EDT [facility] CO2 28 21 - 32 mmol/L LAB CHEMISTRY METHOD 08/09/2025 9:40 AM EDT [facility] Anion Gap 5 3 - 11 LAB CHEMISTRY METHOD 08/09/2025 9:40 AM [facility] Glucose 89 70 - 100 mg/dL LAB CHEMISTRY METHOD 08/09/2025 9:40 AM [facility] BUN 22 5 - 25 mg/dL LAB CHEMISTRY METHOD 08/09/2025 9:40 AM [facility] Creatinine 1.52(H) 0.70 - 1.30 mg/dL LAB CHEMISTRY METHOD 08/09/2025 9:40 AM [facility] LAB eGFR 47(L) >=60 mL/min/1. 73m2 LAB CHEMISTRY METHOD 08/09/2025 9:40 AM [facility] LAB Comment:Calculation based on the Chronic Kidney Disease Epidemiology Collaboration (CKD-EPI) equation refit without adjustment for race. BUN/Creatinine Ratio 14.5 LAB CHEMISTRY METHOD 08/09/2025 9:40 AM [facility] Calcium 8.7 8.5 - 10.5 mg/dL LAB CHEMISTRY METHOD 08/09/2025 9:40 AM [facility] AST (SGOT) 23 10 - 42 unit/L LAB CHEMISTRY METHOD 08/09/2025 9:40 AM [facility] ALT (SGPT) 34 10 - 60 unit/L LAB CHEMISTRY METHOD 08/09/2025 9:40 AM [facility] Alkaline Phosphatase 92 42 - 121 unit/L LAB CHEMISTRY METHOD 08/09/2025 9:40 AM [facility] Total Protein 5.7(L) 6.0 - 8.0 g/dL LAB CHEMISTRY METHOD 08/09/2025 9:40 AM [facility] Albumin 2.9(L) 3.2 - 5.0 g/dL LAB CHEMISTRY METHOD 08/09/2025 9:40 AM [facility] Total Bilirubin 0.7 0.0 - 1.4 mg/dL LAB CHEMISTRY METHOD 08/09/2025 9:40 AM EDT [facility] Blood Venous blood specimen / Unknown Venipuncture / Unknown 08/09/2025 5:19 AM EDT 08/09/2025 8:59 AM EDT us Linda Millard MD LAB BLOOD ORDERABLES Final Resu lt [facility] [address] [place] [address], documented in this encounter Visit Diagnoses Diagnosis Encounter for other general examination documented in this encounter Care Teams Operations Recruiter Relationship Specialty Start Date End Date Cathryn Clark MD [address] [place] [address] PCP - General Internal Medicine 07/28/25 documented as of this encounter
--- OUTSIDE RECORDS SUMMARY | 2025-08-20 14:01 | XMS_ITS | Encounter Summary ---
Author Organization [employer] [facility] Address [address] [place] [address] Care Team Providers Care Sand Buffer Name Role Phone Cathryn Clark MD Primary Care Provider [phone] Encounter Details Date Type Department Care Team (Late st Contact Info) Description 08/06/2025 Lab Requisition [facility] - Main Lab [address] [facility] [email or web address] [address] Linda Millard MD [address] [place] [address] Other intermediate manager (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 Social History Tobacco Use [...] Diagnosis Comments CBC WITH AUTO DIFFERENTIAL Routine 08/06/2025 6:04 AM EDT Other correction (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 CBC AND DIFFERENTIAL Routine 08/06/2025 6:04 AM EDT Other correction (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 MAGNESIUM Routine 08/06/2025 6:04 AM EDT Other correction (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 BASIC METABOLIC PANEL Routine 08/06/2025 6:04 AM EDT Other intermediate manager (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 documented in this encounter Results * (ABNORMAL) CBC auto differential (08/06/2025 6:04 AM EDT) [facility] WBC 8.5 4.8 - 10.8 K/mcL LAB HEMETOLOGY METHOD 08/06/2025 11:10 AM [facility] RBC 3.00(L) 4.50 - 5.50 M/mcL LAB HEMETOLOGY METHOD 08/06/2025 11:10 AM [facility] Hemoglobin 9.1(L) 13.5 - 17.5 g/dL LAB HEMETOLOGY METHOD 08/06/2025 11:10 AM [facility] Hematocrit 28.2(L) 42.0 - 54.0 % LAB HEMETOLOGY METHOD 08/06/2025 11:10 AM [facility] MCV 95.6 79.0 - 98.0 FL LAB HEMETOLOGY METHOD 08/06/2025 11:10 AM [facility] MCH 30.8 27.0 - 32.0 pcg LAB HEMETOLOGY METHOD 08/06/2025 11:10 AM [facility] MCHC 32.3 32.0 - 37.0 g/dL LAB HEMETOLOGY METHOD 08/06/2025 11:10 AM [facility] RDW 15.1(H) 11.0 - 15.0 % LAB HEMETOLOGY METHOD 08/06/2025 11:10 AM [facility] Platelets 287 130 - 400 K/mcL LAB HEMETOLOGY METHOD 08/06/2025 11:10 AM [facility] MPV 9.9 7.0 - 11.0 FL LAB HEMETOLOGY METHOD 08/06/2025 11:10 AM [facility] NRBC 0.0 <1.0 % LAB HEMETOLOGY METHOD 08/06/2025 11:10 AM [facility] NRBC Absolute 0.00 <0.10 K/mcL LAB HEMETOLOGY METHOD 08/06/2025 11:10 AM T [facility] Neutrophils Relative 73.6 % LAB HEMETOLOGY METHOD 08/06/2025 11:10 AM [facility] Lymphocytes Relative 13.1 % LAB HEMETOLOGY METHOD 08/06/2025 11:10 AM [facility] Monocytes Relative 7.9 % LAB HEMETOLOGY METHOD 08/06/2025 11:10 AM [facility] Eosinophils Relative 3.9 % LAB HEMETOLOGY METHOD 08/06/2025 11:10 AM [facility] Basophils Relative 0.6 % LAB HEMETOLOGY METHOD 08/06/2025 11:10 AM [facility] Immature Granulocytes Relative 0.9 % LAB HEMETOLOGY METHOD 08/06/2025 11:10 AM [facility] Neutrophils Absolute 6.21 1.50 - 7.00 K/mcL LAB HEMETOLOGY METHOD 08/06/2025 11:10 AM [facility] Lymphocytes Absolute 1.11 1.00 - 5.00 K/mcL LAB HEMETOLOGY METHOD 08/06/2025 11:10 AM [facility] Monocytes Absolute 0.67 0.20 - 1.00 K/mcL LAB HEMETOLOGY METHOD 08/06/2025 11:10 AM [facility] Eosinophils Absolute 0.33 0.00 - 0.50 K/mcL LAB HEMETOLOGY METHOD 08/06/2025 11:10 AM [facility] Basophils Absolute 0.05 0.00 - 0.20 K/mcL LAB HEMETOLOGY METHOD 08/06/2025 11:10 AM [facility] Immature Granulocytes Absolute 0.08(H) 0.00 - 0.03 K/mcL LAB HEMETOLOGY METHOD 08/06/2025 11:10 AM EDT [facility] Blood Venous blood specimen / Unknown 08/06/2025 6:04 AM EDT 08/06/2025 10:20 AM EDT Linda Millard MD LAB BLOOD ORDERABLES Final Resu lt Performing Organization Address City/[facility]/ZIP Co de Phone Number [facility] [address] [place] [address], [place] [phone] * Magnesium (08/06/2025 6:04 AM EDT) Pathologist [facility] Magnesium 2.0 1.9 - 2.6 mg/dL LAB CHEMISTRY METHOD 08/06/2025 12:15 PM EDT [facility] Blood Venous blood specimen / Unknown Venipuncture / Unknown 08/06/2025 6:04 AM EDT 08/06/2025 10:20 AM EDT us Linda Millard MD LAB BLOOD ORDERABLES Final Resu lt Performing Organization Address City/[facility]/ZIP Co de Phone Number [facility] [address] [place] [address], [place] [phone] * (ABNORMAL) Basic metabolic panel (08/06/2025 6:04 AM EDT) Pathologist [facility] Sodium 138 133 - 145 mmol/L LAB CHEMISTRY METHOD 08/06/2025 12:15 PM EDT [facility] Potassium 4.2 3.5 - 5.5 mmol/L LAB CHEMISTRY METHOD 08/06/2025 12:15 PM EDT [facility] Chloride 107 96 - 110 mmol/L LAB CHEMISTRY METHOD 08/06/2025 12:15 PM EDT [facility] CO2 21 21 - 32 mmol/L LAB CHEMISTRY METHOD 08/06/2025 12:15 PM EDT [facility] Anion Gap 10 3 - 11 LAB CHEMISTRY METHOD 08/06/2025 12:15 PM EDT [facility] Glucose 89 70 - 100 mg/dL LAB CHEMISTRY METHOD 08/06/2025 12:15 PM T [facility] BUN 24 5 - 25 mg/dL LAB CHEMISTRY METHOD 08/06/2025 12:15 PM [facility] Creatinine 1.30 0.70 - 1.30 mg/dL LAB CHEMISTRY METHOD 08/06/2025 12:15 PM T [facility] eGFR 57(L) >=60 mL/min/1. 73m2 LAB CHEMISTRY METHOD 08/06/2025 12:15 PM EDT [facility] Comment:Calculation based on the Chronic Kidney Disease Epidemiology Collaboration (CKD-EPI) equation refit without adjustment for race. BUN/Creatinine Ratio 18.5 LAB CHEMISTRY METHOD 08/06/2025 12:15 PM [facility] Calcium 8.4(L) 8.5 - 10.5 mg/dL LAB CHEMISTRY METHOD 08/06/2025 12:15 PM [facility] Blood Venous blood specimen / Unknown Venipuncture / Unknown 08/06/2025 6:04 AM EDT 08/06/2025 10:20 AM EDT us Linda Millard MD LAB BLOOD ORDERABLES Final Resu lt [facility] [address] [place] [address], documented in this encounter Visit Diagnoses Diagnosis Other intermediate manager (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 documented in this encounter Care Teams Sand Buffer Relationship Specialty Start Date End Date Cathryn Clark MD [address] [place] [address] PCP - General Internal Medicine 07/28/25 documented as of this encounter
--- OUTSIDE RECORDS SUMMARY | 2025-08-20 14:01 | XMS_ITS | Encounter Summary ---
Author Organization [employer] [facility] Address [facility]ly [facility] [employer] [facility] [address] [place] [address] Phone Care Team Providers Care Search Optimization Analyst Name Role Phone Cathryn Clark MD Primary Care Provider [phone] Pcp, Unknown Unavailable Unavailable Reason for Referral * - Closed Specialty Diagnoses / Procedures Referred By Contac t Referred To Contact Procedures NM Bone Outside (No Interpretation) Pepe Mtz MD [email or web address] Referral ID Status Reason Start Date Expiration Date Visits Re quested Visits Authorized [id number] Closed 01/10/2018 01/10/2019 1 1 Encounter Details Date Type Department Care Team (Late st Contact Info) Description 01/10/2018 Transcribe Orders [facility] [address] [place] [id number] Dino Garcia [address] [place] [phone] [email or web address] Social History Tobacco Use Types Packs/Day [...] Assessment Author No 12/07/2016 1:29 PM Hemalatha Glaloway NP * Patient is blind or has [...] (No Interpretation) (01/10/2018 12:00 AM EDT) Narrative QINGHOLDENH - 01/10/2018 11:06 AM EDT This study is for PACS storage only and not for interpretation. us Pepe Mtz MD [employer] OUTSIDE IMAGING W/ OUT INTERPRETATION Final Result [facility] documented in this encounter Visit Diagnoses Not on filedocumented in this encounter Care Teams Search Optimization Analyst Relationship Specialty Start Date End Date Cathryn Clark MD [address] [place] [address] PCP - General 07/10/16 Pcp, Unknown 07/10/16 documented as of this encounter Additional Source Comments The information contained in this document represents components of the legal health record. It is not the complete legal health record.[facility]
--- OUTSIDE RECORDS SUMMARY | 2025-08-20 14:01 | XMS_ITS | Encounter Summary ---
[facility] Organization [facility] Address [address] [place] [address] Care Team Providers Care Toll Lineman Name Role Phone Cathryn Clark MD Primary Care Provider [phone] Encounter Details Date Type Department Care Team (Late st Contact Info) Description 08/10/2025 Lab Requisition [facility] - Main Lab [address] [place] [address] Linda Millard MD [address] [place] [address] Encounter for other general examination Social History [...] examination documented in this encounter Results * Thyroid stimulating hormone (08/10/2025 4:40 AM EDT) TSH 3.99 0.40 - 4.00 mcIU/mL LAB CHEMISTRY METHOD 08/10/2025 11:44 AM EDT [facility] Blood Venous blood specimen / Unknown Venipuncture / Unknown 08/10/2025 4:40 AM EDT 08/10/2025 10:36 AM EDT us Linda Millard MD LAB BLOOD ORDERABLES Final Resu lt Performing Organization Address [facility]/ZIP Co de Phone Number [facility] [address] [place] [address], [place] [phone] * (ABNORMAL) B-type natriuretic peptide (08/10/2025 4:40 AM EDT) BNP 486(H) <=100 pcg/mL LAB CHEMISTRY METHOD 08/10/2025 11:44 AM EDT [facility] Blood Venous blood specimen / Unknown Venipuncture / Unknown 08/10/2025 4:40 AM EDT 08/10/2025 10:36 AM EDT us Linda Millard MD LAB BLOOD ORDERABLES Final Resu lt Performing Organization Address [facility]/ZIP Co de Phone Number [facility] [address] [place] [address], [place] [phone] documented in this encounter Visit Diagnoses Diagnosis Encounter for other general examination documented in this encounter Care Teams Toll Lineman Relationship Specialty Start Date End Date Cathryn Clark MD [address] [place] [address] PCP - General Internal Medicine 07/28/25 documented as of this encounter
== END 2025-08-20 12:20 | disposition home or self-care (01) ==
LOC: HO.HMCH 11:35
PROVIDERS: PCP Internal Medicine; Visit Provider Nurse Practitioner Family
DX: Z95.1 Presence of aortocoronary bypass graft (principal)

== ENCOUNTER → 2025-08-20 11:35 | Outpatient (BNVA) | payer MEDICARE, SELFPAY | PROVIDERS: PCP Internal Medicine; Visit Provider Nurse Practitioner Family | DX: Z95.1 Presence of aortocoronary bypass graft (principal) | CPT/HCPCS: 99212 ==

== ENCOUNTER 2025-10-13 08:41 | Outpatient (REF) | payer MEDICARE, SELFPAY ==
--- OUTSIDE RECORDS SUMMARY | 2025-10-13 08:44 | XMS_ITS | Clinical Summary ---
Author Organization [facility] Address [address] [place] [address] Care Team Providers Care Roll Grinder Name Role Phone Unavailable Primary Care Provider Unavailabl e Allergies No known active allergies Medications No known medications Active Problems No known active problems Social History Tobacco Use Types Packs/Day Years [...] Influenza Vaccine 05/14/2025 COVID-19 Vaccine ( - 2024-2 6 season) 2025 Hepatitis B Vaccines Aged Out No long er eligible based on patient's age to complete this topic Insurance MEDICARE PART A & B [place] [id number]
--- OUTSIDE RECORDS SUMMARY | 2025-10-13 08:44 | XMS_ITS | Clinical Summary ---
Author Organization [facility] [facility] Address [address] [place] [address] Care Team Providers Care Communications Tower Technician Name Role Phone Pcp, No Primary Care Provider [phone] Social History Tobacco Use Types Packs/Day Years Used Date Smoking Tobacco: Never Assessed Sex and Gender Information Value Date Recorded Sex Assigned at Not on file Legal Sex Male 12:21 PM EST Gender Identity Not on file Sexual Orientation Not on file Plan of Treatment Not on file Medical Devices Not on file Insurance MEDICARE Care Teams Communications Tower Technician Relationship Specialty Start Date End Date Pcp, No PCP - General Family Medicine 11/03/20
--- OUTSIDE RECORDS SUMMARY | 2025-10-13 08:44 | XMS_ITS | Encounter Summary ---
[facility] Organization [facility] Address [address] [place] [address] Care Team Providers Care Operating Table Assembler Name Role Phone Cathryn Clark MD Primary Care Provider [phone] Encounter Details Date Type Department Care Team (Late st Contact Info) Description 07/29/2025 Lab Requisition [facility] - Main Lab [address] [facility] [place] [address] Simon Manzo PA [address] [facility] [address] [place] [address] Other detention (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 Social History Tobacco Use [...] DIFFERENTIAL Routine 07/29/2025 5:52 AM EDT Other petroleum terminal plant operator (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 CBC AND DIFFERENTIAL Routine 07/29/2025 5:52 AM EDT Other detention (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 MAGNESIUM Routine 07/29/2025 5:52 AM EDT Other detention (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 COMPREHENSIVE METABOLIC PANEL Routine 07/29/2025 5:52 AM EDT 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 petroleum terminal plant operator (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 documented in this encounter Results * (ABNORMAL) CBC auto differential (07/29/2025 5:52 AM EDT) WBC 11.3(H) 4.8 - 10.8 K/mcL LAB HEMETOLOGY METHOD 07/29/2025 12:20 PM EDT [facility] RBC 3.00(L) 4.50 - 5.50 M/mcL LAB HEMETOLOGY METHOD 07/29/2025 12:20 PM EDT [facility] Hemoglobin 9.2(L) 13.5 - 17.5 g/dL LAB HEMETOLOGY METHOD 07/29[facility]2025 12[facility] Hematocrit 28.7(L) 42.0 - 54.0 % LAB HEMETOLOGY METHOD 07/29/2025 12:[facility] MCV 97.0 79.0 - 98.0 FL LAB HEMETOLOGY METHOD 07/29/2025 12:[facility] MCH 31.1 27.0 - 32.0 pcg LAB HEMETOLOGY METHOD 07/29/2025 12:[facility] MCHC 32.1 32.0 - 37.0 g/dL LAB HEMETOLOGY METHOD 07/29/2025 12:[address] [facility] RDW 15.1(H) 11.0 - 15.0 % LAB HEMETOLOGY METHOD 07/29/2025 12:[facility] Platelets 303 130 - 400 K/mcL LAB HEMETOLOGY METHOD 07/29/2025 12:20 PM EDT [facility] MPV 9.9 7.0 - 11.0 FL LAB HEMETOLOGY METHOD 07/29/2025 12:20 PM EDT [facility] NRBC 0.0 <1.0 % LAB HEMETOLOGY METHOD 07/29/2025 12:20 PM EDT [facility] NRBC Absolute 0.00 <0.10 K/mcL LAB HEMETOLOGY METHOD 07/29/2025 12:[facility] Neutrophils Relative 70.6 % LAB [...] LAB HEMETOLOGY METHOD 07/29/2025 12:20 PM EDT [facility] Blood Venous blood specimen / Unknown Venipuncture / Unknown 07/29/2025 5:52 AM EDT 07/29/2025 11:18 AM EDT Simon MERIDA LAB BLOOD ORDERABLES Final R esult Performing Organization Address City/[facility]/ZIP Co de Phone Number [facility] [address] [place] [address], [place] [phone] * Magnesium (07/29/2025 5:52 AM EDT) [facility] Magnesium 2.3 1.9 - 2.6 mg/dL LAB CHEMISTRY METHOD 07/29/2025 12:24 PM EDT [facility] Blood Venous blood specimen / Unknown Venipuncture / Unknown 07/29/2025 5:52 AM EDT 07/29/2025 11:18 AM EDT Simon MERIDA LAB BLOOD ORDERABLES Final R esult Performing Organization Address City/[facility]/ZIP Co de Phone Number [facility] [address] [place] [address], [place] [phone] * (ABNORMAL) Comprehensive metabolic panel (07/29/2025 5:52 AM EDT) Pathologist [facility] Sodium 136 133 - 145 mmol/L LAB CHEMISTRY METHOD 07/29/2025 12:24 PM EDT [facility] Potassium 4.7 3.5 - 5.5 mmol/L LAB CHEMISTRY METHOD 07/29/2025 12:24 PM EDT [facility] Chloride 104 96 - 110 mmol/L LAB CHEMISTRY METHOD 07/29/2025 12:24 PM EDT [facility] CO2 25 21 - 32 mmol/L [...] LAB CHEMISTRY METHOD 07/29/2025 12:24 PM EDT [facility] Blood Venous blood specimen / Unknown Venipuncture / Unknown 07/29/2025 5:52 AM EDT 07/29/2025 11:18 AM EDT us Simon MERIDA LAB BLOOD ORDERABLES Final R esult [facility] [address] [place] [address], documented in this encounter Visit Diagnoses Diagnosis 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
--- OUTSIDE RECORDS SUMMARY | 2025-10-13 08:44 | XMS_ITS | Encounter Summary ---
Author Organization [facility] Address [address] [place] [address] Phone Care Team Providers Care Intermediate Teacher Name Role Phone Cathryn Clark MD Primary Care Provider [phone] Pcp, Unknown Unavailable Unavailable Encounter Details Date Type Department Care Team (Late st Contact Info) Description 08/15/[address] [facility] [place] [facility] Imaging, [place] [address] [place] [address] Social History Tobacco Use Types Packs/Day Years [...] on filedocumented in this encounter Care Teams Intermediate Teacher Relationship Specialty Start Date End Date Cathryn Clark MD [address] [place] [id number] PCP - General 07/10/16 Pcp, Unknown 07/10/16 documented as of this encounter Additional Source Comments The information contained in this document represents components of the legal health record. It is not the complete legal health record.[facility]
--- OUTSIDE RECORDS SUMMARY | 2025-10-13 08:44 | XMS_ITS | Clinical Summary ---
Author Organization [facility] Address [address] [place] [address] Phone Care Team Providers Care Rotary Drum Tanner Name Role Phone Cathryn Clark MD Primary Care Provider [phone] Allergies No known active allergies Encounters Date Type Department Care Team Description 08/10/[address] [facility] [address] [place] [address] Linda Millard MD Encounter for other general examination 08/09/[address] [facility] [address] [place] [address] Linda Millard MD Encounter for other general examination 08/06/[address] [facility] [address] [place] [address] Linda Millard MD Other buttermaker helper (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 08/03/[address] [facility] [address] [place] [address] Linda Millard MD Other buttermaker helper (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 08/02/[address] [facility] [address] [place] [address] Ashley Hebert PA Encounter for other general examination 08/01/[address] [facility] [address] [place] [address] Ashley Hebert PA Encounter for other general examination 07/31/[address] [facility] [address] [place] [phone] Ashley Hebert PA Encounter for other general examination 07/31/[address] [facility] [address] [place] [phone] Linda Millard MD Encounter for other general examination 07/30/[address] [facility] [address] [place] [phone] Breanne Romano PA Encounter for other general examination 07/29/[address] [facility] [address] [place] [address] Simon Manzo PA Other assisted (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 from Last 3 Months [...] not to disclose 2024 12:40 PM EDT Last Filed Vital Signs Vital Sign Reading [...] Depression Screening 10/14/2024 COVID-19 Vaccine (1 - 2024-2 6 season) 2025 Influenza Vaccine (#1) 2025 Cholesterol [...] DIFFERENTIAL Routine 08/06/2025 6:04 AM EDT Other buttermaker helper (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 CBC AND DIFFERENTIAL Routine 08/06/2025 6:04 AM EDT Other assisted (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 MAGNESIUM Routine 08/06/2025 6:04 AM EDT Other buttermaker helper (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 BASIC METABOLIC PANEL Routine 08/06/2025 6:04 AM EDT Other assisted (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 CBC WITH AUTO DIFFERENTIAL Routine 08/03/2025 5:41 AM EDT Other buttermaker helper (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 BASIC METABOLIC PANEL Routine 08/03/2025 5:41 AM EDT Other buttermaker helper (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 CBC AND DIFFERENTIAL Routine 08/03/2025 5:41 AM EDT Other assisted (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 BASIC METABOLIC PANEL Routine [...] DIFFERENTIAL Routine 07/29/2025 5:52 AM EDT Other buttermaker helper (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 MAGNESIUM Routine 07/29/2025 5:52 AM EDT Other buttermaker helper (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 COMPREHENSIVE METABOLIC PANEL Routine 07/29/2025 5:52 AM EDT Other buttermaker helper (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 CBC AND DIFFERENTIAL Routine 07/29/2025 5:52 AM EDT Other buttermaker helper (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 from Last 3 Months Results * Thyroid stimulating hormone (08/10/2025 4:40 AM EDT) [facility] TSH 3.99 0.40 - 4.00 mcIU/mL LAB CHEMISTRY METHOD 08/10/2025 11:[address] [facility] Blood Venous blood specimen / Unknown Venipuncture / Unknown 08/10/2025 4:40 AM EDT 08/10/2025 10:36 AM EDT us Linda Millard MD LAB BLOOD ORDERABLES Final Resu lt Performing Organization Address [facility]/ZIP Co de Phone Number [facility] [address] [place] [address], [place] [phone] * (ABNORMAL) B-type natriuretic peptide (08/10/2025 4:40 AM EDT) [facility] BNP 486(H) <=100 pcg/mL LAB CHEMISTRY METHOD 08/10/2025 11:[address] [facility] Blood Venous blood specimen / Unknown Venipuncture / Unknown 08/10/2025 4:40 AM EDT 08/10/2025 10:36 AM EDT us Linda Millard MD LAB BLOOD ORDERABLES Final Resu lt Performing Organization Address [facility] de Phone Number [facility] [address] [place] [address], [place] [phone] * (ABNORMAL) CBC auto differential (08/09/2025 5:19 AM EDT) Only the most recent of5 resultswithin the time period is included. [facility] WBC 7.6 4.8 - 10.8 K/mcL LAB HEMETOLOGY METHOD 08/09/2025 9:[address] [facility] RBC 3.40(L) 4.50 - 5.50 M/[facility] LAB HEMETOLOGY METHOD 08/09/2025 9:[address] [facility] Hemoglobin 10.6(L) 13.5 - 17.5 g/dL LAB HEMETOLOGY METHOD 08/09/2025 9:[address] [facility] Hematocrit 33.2(L) 42.0 - 54.0 % LAB HEMETOLOGY METHOD 08/09/2025 9:[address] [facility] MCV 97.4 79.0 - 98.0 FL LAB HEMETOLOGY METHOD 08/09/2025 9:15 AM [facility] MCH 31.1 27.0 - 32.0 pcg LAB HEMETOLOGY METHOD 08/09/2025 9:15 AM [facility] MCHC 31.9(L) 32.0 - 37.0 g/dL LAB HEMETOLOGY METHOD 08/09/2025 9:15 AM [facility] RDW 15.0 11.0 - 15.0 % LAB HEMETOLOGY METHOD 08/09/2025 9:15 AM [facility] Platelets 274 130 - 400 K/mcL LAB HEMETOLOGY METHOD 08/09/2025 9:15 AM [facility] MPV 10.0 7.0 - 11.0 FL LAB HEMETOLOGY METHOD 08/09/2025 9:15 AM [facility] NRBC 0.0 <1.0 % LAB HEMETOLOGY METHOD 08/09/2025 9:15 AM [facility] NRBC Absolute 0.00 <0.10 K/mcL LAB HEMETOLOGY METHOD 08/09/2025 9:15 AM [facility] Neutrophils Relative 67.0 % LAB HEMETOLOGY METHOD 08/09/2025 9:15 AM [facility] Lymphocytes Relative 15.5 % LAB HEMETOLOGY METHOD 08/09/2025 9:15 AM [facility] Monocytes Relative 10.7 % LAB HEMETOLOGY METHOD 08/09/2025 9:15 AM [facility] Eosinophils Relative 5.4 % LAB HEMETOLOGY METHOD 08/09/2025 9:[address] [facility] Basophils Relative 0.7 % LAB HEMETOLOGY METHOD 08/09/2025 9:[address] [facility] Immature Granulocytes Relative 0.7 % LAB HEMETOLOGY METHOD 08/09/2025 9:[address] [facility] Neutrophils Absolute 5.12 1.50 - 7.00 K/mcL LAB HEMETOLOGY METHOD 08/09/2025 9:[address] [facility] Lymphocytes Absolute 1.18 1.00 - 5.00 K/mcL LAB HEMETOLOGY METHOD 08/09/2025 9:[address] [facility] Monocytes Absolute 0.82 0.20 - 1.00 K/mcL LAB HEMETOLOGY METHOD 08/09/2025 9:[address] [facility] Eosinophils Absolute 0.41 0.00 - 0.50 K/mcL LAB HEMETOLOGY METHOD 08/09/2025 9:[address] [facility] Basophils Absolute 0.05 0.00 - 0.20 K/mcL LAB HEMETOLOGY METHOD 08/09/2025 9:[address] [facility] Immature Granulocytes Absolute 0.05(H) 0.00 - 0.03 K/mcL LAB HEMETOLOGY METHOD 08/09/2025 9:[address] [facility] Blood Venous blood specimen / Unknown Venipuncture / Unknown 08/09/2025 5:19 AM EDT 08/09/2025 8:59 AM EDT us Linda Millard MD LAB BLOOD ORDERABLES Final Resu lt [facility] [address] [place] [address], * Magnesium (08/09/2025 5:19 AM EDT) Only the most recent of4 resultswithin the time period is included. Magnesium 2.4 1.9 - 2.6 mg/dL LAB CHEMISTRY METHOD 08/09/2025 9:40 AM [facility] Blood Venous blood specimen / Unknown Venipuncture / Unknown 08/09/2025 5:19 AM EDT 08/09/2025 8:59 AM EDT us Linda Millard MD LAB BLOOD ORDERABLES Final Resu lt [facility] [address] [place] [address], * (ABNORMAL) Comprehensive metabolic panel (08/09/2025 5:19 AM EDT) Only the most recent of3 resultswithin the time period is included. Pathologist [facility] Sodium 139 133 - 145 mmol/L LAB CHEMISTRY METHOD 08/09/2025 9:40 AM [facility] Potassium 5.2 3.5 - 5.5 mmol/L LAB CHEMISTRY METHOD 08/09/2025 9:40 AM [facility] Chloride 106 96 - 110 mmol/L LAB CHEMISTRY METHOD 08/09/2025 9:40 AM [facility] CO2 28 21 - 32 mmol/L LAB CHEMISTRY METHOD 08/09/2025 9:40 AM [facility] Anion Gap 5 3 - 11 LAB CHEMISTRY METHOD 08/09/2025 9:40 AM [facility] Glucose 89 70 - 100 mg/dL LAB CHEMISTRY METHOD 08/09/2025 9:40 AM [facility] BUN 22 5 - 25 mg/dL LAB CHEMISTRY METHOD 08/09/2025 9:40 AM [facility] Creatinine 1.52(H) 0.70 - 1.30 mg/dL LAB CHEMISTRY METHOD 08/09/2025 9:40 AM [facility] eGFR 47(L) >=60 mL/min/1. 73m2 LAB CHEMISTRY METHOD 08/09/2025 9:40 AM [facility] Comment:Calculation based on the Chronic Kidney Disease Epidemiology Collaboration (CKD-EPI) equation refit without adjustment for race. BUN/Creatinine Ratio 14.5 LAB CHEMISTRY METHOD 08/09/2025 9:40 AM [facility] Calcium 8.7 8.5 - 10.5 mg/dL LAB CHEMISTRY METHOD 08/09/2025 9:40 AM [facility] AST (SGOT) 23 10 - 42 unit/L LAB CHEMISTRY METHOD 08/09/2025 9:40 AM [facility] ALT (SGPT) 34 10 - 60 unit/L LAB CHEMISTRY METHOD 08/09/2025 9:40 AM [facility] Alkaline Phosphatase 92 42 - 121 unit/L LAB CHEMISTRY METHOD 08/09/2025 9:40 AM [facility] Total Protein 5.7(L) 6.0 - 8.0 g/dL LAB CHEMISTRY METHOD 08/09/2025 9:40 AM [facility] Albumin 2.9(L) 3.2 - 5.0 g/dL LAB CHEMISTRY METHOD 08/09/2025 9:40 AM [facility] Total Bilirubin 0.7 0.0 - 1.4 mg/dL LAB CHEMISTRY METHOD 08/09/2025 9:40 AM [facility] Blood Venous blood specimen / Unknown Venipuncture / Unknown 08/09/2025 5:19 AM EDT 08/09/2025 8:59 AM EDT us Linda Millard MD LAB BLOOD ORDERABLES Final Resu lt [facility] [address] [place] [address], [place] [phone] * (ABNORMAL) Basic metabolic panel (08/06/2025 6:04 AM EDT) Only the most recent of3 resultswithin the time period is included. Sodium 138 133 - 145 mmol/L LAB CHEMISTRY METHOD 08/06/2025 12:15 PM [facility] Potassium 4.2 3.5 - 5.5 mmol/L LAB CHEMISTRY METHOD 08/06/2025 12:15 PM [facility] Chloride 107 96 - 110 mmol/L LAB CHEMISTRY METHOD 08/06/2025 12:15 PM [facility] CO2 21 21 - 32 mmol/L LAB CHEMISTRY METHOD 08/06/2025 12:15 PM [facility] Anion Gap 10 3 - 11 LAB CHEMISTRY METHOD 08/06/2025 12:15 PM [facility] Glucose 89 70 - 100 mg/dL LAB CHEMISTRY METHOD 08/06/2025 12:15 PM [facility] BUN 24 5 - 25 mg/dL LAB CHEMISTRY METHOD 08/06/2025 12:15 PM [facility] Creatinine 1.30 0.70 - 1.30 mg/dL LAB CHEMISTRY METHOD 08/06/2025 12:15 PM [facility] eGFR 57(L) >=60 mL/min/1. 73m2 LAB CHEMISTRY METHOD 08/06/2025 12:15 PM [facility] Comment:Calculation based on the Chronic Kidney Disease Epidemiology Collaboration (CKD-EPI) equation refit without adjustment for race. BUN/Creatinine Ratio 18.5 LAB CHEMISTRY METHOD 08/06/2025 12:15 PM [facility] Calcium 8.4(L) 8.5 - 10.5 mg/dL LAB CHEMISTRY METHOD 08/06/2025 12:15 PM [facility] Blood Venous blood specimen / Unknown Venipuncture / Unknown 08/06/2025 6:04 AM EDT 08/06/2025 10:20 AM EDT us Linda Millard MD LAB BLOOD ORDERABLES Final Resu lt [facility] [address] [place] [address], [place] [phone] * (ABNORMAL) Complete blood count (08/02/2025 5:20 AM EDT) WBC 12.0(H) 4.8 - 10.8 K/mcL LAB HEMETOLOGY METHOD 08/02/2025 11:[address] [facility] RBC 3.00(L) 4.50 - 5.50 M/mcL LAB HEMETOLOGY METHOD 08/02/2025 11:41 AM [facility] Hemoglobin 9.3(L) 13.5 - 17.5 g/dL LAB HEMETOLOGY METHOD 08/02/2025 11:41 AM [facility] Hematocrit 29.6(L) 42.0 - 54.0 % LAB HEMETOLOGY METHOD 08/02/2025 11:41 AM [facility] MCV 99.3(H) 79.0 - 98.0 FL LAB HEMETOLOGY METHOD 08/02/2025 11:41 AM [facility] MCH 31.2 27.0 - 32.0 pcg LAB HEMETOLOGY METHOD 08/02/2025 11:41 AM [facility] MCHC 31.4(L) 32.0 - 37.0 g/dL LAB HEMETOLOGY METHOD 08/02/2025 11:41 AM [facility] RDW 15.5(H) 11.0 - 15.0 % LAB HEMETOLOGY METHOD 08/02/2025 11:41 AM [facility] Platelets 323 130 - 400 K/mcL LAB HEMETOLOGY METHOD 08/02/2025 11:[address] [facility] MPV 10.3 7.0 - 11.0 FL LAB HEMETOLOGY METHOD 08/02/2025 11:[address] [facility] NRBC 0.0 <1.0 % LAB HEMETOLOGY METHOD 08/02/2025 11:[address] [facility] NRBC Absolute 0.00 <0.10 K/mcL LAB HEMETOLOGY METHOD 08/02/2025 11:[address] [facility] Blood Venous blood specimen / Unknown Venipuncture / Unknown 08/02/2025 5:20 AM EDT 08/02/2025 10:21 AM EDT us Ashley MERIDA LAB BLOOD ORDERABLES Final Resul t Performing Organization Address City/[facility]/ZIP Co de Phone Number [facility] [address] [place] [address], [place] [phone] * Culture blood (08/01/2025 6:18 AM EDT) Only the most recent of2 resultswithin the time period is included. [facility] Culture, Blood No growth at 5 days LAB MICROBIOLOGY METHOD 08/06/2025 11:[address] [facility] Blood Venipuncture / Unknown 08/01/2025 6:18 AM EDT 08/01/2025 8:40 AM EDT us Ashley MERIDA LAB MICROBIOLOGY - GENERAL ORDER VALENTÍN Final Result Performing Organization Address City/[facility]/ZIP Co de Phone Number [facility] [address] [place] [address], [place] [phone] * Urinalysis with reflex microscopic and culture (07/31/2025 10:15 PM EDT) Only the most recent of2 resultswithin the time period is included. Pathologist [facility] Specific [place] Urine 1.017 1.003 - 1.030 LAB URINALYSIS - AUTOMATED METHOD 08/01/2025 9:30 AM [facility] pH, Urine 6.0 5.0 - 8.0 pH LAB URINALYSIS - AUTOMATED METHOD 08/01/2025 9:30 AM [facility] Leukocytes, Urine Negative Negative LAB URINALYSIS - AUTOMATED METHOD 08/01/2025 9:30 AM [facility] Nitrite, Urine Negative Negative LAB URINALYSIS - AUTOMATED METHOD 08/01/2025 9:30 AM [facility] Protein, Urine Negative <=Trace mg/dL LAB URINALYSIS - AUTOMATED METHOD 08/01/2025 9:30 AM [facility] Glucose, Urine Negative Negative mg/dL LAB URINALYSIS - AUTOMATED METHOD 08/01/2025 9:30 AM [facility] Ketones, Urine Negative Negative mg/dL LAB URINALYSIS - AUTOMATED METHOD 08/01/2025 9:30 AM [facility] Urobilinogen, Urine 0.2 0.2 - 1.0 mg/dL LAB URINALYSIS - AUTOMATED METHOD 08/01/2025 9:30 AM [facility] Bilirubin, Urine Negative Negative LAB URINALYSIS - AUTOMATED METHOD 08/01/2025 9:30 AM [facility] Blood, Urine Negative Negative LAB URINALYSIS - AUTOMATED METHOD 08/01/2025 9:30 AM [facility] Urine Urine specimen obtained by clean catch procedure / Unknown 07/31/2025 10:15 PM EDT 08/01/2025 9:11 AM EDT us Ashley MERIDA LAB URINE ORDERABLES Final Resul t [facility] [address] [place] [address], [place] [phone] * Carson urine culture tube (07/31/2025 10:15 PM EDT) Only the most recent of2 resultswithin the time period is included. Extra Tube Hold for add-ons. 08/01/2025 11:[address] [facility] Comment:Auto resulted. Urine Urine specimen obtained by clean catch procedure / Unknown 07/31/2025 10:15 PM EDT 08/01/2025 9:11 AM EDT us Ashley MERIDA LAB URINE ORDERABLES Final Resul t [facility] [address] [place] [address], [place] [phone] from Last 3 Months Insurance [facility] Care Teams Rotary Drum Tanner Relationship Specialty Start Date End Date Cathryn Clark MD [address] [place] [address] PCP - General Internal Medicine 07/28/25
--- OUTSIDE RECORDS SUMMARY | 2025-10-13 08:44 | XMS_ITS | Patient Health Record ---
Author Organization [facility] Address [address] [place] [address] Care Team Providers Care Pumping Station Supervisor Name Role Phone Cathryn Clark Primary Care Provider Sulaiman Hackett Unavailable [phone] Allergies Allergen (clinical drug ingredient) Drug/Non Drug [...] COVID-19 Moderna Vaccine Unknown 01/02/2021 Administere d 12/05/20 Social History Tobacco Use: Social History [...] Start Date Coverage End Date Medicare National [facility] [employer] [address] [place] [address] [id number] Elfego Roger Self - patient is the insured [employer] [address] [place] [address] [phone] [id number] Elfego Roger Self - patient is the insured Medical (General) History Medical History History ICD Code Chicken pox High blood pressure Joint implants/screws Measles Mumps Sinus conditions Surgical History Surgery Date(Month/Year) knee surgery 2017 hernia 1998 tonsillectomy 1978 cyst removal, neck 2012 cyst removal, back 2013
--- OUTSIDE RECORDS SUMMARY | 2025-10-13 08:44 | XMS_ITS | Encounter Summary ---
Author Organization [facility] Address [address] [place] [address] Care Team Providers Care Bench Loom Weaver Name Role Phone Cathryn Clark MD Primary Care Provider [phone] Encounter Details Date Type Department Care Team (Late st Contact Info) Description 07/30/2025 Lab Requisition [facility] [address] [facility] [place] [address] Breanne Romano PA [address] [place] [address] Encounter for other general examination Social History [...] and culture (07/30/2025 8:30 PM EDT) Specific [place] Urine 1.020 1.003 - 1.030 LAB URINALYSIS - AUTOMATED METHOD 07/31/2025 10:51 AM [facility] pH, Urine 6.5 5.0 - 8.0 pH LAB URINALYSIS - AUTOMATED METHOD 07/31/2025 10:51 AM [facility] Leukocytes, Urine Negative Negative LAB URINALYSIS - AUTOMATED METHOD 07/31/2025 10:51 AM [facility] Nitrite, Urine Negative Negative LAB URINALYSIS - AUTOMATED METHOD 07/31/2025 10:51 AM [facility] Protein, Urine Trace <=Trace mg/dL LAB URINALYSIS - AUTOMATED METHOD 07/31/2025 10:51 AM [facility] Glucose, Urine Negative Negative mg/dL LAB URINALYSIS - AUTOMATED METHOD 07/31/2025 10:51 AM [facility] Ketones, Urine Trace(A) Negative mg/dL LAB URINALYSIS - AUTOMATED METHOD 07/31/2025 10:51 AM [facility] Urobilinogen, Urine 0.2 0.2 - 1.0 mg/dL LAB URINALYSIS - AUTOMATED METHOD 07/31/2025 10:51 AM [facility] Bilirubin, Urine Negative Negative LAB URINALYSIS - AUTOMATED METHOD 07/31/2025 10:51 AM [facility] Blood, Urine Negative Negative LAB URINALYSIS - AUTOMATED METHOD 07/31/2025 10:51 AM [facility] Urine Urine specimen obtained by clean catch procedure / Unknown 07/30/2025 8:30 PM EDT 07/31/2025 10:41 AM EDT us Breanne MERIDA LAB URINE ORDERABLES Final Re sult [facility] [address] [place] [address], [place] [phone] * Carson urine culture tube (07/30/2025 8:30 PM EDT) Extra Tube Hold for add-ons. 07/31/2025 12:01 PM EDT [facility] Comment:Auto resulted. Urine Urine specimen obtained by clean catch procedure / Unknown 07/30/2025 8:30 PM EDT 07/31/2025 10:41 AM EDT us Breanne MERIDA LAB URINE ORDERABLES Final Re sult [facility] [address] [place] [address], [place] [phone] documented in this encounter Visit Diagnoses Diagnosis Encounter for other general examination documented in this encounter Care Teams Bench Loom Weaver Relationship Specialty Start Date End Date Cathryn Clark MD [address] [place] [address] PCP - General Internal Medicine 07/28/25 documented as of this encounter
--- OUTSIDE RECORDS SUMMARY | 2025-10-13 08:45 | XMS_ITS | Encounter Summary ---
Author Organization [facility] Address [address] [place] [address] Care Team Providers Care Service Technician Copier Name Role Phone Cathryn Clark MD Primary Care Provider Encounter Details Date Type Department Care Team (Late st Contact Info) Description 07/31/2025 Lab Requisition [facility] - Main Lab [address] [facility] [place] [address] Linda Millard MD [address] [place] [address] Encounter for other general examination Social History [...] CBC auto differential (07/31/2025 5:30 AM EDT) [facility] WBC 12.6(H) 4.8 - 10.8 K/mcL LAB HEMETOLOGY METHOD 07/31/2025 10:46 AM [facility] RBC 3.00(L) 4.50 - 5.50 M/mcL LAB HEMETOLOGY METHOD 07/31/2025 10:46 AM [facility] Hemoglobin 9.4(L) 13.5 - 17.5 g/dL LAB HEMETOLOGY METHOD 07/31/2025 10:46 AM [facility] Hematocrit 29.0(L) 42.0 - 54.0 % LAB HEMETOLOGY METHOD 07/31/2025 10:46 AM [facility] MCV 97.3 79.0 - 98.0 FL LAB HEMETOLOGY METHOD 07/31/2025 10:46 AM [facility] MCH 31.5 27.0 - 32.0 pcg LAB HEMETOLOGY METHOD 07/31/2025 10:46 AM [facility] MCHC 32.4 32.0 - 37.0 g/dL LAB HEMETOLOGY METHOD 07/31/2025 10:46 AM [facility] RDW 15.1(H) 11.0 - 15.0 % LAB HEMETOLOGY METHOD 07/31/2025 10:46 AM [facility] Platelets 356 130 - 400 K/mcL LAB HEMETOLOGY METHOD 07/31/2025 10:46 AM [facility] MPV 9.6 7.0 - 11.0 FL LAB HEMETOLOGY METHOD 07/31/2025 10:46 AM [facility] NRBC 0.0 <1.0 % LAB HEMETOLOGY METHOD 07/31/2025 10:46 AM [facility] NRBC Absolute 0.00 <0.10 K/mcL LAB HEMETOLOGY METHOD 07/31/2025 10:46 AM [facility] Neutrophils Relative 67.5 % LAB HEMETOLOGY METHOD 07/31/2025 10:46 AM [facility] Lymphocytes Relative 15.2 % LAB HEMETOLOGY METHOD 07/31/2025 10:46 AM [facility] Monocytes Relative 9.1 % LAB HEMETOLOGY METHOD 07/31/2025 10:46 AM [facility] Eosinophils Relative 3.3 % LAB HEMETOLOGY METHOD 07/31/2025 10:46 AM [facility] Basophils Relative 0.6 % LAB HEMETOLOGY METHOD 07/31/2025 10:46 AM [facility] Immature Granulocytes Relative 4.3 % LAB HEMETOLOGY METHOD 07/31/2025 10:46 AM [facility] Neutrophils Absolute 8.49(H) 1.50 - 7.00 K/mcL LAB HEMETOLOGY METHOD 07/31/2025 10:46 AM [facility] Lymphocytes Absolute 1.91 1.00 - 5.00 K/mcL LAB HEMETOLOGY METHOD 07/31/2025 10:46 AM [facility] Monocytes Absolute 1.14(H) 0.20 - 1.00 K/mcL LAB HEMETOLOGY METHOD 07/31/2025 10:46 AM [facility] Eosinophils Absolute 0.41 0.00 - 0.50 K/mcL LAB HEMETOLOGY METHOD 07/31/2025 10:46 AM [facility] Basophils Absolute 0.08 0.00 - 0.20 K/mcL LAB HEMETOLOGY METHOD 07/31/2025 10:46 AM [facility] Immature Granulocytes Absolute 0.54(H) 0.00 - 0.03 K/mcL LAB HEMETOLOGY METHOD 07/31/2025 10:46 AM EDT [facility] Blood Venous blood specimen / Unknown Venipuncture / Unknown 07/31/2025 5:30 AM EDT 07/31/2025 9:42 AM EDT us Linda Millard MD LAB BLOOD ORDERABLES Final Resu lt Performing Organization Address City/[facility]/ZIP Co de Phone Number [facility] [address] [place] [address], [place] [phone] * Magnesium (07/31/2025 5:30 AM EDT) Pathologist [facility] Magnesium 2.3 1.9 - 2.6 mg/dL LAB CHEMISTRY METHOD 07/31/2025 11:34 AM EDT [facility] Blood Venous blood specimen / Unknown Venipuncture / Unknown 07/31/2025 5:30 AM EDT 07/31/2025 9:42 AM EDT us Linda Millard MD LAB BLOOD ORDERABLES Final Resu lt Performing Organization Address [facility]/ZIP Co de Phone Number [facility] [address] [place] [address], [place] [phone] * (ABNORMAL) Comprehensive metabolic panel (07/31/2025 5:30 AM EDT) Pathologist [facility] Sodium 136 133 - 145 mmol/L LAB CHEMISTRY METHOD 07/31/2025 11:35 AM EDT [facility] Potassium 5.1 3.5 - 5.5 mmol/L LAB CHEMISTRY METHOD 07/31/2025 11:35 AM EDT [facility] Chloride 104 96 - 110 mmol/L LAB CHEMISTRY METHOD 07/31/2025 11:35 AM EDT [facility] CO2 25 21 - 32 mmol/L LAB CHEMISTRY METHOD 07/31/2025 11:35 AM EDT [facility] Anion Gap 7 3 - 11 LAB CHEMISTRY METHOD 07/31/2025 11:35 AM [facility] Glucose 90 70 - 100 mg/dL LAB CHEMISTRY METHOD 07/31/2025 11:35 AM [facility] BUN 35(H) 5 - 25 mg/dL LAB CHEMISTRY METHOD 07/31/2025 11:35 AM [facility] Creatinine 1.61(H) 0.70 - 1.30 mg/dL LAB CHEMISTRY METHOD 07/31/2025 11:35 AM [facility] eGFR 44(L) >=60 mL/min/1. 73m2 LAB CHEMISTRY METHOD 07/31/2025 11:35 AM [facility] Comment:Calculation based on the Chronic Kidney Disease Epidemiology Collaboration (CKD-EPI) equation refit without adjustment for race. BUN/Creatinine Ratio 21.7 LAB CHEMISTRY METHOD 07/31/2025 11:35 AM [facility] Calcium 8.0(L) 8.5 - 10.5 mg/dL LAB CHEMISTRY METHOD 07/31/2025 11:35 AM [facility] AST (SGOT) 21 10 - 42 unit/L LAB CHEMISTRY METHOD 07/31/2025 11:35 AM [facility] ALT (SGPT) 35 10 - 60 unit/L LAB CHEMISTRY METHOD 07/31/2025 11:35 AM [facility] Alkaline Phosphatase 67 42 - 121 unit/L LAB CHEMISTRY METHOD 07/31/2025 11:35 AM [facility] Total Protein 5.7(L) 6.0 - 8.0 g/dL LAB CHEMISTRY METHOD 07/31/2025 11:35 AM [facility] Albumin 2.7(L) 3.2 - 5.0 g/dL LAB CHEMISTRY METHOD 07/31/2025 11:35 AM [facility] Total Bilirubin 0.8 0.0 - 1.4 mg/dL LAB CHEMISTRY METHOD 07/31/2025 11:35 AM EDT [facility] Blood Venous blood specimen / Unknown Venipuncture / Unknown 07/31/2025 5:30 AM EDT 07/31/2025 9:42 AM EDT us Linda Millard MD LAB BLOOD ORDERABLES Final Resu lt [facility] [address] [place] [address], documented in this encounter Visit Diagnoses Diagnosis Encounter for other general examination documented in this encounter Care Teams Service Technician Copier Relationship Specialty Start Date End Date Cathryn Clark MD [address] [place] [address] PCP - General Internal Medicine 07/28/25 documented as of this encounter
--- OUTSIDE RECORDS SUMMARY | 2025-10-13 08:45 | XMS_ITS | Clinical Summary ---
Author Organization [facility] Address [facility] [employer] [address] [address] Phone Care Team Providers Care Installation Supervisor Name Role Phone Cathryn Clark MD Primary Care Provider [phone] Pcp, Unknown Unavailable Unavailable Allergies No known [...] this topic Medical Devices Implanted Type Area [employer] Device Identifier Shelf Expiration Date Model / Serial / Lot Cement Bone Smartset Hv 40gram (Multiples Of 20's) - [id number] Implanted:Qty: 2 on 12/06/2016 by Pepe Mtz MD at [facility] [employer] Right: Knee [employer] 12/11/2017 [id number] / / [id number] Implant Iuni Ipoly Kit Knee 23 - [id number] Implanted:Qty: 1 on 12/06/2016 by Pepe Mtz MD at [facility] Right: Knee [employer] 05/13/2017 [id number] / [id number] / Description:6mm insert Tibial Tray Femoral Implant Implant [employer] Ipoly Kit Knee 23 - [id number] Implanted:Qty: 1 on 12/06/2016 by Pepe Mtz MD at [facility] Knee [employer] 05/13/2017 [id number] / [id number] / Description:KIT NO CHARGE Implant [employer]uni Ipoly Kit Knee 23 - [id number] Implanted:Qty: 1 on 12/06/2016 by Pepe Mtz MD at [facility] Right: Knee [employer] 05/13/2017 [id number] / [id number] / Description:KIT NO CHARGE Procedures Procedure Name Priority Date/Time Associated Diagnosis Comments BASIC METABOLIC PANEL (BMP) Routine 12/07/2016 7:33 AM EST from Last 3 Months or Most Recently Relevant to Health Maintenance Results * (ABNORMAL) Basic metabolic panel ([facility] ,[facility] ,[facility] ,[facility] ,[facility] ,[facility] ,[facility] ,[facility]) (12/07/2016 7:33 AM EST) SODIUM 141 136 - 145 mmol/L [facility] POTASSIUM 4.2 3.4 - 5.0 mmol/L [facility] CHLORIDE 103 98 - 107 mmol/L [facility] CO2 20(L) 22 - 31 mmol/L [facility] BUN 16 6 - 23 mg/dL [facility] CREATININE 1.12 0.50 - 1.20 mg/dL [facility] GLUCOSE 129(H) 70 - 100 mg/dL [facility] CALCIUM 8.0(L) 8.8 - 10.7 mg/dL [facility] EGFR >59 >59 mL/min/1.7 3m2 [facility] Comment:If patient is black, multiply result by 1.21 ANION GAP 18(H) 5 - 17 mmol/L [facility] Blood 12/07/2016 7:33 AM EST 12/07/2016 7:45 AM EST us Pepe Mtz MD LAB BLOOD BKR ORDERABL ES Final Result Performing Organization Address City/State/[facility] Co de Phone Number [facility] [address] [place] [phone] from Last 3 Months or Most Recently Relevant to Health Maintenance Insurance [facility] PPO MEDICARE A [facility] PPO MEDICARE A [facility] PPO MEDICARE A [facility] PPO MEDICARE A [facility] PPO MEDICARE A [facility] PPO MEDICARE A PPO MEDICARE A [facility] PPO Advance Directives For more information, please contact: [phone] (9AM - 5PM Ele/[facility], Saturday-Saturday) Documents on File Type Date Recorded Patient Insurance Auditor Expl anation Healthcare Proxy 12/06/2016 10:10 AM * Full Code (Presumed) (Latest Code Status on File) Date Activated Date Inactivated Comments 12/06/2016 7:37 PM 12/07/2016 6:05 PM * Full Code (Presumed) Date Activated Date Inactivated Comments 12/06/2016 12:02 PM 12/06/2016 7:37 PM Healthcare Agents on File Name Relationship Healthcare Agent Relationsor p Communication Sweta Roger Spouse .Primary Health Care Agent (Proxy form on file) Care Teams Installation Supervisor Relationship Specialty Start Date End Date Cathryn Clark MD [address] [place] [phone] PCP - General 07/10/16 Pcp, Unknown 07/10/16 Additional Source Comments The information contained in this document represents components of the legal health record. It is not the complete legal health record.[facility]
--- OUTSIDE RECORDS SUMMARY | 2025-10-13 08:45 | XMS_ITS | Encounter Summary ---
Author Organization [employer] [facility] Address [facility] [facility] [address] [place] [address] Phone Care Team Providers Care Photogrammetry Airplane Pilot Name Role Phone Cathryn Clark MD Primary Care Provider [phone] Pcp, Unknown Unavailable Unavailable Encounter Details Date Type Department Care Team (Late st Contact Info) Description 01/15/2018 Procedure Pass [facility], [place] [address] [place] [address] Social History Tobacco Use Types Packs/Day Years [...] on filedocumented in this encounter Care Teams Photogrammetry Airplane Pilot Relationship Specialty Start Date End Date Cathryn Clark MD [address] [place] [address] [place] [phone] PCP - General 07/10/16 Pcp, Unknown 07/10/16 documented as of this encounter Additional Source Comments The information contained in this document represents components of the legal health record. It is not the complete legal health record.[facility]
--- OUTSIDE RECORDS SUMMARY | 2025-10-13 08:45 | XMS_ITS | Encounter Summary ---
Author Organization [employer] [facility] Address [facility] [address] [place] [address] Phone Care Team Providers Care Hairspring Fabrication Supervisor Name Role Phone Cathryn Clark MD Primary Care Provider [phone] Pcp, Unknown Unavailable Unavailable Reason for Referral * - Closed Specialty Diagnoses / Procedures Referred By Contac t Referred To Contact Procedures NM Bone Outside (No Interpretation) Pepe Mtz MD mailto:[email or web address] Referral ID Status Reason Start Date Expiration Date Visits Re quested Visits Authorized [id number] Closed 01/10/2018 01/10/2019 1 1 Encounter Details Date Type Department Care Team (Late st Contact Info) Description 01/10/2018 Transcribe Orders [facility] [address] [place] [address] Dino Garcia [address] [place] [phone] [email or web address] Social History Tobacco Use Types [...] Date Author No 12/07/2016 1:29 PM Hemalatha Gallwoay NP documented in this encounter Plan of [...] on filedocumented in this encounter Care Teams Hairspring Fabrication Supervisor Relationship Specialty Start Date End Date Cathryn Clark MD [address] [place] [phone] PCP - General 07/10/16 Pcp, Unknown 07/10/16 documented as of this encounter Additional Source Comments The information contained in this document represents components of the legal health record. It is not the complete legal health record.[facility]
--- OUTSIDE RECORDS SUMMARY | 2025-10-13 08:45 | XMS_ITS | Encounter Summary ---
Author Organization [facility] Address [address] [place] [address] Care Team Providers Care Roll Inspector Name Role Phone Cathryn Clark MD Primary Care Provider Encounter Details Date Type Department Care Team (Late st Contact Info) Description 08/02/[address] [facility] - Main Lab [address] [place] [address] Ashley Hebert PA [address] [place] [address] Encounter for other general examination [...] LAB CHEMISTRY METHOD 08/02/2025 12:04 PM EDT [facility] Potassium 5.3 3.5 - 5.5 mmol/L LAB CHEMISTRY METHOD 08/02/2025 12:04 PM [facility] Chloride 107 96 - 110 mmol/L LAB CHEMISTRY METHOD 08/02/2025 12:04 PM [facility] CO2 22 21 - 32 mmol/L LAB CHEMISTRY METHOD 08/02/2025 12:04 PM [facility] Anion Gap 8 3 - 11 LAB CHEMISTRY METHOD 08/02/2025 12:04 PM [facility] Glucose 70 70 - 100 mg/dL LAB CHEMISTRY METHOD 08/02/2025 12:04 PM [facility] BUN 27(H) 5 - 25 mg/dL LAB CHEMISTRY METHOD 08/02/2025 12:04 PM [facility] Creatinine 1.39(H) 0.70 - 1.30 mg/dL LAB CHEMISTRY METHOD 08/02/2025 12:04 PM [facility] eGFR 53(L) >=60 mL/min/1. 73m2 LAB CHEMISTRY METHOD 08/02/2025 12:04 PM [facility] Comment:Calculation based on the Chronic Kidney Disease Epidemiology Collaboration (CKD-EPI) equation refit without adjustment for race. BUN/Creatinine Ratio 19.4 LAB CHEMISTRY METHOD 08/02/2025 12:04 PM [facility] Calcium 8.3(L) 8.5 - 10.5 mg/dL LAB CHEMISTRY METHOD 08/02/2025 12:04 PM [facility] Blood Venous blood specimen / Unknown Venipuncture / Unknown 08/02/2025 5:20 AM EDT 08/02/2025 10:21 AM EDT us Ashley MERIDA LAB BLOOD ORDERABLES Final Resul t [facility] [address] [place] [address], * (ABNORMAL) Complete blood count (08/02/2025 5:20 AM EDT) [facility] WBC 12.0(H) 4.8 - 10.8 K/mcL LAB HEMETOLOGY METHOD 08/02/2025 11:41 AM [facility] RBC 3.00(L) 4.50 - 5.50 M/mcL LAB HEMETOLOGY METHOD 08/02/2025 11:41 AM [facility] Hemoglobin 9.3(L) 13.5 - 17.5 g/dL LAB HEMETOLOGY METHOD 08/02/2025 11:41 AM [facility] Hematocrit 29.6(L) 42.0 - 54.0 % LAB HEMETOLOGY METHOD 08/02/2025 11:41 AM [facility] MCV 99.3(H) 79.0 - 98.0 FL LAB HEMETOLOGY METHOD 08/02/2025 11:41 AM [facility] MCH 31.2 27.0 - 32.0 pcg LAB HEMETOLOGY METHOD 08/02/2025 11:41 AM [facility] MCHC 31.4(L) 32.0 - 37.0 g/dL LAB HEMETOLOGY METHOD 08/02/2025 11:41 AM [facility] RDW 15.5(H) 11.0 - 15.0 % LAB HEMETOLOGY METHOD 08/02/2025 11:41 AM [facility] Platelets 323 130 - 400 K/mcL LAB HEMETOLOGY METHOD 08/02/2025 11:41 AM [facility] MPV 10.3 7.0 - 11.0 FL LAB HEMETOLOGY METHOD 08/02/2025 11:41 AM [facility] NRBC 0.0 <1.0 % LAB HEMETOLOGY METHOD 08/02/2025 11:41 AM EDT [facility] NRBC Absolute 0.00 <0.10 K/mcL LAB HEMETOLOGY METHOD 08/02/2025 11:41 AM EDT [facility] Blood Venous blood specimen / Unknown Venipuncture / Unknown 08/02/2025 5:20 AM EDT 08/02/2025 10:21 AM EDT us Ashley MERIDA LAB BLOOD ORDERABLES Final Resul t [facility] [address] [place] [address], documented in this encounter Visit Diagnoses Diagnosis Encounter for other general examination documented in this encounter Care Teams Roll Inspector Relationship Specialty Start Date End Date Cathryn Clark MD [address] [place] [phone] PCP - General Internal Medicine 07/28/25 documented as of this encounter
--- OUTSIDE RECORDS SUMMARY | 2025-10-13 08:45 | XMS_ITS | Encounter Summary ---
Author Organization [facility] Address [address] [place] [address] Care Team Providers Care Patient Care Manager Name Role Phone Cathryn Clark MD Primary Care Provider [phone] Encounter Details Date Type Department Care Team (Late st Contact Info) Description 08/01/2025 Lab Requisition [facility] - Main Lab [address] [facility] [employer] [place] [address] Ashley Hebert PA [address] [place] [address] Encounter for other general examination [...] LAB MICROBIOLOGY METHOD 08/06/2025 11:01 AM EDT [facility] Blood Venipuncture / Unknown 08/01/2025 6:18 AM EDT 08/01/2025 8:40 AM EDT Ashley MERIDA LAB MICROBIOLOGY - GENERAL ORDER VALENTÍN Final Result Performing Organization Address City/[facility]/ZIP Co de Phone Number [facility] [address] [place] [address], [place] [phone] * Culture blood (08/01/2025 6:14 AM EDT) Culture, Blood No growth at 5 days LAB MICROBIOLOGY METHOD 08/06/2025 11:01 AM EDT [facility] Blood Venipuncture / Unknown 08/01/2025 6:14 AM EDT 08/01/2025 8:40 AM EDT Ashley MERIDA LAB MICROBIOLOGY - GENERAL ORDER VALENTÍN Final Result Performing Organization Address City/[facility] Co de Phone Number [facility] [address] [place] [address], [place] [phone] documented in this encounter Visit Diagnoses Diagnosis Encounter for other general examination documented in this encounter Care Teams Patient Care Manager Relationship Specialty Start Date End Date Cathryn Clakr MD [address] [place] [address] PCP - General Internal Medicine 07/28/25 documented as of this encounter
--- OUTSIDE RECORDS SUMMARY | 2025-10-13 08:45 | XMS_ITS | Encounter Summary ---
Author Organization [facility] Address [address] [place] [address] Care Team Providers Care Residential Tech Name Role Phone Cathryn Clark MD Primary Care Provider [phone] Encounter Details Date Type Department Care Team (Late st Contact Info) Description 08/03/2025 Lab Requisition [facility] - Main Lab [address] [facility] [place] [address] Linda Millard MD [address] [place] [address] Other mcfp (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 Social History Tobacco Use [...] DIFFERENTIAL Routine 08/03/2025 5:41 AM EDT Other mcfp (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 CBC AND DIFFERENTIAL Routine 08/03/2025 5:41 AM EDT Other mcfp (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 BASIC METABOLIC PANEL Routine 08/03/2025 5:41 AM EDT Other termite renewal inspector (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 documented in this encounter Results * (ABNORMAL) CBC auto differential (08/03/2025 5:41 AM EDT) WBC 11.1(H) 4.8 - 10.8 K/mcL LAB HEMETOLOGY METHOD 08/03/2025 10:24 AM [facility] LAB RBC 2.90(L) 4.50 - 5.50 M/[facility] LAB HEMETOLOGY METHOD 08/03/2025 10:24 AM [facility] LAB Hemoglobin 8.9(L) 13.5 - 17.5 g/dL LAB HEMETOLOGY METHOD 08/03/2025 10:24 AM [facility] LAB Hematocrit 28.0(L) 42.0 - 54.0 % LAB HEMETOLOGY METHOD 08/03/2025 10:24 AM [facility] LAB MCV 96.9 79.0 - 98.0 FL LAB HEMETOLOGY METHOD 08/03/2025 10:24 AM [facility] LAB MCH 30.8 27.0 - 32.0 pcg LAB HEMETOLOGY METHOD 08/03/2025 10:24 AM [facility] LAB MCHC 31.8(L) 32.0 - 37.0 g/dL LAB HEMETOLOGY METHOD 08/03/2025 10:24 AM [facility] LAB RDW 15.3(H) 11.0 - 15.0 % LAB HEMETOLOGY METHOD 08/03/2025 10:24 AM [facility] LAB Platelets 329 130 - 400 K/[facility] LAB HEMETOLOGY METHOD 08/03/2025 10:24 AM [facility] LAB MPV 9.8 7.0 - 11.0 FL LAB HEMETOLOGY METHOD 08/03/2025 10:24 AM [facility] LAB NRBC 0.0 <1.0 % LAB HEMETOLOGY METHOD 08/03/2025 10:24 AM [facility] LAB NRBC Absolute 0.00 <0.10 K/[facility] LAB HEMETOLOGY METHOD 08/03/2025 10:24 AM [facility] LAB Neutrophils Relative 72.3 % LAB HEMETOLOGY METHOD 08/03/2025 10:24 AM [facility] LAB Lymphocytes Relative 12.9 % LAB HEMETOLOGY METHOD 08/03/2025 10:24 AM [facility] Monocytes Relative 8.5 % LAB HEMETOLOGY METHOD 08/03/2025 10:24 AM [facility] Eosinophils Relative 3.5 % LAB HEMETOLOGY METHOD 08/03/2025 10:24 AM [facility] Basophils Relative 0.5 % LAB HEMETOLOGY METHOD 08/03/2025 10:24 AM [facility] Immature Granulocytes Relative 2.3 % LAB HEMETOLOGY METHOD 08/03/2025 10:24 AM [facility] LAB Neutrophils Absolute 8.01(H) 1.50 - 7.00 K/mcL LAB HEMETOLOGY METHOD 08/03/2025 10:24 AM [facility] LAB Lymphocytes Absolute 1.43 1.00 - 5.00 K/mcL LAB HEMETOLOGY METHOD 08/03/2025 10:24 AM [facility] LAB Monocytes Absolute 0.94 0.20 - 1.00 K/mcL LAB HEMETOLOGY METHOD 08/03/2025 10:24 AM [facility] LAB Eosinophils Absolute 0.39 0.00 - 0.50 K/mcL LAB HEMETOLOGY METHOD 08/03/2025 10:24 AM [facility] Basophils Absolute 0.05 0.00 - 0.20 K/mcL LAB HEMETOLOGY METHOD 08/03/2025 10:24 AM [facility] LAB Immature Granulocytes Absolute 0.25(H) 0.00 - 0.03 K/mcL LAB HEMETOLOGY METHOD 08/03/2025 10:24 AM [facility] Blood Venous blood specimen / Unknown Venipuncture / Unknown 08/03/2025 5:41 AM EDT 08/03/2025 9:50 AM EDT us Linda Millard MD LAB BLOOD ORDERABLES Final Resu lt [facility] [address] [place] [address], * (ABNORMAL) Basic metabolic panel (08/03/2025 5:41 AM EDT) Sodium 137 133 - 145 mmol/L LAB CHEMISTRY METHOD 08/03/2025 11:26 AM [facility] Potassium 4.4 3.5 - 5.5 mmol/L LAB CHEMISTRY METHOD 08/03/2025 11:26 AM [facility] Chloride 108 96 - 110 mmol/L LAB CHEMISTRY METHOD 08/03/2025 11:26 AM [facility] CO2 22 21 - 32 mmol/L LAB CHEMISTRY METHOD 08/03/2025 11:26 AM [facility] Anion Gap 7 3 - 11 LAB CHEMISTRY METHOD 08/03/2025 11:26 AM [facility] Glucose 86 70 - 100 mg/dL LAB CHEMISTRY METHOD 08/03/2025 11:26 AM [facility] BUN 26(H) 5 - 25 mg/dL LAB CHEMISTRY METHOD 08/03/2025 11:26 AM [facility] Creatinine 1.46(H) 0.70 - 1.30 mg/dL LAB CHEMISTRY METHOD 08/03/2025 11:26 AM [facility] LAB eGFR 50(L) >=60 mL/min/1. 73m2 LAB CHEMISTRY METHOD 08/03/2025 11:26 AM [facility] Comment:Calculation based on the Chronic Kidney Disease Epidemiology Collaboration (CKD-EPI) equation refit without adjustment for race. BUN/Creatinine Ratio 17.8 LAB CHEMISTRY METHOD 08/03/2025 11:26 AM EDT [facility] Calcium 8.1(L) 8.5 - 10.5 mg/dL LAB CHEMISTRY METHOD 08/03/2025 11:26 AM EDT [facility] Blood Venous blood specimen / Unknown Venipuncture / Unknown 08/03/2025 5:41 AM EDT 08/03/2025 9:50 AM EDT us Linda Millard MD LAB BLOOD ORDERABLES Final Resu lt [facility]) [facility] [address] [place] [address], documented in this encounter Visit Diagnoses Diagnosis Other mcfp (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 documented in this encounter Care Teams Residential Tech Relationship Specialty Start Date End Date Cathryn Clark MD [address] [place] [address] PCP - General Internal Medicine 07/28/25 documented as of this encounter
--- OUTSIDE RECORDS SUMMARY | 2025-10-13 08:45 | XMS_ITS | Encounter Summary ---
Author Organization [facility] Address [address] [facility] [address] [place] [address] Phone Care Team Providers Care Platen Press Operator Name Role Phone Cathryn Clark MD Primary Care Provider [phone] Pcp, Unknown Unavailable Unavailable Encounter Details Date Type Department Care Team (Late st Contact Info) Description 12/06/2016 Procedure Pass [facility] [address] [place] [address] Social History Tobacco Use Types Packs/Day Years [...] on filedocumented in this encounter Care Teams Platen Press Operator Relationship Specialty Start Date End Date Cathryn Calrk MD [address] [place] [address] PCP - General 07/10/16 Pcp, Unknown 07/10/16 documented as of this encounter Additional Source Comments The information contained in this document represents components of the legal health record. It is not the complete legal health record.[facility]
--- OUTSIDE RECORDS SUMMARY | 2025-10-13 08:45 | XMS_ITS | Encounter Summary ---
Author Organization [facility] Address [address] [place] [address] Care Team Providers Care Collection Agent Name Role Phone Cathryn Clrak MD Primary Care Provider [phone] Encounter Details Date Type Department Care Team (Late st Contact Info) Description 08/09/2025 Lab Requisition [facility] - Main Lab 299 [facility] [employer] [place] [address] Linda Millard MD [address] [place] [address] Encounter for other general examination Social History [...] CBC auto differential (08/09/2025 5:19 AM EDT) [facility] Signature WBC 7.6 4.8 - 10.8 K/mcL LAB HEMETOLOGY METHOD 08/09/2025 9:15 AM [facility] LAB RBC 3.40(L) 4.50 - 5.50 M/mcL LAB HEMETOLOGY METHOD 08/09/2025 9:15 AM [facility] Hemoglobin 10.6(L) 13.5 - 17.5 g/dL LAB HEMETOLOGY METHOD 08/09/2025 9:15 AM [facility] LAB Hematocrit 33.2(L) 42.0 - 54.0 % LAB HEMETOLOGY METHOD 08/09/2025 9:15 AM [facility] LAB MCV 97.4 79.0 - 98.0 FL LAB HEMETOLOGY METHOD 08/09/2025 9:15 AM [facility] LAB MCH 31.1 27.0 - 32.0 pcg LAB HEMETOLOGY METHOD 08/09/2025 9:15 AM [facility] LAB MCHC 31.9(L) 32.0 - 37.0 g/dL LAB HEMETOLOGY METHOD 08/09/2025 9:15 AM [facility] LAB RDW 15.0 11.0 - 15.0 % LAB HEMETOLOGY METHOD 08/09/2025 9:15 AM [facility] LAB Platelets 274 130 - 400 K/mcL LAB HEMETOLOGY METHOD 08/09/2025 9:15 AM [facility] LAB MPV 10.0 7.0 - 11.0 FL LAB HEMETOLOGY METHOD 08/09/2025 9:15 AM [facility] LAB NRBC 0.0 <1.0 % LAB HEMETOLOGY METHOD 08/09/2025 9:15 AM [facility] LAB NRBC Absolute 0.00 <0.10 K/mcL LAB HEMETOLOGY METHOD 08/09/2025 9:15 AM EDT [facility] Neutrophils Relative 67.0 % LAB HEMETOLOGY METHOD 08/09/2025 9:15 AM [facility] Lymphocytes Relative 15.5 % LAB HEMETOLOGY METHOD 08/09/2025 9:15 AM [facility] Monocytes Relative 10.7 % LAB HEMETOLOGY METHOD 08/09/2025 9:15 AM T [facility] Eosinophils Relative 5.4 % LAB HEMETOLOGY METHOD 08/09/2025 9:15 AM [facility] Basophils Relative 0.7 % LAB HEMETOLOGY METHOD 08/09/2025 9:15 AM [facility] Immature Granulocytes Relative 0.7 % LAB HEMETOLOGY METHOD 08/09/2025 9:15 AM [facility] Neutrophils Absolute 5.12 1.50 - 7.00 K/mcL LAB HEMETOLOGY METHOD 08/09/2025 9:15 AM [facility] Lymphocytes Absolute 1.18 1.00 - 5.00 K/mcL LAB HEMETOLOGY METHOD 08/09/2025 9:15 AM [facility] Monocytes Absolute 0.82 0.20 - 1.00 K/mcL LAB HEMETOLOGY METHOD 08/09/2025 9:15 AM [facility] Eosinophils Absolute 0.41 0.00 - 0.50 K/mcL LAB HEMETOLOGY METHOD 08/09/2025 9:15 AM [facility] Basophils Absolute 0.05 0.00 - 0.20 K/mcL LAB HEMETOLOGY METHOD 08/09/2025 9:15 AM [facility] LAB Immature Granulocytes Absolute 0.05(H) 0.00 - 0.03 K/mcL LAB HEMETOLOGY METHOD 08/09/2025 9:15 AM EDT [facility] Blood Venous blood specimen / Unknown Venipuncture / Unknown 08/09/2025 5:19 AM EDT 08/09/2025 8:59 AM EDT us Linda Millard MD LAB BLOOD ORDERABLES Final Resu lt [facility] [address] [place] [address], [place] [phone] * Magnesium (08/09/2025 5:19 AM EDT) Magnesium 2.4 1.9 - 2.6 mg/dL LAB CHEMISTRY METHOD 08/09/2025 9:40 AM EDT [facility] Blood Venous blood specimen / Unknown Venipuncture / Unknown 08/09/2025 5:19 AM EDT 08/09/2025 8:59 AM EDT us Linda Millard MD LAB BLOOD ORDERABLES Final Resu lt Performing Organization Address City/[facility]/ZIP Co de Phone Number [facility] [address] [place] [address], [place] [phone] * (ABNORMAL) Comprehensive metabolic panel (08/09/2025 5:19 AM EDT) Sodium 139 133 - 145 mmol/L LAB CHEMISTRY METHOD 08/09/2025 9:40 AM EDT [facility] Potassium 5.2 3.5 - 5.5 mmol/L LAB CHEMISTRY METHOD 08/09/2025 9:40 AM EDT [facility] Chloride 106 96 - 110 mmol/L LAB CHEMISTRY METHOD 08/09/2025 9:40 AM EDT [facility] CO2 28 21 - 32 mmol/L LAB CHEMISTRY METHOD 08/09/2025 9:40 AM EDT [facility] Anion Gap 5 3 - 11 LAB CHEMISTRY METHOD 08/09/2025 9:40 AM [facility] Glucose 89 70 - 100 mg/dL LAB CHEMISTRY METHOD 08/09/2025 9:40 AM [facility] BUN 22 5 - 25 mg/dL LAB CHEMISTRY METHOD 08/09/2025 9:40 AM [facility] Creatinine 1.52(H) 0.70 - 1.30 mg/dL LAB CHEMISTRY METHOD 08/09/2025 9:40 AM [facility] eGFR 47(L) >=60 mL/min/1. 73m2 LAB CHEMISTRY METHOD 08/09/2025 9:40 AM [facility] Comment:Calculation based on the Chronic Kidney Disease Epidemiology Collaboration (CKD-EPI) equation refit without adjustment for race. BUN/Creatinine Ratio 14.5 LAB CHEMISTRY METHOD 08/09/2025 9:40 AM [facility] Calcium 8.7 8.5 - 10.5 mg/dL LAB CHEMISTRY METHOD 08/09/2025 9:40 AM [facility] AST (SGOT) 23 10 - 42 unit/L LAB CHEMISTRY METHOD 08/09/2025 9:40 AM [facility] ALT (SGPT) 34 10 - 60 unit/L LAB CHEMISTRY METHOD 08/09/2025 9:40 AM [facility] Alkaline Phosphatase 92 42 - 121 unit/L LAB CHEMISTRY METHOD 08/09/2025 9:40 AM [facility] Total Protein 5.7(L) 6.0 - 8.0 g/dL LAB CHEMISTRY METHOD 08/09/2025 9:40 AM [facility] Albumin 2.9(L) 3.2 - 5.0 g/dL LAB CHEMISTRY METHOD 08/09/2025 9:40 AM [facility] Total Bilirubin 0.7 0.0 - 1.4 mg/dL LAB CHEMISTRY METHOD 08/09/2025 9:40 AM EDT [facility] Blood Venous blood specimen / Unknown Venipuncture / Unknown 08/09/2025 5:19 AM EDT 08/09/2025 8:59 AM EDT us Linda Millard MD LAB BLOOD ORDERABLES Final Resu lt [facility] [address] [place] [address], documented in this encounter Visit Diagnoses Diagnosis Encounter for other general examination documented in this encounter Care Teams Collection Agent Relationship Specialty Start Date End Date Cathryn Clark MD [address] [place] [address] PCP - General Internal Medicine 07/28/25 documented as of this encounter
--- OUTSIDE RECORDS SUMMARY | 2025-10-13 08:45 | XMS_ITS | Encounter Summary ---
Author Organization [facility] Address [address] [place] [address] Care Team Providers Care Gas Engine Repairer Name Role Phone Cathryn Clark MD Primary Care Provider Encounter Details Date Type Department Care Team (Late st Contact Info) Description 07/31/2025 Lab Requisition [facility] - Main Lab [address] [facility] [employer] [address] Ashley Hebert PA [address] [place] [address] Encounter for other general examination [...] Hold for add-ons. 08/01/2025 11:01 AM T [facility] Comment:Auto resulted. Urine Urine specimen obtained by clean catch procedure / Unknown 07/31/2025 10:15 PM EDT 08/01/2025 9:11 AM EDT us Ashley MERIDA LAB URINE ORDERABLES Final Resul t [facility] [address] [place] [address], [place] [phone] * Urinalysis with reflex microscopic and culture (07/31/2025 10:15 PM EDT) [facility] Specific [place] Urine 1.017 1.003 - 1.030 LAB URINALYSIS - AUTOMATED METHOD 08/01/2025 9:30 AM [facility] pH, Urine 6.0 5.0 - 8.0 pH LAB URINALYSIS - AUTOMATED METHOD 08/01/2025 9:30 AM [facility] Leukocytes, Urine Negative Negative LAB URINALYSIS - AUTOMATED METHOD 08/01/2025 9:30 AM [facility] Nitrite, Urine Negative Negative LAB URINALYSIS - AUTOMATED METHOD 08/01/2025 9:30 AM [facility] Protein, Urine Negative <=Trace mg/dL LAB URINALYSIS - AUTOMATED METHOD 08/01/2025 9:30 AM [facility] Glucose, Urine Negative Negative mg/dL LAB URINALYSIS - AUTOMATED METHOD 08/01/2025 9:30 AM [facility] Ketones, Urine Negative Negative mg/dL LAB URINALYSIS - AUTOMATED METHOD 08/01/2025 9:30 AM [facility] Urobilinogen, Urine 0.2 0.2 - 1.0 mg/dL LAB URINALYSIS - AUTOMATED METHOD 08/01/2025 9:30 AM EDT [facility] Bilirubin, Urine Negative Negative LAB URINALYSIS - AUTOMATED METHOD 08/01/2025 9:30 AM EDT [facility] Blood, Urine Negative Negative LAB URINALYSIS - AUTOMATED METHOD 08/01/2025 9:30 AM EDT [facility] Urine Urine specimen obtained by clean catch procedure / Unknown 07/31/2025 10:15 PM EDT 08/01/2025 9:11 AM EDT us Ashley MERIDA LAB URINE ORDERABLES Final Resul t [facility] [address] [place] [address], documented in this encounter Visit Diagnoses Diagnosis Encounter for other general examination documented in this encounter Care Teams Gas Engine Repairer Relationship Specialty Start Date End Date Cathryn Clark MD [address] [place] [address] PCP - General Internal Medicine 07/28/25 documented as of this encounter
--- OUTSIDE RECORDS SUMMARY | 2025-10-13 08:45 | XMS_ITS | Encounter Summary ---
Author Organization [facility] Address [address] [place] [address] Care Team Providers Care Woolen Tester Name Role Phone Cathryn Clark MD Primary Care Provider [phone] Encounter Details Date Type Department Care Team (Late st Contact Info) Description 08/06/2025 Lab Requisition [facility] - Main Lab [address] [facility] [place] [address] Linda Millard MD [address] [place] [address] Other fpc (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 Social History Tobacco Use [...] DIFFERENTIAL Routine 08/06/2025 6:04 AM EDT Other fpc (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 CBC AND DIFFERENTIAL Routine 08/06/2025 6:04 AM EDT Other fpc (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 MAGNESIUM Routine 08/06/2025 6:04 AM EDT Other fpc (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 BASIC METABOLIC PANEL Routine 08/06/2025 6:04 AM EDT 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 documented in this encounter Results * (ABNORMAL) CBC auto differential (08/06/2025 6:04 AM EDT) [facility] WBC 8.5 4.8 - 10.8 K/mcL LAB HEMETOLOGY METHOD 08/06/2025 11:10 AM [facility] RBC 3.00(L) 4.50 - 5.50 M/mcL LAB HEMETOLOGY METHOD 08/06/2025 11:10 AM [facility] LAB Hemoglobin 9.1(L) 13.5 - 17.5 g/dL LAB HEMETOLOGY METHOD 08/06/2025 11:10 AM [facility] LAB Hematocrit 28.2(L) 42.0 - 54.0 % LAB HEMETOLOGY METHOD 08/06/2025 11:10 AM [facility] LAB MCV 95.6 79.0 - 98.0 FL LAB HEMETOLOGY METHOD 08/06/2025 11:10 AM [facility] LAB MCH 30.8 27.0 - 32.0 pcg LAB HEMETOLOGY METHOD 08/06/2025 11:10 AM [facility] LAB MCHC 32.3 32.0 - 37.0 g/dL LAB HEMETOLOGY METHOD 08/06/2025 11:10 AM [facility] LAB RDW 15.1(H) 11.0 - 15.0 % LAB HEMETOLOGY METHOD 08/06/2025 11:10 AM [facility] LAB Platelets 287 130 - 400 K/mcL LAB HEMETOLOGY METHOD 08/06/2025 11:10 AM [facility] LAB MPV 9.9 7.0 - 11.0 FL LAB HEMETOLOGY METHOD 08/06/2025 11:10 AM [facility] LAB NRBC 0.0 <1.0 % LAB HEMETOLOGY METHOD 08/06/2025 11:10 AM [facility] LAB NRBC Absolute 0.00 <0.10 K/mcL LAB HEMETOLOGY METHOD 08/06/2025 11:10 AM T [facility] Neutrophils Relative 73.6 % LAB HEMETOLOGY METHOD 08/06/2025 11:10 AM [facility] Lymphocytes Relative 13.1 % LAB HEMETOLOGY METHOD 08/06/2025 11:10 AM [facility] Monocytes Relative 7.9 % LAB HEMETOLOGY METHOD 08/06/2025 11:10 AM [facility] Eosinophils Relative 3.9 % LAB HEMETOLOGY METHOD 08/06/2025 11:10 AM [facility] Basophils Relative 0.6 % LAB HEMETOLOGY METHOD 08/06/2025 11:10 AM [facility] Immature Granulocytes Relative 0.9 % LAB HEMETOLOGY METHOD 08/06/2025 11:10 AM [facility] LAB Neutrophils Absolute 6.21 1.50 - 7.00 K/mcL LAB HEMETOLOGY METHOD 08/06/2025 11:10 AM [facility] Lymphocytes Absolute 1.11 1.00 - 5.00 K/mcL LAB HEMETOLOGY METHOD 08/06/2025 11:10 AM [facility] Monocytes Absolute 0.67 0.20 - 1.00 K/mcL LAB HEMETOLOGY METHOD 08/06/2025 11:10 AM [facility] LAB Eosinophils Absolute 0.33 0.00 - 0.50 K/mcL LAB HEMETOLOGY METHOD 08/06/2025 11:10 AM [facility] LAB Basophils Absolute 0.05 0.00 - 0.20 K/mcL LAB HEMETOLOGY METHOD 08/06/2025 11:10 AM [facility] LAB Immature Granulocytes Absolute 0.08(H) 0.00 - 0.03 K/mcL LAB HEMETOLOGY METHOD 08/06/2025 11:10 AM EDT [facility] Blood Venous blood specimen / Unknown 08/06/2025 6:04 AM EDT 08/06/2025 10:20 AM EDT Linda Millard MD LAB BLOOD ORDERABLES Final Resu lt Performing Organization Address City/[facility]/ZIP Co de Phone Number [facility] [address] [place] [address], [place] [phone] * Magnesium (08/06/2025 6:04 AM EDT) Pathologist [facility] Magnesium 2.0 1.9 - 2.6 mg/dL LAB CHEMISTRY METHOD 08/06/2025 12:15 PM EDT [facility] Blood Venous blood specimen / Unknown Venipuncture / Unknown 08/06/2025 6:04 AM EDT 08/06/2025 10:20 AM EDT us Linda Millard MD LAB BLOOD ORDERABLES Final Resu lt Performing Organization Address City/[facility]/ZIP Co de Phone Number [facility] [address] [place] [address], [place] [phone] * (ABNORMAL) Basic metabolic panel (08/06/2025 6:04 AM EDT) Pathologist [facility] Sodium 138 133 - 145 mmol/L LAB CHEMISTRY METHOD 08/06/2025 12:15 PM EDT [facility] Potassium 4.2 3.5 - 5.5 mmol/L LAB CHEMISTRY METHOD 08/06/2025 12:15 PM EDT [facility] Chloride 107 96 - 110 mmol/L LAB CHEMISTRY METHOD 08/06/2025 12:15 PM EDT [facility] CO2 21 21 - 32 mmol/L LAB CHEMISTRY METHOD 08/06/2025 12:15 PM EDT [facility] Anion Gap 10 3 - 11 LAB CHEMISTRY METHOD 08/06/2025 12:15 PM EDT [facility] Glucose 89 70 - 100 mg/dL LAB CHEMISTRY METHOD 08/06/2025 12:15 PM T [facility] BUN 24 5 - 25 mg/dL LAB CHEMISTRY METHOD 08/06/2025 12:15 PM [facility] Creatinine 1.30 0.70 - 1.30 mg/dL LAB CHEMISTRY METHOD 08/06/2025 12:15 PM T [facility] eGFR 57(L) >=60 mL/min/1. 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
--- OUTSIDE RECORDS SUMMARY | 2025-10-13 08:45 | XMS_ITS | Encounter Summary ---
Author [facility] Address [address] [place] [address] Care Team Providers Care Geotechnical Engineer Name Role Phone Cathryn Clark MD Primary Care Provider [phone] Encounter Details Date Type Department Care Team (Late st Contact Info) Description 08/10/2025 Lab Requisition [facility] - Main Lab [address] [place] [address] Linda Millard MD [address] [place] [address] Encounter for other general examination Social History [...] LAB CHEMISTRY METHOD 08/10/2025 11:44 AM EDT [facility] Blood Venous blood specimen / Unknown Venipuncture / Unknown 08/10/2025 4:40 AM EDT 08/10/2025 10:36 AM EDT us Linda Millard MD LAB BLOOD ORDERABLES Final Resu lt Performing Organization Address [facility]/ZIP Co de Phone Number [facility] [address] [place] [address], [place] [phone] * (ABNORMAL) B-type natriuretic peptide (08/10/2025 4:40 AM EDT) BNP 486(H) <=100 pcg/mL LAB CHEMISTRY METHOD 08/10/2025 11:44 AM EDT [facility] Blood Venous blood specimen / Unknown Venipuncture / Unknown 08/10/2025 4:40 AM EDT 08/10/2025 10:36 AM EDT us Linda Millard MD LAB BLOOD ORDERABLES Final Resu lt Performing Organization Address [facility]/ZIP Co de Phone Number [facility] [address] [place] [address], [place] [phone] documented in this encounter Visit Diagnoses Diagnosis Encounter for other general examination documented in this encounter Care Teams Geotechnical Engineer Relationship Specialty Start Date End Date Cathryn Clark MD [address] [place] [address] PCP - General Internal Medicine 07/28/25 documented as of this encounter
--- OUTSIDE RECORDS SUMMARY | 2025-10-13 08:45 | XMS_ITS | Patient Health Record ---
Author Organization [facility] Address [address] [place] [address] Care Team Providers Care Reading Aide Name Role Phone Cathryn Clark MD Primary Care Provider Drew Marley Jr [phone] Allergies No Known Allergies Reason For Referral No Information Medications Medication SIG (Take, Route, Frequency, Duration) Notes Start Date End Date Status PriLOSEC Active MiraLax (colon prep) 17 GM/SCOOP Powder mixed with Gatorade or Crystal Light Orally begin at 5:00 p.m. 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 Problems Problem Type SNOMED Code ICD Code Onset Dates Problem Status W/U Status Risk Notes Problem Colon cancer screening (872608487) Colon cancer screening (Z12.11) Active confirmed Problem Rectal bleeding (79337659) Rectal bleeding (K62.5) Active confirmed Problem Gastroesophageal reflux disease without esophagitis (991674196) Gastroesophageal reflux disease without esophagitis (K21.9) Active confirmed Problem Long-term current use of drug therapy (381345277) Long-term current use of high risk medication other than anticoagulant (Z79.899) Active confirmed Problem Elevated liver enzymes level (688390067) Elevated liver function tests (R94.5) Active confirmed Plan Of Treatment Future Test Test Name Order Date COLONOSCOPY 05/07/2012 UPPER GI ENDOSCOPY 08/30/2016 COLONOSCOPY 08/30/2016 COLONOSCOPY 04/18/2022 Insurance Providers Payer Name Payer Address Payer Phone Subscriber Number Group Number Insured Name Patient Relationship to Insured Coverage Start Date Coverage End Date MEDICARE OF [place] [address] [place] [address] [id number] [employer] Self - patient is the insured [employer] CLAIMS [address] [place] [phone] [id number] [employer] Self - patient is the insured Medical (General) History Medical History History ICD Code Colonoscopy 04/05/17, diverti culosis and internal hemorrhoids, five-year followup because a personal history of tubular adenomas. Gastroesophageal reflux disease Environmental allergies hypertension Aortic insufficiency, mild Surgical History Surgery Date(Month/Year) tonsillectomy testicular surgery hernia repair Knee arthroscopy knee replacement, right
[2025-10-13 09:00] LABS: MANUAL DIFF FLAG NO
[2025-10-13 09:30] LABS: Hematocrit 46.5 % (42.0-52.0); Hemoglobin 15.5 g/dl (14.0-18.0); Imm Gran Abs Auto 0.02 X10*3/uL (0.00-0.03); Imm Gran Pct Auto 0.4 % (0.0-0.4); Lymphocytes Absolute Auto 1.8 X10*3/uL (1.2-4.9); Mean Corpuscular HGB Conc 33.3 g/dl (31.0-36.0); Mean Corpuscular Hemoglobin 30.6 pg (27.0-33.0); Mean Corpuscular Volume 91.9 fL (80.0-98.0); NRBC Abs Auto 0.000 X10*3/uL (0.0-0.012); NRBC Pct Auto 0.0 /100WBC (0.0-0.2); Platelet Count 153 X10*3/uL (160-400); Red Blood Count 5.06 X10*6/uL (4.60-5.80); White Blood Count 5.7 X10*3/uL (4.8-10.8)
[2025-10-13 09:37] LABS: Hemoglobin A1C 126.9453 umol/L
[2025-10-13 09:53] LABS: Alanine Aminotransferase 22 U/L (0-40); Albumin Level 4.1 g/dL (3.5-5.0); Alkaline Phosphatase 72 U/L (39-117); Anion Gap 12 (12-20); Aspartate Amino Transferase 26 U/L (5-37); Blood Urea Nitrogen 26 mg/dL (9-16); Calcium 8.7 mg/dL (8.4-10.2); Carbon Dioxide 22 mmol/L (22-29); Chloride 110 mmol/L (96-108); Cholesterol 215 mg/dL (<200); Estimated Glomerular Filt Rate 45; HDL Cholesterol 37 mg/dL (>40); Magnesium 2.3 mg/dL (1.6-2.6); Potassium 4.6 mmol/L (3.3-5.1); Sodium 139 mmol/L (135-145); Total Protein 7.0 g/dL (6.5-8.0); Triglycerides 147 mg/dL (<150)
[2025-10-13 09:55] LABS: NT Pro B Type Natriuretic Pept 661.5 pg/mL (<300)
[2025-10-13 10:03] LABS: HBS Num1 1.39 mIU/mL (0-7.99); HBc Num1 0.05 S/CO (0.00-0.79); HBsAGNum1 0.43 S/CO (0.00-0.99); Hepatitis B Surface Antigen Negative (Negative); ~HepC Num1 0.09 S/CO (0.00-0.79); ~Hepatitis B Surface Antibody NONREACTIVE (Nonreactive); ~Hepatitis C Antibody Nonreactive (Nonreactive)
[2025-10-13 10:11] LABS: Free T4 (Free Thyroxine) 0.99 ng/dL (0.71-1.85); Thyroid Stimulating Hormone 2.68 uIU/mL (0.32-4.0)
[2025-10-13 10:24] LABS: Folate 10.4 ng/mL (> or = 4.0); Vitamin B12 282 pg/mL (200-900)
[2025-10-13 10:35] LABS: Appearance Urine Clear; Glucose Urine UA >=1000 mg/dL (Negative); PH 5.5 (5.0-9.0); Specific Gravity - Urine 1.015 (1.005-1.025); UMIC TRIGGER UACC YES
== END 2025-10-13 08:42 | disposition home or self-care (01) ==
LOC: HO.LAB 08:41
PROVIDERS: PCP Internal Medicine; Visit Provider Internal Medicine
DX: I25.10 Atherosclerotic heart disease of native coronary artery without angina pectoris (principal); K21.9 Gastro-esophageal reflux disease without esophagitis; E78.00 Pure hypercholesterolemia, unspecified; R73.02 Impaired glucose tolerance (oral); R79.89 Other specified abnormal findings of blood chemistry; Z12.5 Encounter for screening for malignant neoplasm of prostate
CPT/HCPCS: 36415; 80053; 80061; 81001; 81003; 82607; 82746; 83036; 83735; 83880; 84153; 84439; 84443; 85025; 86704; 86706; 86803; 87340